=== PATIENT | male | born 1945 | race Caucasian/White ===

== ENCOUNTER 2022-05-25 12:26 | Observation (INO) | payer OTHER, SELFPAY ==
--- NOTE | ~2022-05-25 | XR_ITS ---
EXAMINATION: XR CHEST CLINICAL INFORMATION: Shortness of breath COMPARISON: None TECHNIQUE: Frontal view of the chest was obtained. FINDINGS: Lungs grossly are clear. Heart and pulmonary vessels are normal. XR/XR chest 1V IMPRESSION: No active disease. No congestive change.
--- NOTE | 2022-05-25 12:33 | ECG_ITS ---
Test Reason : SOB Blood Pressure : / mmHG Vent. Rate : 077 BPM Atrial Rate : 077 BPM P-R Int : 146 ms QRS Dur : 144 ms QT Int : 456 ms P-R-T Axes : 081 016 068 degrees QTc Int : 516 ms Sinus rhythm with occasional Premature ventricular complexes Right bundle branch block Abnormal ECG When compared with ECG of 03-APR-2020 13:19, Previous ECG has undetermined rhythm, needs review T wave inversion more evident in Anterior leads Referred By: Umu Lorenzana Electronically Signed By:Marv Marlow
[2022-05-25 12:37] VITALS: BP 123/79; BP 126/70; PULSE 77; RESP 22; TEMP 36.6; O2SAT 100; O2SAT 97; BMI 22.8
--- NOTE | 2022-05-25 12:43 | ED.SOB ---
HPI - SOB/Dyspnea General Chief Complaint: Dyspnea Stated Complaint: DIFFICULT BREATHING Time Seen by Provider: 05/25/22 12:32 Source: patient and EMS Mode of arrival: EMS Limitations: no limitations History of Present Illness HPI Narrative: 77-year-old male came in for evaluation of shortness of breath. 77-year-old male former smoker history of COPD use home oxygen 2 L, been having shortness of breath for the past 2 days with coughing and clear sputum, no fever or chills, 3 family member had flu-like symptoms at home, O2 saturation was 74% with 2 L of oxygen at home. On EMS arrival patient severe expiratory wheezing and mild respiratory distress, patient was given DuoNeb at home with mild improvement and transported to the emergency department. In the ED patient is complaining of mild shortness of breath and severe wheezing. Related Data Allergies Allergy/AdvReac Type Severity Reaction Status Date / Time Penicillins [PENICILLINS] Allergy Unknown VOMITTING Unverified 08/07/20 15:37 Review of Systems Review of Systems: All other systems are reviewed and are negative Constitutional: Reports as per HPI and Reports no additional constitutional complaints Eyes: Reports as per HPI and Reports no additional eye complaints Reports system reviewed and no additional complaints, except as documented Cardiovascular: Reports as per HPI and Reports no additional cardiovascular complaints Respiratory: Reports as per HPI and Reports no additional respiratory complaints Gastrointestinal: Reports as per HPI and Reports no additional gastrointestinal complaints Genitourinary: Reports no additional female genitourinary complaints Musculoskeletal: Reports no additional musculoskeletal complaints Skin/Breast: Reports system reviewed and no additional complaints, except as docu Psychiatric: Reports no additional psychiatric complaints Endocrine: Reports no additional endocrine complaints Hematologic/Lymphatic: Reports no additional hematologic/lymphatic complaints Allergic/Immunologic: Reports no additional allergic/immunologic complaints Reports system reviewed and no additional complaints, except as documented and Reports Abnormal speech present [facility] Social History Social History Advance Directives: No Advance Directives Information Provided: No Physical Exam Vital Signs: Vital Signs: Last Vital Signs Temp 98 F 05/25/22 12:37 Pulse 74 05/25/22 14:14 Resp 12 05/25/22 14:14 BP 123/68 05/25/22 14:14 Pulse Ox 97 05/25/22 14:14 O2 Del Method 05/25/22 14:14 BMI result Body Mass Index 22.8 Vital signs have been reviewed as appeared to be correct. Blood pressure normal. Heart rate normal. Respiration rate normal. Temperature normal. Oxygen saturation normal. Appearance: Alert. Oriented X3. No acute distress. Head: Normal external exam. Normocephalic. Atraumatic. No Ferraro signs noted. No raccoon eyes noted Eyes: PERRLA. EOMI. Conjunctiva and sclera normal. Eyelids normal. ENT: TM's Normal. Pharynx normal. Uvula midline. Moist mucous membranes. No trismus noted. No drooling noted. No muffled voice noted. Neck: Normal inspection. Neck supple. FROM. No adenopathy. Thyroid Normal. No meningeal signs. No neck mass noted. CVS: Normal heart rate and rhythm. Heart sound normal. No murmurs noted. Pulses normal throughout. Respiratory: No respiratory distress. Painless inspiration. Breath sounds normal. Mild expiratory wheezing, prolonged expiration. Chest nontender. No accessory muscle usage noted or decreased air movement noted. Abdomen: Soft and nontender. Bowel sounds normal in all 4 quadrants. No distention noted. No organomegaly noted. No visible injury noted. Back: No CVA tenderness. Full range of motion noted. Skin: Skin warm and dry. Normal skin color. Normal skin turgor. No rashes/lesions/lacerations noted. Extremities: No lower extremity edema. Extremities exhibit normal range of motion. Extremities nontender. Neuro: Oriented X 3. Cranial nerve exam: II-XII are grossly intact No motor deficit. No sensory deficit. Reflexes normal. Course Course Course Narrative: Assessment and plan. 77-year-old male with history of COPD came in with COPD exacerbation patient was hypoxic at home at 74%, patient require our long of bronchodilator, magnesium, Solu-Medrol, patient is showing partial improvement. Patient do not meet criteria for SIRS therefore no antibiotic indication. MDM - SOB/Dyspnea Medical Records Attestation: I reviewed the patient's medical records. Lab Data Attestation: I reviewed the patient's lab results. Result diagrams: 05/25/22 13:41 05/25/22 13:41 Labs: Lab Results 05/25/22 05/25/22 05/25/22 Range/Units 13:36 13:41 13:41 WBC 6.5 (4.8-10.8) X10*3/uL RBC 4.04 L (4.60-5.80) X10*6/uL Hgb 12.4 L (14.0-18.0) g/dl Hct 39.1 L (42.0-52.0) % MCV 96.8 (80.0-98.0) fL MCH 30.7 (27.0-33.0) pg MCHC 31.7 (31.0-36.0) g/dl RDW 13.2 (11.0-16.0) % Plt Count 254 (160-400) X10*3/uL MPV 9.3 L (9.4-12.4) fL Immature Gran % (Auto) 0.3 (0.0-0.4) % Neut % (Auto) 51.0 (45-73) % Lymph % (Auto) 33.5 (20-40) % [place] % (Auto) 9.2 (2-11) % Eos % (Auto) 5.4 H (0-4) % Baso % (Auto) 0.6 (0-2) % Lymph # (Auto) 2.2 (1.2-4.9) X10*3/uL [place] # (Auto) 0.6 (0.1-1.2) X10*3/uL Eos # (Auto) 0.4 (0.0-0.4) X10*3/uL Baso # (Auto) 0.0 (0.0-0.2) X10*3/uL Abs Immat Gran (auto) 0.02 (0.00-0.03) X10*3/uL Absolute Neuts (auto) 3.3 (2.0-8.3) x10*3/uL Absolute Nucleated RBC 0.000 (0.0-0.012) X10*3/uL Nucleated RBC % (auto) 0.0 (0.0-0.2) /100WBC Sodium 140 (135-145) mmol/L Potassium 4.4 (3.3-5.1) mmol/L Chloride 106 (96-108) mmol/L Carbon Dioxide 28 (22-29) mmol/L Anion Gap 10 L (12-20) BUN 16 (9-16) mg/dL Creatinine 1.14 (0.5-1.4) mg/dL Estim Creat Clear Calc 54.0 Estimated GFR > 60 Random Glucose 85 (60-115) mg/dL Lactic Acid (0.5-2.0) mmol/L Calcium 9.0 (8.4-10.2) mg/dL Magnesium (1.6-2.6) mg/dL Troponin I High Sens (<3.5-35.0) ng/L B-Natriuretic Peptide (<100) pg/mL Lipase 14 (8-78) U/L Urine Color Urine Appearance Urine pH (5.0-8.0) Ur Specific [place] (1.005-1.025) Urine Protein (NEG-TRACE) MG/DL Urine Glucose (UA) (NEG) MG/DL Urine Ketones (NEG) MG/DL Urine Blood (NEG) Urine Nitrite (NEG) Ur Leukocyte Esterase (NEG) Urine RBC (0) /HPF Urine WBC (0-4) /HPF Ur Squamous Epith Cells /LPF Urine Bacteria /LPF Influenza Type A (PCR) NEGATIVE (Negative) Influenza Type B (PCR) NEGATIVE (Negative) RSV RNA Qual (PCR) NEGATIVE (Negative) SARS-CoV-2 RNA (RT-PCR) NEGATIVE (Negative) 05/25/22 05/25/22 05/25/22 Range/Units 13:41 13:41 13:41 WBC (4.8-10.8) X10*3/uL RBC (4.60-5.80) X10*6/uL Hgb (14.0-18.0) g/dl Hct (42.0-52.0) % MCV (80.0-98.0) fL MCH (27.0-33.0) pg MCHC (31.0-36.0) g/dl RDW (11.0-16.0) % Plt Count (160-400) X10*3/uL MPV (9.4-12.4) fL Immature Gran % (Auto) (0.0-0.4) % Neut % (Auto) (45-73) % Lymph % (Auto) (20-40) % [place] % (Auto) (2-11) % Eos % (Auto) (0-4) % Baso % (Auto) (0-2) % Lymph # (Auto) (1.2-4.9) X10*3/uL [place] # (Auto) (0.1-1.2) X10*3/uL Eos # (Auto) (0.0-0.4) X10*3/uL Baso # (Auto) (0.0-0.2) X10*3/uL Abs Immat Gran (auto) (0.00-0.03) X10*3/uL Absolute Neuts (auto) (2.0-8.3) x10*3/uL Absolute Nucleated RBC (0.0-0.012) X10*3/uL Nucleated RBC % (auto) (0.0-0.2) /100WBC Sodium (135-145) mmol/L Potassium (3.3-5.1) mmol/L Chloride (96-108) mmol/L Carbon Dioxide (22-29) mmol/L Anion Gap (12-20) BUN (9-16) mg/dL Creatinine (0.5-1.4) mg/dL Estim Creat Clear Calc Estimated GFR Random Glucose (60-115) mg/dL Lactic Acid 1.7 (0.5-2.0) mmol/L Calcium (8.4-10.2) mg/dL Magnesium 2.2 (1.6-2.6) mg/dL Troponin I High Sens 3.6 (<3.5-35.0) ng/L B-Natriuretic Peptide 84 (<100) pg/mL Lipase (8-78) U/L Urine Color Urine Appearance Urine pH (5.0-8.0) Ur Specific [place] (1.005-1.025) Urine Protein (NEG-TRACE) MG/DL Urine Glucose (UA) (NEG) MG/DL Urine Ketones (NEG) MG/DL Urine Blood (NEG) Urine Nitrite (NEG) Ur Leukocyte Esterase (NEG) Urine RBC (0) /HPF Urine WBC (0-4) /HPF Ur Squamous Epith Cells /LPF Urine Bacteria /LPF Influenza Type A (PCR) (Negative) Influenza Type B (PCR) (Negative) RSV RNA Qual (PCR) (Negative) SARS-CoV-2 RNA (RT-PCR) (Negative) 05/25/22 Range/Units 14:15 WBC (4.8-10.8) X10*3/uL RBC (4.60-5.80) X10*6/uL Hgb (14.0-18.0) g/dl Hct (42.0-52.0) % MCV (80.0-98.0) fL MCH (27.0-33.0) pg MCHC (31.0-36.0) g/dl RDW (11.0-16.0) % Plt Count (160-400) X10*3/uL MPV (9.4-12.4) fL Immature Gran % (Auto) (0.0-0.4) % Neut % (Auto) (45-73) % Lymph % (Auto) (20-40) % [place] % (Auto) (2-11) % Eos % (Auto) (0-4) % Baso % (Auto) (0-2) % Lymph # (Auto) (1.2-4.9) X10*3/uL [place] # (Auto) (0.1-1.2) X10*3/uL Eos # (Auto) (0.0-0.4) X10*3/uL Baso # (Auto) (0.0-0.2) X10*3/uL Abs Immat Gran (auto) (0.00-0.03) X10*3/uL Absolute Neuts (auto) (2.0-8.3) x10*3/uL Absolute Nucleated RBC (0.0-0.012) X10*3/uL Nucleated RBC % (auto) (0.0-0.2) /100WBC Sodium (135-145) mmol/L Potassium (3.3-5.1) mmol/L Chloride (96-108) mmol/L Carbon Dioxide (22-29) mmol/L Anion Gap (12-20) BUN (9-16) mg/dL Creatinine (0.5-1.4) mg/dL Estim Creat Clear Calc Estimated GFR Random Glucose (60-115) mg/dL Lactic Acid (0.5-2.0) mmol/L Calcium (8.4-10.2) mg/dL Magnesium (1.6-2.6) mg/dL Troponin I High Sens (<3.5-35.0) ng/L B-Natriuretic Peptide (<100) pg/mL Lipase (8-78) U/L Urine Color YELLOW Urine Appearance CLEAR Urine pH 6.0 (5.0-8.0) Ur Specific [place] 1.020 (1.005-1.025) Urine Protein NEG (NEG-TRACE) MG/DL Urine Glucose (UA) NEG (NEG) MG/DL Urine Ketones NEG (NEG) MG/DL Urine Blood 2+ H (NEG) Urine Nitrite NEG (NEG) Ur Leukocyte Esterase NEG (NEG) Urine RBC 15-29 H (0) /HPF Urine WBC 0 (0-4) /HPF Ur Squamous Epith Cells NONE /LPF Urine Bacteria NONE /LPF Influenza Type A (PCR) (Negative) Influenza Type B (PCR) (Negative) RSV RNA Qual (PCR) (Negative) SARS-CoV-2 RNA (RT-PCR) (Negative) Imaging Data Chest x-ray: Attestation: I personally reviewed and interpreted this imaging study as follows: Radiologist's impression: No acute disease no congestive changes. Discharge Plan Discharge Clinical Impression: Acute exacerbation of chronic obstructive airways disease Patient Disposition: Admitted As Inpatient
[2022-05-25] MEDS: Albuterol/Iprat 2.5/0.5MG 3 ML AMPUL.NEB INHALE (12:51)
[2022-05-25] MEDS: Albuterol Sulfate (0.083%) 2.5 MG/3 ML VIAL.NEB 7.5 MG INHALE (12:51)
[2022-05-25 12:55] VITALS: PULSE 76; RESP 17; O2SAT 97
[2022-05-25] MEDS: methylPREDNISolone Sod Succ 125 MG/2 ML VIAL IVPUSH (13:04)
[2022-05-25 13:45] VITALS: BP 121/80; PULSE 75; RESP 12; O2SAT 98
[2022-05-25 13:47] LABS: MANUAL DIFF FLAG NO
[2022-05-25 14:01] LABS: Basophils Percent Auto 0.6 % (0-2); Eosinophils Absolute Auto 0.4 X10*3/uL (0.0-0.4); Eosinophils Percent Auto 5.4 % (0-4); Hematocrit 39.1 % (42.0-52.0); Hemoglobin 12.4 g/dl (14.0-18.0); Imm Gran Abs Auto 0.02 X10*3/uL (0.00-0.03); Imm Gran Pct Auto 0.3 % (0.0-0.4); Lymphocytes Absolute Auto 2.2 X10*3/uL (1.2-4.9); Lymphocytes Percent Auto 33.5 % (20-40); Mean Corpuscular HGB Conc 31.7 g/dl (31.0-36.0); Mean Corpuscular Hemoglobin 30.7 pg (27.0-33.0); Mean Corpuscular Volume 96.8 fL (80.0-98.0); Mean Platelet Volume 9.3 fL (9.4-12.4); Monocytes Absolute Auto 0.6 X10*3/uL (0.1-1.2); Monocytes Percent Auto 9.2 % (2-11); Neutrophils Absolute Auto 3.3 x10*3/uL (2.0-8.3); Platelet Count 254 X10*3/uL (160-400); Red Blood Count 4.04 X10*6/uL (4.60-5.80); Red Cell Distribution Width 13.2 % (11.0-16.0); White Blood Count 6.5 X10*3/uL (4.8-10.8)
[2022-05-25 14:02] LABS: Lactic Acid 1.7 mmol/L (0.5-2.0)
[2022-05-25 14:07] LABS: Anion Gap 10 (12-20); Blood Urea Nitrogen 16 mg/dL (9-16); Carbon Dioxide 28 mmol/L (22-29); Chloride 106 mmol/L (96-108); Estimated Glomerular Filt Rate > 60; Glucose Random 85 mg/dL (60-115); Lipase 14 U/L (8-78); Potassium 4.4 mmol/L (3.3-5.1); Sodium 140 mmol/L (135-145)
[2022-05-25 14:08] LABS: Magnesium 2.2 mg/dL (1.6-2.6)
[2022-05-25 14:11] LABS: B Type Natriuretic Peptide 84 pg/mL (<100); Troponin-I High Sensitivity 3.6 ng/L (<3.5-35.0)
[2022-05-25 14:14] VITALS: BP 123/68; PULSE 74; RESP 12; O2SAT 97
[2022-05-25 14:27] LABS: Appearance Urine CLEAR; Color Urine YELLOW; Glucose Urine UA NEG (NEG); Leukocyte Esterase Urine NEG (NEG); Nitrite Urine NEG (NEG); UACC Culture Trigger NO; Urine Blood 2+ (NEG); Urine Ketones NEG (NEG); Urine Protein NEG (NEG-TRACE)
[2022-05-25 14:41] LABS: Influenza A PCR NEGATIVE (Negative); Influenza B PCR NEGATIVE (Negative); Resp Syncy Virus RNA Qual PCR NEGATIVE (Negative); SARS COV2 PCR INHOUSE NEGATIVE (Negative)
[2022-05-25 14:56] LABS: WBC Urine 0 /HPF (0-4)
--- NOTE | 2022-05-25 16:38 | P.HPHOSP_ITS ---
History of Present Illness Date of Service: 05/25/22 Chief Complaint: SOB This 77-year-old man presenting with shortness of breath over last several days. He reports cough with white phlegm. He denies cigarette use. He does have a history of COPD. He denies chest pain, nausea, vomiting, diarrhea, recent illness, sick contacts, recent travel. Chest x-ray is negative for consolidation or effusion. In the ER no elevated white count or fever noted, negative RSV, flu and COVID. No hypoxia noted, hemodynamically stable. He was given a dose of Solu-Medrol, DuoNebs in the ER. He will be admitted to [facility] for further management and treatment of acute asthma exacerbation. Review of Systems Review of Systems: Denies any recent fever chills or decrease in appetite respiratory see HPI cardiovascular Denies chest pain gastrointestinal denies any dysphagia abdominal pain nausea vomiting or diarrhea genitourinary denies any dysuria frequency or hematuria musculoskeletal denies any joint pain or swelling neuropsych denies any weakness or seizures all other systems reviewed are negative PMFSH Social History Patient Tobacco Use Status: Former Tobacco user service: Yes Current occupational status: retired [employer] Allergies Allergy/AdvReac Type Severity Reaction Status Date / Time Penicillins [PENICILLINS] Allergy Unknown VOMITTING Unverified 08/07/20 15:37 Home Medications Medication Instructions Recorded Confirmed Last Taken Type acetaminophen 500 mg tablet 500 mg PO BID PRN Pain 05/25/22 05/25/22 Unknown History budesonide-formoterol HFA 160 2 puff inhalation BID 05/25/22 05/25/22 Unknown History mcg-4.5 mcg/actuation aerosol inhaler guaifenesin 600 mg tablet,extended 600 mg PO TID PRN Cough 05/25/22 05/25/22 Unknown History release ipratropium 0.5 mg-albuterol 3 mg 3 ml inhalation QID 05/25/22 05/25/22 Unknown History (2.5 mg base)/3 mL nebulization soln lidocaine 5 % topical patch 1 patch topical DAILY 05/25/22 05/25/22 Unknown History nicotine 21 mg/24 hr daily 1 patch transdermal DAILY 05/25/22 05/25/22 Unknown History transdermal patch omeprazole 20 mg capsule,delayed 20 mg PO BID@0630,1630 05/25/22 05/26/22 Unknown History release trazodone 50 mg tablet 25 mg PO BEDTIME PRN Insomnia 05/25/22 05/25/22 Unknown History umeclidinium 62.5 mcg/actuation 1 inh inhalation DAILY 05/25/22 05/25/22 Unknown History blister powder for inhalation albuterol sulfate 90 mcg/actuation 1 inh inhalation QID PRN Wheezing 05/26/22 05/26/22 Unknown History aerosol inhaler amitriptyline 10 mg tablet 20 mg PO BEDTIME 05/26/22 05/26/22 Unknown History atorvastatin 40 mg tablet 40 mg PO BEDTIME 05/26/22 05/26/22 Unknown History azithromycin 250 mg tablet 250 mg PO MOWEFR@0900 05/26/22 05/26/22 Unknown History multivitamin with minerals 1 tab PO DAILY 05/26/22 05/26/22 Unknown History verapamil 80 mg tablet 80 mg PO BID 05/26/22 05/26/22 Unknown History Physical Exam Vital Signs and Narrative: Vital Signs: Last Vital Signs Temp 98 F 05/25/22 12:37 Pulse 74 05/25/22 14:14 Resp 12 05/25/22 14:14 BP 123/68 05/25/22 14:14 Pulse Ox 97 05/25/22 14:14 O2 Del Method 05/25/22 14:14 BMI result Body Mass Index 22.8 Appearing in no acute distress head is normocephalic atraumatic eyes pupils are PERRLA sclera is anicteric mouth throat mucous membranes are intact and moist neck is supple no lymphadenopathy, no JVD noted lung sounds expiratory wheezes heart regular rate rhythm, clear S1, S2 positive bowel sounds, abdomen is soft, nontender neuro patient is alert x3, no focal deficits Results Labs CBC and Chem 7: 05/28/22 06:59 05/28/22 06:59 Labs: Laboratory Results - last 24 hr 05/25/22 05/25/22 05/25/22 13:36 13:41 13:41 MCV 96.8 MCH 30.7 MCHC 31.7 RDW 13.2 Plt Count 254 MPV 9.3 L Immature Gran % (Auto) 0.3 Neut % (Auto) 51.0 Lymph % (Auto) 33.5 [place] % (Auto) 9.2 Eos % (Auto) 5.4 H Baso % (Auto) 0.6 Lymph # (Auto) 2.2 [place] # (Auto) 0.6 Eos # (Auto) 0.4 Baso # (Auto) 0.0 Abs Immat Gran (auto) 0.02 Absolute Neuts (auto) 3.3 Absolute Nucleated RBC 0.000 Nucleated RBC % (auto) 0.0 Anion Gap 10 L Estim Creat Clear Calc 54.0 Estimated GFR > 60 Random Glucose 85 Lactic Acid Calcium 9.0 Magnesium Troponin I High Sens B-Natriuretic Peptide Lipase 14 Urine Color Urine Appearance Urine pH Ur Specific [place] Urine Protein Urine Glucose (UA) Urine Ketones Urine Blood Urine Nitrite Ur Leukocyte Esterase Urine RBC Urine WBC Ur Squamous Epith Cells Urine Bacteria Influenza Type A (PCR) NEGATIVE Influenza Type B (PCR) NEGATIVE RSV RNA Qual (PCR) NEGATIVE SARS-CoV-2 RNA (RT-PCR) NEGATIVE 05/25/22 05/25/22 05/25/22 13:41 13:41 13:41 MCV MCH MCHC RDW Plt Count MPV Immature Gran % (Auto) Neut % (Auto) Lymph % (Auto) [place] % (Auto) Eos % (Auto) Baso % (Auto) Lymph # (Auto) [place] # (Auto) Eos # (Auto) Baso # (Auto) Abs Immat Gran (auto) Absolute Neuts (auto) Absolute Nucleated RBC Nucleated RBC % (auto) Anion Gap Estim Creat Clear Calc Estimated GFR Random Glucose Lactic Acid 1.7 Calcium Magnesium 2.2 Troponin I High Sens 3.6 B-Natriuretic Peptide 84 Lipase Urine Color Urine Appearance Urine pH Ur Specific [place] Urine Protein Urine Glucose (UA) Urine Ketones Urine Blood Urine Nitrite Ur Leukocyte Esterase Urine RBC Urine WBC Ur Squamous Epith Cells Urine Bacteria Influenza Type A (PCR) Influenza Type B (PCR) RSV RNA Qual (PCR) SARS-CoV-2 RNA (RT-PCR) 05/25/22 14:15 MCV MCH MCHC RDW Plt Count MPV Immature Gran % (Auto) Neut % (Auto) Lymph % (Auto) [place] % (Auto) Eos % (Auto) Baso % (Auto) Lymph # (Auto) [place] # (Auto) Eos # (Auto) Baso # (Auto) Abs Immat Gran (auto) Absolute Neuts (auto) Absolute Nucleated RBC Nucleated RBC % (auto) Anion Gap Estim Creat Clear Calc Estimated GFR Random Glucose Lactic Acid Calcium Magnesium Troponin I High Sens B-Natriuretic Peptide Lipase Urine Color YELLOW Urine Appearance CLEAR Urine pH 6.0 Ur Specific [place] 1.020 Urine Protein NEG Urine Glucose (UA) NEG Urine Ketones NEG Urine Blood 2+ H Urine Nitrite NEG Ur Leukocyte Esterase NEG Urine RBC 15-29 H Urine WBC 0 Ur Squamous Epith Cells NONE Urine Bacteria NONE Influenza Type A (PCR) Influenza Type B (PCR) RSV RNA Qual (PCR) SARS-CoV-2 RNA (RT-PCR) Imaging Radiologist's Impressions: Impressions Chest X-Ray 05/25/22 14:05 IMPRESSION: No active disease. No congestive change. Assessment and Plan (1) Acute exacerbation of chronic obstructive airways disease: Status: Acute Plan 77 year old man placed on observation for acute asthma exacerbation COPD exacerbation still wheezing, no hypoxia continue Duonebs, steroids Supplemental oxygen RSV, FLU and covid neg DVT prophylaxis with Lovenox Attending Dr. Méndez Full code Quality Stroke Does the patient have a stroke diagnosis?: No VTE Prior VTE?: No VTE Risk Level:: Medical - moderate - high VTE Device Contraindication: Treatment Not Indicated VTE Drug Contraindication: N/A - Med Ordered
[2022-05-25] MEDS: Azithromycin 250 MG TABLET PO (18:37)
--- NOTE | 2022-05-25 18:39 | PHA.MEDREC ---
Addendum entered by Marika Tarango [facility] 05/26/22 14:16: [facility] because patient insists he takes verapamil and amitryptyline. New list obtained. added MVI, verapamil, amitryptyline, azithromycin and changed the dose of atorvastatin. Dr. Ward contacted. Original Note: Pharmacy Consult ? Medication Reconciliation Pharmacy has completed the medication reconciliation. List obtained from [place]. Patient claims he takes Ramipril 20mg and Amitriptyline 20mg at bedtime. [facility] had no history of this, nor do these doses typically exist.
[2022-05-25 18:47] VITALS: PULSE 93; RESP 18; O2SAT 97
[2022-05-25] MEDS: Albuterol Sulfate (0.083%) 2.5 MG/3 ML VIAL.NEB INHALE (18:47)
[2022-05-25 19:44] VITALS: BP 125/71; PULSE 83; RESP 16; O2SAT 97
[2022-05-25] MEDS: methylPREDNISolone Sod Succ 40 MG/ML VIAL IVPUSH (20:14)
--- NOTE | 2022-05-25 21:49 | MHC.CM.PN ---
CM met with pt placed to observation with bed assignment pending. A&Ox4. [facility] 05/25. Lives with daughter/HCP Marleen Sorensen ([phone]). Copy requested. PCP is at the [facility]. Cannot remember the name. [place] [facility] uses home oxygen at 2L. States provided by [facility]. [facility]. Has Medicare part A. Has no home services. Former [employer]. 2 tours in [employer]. 60% vet connected disability. Lives with daughter. D/C plan: home without services. Daughter will transport. CM to follow for d/c needs.
[2022-05-25] MEDS: traZODone HCL 25 MG HALFTAB PO ×2 (23:07→23:15)
[2022-05-25] MEDS: 0.9 % Sodium Chloride Flush 3 ML SYRINGE IVFLUSH (23:15)
[2022-05-26] VITALS (7 sets, daily range): BP systolic 104–119; BP diastolic 62–84; PULSE 76–96; RESP 16–20; TEMP 36.3–36.6; O2SAT 96–98
[2022-05-26] MEDS: methylPREDNISolone Sod Succ 40 MG/ML VIAL IVPUSH ×3 (01:20→21:16)
[2022-05-26 05:53] LABS: MANUAL DIFF FLAG NO
[2022-05-26 05:54] LABS: Basophils Percent Auto 0.2 % (0-2); Hematocrit 37.8 % (42.0-52.0); Hemoglobin 12.6 g/dl (14.0-18.0); Imm Gran Abs Auto 0.01 X10*3/uL (0.00-0.03); Imm Gran Pct Auto 0.2 % (0.0-0.4); Lymphocytes Absolute Auto 0.6 X10*3/uL (1.2-4.9); Lymphocytes Percent Auto 9.7 % (20-40); Mean Corpuscular HGB Conc 33.3 g/dl (31.0-36.0); Mean Corpuscular Hemoglobin 31.7 pg (27.0-33.0); Mean Platelet Volume 9.6 fL (9.4-12.4); Monocytes Absolute Auto 0.1 X10*3/uL (0.1-1.2); Monocytes Percent Auto 1.5 % (2-11); Neutrophils Absolute Auto 5.4 x10*3/uL (2.0-8.3); Neutrophils Percent Auto 88.4 % (45-73); Platelet Count 253 X10*3/uL (160-400); Red Blood Count 3.98 X10*6/uL (4.60-5.80); Red Cell Distribution Width 13.2 % (11.0-16.0); White Blood Count 6.1 X10*3/uL (4.8-10.8)
[2022-05-26 06:16] LABS: Anion Gap 12 (12-20); Blood Urea Nitrogen 18 mg/dL (9-16); Calcium 9.2 mg/dL (8.4-10.2); Carbon Dioxide 25 mmol/L (22-29); Chloride 106 mmol/L (96-108); Creatinine Clr Calc Pharmacy 69.2; Estimated Glomerular Filt Rate > 60; Glucose Random 146 mg/dL (60-115); Potassium 4.7 mmol/L (3.3-5.1); Sodium 138 mmol/L (135-145)
[2022-05-26] MEDS: Atorvastatin Calcium 20 MG TABLET PO (08:50)
[2022-05-26] MEDS: Nicotine 21 MG PATCH.TD24 TRANSDERMA (08:50)
[2022-05-26] MEDS: Omeprazole 20 MG CAPSULE.DR PO ×2 (08:50→21:16)
[2022-05-26] MEDS: Albuterol Sulfate (0.083%) 2.5 MG/3 ML VIAL.NEB INHALE ×3 (09:26→20:17)
[2022-05-26] MEDS: Fluticasone/Vilanterol 200/25 BLST.W.DEV 1 PUFF INHALE (09:28)
[2022-05-26] MEDS: 0.9 % Sodium Chloride Flush 3 ML SYRINGE IVFLUSH ×2 (09:41→16:13)
[2022-05-26] MEDS: guaiFENesin LA 600 MG TAB.ER.12H PO ×2 (10:51→21:16)
[2022-05-26] MEDS: Albuterol/Iprat 2.5/0.5MG 3 ML AMPUL.NEB INHALE (12:45)
--- NOTE | 2022-05-26 12:57 | HO.PM.IMPN ---
Subjective Subjective Date of Service: 05/26/22 Interval History: cc: sob interval history:still very sob, wheezy Cardiovascular Cardiovascular: Reports no additional cardiovascular complaints Gastrointestinal Gastrointestinal: Reports no additional gastrointestinal complaints Physical Exam Vital Signs: Vital Signs: Last Vital Signs Temp 97.3 F 05/26/22 07:21 Pulse 76 05/26/22 12:46 Resp 17 05/26/22 12:46 BP 119/84 05/26/22 07:21 Pulse Ox 96 05/26/22 07:21 O2 Del Method 05/26/22 07:21 O2 Flow Rate 2 05/26/22 07:21 BMI result Body Mass Index 22.8 General: AO X 3, no acute distress Resp: rhonchi, wheezes bilateral, no accessory muscles used CVS: S1,S2,RRR GI: soft, non tender, non distended Neuro: motor grossly intact, alert Psych: appropriate affect, appropriate insight Objective Data Active Medications Acetaminophen (Acetaminophen 325 Mg Tablet) 650 mg PO Q6H PRN PRN Reason: Pain, Mild (Pain Scale 1-3) Albuterol Sulfate (Albuterol Sulfate (0.083%) 2.5 Mg/3 Ml Vial.Neb) 2.5 mg INHALE RQ4H WHILE AWAKE [facility] Last Admin: 05/26/22 12:56 Dose: Not Given Documented By: DAVON Non-Admin Reason: duoneb given Albuterol/Ipratropium (Albuterol/Iprat 2.5/0.5mg 3 Ml Ampul.Neb) 3 ml INHALE QID PRN PRN Reason: Wheezing Last Admin: 05/26/22 12:45 Dose: 3 ml Documented By: HOA Atorvastatin Calcium (Atorvastatin Calcium 20 Mg Tablet) 20 mg PO DAILY [facility] Last Admin: 05/26/22 08:50 Dose: 20 mg Documented By: AP Azithromycin (Azithromycin 250 Mg Tablet) 250 mg PO Q24H [facility] Last Admin: 05/25/22 18:37 Dose: 250 mg Documented By: PEYTON Fluticasone/Vilanterol (Fluticasone/Vilanterol 200/25 Blst.W.Dev) 1 puff INHALE RDAILY [facility] Last Admin: 05/26/22 09:28 Dose: 1 puff Documented By: DAVON Guaifenesin (Guaifenesin La 600 Mg Tab.Er.12h) 600 mg PO BID [facility] Last Admin: 05/26/22 10:51 Dose: 600 mg Documented By: AP Methylprednisolone Sodium Succinate (Methylprednisolone Sod Succ 40 Mg/Ml Vial) 40 mg IVPUSH Q12H [facility] Nicotine (Nicotine 21 Mg Patch.Td24) 21 mg TRANSDERMA DAILY [facility] Last Admin: 05/26/22 08:50 Dose: 21 mg Documented By: AP Omeprazole (Omeprazole 20 Mg Capsule.Dr) 20 mg PO BID [facility] Last Admin: 05/26/22 08:50 Dose: 20 mg Documented By: AP Ondansetron HCl (Ondansetron Hcl 4 Mg/2 Ml Vial) 4 mg IVPUSH Q8H PRN PRN Reason: Nausea and Vomiting Sodium Chloride (0.9 % Sodium Chloride Flush 3 Ml Syringe) 3 ml IVFLUSH QSHIFT [facility] Last Admin: 05/26/22 09:41 Dose: 3 ml Documented By: AP Trazodone HCl (Trazodone Hcl 25 Mg Halftab) 25 mg PO BEDTIME PRN PRN Reason: Insomnia Last Admin: 05/25/22 23:15 Dose: 25 mg Documented By: MICHAEL Labs CBC & Chem 7: 05/26/22 05:32 05/26/22 05:32 Labs: Laboratory Results - last 24 hr 05/25/22 05/25/22 05/25/22 13:36 13:41 13:41 MCV 96.8 MCH 30.7 MCHC 31.7 RDW 13.2 Plt Count 254 MPV 9.3 L Immature Gran % (Auto) 0.3 Neut % (Auto) 51.0 Lymph % (Auto) 33.5 [place] % (Auto) 9.2 Eos % (Auto) 5.4 H Baso % (Auto) 0.6 Lymph # (Auto) 2.2 [place] # (Auto) 0.6 Eos # (Auto) 0.4 Baso # (Auto) 0.0 Abs Immat Gran (auto) 0.02 Absolute Neuts (auto) 3.3 Absolute Nucleated RBC 0.000 Nucleated RBC % (auto) 0.0 Anion Gap 10 L Estim Creat Clear Calc 54.0 Estimated GFR > 60 Random Glucose 85 Lactic Acid Calcium 9.0 Magnesium Troponin I High Sens B-Natriuretic Peptide Lipase 14 Urine Color Urine Appearance Urine pH Ur Specific [place] Urine Protein Urine Glucose (UA) Urine Ketones Urine Blood Urine Nitrite Ur Leukocyte Esterase Urine RBC Urine WBC Ur Squamous Epith Cells Urine Bacteria Influenza Type A (PCR) NEGATIVE Influenza Type B (PCR) NEGATIVE RSV RNA Qual (PCR) NEGATIVE SARS-CoV-2 RNA (RT-PCR) NEGATIVE 05/25/22 05/25/22 05/25/22 13:41 13:41 13:41 MCV MCH MCHC RDW Plt Count MPV Immature Gran % (Auto) Neut % (Auto) Lymph % (Auto) [place] % (Auto) Eos % (Auto) Baso % (Auto) Lymph # (Auto) [place] # (Auto) Eos # (Auto) Baso # (Auto) Abs Immat Gran (auto) Absolute Neuts (auto) Absolute Nucleated RBC Nucleated RBC % (auto) Anion Gap Estim Creat Clear Calc Estimated GFR Random Glucose Lactic Acid 1.7 Calcium Magnesium 2.2 Troponin I High Sens 3.6 B-Natriuretic Peptide 84 Lipase Urine Color Urine Appearance Urine pH Ur Specific [place] Urine Protein Urine Glucose (UA) Urine Ketones Urine Blood Urine Nitrite Ur Leukocyte Esterase Urine RBC Urine WBC Ur Squamous Epith Cells Urine Bacteria Influenza Type A (PCR) Influenza Type B (PCR) RSV RNA Qual (PCR) SARS-CoV-2 RNA (RT-PCR) 05/25/22 05/26/22 05/26/22 14:15 05:32 05:32 MCV 95.0 MCH 31.7 MCHC 33.3 RDW 13.2 Plt Count 253 MPV 9.6 Immature Gran % (Auto) 0.2 Neut % (Auto) 88.4 H Lymph % (Auto) 9.7 L [place] % (Auto) 1.5 L Eos % (Auto) 0.0 Baso % (Auto) 0.2 Lymph # (Auto) 0.6 L [place] # (Auto) 0.1 Eos # (Auto) 0.0 Baso # (Auto) 0.0 Abs Immat Gran (auto) 0.01 Absolute Neuts (auto) 5.4 Absolute Nucleated RBC 0.000 Nucleated RBC % (auto) 0.0 Anion Gap 12 Estim Creat Clear Calc 69.2 Estimated GFR > 60 Random Glucose 146 H D Lactic Acid Calcium 9.2 Magnesium Troponin I High Sens B-Natriuretic Peptide Lipase Urine Color YELLOW Urine Appearance CLEAR Urine pH 6.0 Ur Specific [place] 1.020 Urine Protein NEG Urine Glucose (UA) NEG Urine Ketones NEG Urine Blood 2+ H Urine Nitrite NEG Ur Leukocyte Esterase NEG Urine RBC 15-29 H Urine WBC 0 Ur Squamous Epith Cells NONE Urine Bacteria NONE Influenza Type A (PCR) Influenza Type B (PCR) RSV RNA Qual (PCR) SARS-CoV-2 RNA (RT-PCR) Assessment and Plan (1) Acute exacerbation of chronic obstructive airways disease: Status: Acute Plan 77M presented with sob acute on chronic hypoxic resipraotry failure due to copd with acute decompensation now on baseline 2L home o2, but still very wheezy and sob continue steroids, nebs, azithro hld statin dvt prophylaxis - lovenox full code reason for continued hospitalization:ongoing significnat sob Quality Stroke Does the patient have a stroke diagnosis?: No VTE Prior VTE?: No VTE Risk Level:: Medical - moderate - high VTE Device Contraindication: Treatment Not Indicated VTE Drug Contraindication: N/A - Med Ordered
[2022-05-26] MEDS: Enoxaparin Sodium 40 MG/0.4 ML SYRINGE SUBCUT (15:26)
[2022-05-26] MEDS: Azithromycin 250 MG TABLET PO (18:04)
[2022-05-26] MEDS: VerapamiL HCL 80 MG TABLET PO (21:16)
[2022-05-26] MEDS: Atorvastatin Calcium 40 MG TABLET PO (21:16)
[2022-05-26] MEDS: Amitriptyline HCl 10 MG TABLET 20 MG PO (21:17)
--- NOTE | 2022-05-26 23:40 | PC.NURSE ---
Report given to GAVIN Peacock
[2022-05-27] VITALS (9 sets, daily range): BP systolic 109–138; BP diastolic 63–75; PULSE 64–82; RESP 16–20; TEMP 36.1–37.1; O2SAT 95–99; BMI 22.3
[2022-05-27] MEDS: 0.9 % Sodium Chloride Flush 3 ML SYRINGE IVFLUSH ×4 (00:56→21:37)
[2022-05-27] MEDS: methylPREDNISolone Sod Succ 40 MG/ML VIAL IVPUSH ×2 (06:25→18:19)
[2022-05-27 07:04] LABS: Hematocrit 38.5 % (42.0-52.0); Hemoglobin 12.6 g/dl (14.0-18.0); Mean Corpuscular HGB Conc 32.7 g/dl (31.0-36.0); Mean Corpuscular Hemoglobin 31.4 pg (27.0-33.0); Mean Platelet Volume 9.7 fL (9.4-12.4); Platelet Count 267 X10*3/uL (160-400); Red Blood Count 4.01 X10*6/uL (4.60-5.80); Red Cell Distribution Width 13.4 % (11.0-16.0); White Blood Count 19.2 X10*3/uL (4.8-10.8)
[2022-05-27 07:38] LABS: Anion Gap 15 (12-20); Blood Urea Nitrogen 29 mg/dL (9-16); Calcium 9.3 mg/dL (8.4-10.2); Carbon Dioxide 26 mmol/L (22-29); Chloride 104 mmol/L (96-108); Creatinine Clr Calc Pharmacy 57.6; Estimated Glomerular Filt Rate > 60; Glucose Fasting 116 mg/dL (60-99); Potassium 5.3 mmol/L (3.3-5.1); Sodium 140 mmol/L (135-145)
[2022-05-27] MEDS: VerapamiL HCL 80 MG TABLET PO ×2 (08:58→21:36)
[2022-05-27] MEDS: Omeprazole 20 MG CAPSULE.DR PO ×2 (08:58→21:36)
[2022-05-27] MEDS: Multivitamin TABLET 1 TAB PO (08:58)
[2022-05-27] MEDS: guaiFENesin LA 600 MG TAB.ER.12H PO ×2 (08:59→21:36)
[2022-05-27] MEDS: Nicotine 21 MG PATCH.TD24 TRANSDERMA (08:59)
--- NOTE | 2022-05-27 09:52 | P.PNIM_ITS ---
Subjective Subjective Date of Service: 05/27/22 Interval History: cc: sob interval history:still very sob, wheezy Cardiovascular Cardiovascular: Reports no additional cardiovascular complaints Gastrointestinal Gastrointestinal: Reports no additional gastrointestinal complaints Physical Exam Vital Signs: Vital Signs: Last Vital Signs Temp 98.6 F 05/27/22 07:32 Pulse 68 05/27/22 07:32 Resp 20 05/27/22 07:32 BP 122/75 05/27/22 07:32 Pulse Ox 99 05/27/22 07:32 O2 Del Method 05/27/22 07:32 O2 Flow Rate 3 05/27/22 07:32 BMI result Body Mass Index 22.3 General: AO X 3, no acute distress Resp: rhonchi, wheezes bilateral, no accessory muscles used CVS: S1,S2,RRR GI: soft, non tender, non distended Neuro: motor grossly intact, alert Psych: appropriate affect, appropriate insight Objective Data Active Medications Acetaminophen (Acetaminophen 325 Mg Tablet) 650 mg PO Q6H PRN PRN Reason: Pain, Mild (Pain Scale 1-3) Albuterol Sulfate (Albuterol Sulfate (0.083%) 2.5 Mg/3 Ml Vial.Neb) 2.5 mg INHALE RQ4H WHILE AWAKE [facility] Last Admin: 05/26/22 20:17 Dose: 2.5 mg Documented By: ZOHREH Albuterol/Ipratropium (Albuterol/Iprat 2.5/0.5mg 3 Ml Ampul.Neb) 3 ml INHALE QID PRN PRN Reason: Wheezing Last Admin: 05/26/22 12:45 Dose: 3 ml Documented By: HOA Amitriptyline HCl (Amitriptyline Hcl 10 Mg Tablet) 20 mg PO BEDTIME [facility] Last Admin: 05/26/22 21:17 Dose: 20 mg Documented By: PRASANNA Atorvastatin Calcium (Atorvastatin Calcium 40 Mg Tablet) 40 mg PO BEDTIME [facility] Last Admin: 05/26/22 21:16 Dose: 40 mg Documented By: PRASANNA Azithromycin (Azithromycin 250 Mg Tablet) 250 mg PO Q24H [facility] Last Admin: 05/26/22 18:04 Dose: 250 mg Documented By: AP Enoxaparin Sodium (Enoxaparin Sodium 40 Mg/0.4 Ml Syringe) 40 mg SUBCUT Q24H [facility] Last Admin: 05/26/22 15:26 Dose: 40 mg Documented By: AP Fluticasone/Vilanterol (Fluticasone/Vilanterol 200/25 Blst.W.Dev) 1 puff INHALE RDAILY [facility] Last Admin: 05/26/22 09:28 Dose: 1 puff Documented By: DAVON Guaifenesin (Guaifenesin La 600 Mg Tab.Er.12h) 600 mg PO BID [facility] Last Admin: 05/27/22 08:59 Dose: 600 mg Documented By: OCTAVIANO Methylprednisolone Sodium Succinate (Methylprednisolone Sod Succ 40 Mg/Ml Vial) 40 mg IVPUSH Q12H [facility] Last Admin: 05/27/22 06:25 Dose: 40 mg Documented By: NASREEN Multivitamins/Vitamin C (Multivitamin Tablet) 1 tab PO DAILY [facility] Last Admin: 05/27/22 08:58 Dose: 1 tab Documented By: OCTAVIANO Nicotine (Nicotine 21 Mg Patch.Td24) 21 mg TRANSDERMA DAILY [facility] Last Admin: 05/27/22 08:59 Dose: 21 mg Documented By: OCTAVIANO Omeprazole (Omeprazole 20 Mg Capsule.Dr) 20 mg PO BID [facility] Last Admin: 05/27/22 08:58 Dose: 20 mg Documented By: OCTAVIANO Ondansetron HCl (Ondansetron Hcl 4 Mg/2 Ml Vial) 4 mg IVPUSH Q8H PRN PRN Reason: Nausea and Vomiting Sodium Chloride (0.9 % Sodium Chloride Flush 3 Ml Syringe) 3 ml IVFLUSH QSHIFT [facility] Last Admin: 05/27/22 08:58 Dose: 3 ml Documented By: OCTAVIANO Trazodone HCl (Trazodone Hcl 25 Mg Halftab) 25 mg PO BEDTIME PRN PRN Reason: Insomnia Last Admin: 05/25/22 23:15 Dose: 25 mg Documented By: MICHAEL Verapamil HCl (Verapamil Hcl 80 Mg Tablet) 80 mg PO BID [facility]; Protocol Last Admin: 05/27/22 08:58 Dose: 80 mg Documented By: OCTAVIANO Labs CBC & Chem 7: 05/27/22 06:31 05/27/22 06:31 Labs: Laboratory Results - last 24 hr 05/27/22 05/27/22 06:31 06:31 MCV 96.0 MCH 31.4 MCHC 32.7 RDW 13.4 Plt Count 267 MPV 9.7 Absolute Nucleated RBC 0.000 Nucleated RBC % (auto) 0.0 Anion Gap 15 Estim Creat Clear Calc 57.6 Estimated GFR > 60 Fasting Glucose 116 H Calcium 9.3 Assessment and Plan (1) Acute exacerbation of chronic obstructive airways disease: Status: Acute Plan 77M presented with sob acute on chronic hypoxic resipraotry failure due to copd with acute decompensation now on baseline 2L home o2, but still very wheezy and sob when walking to bathroom continue steroids, nebs, azithro hld statin dvt prophylaxis - lovenox full code reason for continued hospitalization:ongoing significant sob Quality Stroke Does the patient have a stroke diagnosis?: No VTE Prior VTE?: No VTE Risk Level:: Medical - moderate - high VTE Device Contraindication: Treatment Not Indicated VTE Drug Contraindication: N/A - Med Ordered
[2022-05-27] MEDS: Albuterol Sulfate (0.083%) 2.5 MG/3 ML VIAL.NEB INHALE ×4 (09:56→21:22)
[2022-05-27] MEDS: Enoxaparin Sodium 40 MG/0.4 ML SYRINGE SUBCUT (14:11)
[2022-05-27] MEDS: Azithromycin 250 MG TABLET PO (18:19)
[2022-05-27] MEDS: traZODone HCL 25 MG HALFTAB PO (21:35)
[2022-05-27] MEDS: Amitriptyline HCl 10 MG TABLET 20 MG PO (21:35)
[2022-05-27] MEDS: Atorvastatin Calcium 40 MG TABLET PO (21:36)
[2022-05-28 04:00] VITALS: BP 122/69; PULSE 75; RESP 17; TEMP 36.5; O2SAT 96
[2022-05-28 07:21] LABS: Hematocrit 39.7 % (42.0-52.0); Hemoglobin 13.3 g/dl (14.0-18.0); Mean Corpuscular HGB Conc 33.5 g/dl (31.0-36.0); Mean Corpuscular Hemoglobin 31.9 pg (27.0-33.0); Mean Corpuscular Volume 95.2 fL (80.0-98.0); Mean Platelet Volume 9.9 fL (9.4-12.4); Platelet Count 268 X10*3/uL (160-400); Red Blood Count 4.17 X10*6/uL (4.60-5.80); Red Cell Distribution Width 13.4 % (11.0-16.0); White Blood Count 14.4 X10*3/uL (4.8-10.8)
[2022-05-28 07:40] LABS: Anion Gap 12 (12-20); Blood Urea Nitrogen 32 mg/dL (9-16); Calcium 9.5 mg/dL (8.4-10.2); Carbon Dioxide 28 mmol/L (22-29); Chloride 103 mmol/L (96-108); Creatinine Clr Calc Pharmacy 54.9; Estimated Glomerular Filt Rate > 60; Glucose Fasting 110 mg/dL (60-99); Potassium 5.4 mmol/L (3.3-5.1); Sodium 138 mmol/L (135-145)
[2022-05-28] MEDS: Albuterol Sulfate (0.083%) 2.5 MG/3 ML VIAL.NEB INHALE ×2 (07:41→11:12)
[2022-05-28] MEDS: Fluticasone/Vilanterol 200/25 BLST.W.DEV 1 PUFF INHALE (07:41)
[2022-05-28 07:44] VITALS: PULSE 66; RESP 16; O2SAT 99
[2022-05-28 08:00] VITALS: BP 130/70; PULSE 74; RESP 20; TEMP 36.6; O2SAT 96
[2022-05-28] MEDS: VerapamiL HCL 80 MG TABLET PO (08:02)
[2022-05-28] MEDS: methylPREDNISolone Sod Succ 40 MG/ML VIAL IVPUSH (08:02)
[2022-05-28] MEDS: Omeprazole 20 MG CAPSULE.DR PO (08:03)
[2022-05-28] MEDS: 0.9 % Sodium Chloride Flush 3 ML SYRINGE IVFLUSH (08:03)
[2022-05-28] MEDS: guaiFENesin LA 600 MG TAB.ER.12H PO (08:03)
[2022-05-28] MEDS: Multivitamin TABLET 1 TAB PO (08:03)
[2022-05-28] MEDS: Nicotine 21 MG PATCH.TD24 TRANSDERMA (08:03)
--- NOTE | 2022-05-28 11:11 | MHC.CM.PN ---
pt dcd home no skilled services ordered by
[2022-05-28 11:13] VITALS: BP 117/69; PULSE 71; RESP 20; TEMP 36.6; O2SAT 97
[2022-05-28 11:15] VITALS: PULSE 61; RESP 16; O2SAT 97
--- NOTE | 2022-05-28 12:20 | PM.DS ---
DS: Providers Provider Date of Service: 05/28/22 Date of admission: 05/25/22 16:41 Primary care physician: Unknown Physician DS: Diagnosis Discharge Diagnosis (1) Acute exacerbation of chronic obstructive airways disease: Status: Acute DS: Summary Hospital Course Hospital Course: from initial hpi: Chief Complaint: SOB This 77-year-old man presenting with shortness of breath over last several days.? He reports cough with white phlegm.? He denies cigarette use.? He does have a history of COPD.? He denies chest pain, nausea, vomiting, diarrhea, recent illness, sick contacts, recent travel.? Chest x-ray is negative for consolidation or effusion.? In the ER no elevated white count or fever noted, negative RSV, flu and COVID.? No hypoxia noted, hemodynamically stable.? He was given a dose of Solu-Medrol, DuoNebs in the ER.? He will be admitted to observation for further management and treatment of acute asthma exacerbation. hospital course: Patient was admitted for acute on chronic hypoxic respiratory failure secondary to COPD with acute decompensation. He was given steroids and bronchodilators along with azithromycin. He was eventually able to be weaned down to his baseline 2 L home oxygen, he is feeling significantly better and able to ambulate with minimal shortness of breath. He will be discharged home on 5 more days of prednisone. For his hyperlipidemia he will continue statin. Time Spent with Patient Time attestation: Total time spent providing and/or coordinating discharge services: Discharge coordination time: Greater than 30 minutes Quality: Safe Use of Opioids Does Pt have an Active Cancer Diagnosis on the Problem List?: No Quality: Stroke Does the patient have a stroke diagnosis?: No Physical Exam Vital Signs: Vital Signs: Last Vital Signs Temp 97.8 F 05/28/22 11:13 Pulse 61 05/28/22 11:15 Resp 16 05/28/22 11:15 BP 117/69 05/28/22 11:13 Pulse Ox 97 05/28/22 11:13 O2 Del Method 05/28/22 11:13 O2 Flow Rate 2 05/28/22 11:13 BMI result Body Mass Index 22.3 General: AO X 3, no acute distress Resp: some wheezes bilateral, no accessory muscles used CVS: S1,S2,RRR GI: soft, non tender, non distended Neuro: motor grossly intact, alert Psych: appropriate affect, appropriate insight DS: Data Data Completed and Pending Labs on day of discharge: Laboratory Results - last 24 hr 05/28/22 05/28/22 06:59 06:59 WBC 14.4 H RBC 4.17 L Hgb 13.3 L Hct 39.7 L MCV 95.2 MCH 31.9 MCHC 33.5 RDW 13.4 Plt Count 268 MPV 9.9 Absolute Nucleated RBC 0.000 Nucleated RBC % (auto) 0.0 Sodium 138 Potassium 5.4 H Chloride 103 Carbon Dioxide 28 Anion Gap 12 BUN 32 H Creatinine 1.09 Estim Creat Clear Calc 54.9 Estimated GFR > 60 Fasting Glucose 110 H Calcium 9.5 Discharge Plan Discharge Patient Disposition: Home, Self-Care Discharge Diagnosis: copd Referrals: Physician,Unknown J [Primary Care Provider] - 1 Week Discharge Medications: New prednisone 20 mg tablet 40 mg PO DAILY Qty: 10 0RF Continued ipratropium-albuterol 0.5 mg-3 mg(2.5 mg base)/3 mL Solution For Nebulization 3 ml INHALATION QID guaifenesin 600 mg Tablet Extended Release 600 mg PO TID PRN (Reason: Cough) trazodone 50 mg Tablet 25 mg PO BEDTIME PRN (Reason: Insomnia) acetaminophen 500 mg Tablet 500 mg PO BID PRN (Reason: Pain) lidocaine 5 % Adhesive Patch,Medicated 1 patch TOPICAL DAILY Rx Instructions: leave on most painful area for up to 12 hrs nicotine 21 mg/24 hr Patch 24 Hour 1 patch TRANSDERMAL DAILY omeprazole 20 mg Capsule,Delayed Release(Dr/Ec) 20 mg PO BID@0630,1630 budesonide-formoterol 160-4.5 mcg/actuation Hfa Aerosol Inhaler 2 puff INHALATION BID umeclidinium 62.5 mcg/actuation Blister With Device 1 inh INHALATION DAILY atorvastatin 40 mg Tablet 40 mg PO BEDTIME azithromycin 250 mg Tablet 250 mg PO MOWEFR@0900 Rx Instructions: start on day 2 of therapy amitriptyline 10 mg Tablet 20 mg PO BEDTIME multivitamin with minerals Tablet 1 tab PO DAILY verapamil 80 mg Tablet 80 mg PO BID albuterol sulfate 90 mcg/actuation Hfa Aerosol Inhaler 1 inh INHALATION QID PRN (Reason: Wheezing) Discharge Orders: Discharge Order (Routine); Ordered 05/28/22 Ordered By: Anoop Ward Diet: Advance to usual diet Activity on Discharge: As tolerated Stand Alone Forms: Patient Portal Discharge page Care Plan Goals: recovery Health Concerns: copd Plan of Treatment: 5 days prednisone Assessment: see above
== END 2022-05-28 14:14 | disposition home or self-care (01) ==
LOC: HO.ED 14:44 → HO.EDOVER 16:45 → HO.IMC 05-26 22:06
PROVIDERS: Admitting Provider Nurse Practitioner Acute Care; Emergency Provider Emergency Medicine; Visit Provider Internal Medicine
DX: J44.1 Chronic obstructive pulmonary disease with (acute) exacerbation (principal); R06.02 Shortness of breath; E78.5 Hyperlipidemia, unspecified; Z20.822 Contact with and (suspected) exposure to COVID-19; Z99.81 Dependence on supplemental oxygen; Z87.891 Personal history of nicotine dependence; Z79.02 Long term (current) use of antithrombotics/antiplatelets; Z79.899 Other long term (current) drug therapy
CPT/HCPCS: 0241U; 36415; 71045; 80048; 81001; 83605; 83690; 83735; 83880; 84484; 85025; 85027; 93005; 94640; 94664; 96374; 96375; 96376; 99219; 99285; J1650; J2920; J2930

== ENCOUNTER 2022-06-15 05:07 | Inpatient (IN) | payer OTHER, SELFPAY ==
[2022-06-15] VITALS (12 sets, daily range): BP systolic 100–130; BP diastolic 66–80; PULSE 60–80; RESP 14–24; TEMP 36.5–36.8; O2SAT 93–98; BMI 21.6
--- NOTE | ~2022-06-15 | CT_ITS ---
EXAMINATION: CT CHEST WITHOUT CONTRAST CLINICAL INFORMATION: Back pain and shortness of breath. COMPARISON: CXR from 06/15/2022. TECHNIQUE: Multidetector volumetric CT imaging of the chest was done. Axial MIP volume rendering provided. Sagittal and coronal reformatted images were obtained. This CT examination was performed using dose optimization techniques as appropriate, variously including the following: *Automated exposure control *Adjustment of mA and/or kV according to patient size (this includes techniques or standardized protocols for targeted exams where dose is matched to indication/reason for exam; i.e. extremities or head) *Use of iterative reconstruction technique DLP: 245 mGy-cm FINDINGS: LUNGS AND PLEURA: There is mucus adherent to the right lateral tracheal wall and along the right mainstem bronchus to bronchus intermedius. Severe centrilobular emphysema and diffuse thickening of bronchial griffith. The presence of secretions in some of the bronchi of each lower lobe could be a manifestation of bronchitis or perhaps aspiration. However, no focal consolidation. No pulmonary edema or pleural effusion. Linear, hazy opacities of mild atelectasis in each lower lobe. A linear opacity in the right upper lobe could represent minimal atelectasis or scar (images 145-155, series 5). Several calcified and noncalcified micronodules are present in both lungs, including 0.2 cm noncalcified nodule in the anterior left upper lobe (image 207, series 5). No suspicious nodule. If Fleischner Society guidelines are followed, chest CT follow-up is not recommended in a low-risk patient and is considered optional at 12 months in a high risk patient. CARDIOVASCULAR: The heart size is normal. Atherosclerotic calcification of left coronary and left anterior descending coronary arteries. Thoracic aorta atherosclerosis without aneurysm. There is borderline enlargement of right and left pulmonary arteries. Trace pericardial effusion. MEDIASTINUM AND LOWER NECK: The esophagus has normal wall thickness. No mediastinal mass or pneumomediastinum. Surgical clips around the region of the esophagogastric junction. A hypodense nodule in the left thyroid lobe measures approximately 1.5 x 2.8 cm. LYMPHATICS: No pathologic sized lymph nodes. Calcified left hilar lymph nodes from old granulomatous disease. UPPER ABDOMEN: Adrenal glands are unremarkable. Calcified granulomas are present within the spleen. 1.6 cm and 6.3 cm simple cysts of the left kidney. No renal imaging follow-up recommended for simple cysts. Surgical clips in the epigastric region of the upper abdomen. SKELETAL AND CHEST WALL: No acute skeletal findings. No vertebral compression fracture. Multilevel degenerative disc disease of the visualized cervical, thoracic and lumbar spine. CT/CT chest wo con IMPRESSION: * Severe pulmonary emphysema, thickened bronchial griffith and scattered endobronchial secretions. Correlate for history of chronic obstructive pulmonary disease/bronchitis. There is no evidence of acute pneumonia. * Old granulomatous disease. Findings include calcified granulomas in the spleen, old calcified left hilar lymph nodes and calcified and noncalcified pulmonary micronodules. * Atherosclerotic calcification of coronary arteries and thoracic aorta without aortic aneurysm. * Multilevel degenerative disc disease of the cervical, thoracic and lumbar spine. * There is a hypodense nodule of the left thyroid lobe. If not already performed elsewhere, recommend thyroid ultrasound follow-up for further characterization.
--- NOTE | ~2022-06-15 | XR_ITS ---
EXAMINATION: XR CHEST CLINICAL INFORMATION: Shortness of breath COMPARISON: 05/25/2022 TECHNIQUE: Frontal view of the chest was obtained. FINDINGS: Normal symmetric lung volumes. No parenchymal consolidation. No pleural effusion. No pneumothorax. Cardiomediastinal silhouette and pulmonary vascularity are within normal limits. Aorta is atherosclerotic. No acute osseous abnormalities. XR/XR chest 1V IMPRESSION: No acute findings.
--- NOTE | 2022-06-15 05:10 | ECG_ITS ---
Test Reason : SOB Blood Pressure : / mmHG Vent. Rate : 089 BPM Atrial Rate : 089 BPM P-R Int : 114 ms QRS Dur : 118 ms QT Int : 416 ms P-R-T Axes : 093 156 102 degrees QTc Int : 506 ms Artifact in tracing Undetermined rhythm - probably sinus Suspect limb lead reversal, interpretation assumes no reversal Right bundle branch block Abnormal ECG When compared with ECG of 25-MAY-2022 14:09, due to poor quality, cannot compare Referred By: Generic ED Physician Electronically Signed By:CALVIN CONTRERAS
[2022-06-15] MEDS: Albuterol Sulfate (0.083%) 2.5 MG/3 ML VIAL.NEB 10 MG INHALE (05:21)
--- NOTE | 2022-06-15 05:26 | ED_ITS ---
HPI - SOB/Dyspnea General Chief Complaint: Dyspnea Stated Complaint: sob/back pain Time Seen by Provider: 06/15/22 05:14 Source: patient and EMS Mode of arrival: EMS History of Present Illness HPI Narrative: 77-year-old male with history of COPD and oxygen dependent at home who comes in with increasing shortness of breath since yesterday with associated productive cough is well significant back pain denies fever, chills. Patient denies any recent COVID-19 exposure. Otherwise, denies any chest pain, GI or symptoms. Related Data Home Medications Medication Instructions Recorded Confirmed acetaminophen 500 mg tablet 500 mg PO BID PRN Pain 05/25/22 05/25/22 budesonide-formoterol HFA 160 2 puff inhalation BID 05/25/22 05/25/22 mcg-4.5 mcg/actuation aerosol inhaler guaifenesin 600 mg tablet,extended 600 mg PO TID PRN Cough 05/25/22 05/25/22 release ipratropium 0.5 mg-albuterol 3 mg 3 ml inhalation QID 05/25/22 05/25/22 (2.5 mg base)/3 mL nebulization soln lidocaine 5 % topical patch 1 patch topical DAILY 05/25/22 05/25/22 nicotine 21 mg/24 hr daily 1 patch transdermal DAILY 05/25/22 05/25/22 transdermal patch omeprazole 20 mg capsule,delayed 20 mg PO BID@0630,1630 05/25/22 05/26/22 release trazodone 50 mg tablet 25 mg PO BEDTIME PRN Insomnia 05/25/22 05/25/22 umeclidinium 62.5 mcg/actuation 1 inh inhalation DAILY 05/25/22 05/25/22 blister powder for inhalation albuterol sulfate 90 mcg/actuation 1 inh inhalation QID PRN Wheezing 05/26/22 05/26/22 aerosol inhaler amitriptyline 10 mg tablet 20 mg PO BEDTIME 05/26/22 05/26/22 atorvastatin 40 mg tablet 40 mg PO BEDTIME 05/26/22 05/26/22 azithromycin 250 mg tablet 250 mg PO MOWEFR@0900 05/26/22 05/26/22 multivitamin with minerals 1 tab PO DAILY 05/26/22 05/26/22 verapamil 80 mg tablet 80 mg PO BID 05/26/22 05/26/22 Previous Rx's Medication Instructions Recorded prednisone 20 mg tablet 40 mg PO DAILY #10 tabs 05/28/22 Allergies Allergy/AdvReac Type Severity Reaction Status Date / Time Penicillins [PENICILLINS] Allergy Unknown VOMITTING Unverified 08/07/20 15:37 Review of Systems Review of Systems: Pertinent positives and negatives as stated in HPI 10 point review of systems is otherwise negative. [facility] Past Medical History Source: nursing notes reviewed Social History Social History Alcohol intake: former Patient Tobacco Use Status: Former Tobacco user Use of substances other than those prescribed or required for medical reasons: No Advance Directives: No Advance Directives Information Provided: Yes service: Yes Current occupational status: retired Physical Exam Vital Signs: Vital Signs: Last Vital Signs Temp 98.3 F 06/15/22 05:17 Pulse 71 06/15/22 06:37 Resp 24 H 06/15/22 06:37 BP 111/72 06/15/22 06:37 Pulse Ox 96 06/15/22 06:37 O2 Del Method 06/15/22 06:37 O2 Flow Rate 2 06/15/22 06:37 BMI result Body Mass Index 21.6 VITAL SIGNS: Reviewed. GENERAL: chronically ill, cachectic, in mild distress. HEAD: Normocephalic/atraumatic EYES: PERRLA, EOMI EARS: Ext canals without abnormality OROPHARYNX: no oral lesions noted, posterior pharynx clear LUNGS: It is auditory effort decreased breath sounds bilaterally, coarse rhonchi and crackles noted on the right with limited expiratory wheeze. There is increased work of breathing with tachypnea. SpO2<95> 4 L nasal cannula CARDIOVASCULAR: Regular rate and rhythm without noted murmurs, no JVD or lower extremity edema. ABDOMEN: Soft, non-tender, non-distended with bowel sounds. MUSCULOSKELETAL: No tenderness, deformities, or effusions noted on gross inspection. EXTREMITIES: No cyanosis, clubbing or edema. SKIN: Inspection of the skin reveals no rashes NEUROLOGIC: Alert and oriented x 4. Strength and sensation to light touch were grossly intact x 4. Course Course Course Narrative: 0515: I suspect COPD exacerbation but there is a possibility of pneumonia. This 77-year-old male who was recently treated the beginning of the month for acute exacerbation of COPD. Review of all investigations consistent with non acidotic COPD exacerbation, patient did not require rescue BiPAP, patient received steroids/antibiotics and is otherwise afebrile without leukocytosis. On re-evaluation patient continues to have coarse rhonchi throughout with a productive cough and tachypnea. CT noncontrast was ordered the patient will be admitted and this was discussed with the inpatient hospitalist who accepts admission. MDM - SOB/Dyspnea Lab Data Result diagrams: 06/15/22 05:35 06/15/22 05:35 Labs: Lab Results 06/15/22 06/15/22 06/15/22 Range/Units 05:35 05:35 05:35 WBC 9.3 (4.8-10.8) X10*3/uL RBC 3.94 L (4.60-5.80) X10*6/uL Hgb 12.3 L (14.0-18.0) g/dl Hct 37.8 L (42.0-52.0) % MCV 95.9 (80.0-98.0) fL MCH 31.2 (27.0-33.0) pg MCHC 32.5 (31.0-36.0) g/dl RDW 13.9 (11.0-16.0) % Plt Count 176 D (160-400) X10*3/uL MPV 9.5 (9.4-12.4) fL Immature Gran % (Auto) 0.2 (0.0-0.4) % Neut % (Auto) 73.6 H (45-73) % Lymph % (Auto) 13.7 L (20-40) % Humphreys % (Auto) 9.4 (2-11) % Eos % (Auto) 2.8 (0-4) % Baso % (Auto) 0.3 (0-2) % Lymph # (Auto) 1.3 (1.2-4.9) X10*3/uL Humphreys # (Auto) 0.9 (0.1-1.2) X10*3/uL Eos # (Auto) 0.3 (0.0-0.4) X10*3/uL Baso # (Auto) 0.0 (0.0-0.2) X10*3/uL Abs Immat Gran (auto) 0.02 (0.00-0.03) X10*3/uL Absolute Neuts (auto) 6.8 (2.0-8.3) x10*3/uL Absolute Nucleated RBC 0.000 (0.0-0.012) X10*3/uL Nucleated RBC % (auto) 0.0 (0.0-0.2) /100WBC VBG pH (7.32-7.43) VBG pCO2 mmHg VBG pO2 mmHg VBG HCO3 (22-26) mmol/L VBG O2 Saturation % VBG Base Excess mmol/L Sodium 138 (135-145) mmol/L Potassium 4.1 D (3.3-5.1) mmol/L Chloride 106 (96-108) mmol/L Carbon Dioxide 25 (22-29) mmol/L Anion Gap 11 L (12-20) BUN 17 H (9-16) mg/dL Creatinine 0.93 (0.5-1.4) mg/dL Estim Creat Clear Calc 66.1 Estimated GFR > 60 Random Glucose 94 D (60-115) mg/dL Lactic Acid (0.5-2.0) mmol/L Calcium 8.8 D (8.4-10.2) mg/dL Troponin I High Sens 4.3 (<3.5-35.0) ng/L B-Natriuretic Peptide 97 (<100) pg/mL COVID-19 (MADELINE) (Negative) COVID-19 Clin Com Influenza Type A (MARKOS) (Negative) Influenza Type B (MARKOS) (Negative) Influenza A & B Note 06/15/22 06/15/22 06/15/22 Range/Units 05:35 05:35 05:35 WBC (4.8-10.8) X10*3/uL RBC (4.60-5.80) X10*6/uL Hgb (14.0-18.0) g/dl Hct (42.0-52.0) % MCV (80.0-98.0) fL MCH (27.0-33.0) pg MCHC (31.0-36.0) g/dl RDW (11.0-16.0) % Plt Count (160-400) X10*3/uL MPV (9.4-12.4) fL Immature Gran % (Auto) (0.0-0.4) % Neut % (Auto) (45-73) % Lymph % (Auto) (20-40) % Humphreys % (Auto) (2-11) % Eos % (Auto) (0-4) % Baso % (Auto) (0-2) % Lymph # (Auto) (1.2-4.9) X10*3/uL Humphreys # (Auto) (0.1-1.2) X10*3/uL Eos # (Auto) (0.0-0.4) X10*3/uL Baso # (Auto) (0.0-0.2) X10*3/uL Abs Immat Gran (auto) (0.00-0.03) X10*3/uL Absolute Neuts (auto) (2.0-8.3) x10*3/uL Absolute Nucleated RBC (0.0-0.012) X10*3/uL Nucleated RBC % (auto) (0.0-0.2) /100WBC VBG pH (7.32-7.43) VBG pCO2 mmHg VBG pO2 mmHg VBG HCO3 (22-26) mmol/L VBG O2 Saturation % VBG Base Excess mmol/L Sodium (135-145) mmol/L Potassium (3.3-5.1) mmol/L Chloride (96-108) mmol/L Carbon Dioxide (22-29) mmol/L Anion Gap (12-20) BUN (9-16) mg/dL Creatinine (0.5-1.4) mg/dL Estim Creat Clear Calc Estimated GFR Random Glucose (60-115) mg/dL Lactic Acid 1.0 (0.5-2.0) mmol/L Calcium (8.4-10.2) mg/dL Troponin I High Sens (<3.5-35.0) ng/L B-Natriuretic Peptide (<100) pg/mL COVID-19 (MADELINE) Negative (Negative) COVID-19 Clin Com See Note Influenza Type A (MARKOS) Negative (Negative) Influenza Type B (MARKOS) Negative (Negative) Influenza A & B Note See Note 06/15/22 Range/Units 05:40 WBC (4.8-10.8) X10*3/uL RBC (4.60-5.80) X10*6/uL Hgb (14.0-18.0) g/dl Hct (42.0-52.0) % MCV (80.0-98.0) fL MCH (27.0-33.0) pg MCHC (31.0-36.0) g/dl RDW (11.0-16.0) % Plt Count (160-400) X10*3/uL MPV (9.4-12.4) fL Immature Gran % (Auto) (0.0-0.4) % Neut % (Auto) (45-73) % Lymph % (Auto) (20-40) % Humphreys % (Auto) (2-11) % Eos % (Auto) (0-4) % Baso % (Auto) (0-2) % Lymph # (Auto) (1.2-4.9) X10*3/uL Humphreys # (Auto) (0.1-1.2) X10*3/uL Eos # (Auto) (0.0-0.4) X10*3/uL Baso # (Auto) (0.0-0.2) X10*3/uL Abs Immat Gran (auto) (0.00-0.03) X10*3/uL Absolute Neuts (auto) (2.0-8.3) x10*3/uL Absolute Nucleated RBC (0.0-0.012) X10*3/uL Nucleated RBC % (auto) (0.0-0.2) /100WBC VBG pH 7.40 (7.32-7.43) VBG pCO2 37 mmHg VBG pO2 41 mmHg VBG HCO3 23 (22-26) mmol/L VBG O2 Saturation 64.0 % VBG Base Excess -0.7 mmol/L Sodium (135-145) mmol/L Potassium (3.3-5.1) mmol/L Chloride (96-108) mmol/L Carbon Dioxide (22-29) mmol/L Anion Gap (12-20) BUN (9-16) mg/dL Creatinine (0.5-1.4) mg/dL Estim Creat Clear Calc Estimated GFR Random Glucose (60-115) mg/dL Lactic Acid (0.5-2.0) mmol/L Calcium (8.4-10.2) mg/dL Troponin I High Sens (<3.5-35.0) ng/L B-Natriuretic Peptide (<100) pg/mL COVID-19 (MADELINE) (Negative) COVID-19 Clin Com Influenza Type A (MARKOS) (Negative) Influenza Type B (MARKOS) (Negative) Influenza A & B Note Critical Care Time Critical Care Time Critical Care Time: Yes Total Critical Care Time: 30 Attestation: I personally attest to this time spent taking care of the patient. Discharge Plan Discharge Clinical Impression: Acute exacerbation of chronic obstructive airways disease Patient Disposition: Admitted As Inpatient Prescriptions: No Action ipratropium-albuterol 0.5 mg-3 mg(2.5 mg base)/3 mL Solution For Nebulization 3 ml INHALATION QID guaifenesin 600 mg Tablet Extended Release 600 mg PO TID PRN (Reason: Cough) trazodone 50 mg Tablet 25 mg PO BEDTIME PRN (Reason: Insomnia) acetaminophen 500 mg Tablet 500 mg PO BID PRN (Reason: Pain) lidocaine 5 % Adhesive Patch,Medicated 1 patch TOPICAL DAILY Rx Instructions: leave on most painful area for up to 12 hrs nicotine 21 mg/24 hr Patch 24 Hour 1 patch TRANSDERMAL DAILY omeprazole 20 mg Capsule,Delayed Release(Dr/Ec) 20 mg PO BID@0630,1630 budesonide-formoterol 160-4.5 mcg/actuation Hfa Aerosol Inhaler 2 puff INHALATION BID umeclidinium 62.5 mcg/actuation Blister With Device 1 inh INHALATION DAILY atorvastatin 40 mg Tablet 40 mg PO BEDTIME azithromycin 250 mg Tablet 250 mg PO MOWEFR@0900 Rx Instructions: start on day 2 of therapy amitriptyline 10 mg Tablet 20 mg PO BEDTIME multivitamin with minerals Tablet 1 tab PO DAILY verapamil 80 mg Tablet 80 mg PO BID albuterol sulfate 90 mcg/actuation Hfa Aerosol Inhaler 1 inh INHALATION QID PRN (Reason: Wheezing) prednisone 20 mg tablet 40 mg PO DAILY Qty: 10 0RF
[2022-06-15] MEDS: methylPREDNISolone Sod Succ 125 MG/2 ML VIAL IVPUSH (05:40)
[2022-06-15 05:42] LABS: MANUAL DIFF FLAG NO
[2022-06-15 05:45] LABS: Basophils Percent Auto 0.3 % (0-2); Eosinophils Absolute Auto 0.3 X10*3/uL (0.0-0.4); Eosinophils Percent Auto 2.8 % (0-4); Hematocrit 37.8 % (42.0-52.0); Hemoglobin 12.3 g/dl (14.0-18.0); Imm Gran Abs Auto 0.02 X10*3/uL (0.00-0.03); Imm Gran Pct Auto 0.2 % (0.0-0.4); Lymphocytes Absolute Auto 1.3 X10*3/uL (1.2-4.9); Lymphocytes Percent Auto 13.7 % (20-40); Mean Corpuscular HGB Conc 32.5 g/dl (31.0-36.0); Mean Corpuscular Hemoglobin 31.2 pg (27.0-33.0); Mean Corpuscular Volume 95.9 fL (80.0-98.0); Mean Platelet Volume 9.5 fL (9.4-12.4); Monocytes Absolute Auto 0.9 X10*3/uL (0.1-1.2); Monocytes Percent Auto 9.4 % (2-11); Neutrophils Absolute Auto 6.8 x10*3/uL (2.0-8.3); Neutrophils Percent Auto 73.6 % (45-73); Platelet Count 176 X10*3/uL (160-400); Red Blood Count 3.94 X10*6/uL (4.60-5.80); Red Cell Distribution Width 13.9 % (11.0-16.0); White Blood Count 9.3 X10*3/uL (4.8-10.8)
[2022-06-15 05:45] LABS: VBG Base Excess -0.7 mmol/L; VBG HCO3 23 mmol/L (22-26); VBG pCO2 37 mmHg; VBG pO2 41 mmHg
[2022-06-15 05:47] LABS: Venous Blood Gas Refer to POC result
[2022-06-15 05:57] LABS: Anion Gap 11 (12-20); Blood Urea Nitrogen 17 mg/dL (9-16); Calcium 8.8 mg/dL (8.4-10.2); Carbon Dioxide 25 mmol/L (22-29); Chloride 106 mmol/L (96-108); Creatinine Clr Calc Pharmacy 66.1; Estimated Glomerular Filt Rate > 60; Glucose Random 94 mg/dL (60-115); Potassium 4.1 mmol/L (3.3-5.1); Sodium 138 mmol/L (135-145)
--- NOTE | 2022-06-15 06:00 | PC.NURSE ---
I assumed nursing care of Garrett upon his arrival to ED Bed 2. He presents for evaluation of difficulty rbeathing and sharp 7/10 R sided upper back pain. On arrival IV access has already been obtained. He presents alert, oriented x 3, calm and cooperative. He makes eye contact with RN and is able to adequately verbalize his needs. RR 20, increases when talking or exerting himself. Room air sat's are 95%, however pt states he uses 2L NC at home whenever he is exerting himself. Respirations are non-labored, no cyanosis. SR on bedside monitor with frequent PVC's. No nausea. No vomiting. He denies chest pain. Labs and EKG obtained on arrival. Awaiting MD dispo. We will continue to monitor Garrett.
[2022-06-15 06:01] LABS: COVID-19 Test Negative (Negative); IDNOW Serial# 16C4AD1C; Influenza A Negative (Negative); Influenza B2 Negative (Negative)
[2022-06-15 06:03] LABS: B Type Natriuretic Peptide 97 pg/mL (<100); Troponin-I High Sensitivity 4.3 ng/L (<3.5-35.0)
[2022-06-15] MEDS: levoFLOXacin 750 MG TABLET PO (06:42)
[2022-06-15] MEDS: Albuterol/Iprat 2.5/0.5MG 3 ML AMPUL.NEB INHALE ×3 (06:55→16:13)
--- NOTE | 2022-06-15 08:15 | PM.IMHP ---
History of Present Illness Date of Service: 06/15/22 Chief Complaint: Shortness of breath 77-year-old male with history of COPD and oxygen dependent at home who comes in with increasing shortness of breath since yesterday with associated productive cough is well significant back pain denies fever, chills.? Patient denies any recent COVID-19 exposure. Recently admitted 05/25/2022 through 05/28/2022 with similar complaints. Discharged home on prednisone taper however once prednisone completed symptoms returned. Review of Systems Review of Systems: Denies chest pain Admits to shortness of breath worse with exertion Denies nausea vomiting diarrhea Denies fever chills PMFSH Social History Alcohol intake: former Patient Tobacco Use Status: Former Tobacco user Use of substances other than those prescribed or required for medical reasons: No Advance Directives: No Advance Directives Information Provided: Yes service: Yes Current occupational status: retired Meds Allergies Allergy/AdvReac Type Severity Reaction Status Date / Time Penicillins [PENICILLINS] Allergy Unknown VOMITTING Unverified 08/07/20 15:37 Active Medications: Current Medications Acetaminophen (Acetaminophen 325 Mg Tablet) 650 mg PO Q6H PRN PRN Reason: Pain, Mild (Pain Scale 1-3) Albuterol Sulfate (Albuterol Sulfate 90 Mcg 8 Gm Inhaler) 1 puff INHALE QID PRN PRN Reason: Wheezing Albuterol/Ipratropium (Albuterol/Iprat 2.5/0.5mg 3 Ml Ampul.Neb) 3 ml INHALE QID CHAYO Amitriptyline HCl (Amitriptyline Hcl 10 Mg Tablet) 20 mg PO BEDTIME CHAYO Atorvastatin Calcium (Atorvastatin Calcium 40 Mg Tablet) 40 mg PO BEDTIME CHAYO Enoxaparin Sodium (Enoxaparin Sodium 40 Mg/0.4 Ml Syringe) 40 mg SUBCUT Q24H CHAYO Levofloxacin (Levofloxacin 500 Mg Tablet) 500 mg PO DAILY ONE Stop: 06/15/22 08:14 Methylprednisolone Sodium Succinate (Methylprednisolone Sod Succ 125 Mg/2 Ml Vial) 60 mg IVPUSH Q6H CH[facility] Nicotine (Nicotine 21 Mg Patch.Td24) mg TRANSDERMA DAILY [facility] Non-Formulary Medication (Acetaminophen) 500 mg PO BID PRN PRN Reason: Pain Non-Formulary Medication (Budesonide-Formoterol) 2 puff INHALE BID COUNTS INCLUDE 234 BEDS AT THE [facility] Non-Formulary Medication (Guaifenesin) 600 mg PO TID PRN PRN Reason: Cough Non-Formulary Medication (Lidocaine) 1 patch TOPICAL DAILY COUNTS INCLUDE 234 BEDS AT THE [facility] Non-Formulary Medication (Umeclidinium) 1 inhalation INHALE DAILY COUNTS INCLUDE 234 BEDS AT THE [facility] Omeprazole (Omeprazole 20 Mg Capsule.Dr) 20 mg PO BID@0630,1630 COUNTS INCLUDE 234 BEDS AT THE [facility] Oxycodone HCl (Oxycodone Hcl Immed Release 5 Mg Tablet) 5 mg PO Q6H PRN PRN Reason: Pain, Moderate (Pain Scale 4-6 Pharmacy Consult (Consult Rx Perform Med Rec) 1 each MISCELLANE ONCE PRN PRN Reason: Consult order Sodium Chloride (0.9 % Sodium Chloride Flush 3 Ml Syringe) 3 ml IVFLUSH QSHIFT COUNTS INCLUDE 234 BEDS AT THE [facility] Trazodone HCl (Trazodone Hcl 25 Mg Halftab) 25 mg PO BEDTIME PRN PRN Reason: Insomnia Verapamil HCl (Verapamil Hcl 80 Mg Tablet) 80 mg PO BID COUNTS INCLUDE 234 BEDS AT THE [facility]; Protocol Home Medications Medication Instructions Recorded Confirmed Last Taken Type acetaminophen 500 mg tablet 500 mg PO BID PRN Pain 05/25/22 06/15/22 Unknown History budesonide-formoterol HFA 160 2 puff inhalation BID 05/25/22 06/15/22 Unknown History mcg-4.5 mcg/actuation aerosol inhaler guaifenesin 600 mg tablet,extended 600 mg PO TID PRN Cough 05/25/22 06/15/22 Unknown History release ipratropium 0.5 mg-albuterol 3 mg 3 ml inhalation QID 05/25/22 06/15/22 Unknown History (2.5 mg base)/3 mL nebulization soln lidocaine 5 % topical patch 1 patch topical DAILY 05/25/22 06/15/22 Unknown History nicotine 21 mg/24 hr daily 1 patch transdermal DAILY 05/25/22 06/15/22 Unknown History transdermal patch omeprazole 20 mg capsule,delayed 20 mg PO BID@0630,1630 05/25/22 06/15/22 Unknown History release trazodone 50 mg tablet 25 mg PO BEDTIME PRN Insomnia 05/25/22 06/15/22 Unknown History umeclidinium 62.5 mcg/actuation 1 inh inhalation DAILY 05/25/22 06/15/22 Unknown History blister powder for inhalation albuterol sulfate 90 mcg/actuation 1 inh inhalation QID PRN Wheezing 05/26/22 06/15/22 Unknown History aerosol inhaler amitriptyline 10 mg tablet 20 mg PO BEDTIME 05/26/22 06/15/22 Unknown History atorvastatin 40 mg tablet 40 mg PO BEDTIME 05/26/22 06/15/22 Unknown History multivitamin with minerals 1 tab PO DAILY 05/26/22 05/26/22 Unknown History verapamil 80 mg tablet 80 mg PO BID 05/26/22 06/15/22 Unknown History azithromycin 250 mg tablet 250 mg PO MOWEFR 06/15/22 06/15/22 Unknown History Physical Exam Vital Signs and Narrative: Vital Signs: Last Vital Signs Temp 97.7 F 06/15/22 07:25 Pulse 69 06/15/22 07:25 Resp 19 06/15/22 07:25 BP 121/67 06/15/22 07:25 Pulse Ox 97 06/15/22 07:25 O2 Del Method 06/15/22 07:25 O2 Flow Rate 2 06/15/22 07:25 BMI result Body Mass Index 21.6 Const: Other: Awake alert breathing comfortably on 3 L O2 semi-Vargas's position HEENT: Other: Membranes moist Resp: Other: Diminished throughout with scattered expiratory wheezes at bases Cardio: Other: No S4; positive S1-S2; no S3 murmurs rubs or gallops Back/Spine/Pelvis: Other: Point tenderness over T10 region Neuro: Other: Cranial nerves 2-12 grossly intact as tested. Motor is 5/5 all extremities. Sensation intact. Cognition appropriate Extrem: Other: No edema bilaterally Results Labs CBC and Chem 7: 06/15/22 05:35 06/15/22 05:35 Labs: Laboratory Results - last 24 hr 06/15/22 06/15/22 06/15/22 05:35 05:35 05:35 MCV 95.9 MCH 31.2 MCHC 32.5 RDW 13.9 Plt Count 176 D MPV 9.5 Immature Gran % (Auto) 0.2 Neut % (Auto) 73.6 H Lymph % (Auto) 13.7 L Tal[place]ferro % (Auto) 9.4 Eos % (Auto) 2.8 Baso % (Auto) 0.3 Lymph # (Auto) 1.3 [place] # (Auto) 0.9 Eos # (Auto) 0.3 Baso # (Auto) 0.0 Abs Immat Gran (auto) 0.02 Absolute Neuts (auto) 6.8 Absolute Nucleated RBC 0.000 Nucleated RBC % (auto) 0.0 VBG pH VBG pCO2 VBG pO2 VBG HCO3 VBG O2 Saturation VBG Base Excess Anion Gap 11 L Estim Creat Clear Calc 66.1 Estimated GFR > 60 Random Glucose 94 D Lactic Acid Calcium 8.8 D Troponin I High Sens 4.3 B-Natriuretic Peptide 97 COVID-19 (MADELINE) COVID-19 Clin Com Influenza Type A (MARKOS) Influenza Type B (MARKOS) Influenza A & B Note 06/15/22 06/15/22 06/15/22 05:35 05:35 05:35 MCV MCH MCHC RDW Plt Count MPV Immature Gran % (Auto) Neut % (Auto) Lymph % (Auto) [place]fer[place] % (Auto) Eos % (Auto) Baso % (Auto) Lymph # (Auto) [place] # (Auto) Eos # (Auto) Baso # (Auto) Abs Immat Gran (auto) Absolute Neuts (auto) Absolute Nucleated RBC Nucleated RBC % (auto) VBG pH VBG pCO2 VBG pO2 VBG HCO3 VBG O2 Saturation VBG Base Excess Anion Gap Estim Creat Clear Calc Estimated GFR Random Glucose Lactic Acid 1.0 Calcium Troponin I High Sens B-Natriuretic Peptide COVID-19 (MADELINE) Negative COVID-19 Clin Com See Note Influenza Type A (MARKOS) Negative Influenza Type B (MARKOS) Negative Influenza A & B Note See Note 06/15/22 05:40 MCV MCH MCHC RDW Plt Count MPV Immature Gran % (Auto) Neut % (Auto) Lymph % (Auto) [place]fer[place] % (Auto) Eos % (Auto) Baso % (Auto) Lymph # (Auto) [place] # (Auto) Eos # (Auto) Baso # (Auto) Abs Immat Gran (auto) Absolute Neuts (auto) Absolute Nucleated RBC Nucleated RBC % (auto) VBG pH 7.40 VBG pCO2 37 VBG pO2 41 VBG HCO3 23 VBG O2 Saturation 64.0 VBG Base Excess -0.7 Anion Gap Estim Creat Clear Calc Estimated GFR Random Glucose Lactic Acid Calcium Troponin I High Sens B-Natriuretic Peptide COVID-19 (MADELINE) COVID-19 Clin Com Influenza Type A (MARKOS) Influenza Type B (MARKOS) Influenza A & B Note Imaging Radiologist's Impressions: Impressions Chest X-Ray 06/15/22 05:46 IMPRESSION: No acute findings. Chest CT 06/15/22 06:57 IMPRESSION: * Severe pulmonary emphysema, thickened bronchial griffith and scattered endobronchial secretions. Correlate for history of chronic obstructive pulmonary disease/bronchitis. There is no evidence of acute pneumonia. * Old granulomatous disease. Findings include calcified granulomas in the spleen, old calcified left hilar lymph nodes and calcified and noncalcified pulmonary micronodules. * Atherosclerotic calcification of coronary arteries and thoracic aorta without aortic aneurysm. * Multilevel degenerative disc disease of the cervical, thoracic and lumbar spine. * There is a hypodense nodule of the left thyroid lobe. If not already performed elsewhere, recommend thyroid ultrasound follow-up for further characterization. Assessment and Plan (1) Acute exacerbation of chronic obstructive airways disease: Status: Acute (2) Hypertension: Status: Acute (3) Hyperlipidemia: Status: Acute Plan 77-year-old male with known history of emphysematous lung disease O2 dependent presents with productive cough and worsening shortness of breath. Patient recently admitted to [facility] earlier this month and treated for the same. In the emergency room, he received an hour DuoNeb with some improvement in his status along with methylprednisolone 125 mg. 1. Acute exacerbation of COPD -methylprednisolone 60 mg IV q.6 hours -DuoNebs q.i.d. as per outpatient regimen -supplemental O2 with hopes to titrate down to his baseline of 2 L at home -given sputum production will continue Levaquin at 500 daily 2. Hypertension -acceptable control on current regimen -titrate as indicated 3. Hyperlipidemia -continue statin at outpatient dosing Full code Lovenox Patient will require at least 2 midnights going forward for the treatment of COPD with IV steroids and supplemental O2. This cannot be achieved and a lesser acute setting Quality Stroke Does the patient have a stroke diagnosis?: No VTE Prior VTE?: No VTE Risk Level:: Medical - moderate - high VTE Device Contraindication: Treatment Not Indicated VTE Drug Contraindication: N/A - Med Ordered
--- NOTE | 2022-06-15 08:32 | PHA.MEDREC ---
Pharmacy Consult ? Medication Reconciliation Pharmacy has completed the medication reconciliation. Received list from [place]. Patient then confirmed medications. Patient no longer taking the prednisone. Lissy Crowley, PharmD
[2022-06-15] MEDS: 0.9 % Sodium Chloride Flush 3 ML SYRINGE IVFLUSH ×2 (09:24→18:20)
[2022-06-15] MEDS: oxyCODONE HCl Immed Release 5 MG TABLET PO ×2 (09:24→14:26)
[2022-06-15] MEDS: Enoxaparin Sodium 40 MG/0.4 ML SYRINGE SUBCUT (09:25)
[2022-06-15] MEDS: Lidocaine 4 % Patch ADH..PATCH 1 PATCH TRANSDERMA (09:25)
[2022-06-15] MEDS: Nicotine 21 MG PATCH.TD24 TRANSDERMA (09:26)
[2022-06-15] MEDS: VerapamiL HCL 80 MG TABLET PO ×2 (10:19→20:57)
[2022-06-15] MEDS: Fluticasone/Vilanterol 200/25 BLST.W.DEV 1 PUFF INHALE (11:29)
[2022-06-15] MEDS: Acetaminophen 325 MG TABLET 650 MG PO (12:08)
[2022-06-15] MEDS: Morphine Sulfate 4 MG/ML CARTRIDGE IVPUSH ×2 (18:15→21:15)
[2022-06-15] MEDS: methylPREDNISolone Sod Succ 125 MG/2 ML VIAL 60 MG IVPUSH (18:15)
[2022-06-15] MEDS: Omeprazole 20 MG CAPSULE.DR PO (18:16)
--- NOTE | 2022-06-15 19:56 | PC.NURSE ---
report received from Shirley RN. pt resting comfortably on stretcher, vital signs updated. call ulloa within reach. pt reports relief of pain, down to 6/10 instead of 10/10. no other complaints. will continue to monitor.
--- NOTE | 2022-06-15 20:45 | MHC.CM.PN ---
CM met with admitted patient with bed assignment pending. No Medicare. 60% Vet connected. Has services at [facility] and [facility] PCP is at the [facility], cannot remember the name of the provider. Pfizer x2, no booster. Lives with daughter, Marleen Sorensen ([phone]). Marleen is the HCP. [facility]. Has home oxygen at 2L via [place]. Uses 2 hearing aides, cane and has a wheelchair. D/C plan is home without services. Daughter to provide transportation. CM to follow for d/c needs.
[2022-06-15] MEDS: Amitriptyline HCl 10 MG TABLET 20 MG PO (20:57)
[2022-06-15] MEDS: guaiFENesin LA 600 MG TAB.ER.12H PO (20:57)
[2022-06-15] MEDS: traZODone HCL 25 MG HALFTAB PO (20:57)
[2022-06-15] MEDS: Atorvastatin Calcium 40 MG TABLET PO (20:57)
--- NOTE | 2022-06-15 21:19 | PC.NURSE ---
bedtime meds given. patient ambulating to bathroom, NAD. patient repositioned in bed. given new pillow, lights dimmed and door closed. call ulloa within reach. will continue to monitor
[2022-06-16] VITALS (11 sets, daily range): BP systolic 94–134; BP diastolic 57–75; PULSE 51–94; RESP 15–20; TEMP 36.3–37.2; O2SAT 88–95
[2022-06-16] MEDS: methylPREDNISolone Sod Succ 125 MG/2 ML VIAL 60 MG IVPUSH ×5 (01:04→21:22)
[2022-06-16] MEDS: 0.9 % Sodium Chloride Flush 3 ML SYRINGE IVFLUSH ×4 (01:05→21:22)
[2022-06-16 06:17] LABS: Basophils Percent Auto 0.1 % (0-2); Hematocrit 37.6 % (42.0-52.0); Hemoglobin 12.2 g/dl (14.0-18.0); Imm Gran Abs Auto 0.05 X10*3/uL (0.00-0.03); Imm Gran Pct Auto 0.5 % (0.0-0.4); Lymphocytes Absolute Auto 0.5 X10*3/uL (1.2-4.9); Lymphocytes Percent Auto 4.9 % (20-40); MANUAL DIFF FLAG SCAN; Mean Corpuscular HGB Conc 32.4 g/dl (31.0-36.0); Mean Corpuscular Volume 95.4 fL (80.0-98.0); Mean Platelet Volume 9.8 fL (9.4-12.4); Monocytes Absolute Auto 0.3 X10*3/uL (0.1-1.2); Monocytes Percent Auto 2.6 % (2-11); Neutrophils Absolute Auto 9.3 x10*3/uL (2.0-8.3); Neutrophils Percent Auto 91.9 % (45-73); Platelet Count 203 X10*3/uL (160-400); Red Blood Count 3.94 X10*6/uL (4.60-5.80); Red Cell Distribution Width 13.7 % (11.0-16.0); SCAN SMEAR FLAG 1; White Blood Count 10.2 X10*3/uL (4.8-10.8)
[2022-06-16 06:36] LABS: SLIDE REVIEW VERIFIED
[2022-06-16 06:42] LABS: Alanine Aminotransferase 19 U/L (0-40); Albumin Level 3.6 g/dL (3.5-5.0); Alkaline Phosphatase 97 U/L (39-117); Anion Gap 12 (12-20); Aspartate Amino Transferase 14 U/L (5-37); Bilirubin Total 0.6 mg/dL (0.0-1.0); Blood Urea Nitrogen 19 mg/dL (9-16); Calcium 9.1 mg/dL (8.4-10.2); Carbon Dioxide 24 mmol/L (22-29); Chloride 105 mmol/L (96-108); Creatinine Clr Calc Pharmacy 66.8; Estimated Glomerular Filt Rate > 60; Glucose Fasting 134 mg/dL (60-99); Potassium 4.8 mmol/L (3.3-5.1); Sodium 136 mmol/L (135-145); Total Protein 6.1 g/dL (6.5-8.0)
[2022-06-16] MEDS: Omeprazole 20 MG CAPSULE.DR PO ×2 (06:49→15:16)
--- NOTE | 2022-06-16 09:21 | P.CDIC_ITS ---
CDI Concurrent Query Documentation Clarification: PHYSICIAN'S DOCUMENTATION REQUEST Date of Query: 06/16/22920 Patient Name: Garrett Cuevas Admit Date: 06/15/22 Dear Doctor, A review of the medical record indicates additional documentation may be needed. Please review below and update the documentation accordingly. Clinical Indicators: Risk Factors/Clinical Indicators/Treatments COPD exacerbation, dependent on Home O2. Supplemental oxygen with the hope to titrate down to his baseline of 2 liters nc. RR 24/ pulse ox 95%. ABGs (1 or more) Symptoms: ? PO2 <60 or RA SpO2 <91% ? Tachypnea, SOB, dyspnea ? PcO2 >50 and pH <7.35 ? Pallor or cyanosis ? pO2 decrease or pcO2 increase ? Anxiety or restlessness by 10 mm/Hg from baseline if known Clarify which of the following accurately represents the patient's respiratory status: * Chronic respiratory failure O2 dependent * Acute on chronic respiratory failure * Other (please specify) * Unable to determine Use of terms such as suspected, likely, concern for, or probable (associated with a specific diagnosis that is being evaluated, monitored, or treated as if it exists) are acceptable and can be coded in the inpatient setting, when documented at the time of discharge. Thank you, Chanel Duarte [facility], CDIS Extension: [phone] Please use your independent medical judgment in providing your response. THIS QUERY IS PART OF THE PERMANENT MEDICAL RECORD Provider Response: Other Other Diagnosis: Chronic respiratory failure O2 dependent
[2022-06-16] MEDS: Fluticasone/Vilanterol 200/25 BLST.W.DEV 1 PUFF INHALE (09:27)
[2022-06-16] MEDS: Albuterol/Iprat 2.5/0.5MG 3 ML AMPUL.NEB INHALE ×4 (09:27→18:46)
[2022-06-16] MEDS: Nicotine 21 MG PATCH.TD24 TRANSDERMA (09:45)
[2022-06-16] MEDS: Enoxaparin Sodium 40 MG/0.4 ML SYRINGE SUBCUT (09:45)
[2022-06-16] MEDS: levoFLOXacin 500 MG TABLET PO (09:46)
[2022-06-16] MEDS: VerapamiL HCL 80 MG TABLET PO ×2 (09:46→21:22)
[2022-06-16] MEDS: Lidocaine 4 % Patch ADH..PATCH 1 PATCH TRANSDERMA (09:46)
--- NOTE | 2022-06-16 11:50 | HO.PM.IMPN ---
Subjective Subjective Date of Service: 06/16/22 Interval History: Breathing essentially unchanged per patient. Back pain fairly controlled current regimen Review of Systems Denies chest pain Admits to shortness of breath worse with exertion Denies nausea vomiting diarrhea Denies fever chills Physical Exam Vital Signs: Vital Signs: Last Vital Signs Temp 98.4 F 06/16/22 11:13 Pulse 94 06/16/22 11:18 Resp 20 06/16/22 11:18 BP 113/69 06/16/22 11:13 Pulse Ox 92 06/16/22 11:13 O2 Del Method 06/16/22 11:13 O2 Flow Rate 2 06/16/22 11:13 BMI result Body Mass Index 21.6 Const: Other: Awake alert breathing comfortably on 3 L O2 semi-Vargas's position HEENT: Other: Membranes moist Resp: Other: Diminished throughout with scattered expiratory wheezes at bases Cardio: Other: No S4; positive S1-S2; no S3 murmurs rubs or gallops Back/Spine/Pelvis: Other: Point tenderness over T10 region Neuro: Other: Cranial nerves 2-12 grossly intact as tested. Motor is 5/5 all extremities. Sensation intact. Cognition appropriate Extrem: Other: No edema bilaterally Objective Data Active Medications Acetaminophen (Acetaminophen 325 Mg Tablet) 650 mg PO Q6H PRN PRN Reason: Pain, Mild (Pain Scale 1-3) Last Admin: 06/15/22 12:08 Dose: 650 mg Documented By: AP Albuterol Sulfate (Albuterol Sulfate 90 Mcg 8 Gm Inhaler) 1 puff INHALE QID PRN PRN Reason: Wheezing Albuterol/Ipratropium (Albuterol/Iprat 2.5/0.5mg 3 Ml Ampul.Neb) 3 ml INHALE RQID [facility] Last Admin: 06/16/22 11:15 Dose: 3 ml Documented By: TUAN Amitriptyline HCl (Amitriptyline Hcl 10 Mg Tablet) 20 mg PO BEDTIME [facility] Last Admin: 06/15/22 20:57 Dose: 20 mg Documented By: LATASHA Atorvastatin Calcium (Atorvastatin Calcium 40 Mg Tablet) 40 mg PO BEDTIME [facility] Last Admin: 06/15/22 20:57 Dose: 40 mg Documented By: LATASHA Enoxaparin Sodium (Enoxaparin Sodium 40 Mg/0.4 Ml Syringe) 40 mg SUBCUT Q24H [facility] Last Admin: 06/16/22 09:45 Dose: 40 mg Documented By: HENRRY Fluticasone/Vilanterol (Fluticasone/Vilanterol 200/25 Blst.W.Dev) 1 puff INHALE RDAILY [facility] Last Admin: 06/16/22 09:27 Dose: 1 puff Documented By: TUAN Guaifenesin (Guaifenesin [place] 600 Mg Tab.Er.12h) 600 mg PO TID PRN PRN Reason: Cough Last Admin: 06/15/22 20:57 Dose: 600 mg Documented By: LATASHA Levofloxacin (Levofloxacin 500 Mg Tablet) 500 mg PO DAILY [facility] Last Admin: 06/16/22 09:46 Dose: 500 mg Documented By: HENRRY Lidocaine (Lidocaine 4 % Patch Adh..Patch) 1 patch TRANSDERMA DAILY [facility] Last Admin: 06/16/22 09:46 Dose: 1 patch Documented By: HENRRY Methylprednisolone Sodium Succinate (Methylprednisolone Sod Succ 125 Mg/2 Ml Vial) 60 mg IVPUSH Q6H [facility] Last Admin: 06/16/22 06:49 Dose: 60 mg Documented By: ANYA Morphine Sulfate (Morphine Sulfate 4 Mg/Ml Cartridge) 4 mg IVPUSH Q3H PRN; Protocol PRN Reason: Pain, Severe (Pain Scale 7-10) Last Admin: 06/15/22 21:15 Dose: 4 mg Documented By: LATASHA Nicotine (Nicotine 21 Mg Patch.Td24) 21 mg TRANSDERMA DAILY [facility] Last Admin: 06/16/22 09:45 Dose: 21 mg Documented By: HENRRY Omeprazole (Omeprazole 20 Mg Capsule.Dr) 20 mg PO BID@0630,1630 [facility] Last Admin: 06/16/22 06:49 Dose: 20 mg Documented By: ANYA Oxycodone HCl (Oxycodone Hcl Immed Release 5 Mg Tablet) 5 mg PO Q6H PRN PRN Reason: Pain, Moderate (Pain Scale 4-6 Last Admin: 06/15/22 14:26 Dose: 5 mg Documented By: AP Pharmacy Consult (Consult Rx Perform Med Rec) 1 each MISCELLANE ONCE PRN PRN Reason: Consult order Sodium Chloride (0.9 % Sodium Chloride Flush 3 Ml Syringe) 3 ml IVFLUSH QSHIFT [facility] Last Admin: 06/16/22 09:47 Dose: 3 ml Documented By: HENRRY Tiotropium [place] (Tiotropium [place] 18 Mcg Cap.W.Dev) 1 puff INHALE RDAILY [facility] Last Admin: 06/16/22 09:27 Dose: 1 puff Documented By: TUAN Trazodone HCl (Trazodone Hcl 25 Mg Halftab) 25 mg PO BEDTIME PRN PRN Reason: Insomnia Last Admin: 06/15/22 20:57 Dose: 25 mg Documented By: ZAIN-ASYA Verapamil HCl (Verapamil Hcl 80 Mg Tablet) 80 mg PO BID [facility]; Protocol Last Admin: 06/16/22 09:46 Dose: 80 mg Documented By: HENRRY Labs CBC & Chem 7: 06/16/22 05:44 06/16/22 05:44 Labs: Laboratory Results - last 24 hr 06/16/22 06/16/22 05:44 05:44 MCV 95.4 MCH 31.0 MCHC 32.4 RDW 13.7 Plt Count 203 MPV 9.8 Immature Gran % (Auto) 0.5 H Neut % (Auto) 91.9 H Lymph % (Auto) 4.9 L [place] % (Auto) 2.6 Eos % (Auto) 0.0 Baso % (Auto) 0.1 Lymph # (Auto) 0.5 L [place] # (Auto) 0.3 Eos # (Auto) 0.0 Baso # (Auto) 0.0 Abs Immat Gran (auto) 0.05 H Absolute Neuts (auto) 9.3 H Absolute Nucleated RBC 0.000 Nucleated RBC % (auto) 0.0 Smear Tech's Comments VERIFIED Anion Gap 12 Estim Creat Clear Calc 66.8 Estimated GFR > 60 Fasting Glucose 134 H Calcium 9.1 Total Bilirubin 0.6 AST 14 ALT 19 Alkaline Phosphatase 97 Total Protein 6.1 L Albumin 3.6 Microbiology Microbiology Results: Microbiology 06/15/22 05:35 Blood Culture - Preliminary Blood - Venous No growth after 24 hours. 06/15/22 05:35 Blood Culture - Preliminary Blood - Venous No growth after 24 hours. Assessment and Plan (1) Acute exacerbation of chronic obstructive airways disease: Status: Acute (2) Hypertension: Status: Acute (3) Hyperlipidemia: Status: Acute Plan 77-year-old male with known history of emphysematous lung disease O2 dependent presents with productive cough and worsening shortness of breath. Patient recently admitted to [facility] earlier this month and treated for the same. In the emergency room, he received an hour DuoNeb with some improvement in his status along with methylprednisolone 125 mg. 1. Acute exacerbation of COPD -methylprednisolone 60 mg IV q.6 hours -DuoNebs q.i.d. as per outpatient regimen -supplemental O2 with hopes to titrate down to his baseline of 2 L at home -Levaquin (2) 2. Hypertension -acceptable control on current regimen -titrate as indicated 3. Hyperlipidemia -continue statin at outpatient dosing Full code Lovenox Will require ongoing hospitalization for IV steroids to treat acute exacerbation of COPD along with chronic respiratory failure requiring with chronic O2 Quality Stroke Does the patient have a stroke diagnosis?: No VTE Prior VTE?: No VTE Risk Level:: Medical - moderate - high VTE Device Contraindication: Treatment Not Indicated VTE Drug Contraindication: N/A - Med Ordered
[2022-06-16] MEDS: Atorvastatin Calcium 40 MG TABLET PO (21:22)
[2022-06-16] MEDS: Amitriptyline HCl 10 MG TABLET 20 MG PO (21:22)
[2022-06-17] VITALS (12 sets, daily range): BP systolic 95–128; BP diastolic 58–72; PULSE 68–86; RESP 16–20; TEMP 35.2–36.6; O2SAT 90–100
[2022-06-17] MEDS: Omeprazole 20 MG CAPSULE.DR PO ×2 (05:49→16:16)
[2022-06-17] MEDS: methylPREDNISolone Sod Succ 125 MG/2 ML VIAL 60 MG IVPUSH ×4 (05:49→23:26)
[2022-06-17] MEDS: Albuterol/Iprat 2.5/0.5MG 3 ML AMPUL.NEB INHALE ×4 (07:47→19:50)
[2022-06-17] MEDS: Fluticasone/Vilanterol 200/25 BLST.W.DEV 1 PUFF INHALE ×2 (08:28→08:38)
[2022-06-17] MEDS: VerapamiL HCL 80 MG TABLET PO ×2 (09:46→20:43)
[2022-06-17] MEDS: Lidocaine 4 % Patch ADH..PATCH 1 PATCH TRANSDERMA (09:46)
[2022-06-17] MEDS: Nicotine 21 MG PATCH.TD24 TRANSDERMA (09:46)
[2022-06-17] MEDS: levoFLOXacin 500 MG TABLET PO (09:46)
[2022-06-17] MEDS: Enoxaparin Sodium 40 MG/0.4 ML SYRINGE SUBCUT (09:47)
[2022-06-17] MEDS: 0.9 % Sodium Chloride Flush 3 ML SYRINGE IVFLUSH ×3 (09:51→20:43)
[2022-06-17] MEDS: Morphine Sulfate 4 MG/ML CARTRIDGE IVPUSH (10:42)
--- NOTE | 2022-06-17 12:13 | P.PNIM_ITS ---
Subjective Subjective Date of Service: 06/17/22 Interval History: Slowly improving.... Breathing slightly better Review of Systems Denies chest pain Admits to shortness of breath worse with exertion Denies nausea vomiting diarrhea Denies fever chills Physical Exam Vital Signs: Vital Signs: Last Vital Signs Temp 97.5 F 06/17/22 11:35 Pulse 73 06/17/22 11:35 Resp 20 06/17/22 11:35 BP 120/72 06/17/22 11:35 Pulse Ox 100 06/17/22 11:35 O2 Del Method 06/17/22 11:35 O2 Flow Rate 4 06/17/22 11:35 BMI result Body Mass Index 21.6 Const: Other: Awake alert breathing comfortably on 3 L O2 semi-Vargas's position HEENT: Other: Membranes moist Resp: Other: Diminished throughout with scattered expiratory wheezes at bases Cardio: Other: No S4; positive S1-S2; no S3 murmurs rubs or gallops Back/Spine/Pelvis: Other: Point tenderness over T10 region Neuro: Other: Cranial nerves 2-12 grossly intact as tested. Motor is 5/5 all extremities. Se nsation intact. Cognition appropriate Extrem: Other: No edema bilaterally Objective Data Active Medications Acetaminophen (Acetaminophen 325 Mg Tablet) 650 mg PO Q6H PRN PRN Reason: Pain, Mild (Pain Scale 1-3) Last Admin: 06/15/22 12:08 Dose: 650 mg Documented By: AP Albuterol Sulfate (Albuterol Sulfate 90 Mcg 8 Gm Inhaler) 1 puff INHALE QID PRN PRN Reason: Wheezing Albuterol/Ipratropium (Albuterol/Iprat 2.5/0.5mg 3 Ml Ampul.Neb) 3 ml INHALE RQID [facility] Last Admin: 06/17/22 11:31 Dose: 3 ml Documented By: GUIDIB Amitriptyline HCl (Amitriptyline Hcl 10 Mg Tablet) 20 mg PO BEDTIME [facility] Last Admin: 06/16/22 21:22 Dose: 20 mg Documented By: EFREN Atorvastatin Calcium (Atorvastatin Calcium 40 Mg Tablet) 40 mg PO BEDTIME [facility] Last Admin: 06/16/22 21:22 Dose: 40 mg Documented By: EFREN Enoxaparin Sodium (Enoxaparin Sodium 40 Mg/0.4 Ml Syringe) 40 mg SUBCUT Q24H [facility] Last Admin: 06/17/22 09:47 Dose: 40 mg Documented By: HENRRY Fluticasone/Vilanterol (Fluticasone/Vilanterol 200/25 Blst.W.Dev) 1 puff INHALE RDAILY [facility] Last Admin: 06/17/22 08:38 Dose: 1 puff Documented By: DAVON Guaifenesin (Guaifenesin [place] 600 Mg Tab.Er.12h) 600 mg PO TID PRN PRN Reason: Cough Last Admin: 06/15/22 20:57 Dose: 600 mg Documented By: ZAIN-ASYA Lactulose (Lactulose 20 Gm/30 Ml Solution) 10 gm PO DAILY PRN PRN Reason: Constipation Levofloxacin (Levofloxacin 500 Mg Tablet) 500 mg PO DAILY [facility] Last Admin: 06/17/22 09:46 Dose: 500 mg Documented By: HENRRY Lidocaine (Lidocaine 4 % Patch Adh..Patch) 1 patch TRANSDERMA DAILY [facility] Last Admin: 06/17/22 09:46 Dose: 1 patch Documented By: HENRRY Methylprednisolone Sodium Succinate (Methylprednisolone Sod Succ 125 Mg/2 Ml Vial) 60 mg IVPUSH Q6H [facility] Last Admin: 06/17/22 05:49 Dose: 60 mg Documented By: SABRINA Morphine Sulfate (Morphine Sulfate 4 Mg/Ml Cartridge) 4 mg IVPUSH Q3H PRN; Protocol PRN Reason: Pain, Severe (Pain Scale 7-10) Last Admin: 06/17/22 10:42 Dose: 4 mg Documented By: HENRRY Nicotine (Nicotine 21 Mg Patch.Td24) 21 mg TRANSDERMA DAILY [facility] Last Admin: 06/17/22 09:46 Dose: 21 mg Documented By: HENRRY Omeprazole (Omeprazole 20 Mg Capsule.Dr) 20 mg PO BID@0630,1630 [facility] Last Admin: 06/17/22 05:49 Dose: 20 mg Documented By: SABRINA Oxycodone HCl (Oxycodone Hcl Immed Release 5 Mg Tablet) 5 mg PO Q6H PRN PRN Reason: Pain, Moderate (Pain Scale 4-6 Last Admin: 06/15/22 14:26 Dose: 5 mg Documented By: AP Pharmacy Consult (Consult Rx Perform Med Rec) 1 each MISCELLANE ONCE PRN PRN Reason: Consult order Sodium Chloride (0.9 % Sodium Chloride Flush 3 Ml Syringe) 3 ml IVFLUSH QSHIFT [facility] Last Admin: 06/17/22 09:51 Dose: 3 ml Documented By: HENRRY Tiotropium [place] (Tiotropium [place] 18 Mcg Cap.W.Dev) 1 puff INHALE RDAILY [facility] Last Admin: 06/17/22 08:28 Dose: 1 puff Documented By: DAVON Trazodone HCl (Trazodone Hcl 25 Mg Halftab) 25 mg PO BEDTIME PRN PRN Reason: Insomnia Last Admin: 06/15/22 20:57 Dose: 25 mg Documented By: ZAIN-ASYA Verapamil HCl (Verapamil Hcl 80 Mg Tablet) 80 mg PO BID [facility]; Protocol Last Admin: 06/17/22 09:46 Dose: 80 mg Documented By: HENRRY Labs CBC & Chem 7: 06/16/22 05:44 06/16/22 05:44 Microbiology Microbiology Results: Microbiology 06/15/22 05:35 Blood Culture - Preliminary Blood - Venous No growth after 48 hours. 06/15/22 05:35 Blood Culture - Preliminary Blood - Venous No growth after 48 hours. Assessment and Plan (1) Acute exacerbation of chronic obstructive airways disease: Status: Acute (2) Hypertension: Status: Acute (3) Hyperlipidemia: Status: Acute Plan 77-year-old male with known history of emphysematous lung disease O2 dependent presents with productive cough and worsening shortness of breath. Patient recently admitted to [facility] earlier this month and treated for the same. In the emergency room, he received an hour DuoNeb with some improvement in his status along with methylprednisolone 125 mg. 1. Acute exacerbation of COPD -methylprednisolone 60 mg IV q.6 hours x 48hrs -DuoNebs q.i.d. as per outpatient regimen -supplemental O2 with hopes to titrate down to his baseline of 2 L at home -Levaquin (3) 2. Hypertension -acceptable control on current regimen -titrate as indicated 3. Hyperlipidemia -continue statin at outpatient dosing Full code Lovenox Will require ongoing hospitalization for IV steroids to treat acute exacerbation of COPD along with chronic respiratory failure requiring with chronic O2; slowly improving Quality Stroke Does the patient have a stroke diagnosis?: No VTE Prior VTE?: No VTE Risk Level:: Medical - moderate - high VTE Device Contraindication: Treatment Not Indicated VTE Drug Contraindication: N/A - Med Ordered
[2022-06-17] MEDS: Atorvastatin Calcium 40 MG TABLET PO (20:43)
[2022-06-17] MEDS: Amitriptyline HCl 10 MG TABLET 20 MG PO (20:43)
[2022-06-18] VITALS (10 sets, daily range): BP systolic 109–141; BP diastolic 69–83; PULSE 72–120; RESP 13–20; TEMP 36.1–37.2; O2SAT 86–100
[2022-06-18] MEDS: Omeprazole 20 MG CAPSULE.DR PO ×2 (06:11→17:26)
[2022-06-18] MEDS: methylPREDNISolone Sod Succ 125 MG/2 ML VIAL 60 MG IVPUSH ×4 (06:11→23:34)
[2022-06-18] MEDS: Albuterol/Iprat 2.5/0.5MG 3 ML AMPUL.NEB INHALE ×3 (08:08→20:03)
[2022-06-18] MEDS: Fluticasone/Vilanterol 200/25 BLST.W.DEV 1 PUFF INHALE (08:09)
[2022-06-18] MEDS: levoFLOXacin 500 MG TABLET PO (08:45)
[2022-06-18] MEDS: Nicotine 21 MG PATCH.TD24 TRANSDERMA (08:45)
[2022-06-18] MEDS: Enoxaparin Sodium 40 MG/0.4 ML SYRINGE SUBCUT (08:45)
[2022-06-18] MEDS: VerapamiL HCL 80 MG TABLET PO ×2 (08:45→20:33)
[2022-06-18] MEDS: Lidocaine 4 % Patch ADH..PATCH 1 PATCH TRANSDERMA (08:46)
[2022-06-18] MEDS: 0.9 % Sodium Chloride Flush 3 ML SYRINGE IVFLUSH ×3 (08:47→20:34)
[2022-06-18] MEDS: oxyCODONE HCl Immed Release 5 MG TABLET 10 MG PO (11:47)
[2022-06-18] MEDS: Lactulose 20 GM/30 ML SOLUTION 10 GM PO (11:48)
--- NOTE | 2022-06-18 11:55 | P.PNIM_ITS ---
Subjective Subjective Date of Service: 06/18/22 Interval History: Continues to improve. Still not back to baseline Review of Systems Denies chest pain Admits to shortness of breath worse with exertion Denies nausea vomiting diarrhea Denies fever chills Physical Exam Vital Signs: Vital Signs: Last Vital Signs Temp 98.1 F 06/18/22 11:20 Pulse 90 06/18/22 11:20 Resp 13 06/18/22 11:20 BP 109/69 06/18/22 11:20 Pulse Ox 92 06/18/22 11:20 O2 Del Method 06/18/22 11:20 O2 Flow Rate 2.0 06/18/22 11:20 BMI result Body Mass Index 21.6 Const: Other: Awake alert breathing comfortably on 3 L O2 semi-Vargas's position HEENT: Other: Membranes moist Resp: Other: Diminished throughout with scattered expiratory wheezes at bases Cardio: Other: No S4; positive S1-S2; no S3 murmurs rubs or gallops Back/Spine/Pelvis: Other: Point tenderness over T10 region Neuro: Other: Cranial nerves 2-12 grossly intact as tested. Motor is 5/5 all extremities. Sensation intact. Cognition appropriate Extrem: Other: No edema bilaterally Objective Data Active Medications Acetaminophen (Acetaminophen 325 Mg Tablet) 650 mg PO Q6H PRN PRN Reason: Pain, Mild (Pain Scale 1-3) Last Admin: 06/15/22 12:08 Dose: 650 mg Documented By: AP Albuterol Sulfate (Albuterol Sulfate 90 Mcg 8 Gm Inhaler) 1 puff INHALE QID PRN PRN Reason: Wheezing Albuterol/Ipratropium (Albuterol/Iprat 2.5/0.5mg 3 Ml Ampul.Neb) 3 ml INHALE RQID [facility] Last Admin: 06/18/22 08:08 Dose: 3 ml Documented By: NEAL Amitriptyline HCl (Amitriptyline Hcl 10 Mg Tablet) 20 mg PO BEDTIME [facility] Last Admin: 06/17/22 20:43 Dose: 20 mg Documented By: SABRINA Atorvastatin Calcium (Atorvastatin Calcium 40 Mg Tablet) 40 mg PO BEDTIME [facility] Last Admin: 06/17/22 20:43 Dose: 40 mg Documented By: SABRINA Enoxaparin Sodium (Enoxaparin Sodium 40 Mg/0.4 Ml Syringe) 40 mg SUBCUT Q24H [facility] Last Admin: 06/18/22 08:45 Dose: 40 mg Documented By: HENRRY Fluticasone/Vilanterol (Fluticasone/Vilanterol 200/25 Blst.W.Dev) 1 puff INHALE RDAILY [facility] Last Admin: 06/18/22 08:09 Dose: 1 puff Documented By: NEAL Guaifenesin (Guaifenesin La 600 Mg Tab.Er.12h) 600 mg PO TID PRN PRN Reason: Cough Last Admin: 06/15/22 20:57 Dose: 600 mg Documented By: ZAIN-ASYA Lactulose (Lactulose 20 Gm/30 Ml Solution) 10 gm PO DAILY PRN PRN Reason: Constipation Last Admin: 06/18/22 11:48 Dose: 10 gm Documented By: HENRRY Levofloxacin (Levofloxacin 500 Mg Tablet) 500 mg PO DAILY [facility] Last Admin: 06/18/22 08:45 Dose: 500 mg Documented By: HENRRY Lidocaine (Lidocaine 4 % Patch Adh..Patch) 1 patch TRANSDERMA DAILY [facility] Last Admin: 06/18/22 08:46 Dose: 1 patch Documented By: HENRRY Methylprednisolone Sodium Succinate (Methylprednisolone Sod Succ 125 Mg/2 Ml Vial) 60 mg IVPUSH Q6H [facility] Last Admin: 06/18/22 11:49 Dose: 60 mg Documented By: HENRRY Morphine Sulfate (Morphine Sulfate 4 Mg/Ml Cartridge) 4 mg IVPUSH Q3H PRN; Protocol PRN Reason: Pain, Severe (Pain Scale 7-10) Last Admin: 06/17/22 10:42 Dose: 4 mg Documented By: HENRRY Nicotine (Nicotine 21 Mg Patch.Td24) 21 mg TRANSDERMA DAILY [facility] Last Admin: 06/18/22 08:45 Dose: 21 mg Documented By: HENRRY Omeprazole (Omeprazole 20 Mg Capsule.Dr) 20 mg PO BID@0630,1630 [facility] Last Admin: 06/18/22 06:11 Dose: 20 mg Documented By: SABRINA Oxycodone HCl (Oxycodone Hcl Immed Release 5 Mg Tablet) 10 mg PO Q4H PRN PRN Reason: Pain, Moderate (Pain Scale 4-6 Last Admin: 06/18/22 11:47 Dose: 10 mg Documented By: HENRRY Pharmacy Consult (Consult Rx Perform Med Rec) 1 each MISCELLANE ONCE PRN PRN Reason: Consult order Sodium Chloride (0.9 % Sodium Chloride Flush 3 Ml Syringe) 3 ml IVFLUSH QSHIFT [facility] Last Admin: 06/18/22 08:47 Dose: 3 ml Documented By: HENRRY Tiotropium [place] (Tiotropium [place] 18 Mcg Cap.W.Dev) 1 puff INHALE RDAILY [facility] Last Admin: 06/18/22 08:08 Dose: 1 puff Documented By: NEAL Trazodone HCl (Trazodone Hcl 25 Mg Halftab) 25 mg PO BEDTIME PRN PRN Reason: Insomnia Last Admin: 06/15/22 20:57 Dose: 25 mg Documented By: LATASHA Verapamil HCl (Verapamil Hcl 80 Mg Tablet) 80 mg PO BID [facility]; Protocol Last Admin: 06/18/22 08:45 Dose: 80 mg Documented By: HENRRY Labs CBC & Chem 7: 06/16/22 05:44 06/16/22 05:44 Assessment and Plan (1) Acute exacerbation of chronic obstructive airways disease: Status: Acute (2) Hypertension: Status: Acute (3) Hyperlipidemia: Status: Acute Plan 77-year-old male with known history of emphysematous lung disease O2 dependent presents with productive cough and worsening shortness of breath. Patient recently admitted to [facility] earlier this month and treated for the same. In the emergency room, he received an hour DuoNeb with some improvement in his status along with methylprednisolone 125 mg. 1. Acute exacerbation of COPD -methylprednisolone 60 mg IV q.6 hours x 48hrs -DuoNebs q.i.d. as per outpatient regimen -supplemental O2 at baseline; will have respiratory of al for ambulatory O2 -[place] (4) 2. Hypertension -acceptable control on current regimen -titrate as indicated 3. Hyperlipidemia -continue statin at outpatient dosing Full code Lovenox Will require ongoing hospitalization for IV steroids to treat acute exacerbation of COPD along with chronic respiratory failure requiring with chronic O2; slowly improving Quality Stroke Does the patient have a stroke diagnosis?: No VTE Prior VTE?: No VTE Risk Level:: Medical - moderate - high VTE Device Contraindication: Treatment Not Indicated VTE Drug Contraindication: N/A - Med Ordered
--- NOTE | 2022-06-18 13:47 | MHC.CM.PN ---
CM MET WITH PT AND FAMILY AT BEDSIDE THEY REPORT THE [facility] INDICATED IN THE CM NOTES PT ONLY [facility] AND SOMEONE THAT ASSISTS WITH THOSE NEEDS. THEY REPORT THE PT WOULD BE INTERESTED IN A VNA FOR SN AND REAL [employer]ING [employer] SERVICES AND WILL TALK WITH PCP ABOUT [facility] PT IS EXPECTED TO DC THIS OR TUESDAY [facility]
[2022-06-18] MEDS: Acetaminophen 325 MG TABLET 650 MG PO (20:32)
[2022-06-18] MEDS: Atorvastatin Calcium 40 MG TABLET PO (20:32)
[2022-06-18] MEDS: guaiFENesin LA 600 MG TAB.ER.12H PO (20:32)
[2022-06-18] MEDS: Amitriptyline HCl 10 MG TABLET 20 MG PO (20:33)
[2022-06-18] MEDS: traZODone HCL 25 MG HALFTAB PO (20:34)
[2022-06-19 03:58] VITALS: BP 116/69; PULSE 53; RESP 17; TEMP 36.1; O2SAT 94
[2022-06-19 05:31] LABS: VBG Base Excess 4.3 mmol/L; VBG HCO3 28 mmol/L (22-26); VBG pCO2 40 mmHg; VBG pH 7.45 (7.32-7.43); VBG pO2 39 mmHg
[2022-06-19 05:31] LABS: Hematocrit 34.8 % (42.0-52.0); Hemoglobin 11.5 g/dl (14.0-18.0); Imm Gran Abs Auto 0.07 X10*3/uL (0.00-0.03); Imm Gran Pct Auto 0.7 % (0.0-0.4); Lymphocytes Absolute Auto 0.4 X10*3/uL (1.2-4.9); MANUAL DIFF FLAG SCAN; Mean Corpuscular Hemoglobin 31.1 pg (27.0-33.0); Mean Corpuscular Volume 94.1 fL (80.0-98.0); Mean Platelet Volume 9.1 fL (9.4-12.4); Monocytes Absolute Auto 0.4 X10*3/uL (0.1-1.2); Monocytes Percent Auto 3.5 % (2-11); Neutrophils Absolute Auto 9.2 x10*3/uL (2.0-8.3); Neutrophils Percent Auto 91.8 % (45-73); Platelet Count 229 X10*3/uL (160-400); SCAN SMEAR FLAG 1
[2022-06-19 05:32] LABS: Venous Blood Gas Refer to POC result
[2022-06-19] MEDS: Omeprazole 20 MG CAPSULE.DR PO (05:41)
[2022-06-19] MEDS: methylPREDNISolone Sod Succ 125 MG/2 ML VIAL 60 MG IVPUSH ×2 (05:41→12:51)
[2022-06-19 05:48] LABS: SLIDE REVIEW VERIFIED
[2022-06-19 05:55] LABS: Alanine Aminotransferase 53 U/L (0-40); Albumin Level 3.3 g/dL (3.5-5.0); Alkaline Phosphatase 77 U/L (39-117); Anion Gap 14 (12-20); Aspartate Amino Transferase 34 U/L (5-37); Bilirubin Total 0.4 mg/dL (0.0-1.0); Blood Urea Nitrogen 37 mg/dL (9-16); Calcium 9.1 mg/dL (8.4-10.2); Carbon Dioxide 27 mmol/L (22-29); Chloride 105 mmol/L (96-108); Creatinine Clr Calc Pharmacy 54.9; Estimated Glomerular Filt Rate > 60; Glucose Fasting 129 mg/dL (60-99); Potassium 4.7 mmol/L (3.3-5.1); Sodium 141 mmol/L (135-145); Total Protein 5.3 g/dL (6.5-8.0)
[2022-06-19 07:07] VITALS: BP 158/80; PULSE 89; RESP 19; TEMP 36.6; O2SAT 98
[2022-06-19] MEDS: Albuterol/Iprat 2.5/0.5MG 3 ML AMPUL.NEB INHALE ×2 (07:46→11:49)
[2022-06-19 07:47] VITALS: RESP 18; O2SAT 97
[2022-06-19] MEDS: Nicotine 21 MG PATCH.TD24 TRANSDERMA (09:46)
--- NOTE | 2022-06-19 09:47 | PM.DS ---
DS: Providers Provider Date of Service: 06/19/22 Date of admission: 06/15/22 07:58 Primary care physician: Unknown Physician DS: Diagnosis Discharge Diagnosis (1) Acute exacerbation of chronic obstructive airways disease: Status: Acute (2) Hypertension: Status: Acute (3) Hyperlipidemia: Status: Acute DS: Summary Hospital Course Hospital Course: Chief Complaint: Shortness of breath 77-year-old male with history of COPD and oxygen dependent at home who comes in with increasing shortness of breath since yesterday with associated productive cough is well significant back pain denies fever, chills.? Patient denies any recent COVID-19 exposure. Recently admitted 05/25/2022 through 05/28/2022 with similar complaints.? Discharged home on prednisone taper however once prednisone completed symptoms returned. Hospital course: Patient was admitted with exacerbation COPD and treated with IV Solu-Medrol, bronchodilators by nebulizer, oxygen. Patient is already on home O2. He feels better now and think that he is as good as he will get. He is comfortable with his breathing and will be discharged home with a prednisone taper and follow-up with the primary care physician with the upcoming week. Time Spent with Patient Time attestation: Total time spent providing and/or coordinating discharge services: Discharge coordination time: Greater than 30 minutes Quality: Safe Use of Opioids Does Pt have an Active Cancer Diagnosis on the Problem List?: No Quality: Stroke Does the patient have a stroke diagnosis?: No Physical Exam Vital Signs: Vital Signs: Last Vital Signs Temp 98 F 06/19/22 07:07 Pulse 89 06/19/22 07:07 Resp 18 06/19/22 07:47 BP 158/80 H 06/19/22 07:07 Pulse Ox 98 06/19/22 07:07 O2 Del Method 06/19/22 07:07 O2 Flow Rate 2 06/19/22 07:07 BMI result Body Mass Index 21.6 DS: Data Data Completed and Pending Labs on day of discharge: Laboratory Results - last 24 hr 06/19/22 06/19/22 06/19/22 05:21 05:21 05:27 WBC 10.0 RBC 3.70 L Hgb 11.5 L Hct 34.8 L MCV 94.1 MCH 31.1 MCHC 33.0 RDW 14.0 Plt Count 229 MPV 9.1 L Immature Gran % (Auto) 0.7 H Neut % (Auto) 91.8 H Lymph % (Auto) 4.0 L [place] % (Auto) 3.5 Eos % (Auto) 0.0 Baso % (Auto) 0.0 Lymph # (Auto) 0.4 L [place] # (Auto) 0.4 Eos # (Auto) 0.0 Baso # (Auto) 0.0 Abs Immat Gran (auto) 0.07 H Absolute Neuts (auto) 9.2 H Absolute Nucleated RBC 0.000 Nucleated RBC % (auto) 0.0 Smear Tech's Comments VERIFIED VBG pH 7.45 H VBG pCO2 40 VBG pO2 39 VBG HCO3 28 H VBG O2 Saturation 61.0 VBG Base Excess 4.3 Sodium 141 Potassium 4.7 Chloride 105 Carbon Dioxide 27 Anion Gap 14 BUN 37 H D Creatinine 1.12 Estim Creat Clear Calc 54.9 Estimated GFR > 60 Fasting Glucose 129 H Calcium 9.1 Total Bilirubin 0.4 AST 34 D ALT 53 H Alkaline Phosphatase 77 D Total Protein 5.3 L Albumin 3.3 L Preliminary micro results at discharge 06/15/22 05:35 Blood Culture - Preliminary Blood - Venous No growth after 48 hours. 06/15/22 05:35 Blood Culture - Preliminary Blood - Venous No growth after 48 hours. Discharge Plan Discharge Patient Disposition: Home, Self-Care Discharge Diagnosis: COPD exacerbation Referrals: Physician,Unknown J [Primary Care Provider] - 1 Week Discharge Medications: No Action azithromycin 250 mg Tablet 250 mg PO MOWEFR ipratropium-albuterol 0.5 mg-3 mg(2.5 mg base)/3 mL Solution For Nebulization 3 ml INHALATION QID guaifenesin 600 mg Tablet Extended Release 600 mg PO TID PRN (Reason: Cough) trazodone 50 mg Tablet 25 mg PO BEDTIME PRN (Reason: Insomnia) acetaminophen 500 mg Tablet 500 mg PO BID PRN (Reason: Pain) lidocaine 5 % Adhesive Patch,Medicated 1 patch TOPICAL DAILY Rx Instructions: leave on most painful area for up to 12 hrs nicotine 21 mg/24 hr Patch 24 Hour 1 patch TRANSDERMAL DAILY omeprazole 20 mg Capsule,Delayed Release(Dr/Ec) 20 mg PO BID@0630,1630 budesonide-formoterol 160-4.5 mcg/actuation Hfa Aerosol Inhaler 2 puff INHALATION BID umeclidinium 62.5 mcg/actuation Blister With Device 1 inh INHALATION DAILY atorvastatin 40 mg Tablet 40 mg PO BEDTIME amitriptyline 10 mg Tablet 20 mg PO BEDTIME multivitamin with minerals Tablet 1 tab PO DAILY verapamil 80 mg Tablet 80 mg PO BID albuterol sulfate 90 mcg/actuation Hfa Aerosol Inhaler 1 inh INHALATION QID PRN (Reason: Wheezing) Diet: Advance to usual diet Activity on Discharge: As tolerated Stand Alone Forms: Patient Portal Discharge page Care Plan Goals: Full recovery from COPD exacerbation and prevent rehospitalization. Health Concerns: Chronic respiratory failure due to COPD Plan of Treatment: take steroid as recommended, use inhalers as directed, use oxygen as previously. , follow-up with your primary care doctor within a week. Assessment: As above
[2022-06-19] MEDS: 0.9 % Sodium Chloride Flush 3 ML SYRINGE IVFLUSH (09:48)
[2022-06-19] MEDS: levoFLOXacin 500 MG TABLET PO (09:48)
[2022-06-19] MEDS: VerapamiL HCL 80 MG TABLET PO (09:48)
[2022-06-19] MEDS: Enoxaparin Sodium 40 MG/0.4 ML SYRINGE SUBCUT (09:48)
[2022-06-19 11:15] VITALS: BP 126/71; PULSE 89; RESP 20; TEMP 36.1; O2SAT 92
[2022-06-19 11:49] VITALS: PULSE 86; RESP 18; O2SAT 97
--- NOTE | 2022-06-19 12:39 | MHC.CM.PN ---
PT DISCHARGING HOME W/NEW [facility] AND RESUMP OF HOME O2, FAMILY FOR TRANSPORT
--- NOTE | 2022-06-19 12:40 | P.F2F_ITS ---
Service Date Service Date: 06/19/22 Encounter Date of encounter: 06/19/22 Reasons for Services Signs and symptoms assessed: shortness of breath Reason for nursing home: CV/CP assess and/or care and teach disease management Homebound: Leaving the home is medically contraindicated at this time without the asist of a device and/or another person due th the listed conditions above and below. Reason homebound: shortness of breath with minimal effort Homebound supporting statement: homebound due to shortness of breath that is limitting ambulation, activity and therefore needs the assistance of another person Certification: Based on the above findings, I certify that this patient is confined to the home and needs intermittent nursing home care, physical therapy and/or speech therapy, or continues to need occupational therapy. The patient is under my care, and I have initiated the establishment of the plan of care. The patient will be followed by a physician who will periodically review the plan of care.
== END 2022-06-19 13:00 | disposition home health service (06) | DRG 191 ==
LOC: HO.ED 06:56 → HO.EDOVER 08:12 → HO.IMC 23:48 → HO.S3 06-16 23:06
PROVIDERS: Admitting Provider Hospitalist; Emergency Provider Student in an Organized Health Care Education/Training Program; Visit Provider Internal Medicine
DX: J44.1 Chronic obstructive pulmonary disease with (acute) exacerbation (principal); J96.10 Chronic respiratory failure, unspecified whether with hypoxia or hypercapnia; E78.5 Hyperlipidemia, unspecified; I10 Essential (primary) hypertension; Z20.822 Contact with and (suspected) exposure to COVID-19; Z99.81 Dependence on supplemental oxygen; Z87.891 Personal history of nicotine dependence; Z88.0 Allergy status to penicillin; Z79.52 Long term (current) use of systemic steroids; Z79.899 Other long term (current) drug therapy
CPT/HCPCS: 36415; 71045; 71250; 80048; 80053; 82803; 83605; 83880; 84484; 85025; 87040; 87502; 87635; 93005; 94640; 94644; 94664; 96374; 99285; J1650; J2270; J2930

== ENCOUNTER 2022-07-24 19:23 | Inpatient (IN) | payer OTHER, SELFPAY ==
[2022-07-24] VITALS (8 sets, daily range): BP systolic 106–155; BP diastolic 56–81; PULSE 43–99; RESP 16–26; TEMP 36.8; O2SAT 96–99
--- NOTE | 2022-07-24 | ECG_ITS ---
Test Reason : ABNORMAL HEART BEAT Blood Pressure : / mmHG Vent. Rate : 067 BPM Atrial Rate : 067 BPM P-R Int : 110 ms QRS Dur : 142 ms QT Int : 456 ms P-R-T Axes : 081 -01 058 degrees QTc Int : 481 ms Sinus rhythm with short NV with occasional Premature ventricular complexes Right bundle branch block Abnormal ECG When compared with ECG of 15-JUN-2022 05:19, Previous ECG has undetermined rhythm, needs review QRS duration has increased Referred By: Annetta Ochoa Electronically Signed By:DAX LAM
--- NOTE | ~2022-07-24 | XR_ITS ---
EXAMINATION: XR CHEST CLINICAL INFORMATION: Cough. Shortness of breath. COMPARISON: Previous chest x-ray and chest CT 06/15/2022 TECHNIQUE: Frontal view of the chest was obtained. FINDINGS: There are emphysematous changes. There is crowding of lung markings at the lung bases. No definite pneumonia is seen. The cardiac and mediastinal contours are stable. There is no pleural effusion or pneumothorax. There are degenerative changes of the spine. XR/XR chest 1V IMPRESSION: Emphysema. No evidence for acute disease in the chest.
--- NOTE | 2022-07-24 19:42 | ED.ARRPALP ---
HPI - Arrhythmia/Palpitations General Chief Complaint: Arrhythmia/Palpitations Stated Complaint: increased heart rate Time Seen by Provider: 07/24/22 19:36 Source: patient Mode of arrival: EMS History of Present Illness HPI narrative: 77-year-old male with history of COPD states that he was feeling as though his heart rate was rapid shortness of breath and his daughter checked it and found his heart rate to be in the 40s . Patient denies any headache, dizziness, chest pain, GI or symptoms, and denies any fever or chills. Patient does states that he has become increasingly short of breath since being discharged. Related Data Home Medications Medication Instructions Recorded Confirmed acetaminophen 500 mg tablet 500 mg PO BID PRN Pain 05/25/22 06/15/22 budesonide-formoterol HFA 160 2 puff inhalation BID 05/25/22 06/15/22 mcg-4.5 mcg/actuation aerosol inhaler guaifenesin 600 mg tablet,extended 600 mg PO TID PRN Cough 05/25/22 06/15/22 release ipratropium 0.5 mg-albuterol 3 mg 3 ml inhalation QID 05/25/22 06/15/22 (2.5 mg base)/3 mL nebulization soln lidocaine 5 % topical patch 1 patch topical DAILY 05/25/22 06/15/22 nicotine 21 mg/24 hr daily 1 patch transdermal DAILY 05/25/22 06/15/22 transdermal patch omeprazole 20 mg capsule,delayed 20 mg PO BID@0630,1630 05/25/22 06/15/22 release trazodone 50 mg tablet 25 mg PO BEDTIME PRN Insomnia 05/25/22 06/15/22 umeclidinium 62.5 mcg/actuation 1 inh inhalation DAILY 05/25/22 06/15/22 blister powder for inhalation albuterol sulfate 90 mcg/actuation 1 inh inhalation QID PRN Wheezing 05/26/22 06/15/22 aerosol inhaler amitriptyline 10 mg tablet 20 mg PO BEDTIME 05/26/22 06/15/22 atorvastatin 40 mg tablet 40 mg PO BEDTIME 05/26/22 06/15/22 multivitamin with minerals 1 tab PO DAILY 05/26/22 06/15/22 verapamil 80 mg tablet 80 mg PO BID 07/06/22 07/26/22 azithromycin 250 mg tablet 250 mg PO MOWEFR 06/15/22 06/15/22 Previous Rx's Medication Instructions Recorded oxycodone 5 mg tablet 5 mg PO Q6H PRN pain (scale score 06/19/22 7-10) #14 tabs prednisone 20 mg tablet 20 mg PO DAILY #3 tabs 06/19/22 Allergies Allergy/AdvReac Type Severity Reaction Status Date / Time Penicillins [PENICILLINS] Allergy Unknown VOMITTING Verified 06/16/22 11:02 Review of Systems Review of Systems: Pertinent positives and negatives as stated in HPI 10 point review of systems is otherwise negative. [facility] Past Medical History Source: nursing notes reviewed Medical History Hyperlipidemia Hypertension Social History Social History Household Members: Children Housing: Apartment Do you presently have visiting nurse or other home services: Yes Alcohol intake: never Patient Tobacco Use Status: Former Tobacco user Smoked in Last 30 Days: No Use of substances other than those prescribed or required for medical reasons: No Advance Directives: No Advance Directives Information Provided: No service: Yes Current occupational status: retired Physical Exam Vital Signs: Vital Signs: Last Vital Signs Temp 98.2 F 07/24/22 21:02 Pulse 94 07/24/22 21:34 Resp 16 07/24/22 21:34 BP 130/59 L 07/24/22 21:02 Pulse Ox 97 07/24/22 21:02 O2 Del Method 07/24/22 21:02 BMI result Body Mass Index 20.0 VITAL SIGNS: Reviewed. GENERAL: Chronically ill, frail, in no acute distress. HEAD: Normocephalic/atraumatic EYES: PERRLA, EOMI EARS: Ext canals without abnormality OROPHARYNX: no oral lesions noted, posterior pharynx clear LUNGS: good inspiratory effort, scattered coarse rhonchi /Rales throughout with cough, tachypnea is present. SpO2<99> CARDIOVASCULAR: Regular rate and rhythm without noted murmurs, no JVD or lower extremity edema. ABDOMEN: Soft, non-tender, non-distended with bowel sounds. MUSCULOSKELETAL: No tenderness, deformities, or effusions noted on gross inspection. EXTREMITIES: No cyanosis, clubbing or edema. SKIN: Inspection of the skin reveals no rashes NEUROLOGIC: Alert and oriented x 4. Strength and sensation to light touch were grossly intact x 4. Course Course Course Narrative: 1950: 77-year-old male with history and clinical presentation prompting rule out of COPD but suspect possibility of CHF exacerbation. Review of all investigations with findings consistent with CHF exacerbation and suspect that this may be contributing to patient's auscultated breath sounds in noted cough. I discussed the case with the inpatient hospitalist, gave patient antibiotics as well as 40 mg of Lasix. On re-evaluation patient does appear more comfortable and is otherwise admitted. MDM - Arrhythmia/Palpitations Lab Data Result diagrams: 07/24/22 19:48 07/24/22 19:48 Labs: Lab Results 07/24/22 07/24/22 07/24/22 Range/Units 19:48 19:48 19:48 WBC 9.8 (4.8-10.8) X10*3/uL RBC 4.05 L (4.60-5.80) X10*6/uL Hgb 12.7 L (14.0-18.0) g/dl Hct 39.2 L (42.0-52.0) % MCV 96.8 (80.0-98.0) fL MCH 31.4 (27.0-33.0) pg MCHC 32.4 (31.0-36.0) g/dl RDW 14.5 (11.0-16.0) % Plt Count 212 (160-400) X10*3/uL MPV 9.4 (9.4-12.4) fL Immature Gran % (Auto) 0.3 (0.0-0.4) % Neut % (Auto) 67.6 (45-73) % Lymph % (Auto) 20.2 (20-40) % [place] % (Auto) 9.7 (2-11) % Eos % (Auto) 1.7 (0-4) % Baso % (Auto) 0.5 (0-2) % Lymph # (Auto) 2.0 (1.2-4.9) X10*3/uL [place] # (Auto) 1.0 (0.1-1.2) X10*3/uL Eos # (Auto) 0.2 (0.0-0.4) X10*3/uL Baso # (Auto) 0.1 (0.0-0.2) X10*3/uL Abs Immat Gran (auto) 0.03 (0.00-0.03) X10*3/uL Absolute Neuts (auto) 6.6 (2.0-8.3) x10*3/uL Absolute Nucleated RBC 0.000 (0.0-0.012) X10*3/uL Nucleated RBC % (auto) 0.0 (0.0-0.2) /100WBC PT 12.2 (10.0-13.1) SEC INR 1.1 (0.9-1.1) VBG pH (7.32-7.43) VBG pCO2 mmHg VBG pO2 mmHg VBG HCO3 (22-26) mmol/L VBG O2 Saturation % VBG Base Excess mmol/L Sodium 146 H (135-145) mmol/L Potassium 4.2 (3.3-5.1) mmol/L Chloride 111 H (96-108) mmol/L Carbon Dioxide 25 (22-29) mmol/L Anion Gap 14 (12-20) BUN 21 H (9-16) mg/dL Creatinine 1.16 (0.5-1.4) mg/dL Estim Creat Clear Calc 49.2 Estimated GFR > 60 Random Glucose 91 (60-115) mg/dL Lactic Acid (0.5-2.0) mmol/L Calcium 9.2 (8.4-10.2) mg/dL Total Bilirubin 0.4 (0.0-1.0) mg/dL AST 26 (5-37) U/L ALT 23 (0-40) U/L Alkaline Phosphatase 122 H D (39-117) U/L Troponin I High Sens (<3.5-35.0) ng/L B-Natriuretic Peptide (<100) pg/mL Total Protein 6.5 D (6.5-8.0) g/dL Albumin 4.0 D (3.5-5.0) g/dL 07/24/22 07/24/22 07/24/22 Range/Units 19:48 19:48 19:58 WBC (4.8-10.8) X10*3/uL RBC (4.60-5.80) X10*6/uL Hgb (14.0-18.0) g/dl Hct (42.0-52.0) % MCV (80.0-98.0) fL MCH (27.0-33.0) pg MCHC (31.0-36.0) g/dl RDW (11.0-16.0) % Plt Count (160-400) X10*3/uL MPV (9.4-12.4) fL Immature Gran % (Auto) (0.0-0.4) % Neut % (Auto) (45-73) % Lymph % (Auto) (20-40) % [place] % (Auto) (2-11) % Eos % (Auto) (0-4) % Baso % (Auto) (0-2) % Lymph # (Auto) (1.2-4.9) X10*3/uL [place] # (Auto) (0.1-1.2) X10*3/uL Eos # (Auto) (0.0-0.4) X10*3/uL Baso # (Auto) (0.0-0.2) X10*3/uL Abs Immat Gran (auto) (0.00-0.03) X10*3/uL Absolute Neuts (auto) (2.0-8.3) x10*3/uL Absolute Nucleated RBC (0.0-0.012) X10*3/uL Nucleated RBC % (auto) (0.0-0.2) /100WBC PT (10.0-13.1) SEC INR (0.9-1.1) VBG pH 7.31 L (7.32-7.43) VBG pCO2 49 mmHg VBG pO2 38 mmHg VBG HCO3 25 (22-26) mmol/L VBG O2 Saturation 55.0 % VBG Base Excess -1.4 mmol/L Sodium (135-145) mmol/L Potassium (3.3-5.1) mmol/L Chloride (96-108) mmol/L Carbon Dioxide (22-29) mmol/L Anion Gap (12-20) BUN (9-16) mg/dL Creatinine (0.5-1.4) mg/dL Estim Creat Clear Calc Estimated GFR Random Glucose (60-115) mg/dL Lactic Acid 0.9 (0.5-2.0) mmol/L Calcium (8.4-10.2) mg/dL Total Bilirubin (0.0-1.0) mg/dL AST (5-37) U/L ALT (0-40) U/L Alkaline Phosphatase (39-117) U/L Troponin I High Sens 5.8 (<3.5-35.0) ng/L B-Natriuretic Peptide 291 H (<100) pg/mL Total Protein (6.5-8.0) g/dL Albumin (3.5-5.0) g/dL ECG Data Attestation: I personally reviewed and interpreted this ECG as follows: Prior ECG tracings: available for review Interpretation: Sinus rhythm with short PA and PVCs, no STEMI, HR- 67, PA /QTC are within normal limits. RBBB Discharge Plan Discharge Clinical Impression: Increasing shortness of breath, COPD exacerbation, CHF (congestive heart failure) Patient Disposition: Admitted As Inpatient Prescriptions: No Action azithromycin 250 mg Tablet 250 mg PO MOWEFR oxycodone 5 mg tablet 5 mg PO Q6H PRN (Reason: pain (scale score 7-10)) Qty: 14 0RF Rx Instructions: Partial Fill upon patient request. prednisone 20 mg tablet 20 mg PO DAILY Qty: 3 0RF ipratropium-albuterol 0.5 mg-3 mg(2.5 mg base)/3 mL Solution For Nebulization 3 ml INHALATION QID guaifenesin 600 mg Tablet Extended Release 600 mg PO TID PRN (Reason: Cough) trazodone 50 mg Tablet 25 mg PO BEDTIME PRN (Reason: Insomnia) acetaminophen 500 mg Tablet 500 mg PO BID PRN (Reason: Pain) lidocaine 5 % Adhesive Patch,Medicated 1 patch TOPICAL DAILY Rx Instructions: leave on most painful area for up to 12 hrs nicotine 21 mg/24 hr Patch 24 Hour 1 patch TRANSDERMAL DAILY omeprazole 20 mg Capsule,Delayed Release(Dr/Ec) 20 mg PO BID@0630,1630 budesonide-formoterol 160-4.5 mcg/actuation Hfa Aerosol Inhaler 2 puff INHALATION BID umeclidinium 62.5 mcg/actuation Blister With Device 1 inh INHALATION DAILY atorvastatin 40 mg Tablet 40 mg PO BEDTIME amitriptyline 10 mg Tablet 20 mg PO BEDTIME multivitamin with minerals Tablet 1 tab PO DAILY verapamil 80 mg Tablet 80 mg PO BID albuterol sulfate 90 mcg/actuation Hfa Aerosol Inhaler 1 inh INHALATION QID PRN (Reason: Wheezing)
[2022-07-24 19:54] LABS: MANUAL DIFF FLAG NO
[2022-07-24 19:56] LABS: Basophils Absolute Auto 0.1 X10*3/uL (0.0-0.2); Basophils Percent Auto 0.5 % (0-2); Eosinophils Absolute Auto 0.2 X10*3/uL (0.0-0.4); Eosinophils Percent Auto 1.7 % (0-4); Hematocrit 39.2 % (42.0-52.0); Hemoglobin 12.7 g/dl (14.0-18.0); Imm Gran Abs Auto 0.03 X10*3/uL (0.00-0.03); Imm Gran Pct Auto 0.3 % (0.0-0.4); Lymphocytes Percent Auto 20.2 % (20-40); Mean Corpuscular HGB Conc 32.4 g/dl (31.0-36.0); Mean Corpuscular Hemoglobin 31.4 pg (27.0-33.0); Mean Corpuscular Volume 96.8 fL (80.0-98.0); Mean Platelet Volume 9.4 fL (9.4-12.4); Monocytes Percent Auto 9.7 % (2-11); Neutrophils Absolute Auto 6.6 x10*3/uL (2.0-8.3); Neutrophils Percent Auto 67.6 % (45-73); Platelet Count 212 X10*3/uL (160-400); Red Blood Count 4.05 X10*6/uL (4.60-5.80); Red Cell Distribution Width 14.5 % (11.0-16.0); White Blood Count 9.8 X10*3/uL (4.8-10.8)
[2022-07-24] MEDS: Albuterol/Iprat 2.5/0.5MG 3 ML AMPUL.NEB INHALE ×2 (19:59→20:57)
[2022-07-24 20:13] LABS: INTERNATIONAL NORM RATIO 1.1 (0.9-1.1); Prothrombin Time 12.2 SEC (10.0-13.1)
[2022-07-24 20:20] LABS: VBG Base Excess -1.4 mmol/L; VBG HCO3 25 mmol/L (22-26); VBG pCO2 49 mmHg; VBG pH 7.31 (7.32-7.43); VBG pO2 38 mmHg
[2022-07-24 20:21] LABS: Venous Blood Gas Refer to POC result
[2022-07-24 20:26] LABS: Lactic Acid 0.9 mmol/L (0.5-2.0)
[2022-07-24 20:30] LABS: Alanine Aminotransferase 23 U/L (0-40); Alkaline Phosphatase 122 U/L (39-117); Anion Gap 14 (12-20); Aspartate Amino Transferase 26 U/L (5-37); Bilirubin Total 0.4 mg/dL (0.0-1.0); Blood Urea Nitrogen 21 mg/dL (9-16); Calcium 9.2 mg/dL (8.4-10.2); Carbon Dioxide 25 mmol/L (22-29); Chloride 111 mmol/L (96-108); Creatinine Clr Calc Pharmacy 49.2; Estimated Glomerular Filt Rate > 60; Glucose Random 91 mg/dL (60-115); Potassium 4.2 mmol/L (3.3-5.1); Sodium 146 mmol/L (135-145); Total Protein 6.5 g/dL (6.5-8.0)
[2022-07-24] MEDS: methylPREDNISolone Sod Succ 125 MG/2 ML VIAL IVPUSH (20:33)
[2022-07-24 20:36] LABS: B Type Natriuretic Peptide 291 pg/mL (<100); Troponin-I High Sensitivity 5.8 ng/L (<3.5-35.0)
[2022-07-24] MEDS: Albuterol Sulfate 7.5 MG, Albuterol Sulfate (0.083%) 2.5 MG 10 MG INHALE (21:32)
--- NOTE | 2022-07-24 22:42 | P.HPHOSP_ITS ---
History of Present Illness Date of Service: 07/24/22 Chief Complaint: sob 77-year-old male with a past medical history of hypertension, hyperlipidemia, COPD, anxiety, depression, GERD presented to the hospital today with a chief complaint of shortness of breath. Patient reports that for the past 1 day he has been having shortness of breath associated dry cough. Denies any fevers and chills. Denies any cough and sputum production. Denies any weight gain. Denies any chest pain palpitations lightheadedness or dizziness. Review of all other systems is negative except mentioned above ER course: Per ER team patient noted to have coarse breath sounds; given Solu-Medrol and Lasix. Also received nebulizer treatments. Admitted to the hospital for further management. [facility] Medical History Hyperlipidemia Hypertension Pertinent family history: Reviewed Social History Household Members: Children Housing: Apartment Do you presently have visiting nurse or other home services: Yes Alcohol intake: never Patient Tobacco Use Status: Former Tobacco user Smoked in Last 30 Days: No Use of substances other than those prescribed or required for medical reasons: No Advance Directives: No Advance Directives Information Provided: No service: Yes Current occupational status: retired [employer] Allergies Allergy/AdvReac Type Severity Reaction Status Date / Time Penicillins [PENICILLINS] Allergy Unknown VOMITTING Verified 06/16/22 11:02 Active Medications: Current Medications Pharmacy Consult (Consult Rx Perform Med Rec) 1 each MISCELLANE ONCE PRN PRN Reason: Consult order Home Medications Medication Instructions Recorded Confirmed Last Taken Type acetaminophen 500 mg tablet 500 mg PO BID PRN Pain 05/25/22 07/25/22 Unknown History budesonide-formoterol HFA 160 2 puff inhalation BID 05/25/22 07/25/22 06/14/22 History mcg-4.5 mcg/actuation aerosol inhaler guaifenesin 600 mg tablet,extended 600 mg PO TID PRN Cough 05/25/22 07/25/22 Unknown History release ipratropium 0.5 mg-albuterol 3 mg 3 ml inhalation QID 05/25/22 07/25/22 06/14/22 History (2.5 mg base)/3 mL nebulization soln lidocaine 5 % topical patch 1 patch topical DAILY 05/25/22 07/25/22 06/14/22 History nicotine 21 mg/24 hr daily 1 patch transdermal DAILY 05/25/22 07/25/22 06/14/22 History transdermal patch omeprazole 20 mg capsule,delayed 20 mg PO BID@0630,1630 05/25/22 07/25/22 06/14/22 History release trazodone 50 mg tablet 25 mg PO BEDTIME PRN Insomnia 05/25/22 07/25/22 Unknown History umeclidinium 62.5 mcg/actuation 1 inh inhalation DAILY 05/25/22 07/25/22 06/14/22 History blister powder for inhalation albuterol sulfate 90 mcg/actuation 1 inh inhalation QID PRN Wheezing 05/26/22 07/25/22 Unknown History aerosol inhaler amitriptyline 10 mg tablet 20 mg PO BEDTIME 05/26/22 07/25/22 06/14/22 History atorvastatin 40 mg tablet 40 mg PO BEDTIME 05/26/22 07/25/22 06/14/22 History multivitamin with minerals 1 tab PO DAILY 05/26/22 07/25/22 06/14/22 History verapamil 80 mg tablet 80 mg PO DAILY 05/26/22 07/25/22 06/14/22 History azithromycin 250 mg tablet 250 mg PO MOWEFR 06/15/22 07/25/22 06/14/22 History Physical Exam Vital Signs and Narrative: Vital Signs: Last Vital Signs Temp 98.2 F 07/24/22 21:02 Pulse 94 07/24/22 21:34 Resp 16 07/24/22 21:34 BP 130/59 L 07/24/22 21:02 Pulse Ox 97 07/24/22 21:02 O2 Del Method 07/24/22 21:02 BMI result Body Mass Index 20.0 Gen: Appears be in no acute distress HEENT: NCAT, Moist mucosa. Pulmonary: Coarse breath sounds/bilateral expiratory wheezing noted occasionally CVS: Normal S1-S2 Abdomen: BS+, Soft, Nontender Extremities: Warm well perfused Neuro: Alert and awake. Results Labs CBC and Chem 7: 07/25/22 05:52 07/25/22 05:52 Labs: Laboratory Results - last 24 hr 07/24/22 07/24/22 07/24/22 19:48 19:48 19:48 MCV 96.8 MCH 31.4 MCHC 32.4 RDW 14.5 Plt Count 212 MPV 9.4 Immature Gran % (Auto) 0.3 Neut % (Auto) 67.6 Lymph % (Auto) 20.2 [place] % (Auto) 9.7 Eos % (Auto) 1.7 Baso % (Auto) 0.5 Lymph # (Auto) 2.0 [place] # (Auto) 1.0 Eos # (Auto) 0.2 Baso # (Auto) 0.1 Abs Immat Gran (auto) 0.03 Absolute Neuts (auto) 6.6 Absolute Nucleated RBC 0.000 Nucleated RBC % (auto) 0.0 PT 12.2 INR 1.1 VBG pH VBG pCO2 VBG pO2 VBG HCO3 VBG O2 Saturation VBG Base Excess Anion Gap 14 Estim Creat Clear Calc 49.2 Estimated GFR > 60 Random Glucose 91 Lactic Acid Calcium 9.2 Total Bilirubin 0.4 AST 26 ALT 23 Alkaline Phosphatase 122 H D B-Natriuretic Peptide Total Protein 6.5 D Albumin 4.0 D 07/24/22 07/24/22 07/24/22 19:48 19:48 19:58 MCV MCH MCHC RDW Plt Count MPV Immature Gran % (Auto) Neut % (Auto) Lymph % (Auto) [place] % (Auto) Eos % (Auto) Baso % (Auto) Lymph # (Auto) [place] # (Auto) Eos # (Auto) Baso # (Auto) Abs Immat Gran (auto) Absolute Neuts (auto) Absolute Nucleated RBC Nucleated RBC % (auto) PT INR VBG pH 7.31 L VBG pCO2 49 VBG pO2 38 VBG HCO3 25 VBG O2 Saturation 55.0 VBG Base Excess -1.4 Anion Gap Estim Creat Clear Calc Estimated GFR Random Glucose Lactic Acid 0.9 Calcium Total Bilirubin AST ALT Alkaline Phosphatase B-Natriuretic Peptide 291 H Total Protein Albumin Imaging Radiologist's Impressions: Impressions Chest X-Ray 07/24/22 20:10 IMPRESSION: Emphysema. No evidence for acute disease in the chest. Assessment and Plan (1) COPD exacerbation: Status: Acute Plan 77-year-old male with a past medical history of hypertension, hyperlipidemia, COPD, anxiety, depression, GERD presented to the hospital today with a chief complaint of shortness of breath. Noted to be in acute COPD exacerbation. Admitted for further management. Acute COPD exacerbation: Will keep the patient on Solu-Medrol IV q.i.d. Nebulizations standing and p.r.n. Supplemental oxygen p.r.n. Patient also received a dose of Lasix in the ER Azithromycin History of hypertension/hyperlipidemia: Continue home medications DVT prophylaxis: Lovenox Code status: Full code Quality Stroke Does the patient have a stroke diagnosis?: No VTE Prior VTE?: No VTE Risk Level:: Medical - moderate - high VTE Device Contraindication: Treatment Not Indicated VTE Drug Contraindication: N/A - Med Ordered
[2022-07-24] MEDS: cefEPime HCl 1 GM in 0.9 % Sodium Chloride 50 ML IV (22:59)
[2022-07-24] MEDS: Enoxaparin Sodium 40 MG/0.4 ML SYRINGE SUBCUT (23:00)
[2022-07-24] MEDS: Furosemide 40 MG/4 ML VIAL IVPUSH (23:01)
[2022-07-24 23:53] LABS: Appearance Urine Clear; Color Urine Yellow; Glucose Urine UA Negative (Negative); Leukocyte Esterase Urine Negative (Negative); Nitrite Urine Negative (Negative); PH 5.5 (5.0-9.0); Specific Gravity - Urine 1.025 (1.005-1.025); Urine Blood Negative (Negative); Urine Ketones Negative (Negative); Urine Protein Negative (Neg-Trace)
[2022-07-25] VITALS (9 sets, daily range): BP systolic 94–112; BP diastolic 51–77; PULSE 52–93; RESP 16–20; TEMP 36.4–37.3; O2SAT 95–98; BMI 21.7
[2022-07-25 00:06] LABS: Troponin-I High Sensitivity 5.5 ng/L (<3.5-35.0)
[2022-07-25 00:10] LABS: COVID-19 Test Negative (Negative); IDNOW Serial# 9DB6401D
[2022-07-25] MEDS: methylPREDNISolone Sod Succ 40 MG/ML VIAL IVPUSH (03:07)
[2022-07-25] MEDS: Omeprazole 20 MG CAPSULE.DR PO (05:15)
[2022-07-25 06:02] LABS: Basophils Percent Auto 0.1 % (0-2); Hematocrit 35.7 % (42.0-52.0); Hemoglobin 11.8 g/dl (14.0-18.0); Imm Gran Abs Auto 0.03 X10*3/uL (0.00-0.03); Imm Gran Pct Auto 0.4 % (0.0-0.4); Lymphocytes Absolute Auto 0.4 X10*3/uL (1.2-4.9); Lymphocytes Percent Auto 5.8 % (20-40); MANUAL DIFF FLAG SCAN; Mean Corpuscular HGB Conc 33.1 g/dl (31.0-36.0); Mean Corpuscular Hemoglobin 32.1 pg (27.0-33.0); Monocytes Absolute Auto 0.1 X10*3/uL (0.1-1.2); Monocytes Percent Auto 0.8 % (2-11); Neutrophils Absolute Auto 6.8 x10*3/uL (2.0-8.3); Neutrophils Percent Auto 92.9 % (45-73); Platelet Count 204 X10*3/uL (160-400); Red Blood Count 3.68 X10*6/uL (4.60-5.80); Red Cell Distribution Width 14.5 % (11.0-16.0); SCAN SMEAR FLAG 1; White Blood Count 7.3 X10*3/uL (4.8-10.8)
[2022-07-25 06:19] LABS: SLIDE REVIEW VERIFIED
[2022-07-25 06:21] LABS: Anion Gap 18 (12-20); Blood Urea Nitrogen 18 mg/dL (9-16); Calcium 8.8 mg/dL (8.4-10.2); Carbon Dioxide 22 mmol/L (22-29); Chloride 106 mmol/L (96-108); Creatinine Clr Calc Pharmacy 47.6; Estimated Glomerular Filt Rate 59; Glucose Random 174 mg/dL (60-115); Potassium 4.1 mmol/L (3.3-5.1); Sodium 142 mmol/L (135-145)
--- NOTE | 2022-07-25 07:34 | P.PNIM_ITS ---
Subjective Subjective Date of Service: 07/25/22 Interval History: Seen in f/u acut exacerbation of copd interval history: doesn't feel well and still feels sob despite normal O2 sat Review of Systems Gen: no fever Resp: + sob, no cough CV: no chest, no CROW, no leg edema GI: No n/v, no abd pain Neuro: No confusion Physical Exam Vital Signs: Vital Signs: Last Vital Signs Temp 98.2 F 07/25/22 04:26 Pulse 79 07/25/22 04:26 Resp 16 07/25/22 04:26 BP 109/65 07/25/22 04:26 Pulse Ox 97 07/25/22 04:26 O2 Del Method 07/25/22 04:26 BMI result Body Mass Index 20.0 Const: Other: General: AO X 3, no acute distress Resp: CTA bilateral CVS: S1,S2,RRR GI: +BS, NT, no distention Skin: No rash Neuro: motor grossly intact Psych: appropriate affect Objective Data Active Medications Acetaminophen (Acetaminophen 325 Mg Tablet) 650 mg PO Q6H PRN PRN Reason: Pain, Mild (Pain Scale 1-3) Albuterol Sulfate (Albuterol Sulfate 90 Mcg 8 Gm Inhaler) 1 puff INHALE QID PRN PRN Reason: Wheezing Albuterol/Ipratropium (Albuterol/Iprat 2.5/0.5mg 3 Ml Ampul.Neb) 3 ml INHALE RQ4H WHILE AWAKE CHAYO Albuterol/Ipratropium (Albuterol/Iprat 2.5/0.5mg 3 Ml Ampul.Neb) 3 ml INHALE QID [place] Albuterol/Ipratropium (Albuterol/Iprat 2.5/0.5mg 3 Ml Ampul.Neb) 3 ml INHALE RQ4H PRN PRN Reason: Shortness of Breath/Wheezing Amitriptyline HCl (Amitriptyline Hcl 10 Mg Tablet) 20 mg PO BEDTIME [facility] Atorvastatin Calcium (Atorvastatin Calcium 40 Mg Tablet) 40 mg PO BEDTIME [facility] Azithromycin (Azithromycin 500 Mg Tablet) 500 mg PO Q24H [facility] Enoxaparin Sodium (Enoxaparin Sodium 40 Mg/0.4 Ml Syringe) 40 mg SUBCUT Q24H [facility] Last Admin: 07/24/22 23:00 Dose: 40 mg Documented By: PATRICIA Melatonin (Melatonin 3 Mg Tablet) 6 mg PO BEDTIME PRN PRN Reason: Insomnia Methylprednisolone Sodium Succinate (Methylprednisolone Sod Succ 40 Mg/Ml Vial) 40 mg IVPUSH Q6H [facility] Last Admin: 07/25/22 03:07 Dose: 40 mg Documented By: PATRICIA Multivitamins/Vitamin C (Multivitamin Tablet) 1 tab PO DAILY [facility] Nicotine (Nicotine 21 Mg Patch.Td24) 21 mg TRANSDERMA DAILY [facility] Omeprazole (Omeprazole 20 Mg Capsule.Dr) 20 mg PO BID@0630,1630 [facility] Last Admin: 07/25/22 05:15 Dose: 20 mg Documented By: PATRICIA Oxycodone HCl (Oxycodone Hcl Immed Release 5 Mg Tablet) 5 mg PO Q6H PRN PRN Reason: pain (scale score 7-10) Senna (Sennosides 8.6 Mg Tablet) 17.2 mg PO BEDTIME PRN PRN Reason: Constipation Sodium Chloride (0.9 % Sodium Chloride Flush 3 Ml Syringe) 3 ml IVFLUSH QSHIFT [facility] Last Admin: 07/25/22 02:18 Dose: Not Given Documented By: PATRICIA Non-Admin Reason: Previously Administered Trazodone HCl (Trazodone Hcl 25 Mg Halftab) 25 mg PO BEDTIME PRN PRN Reason: Insomnia Verapamil HCl (Verapamil Hcl 80 Mg Tablet) 80 mg PO DAILY [facility]; Protocol Labs CBC & Chem 7: 07/25/22 05:52 07/25/22 05:52 Labs: Laboratory Results - last 24 hr 07/24/22 07/24/22 07/24/22 19:48 19:48 19:48 MCV 96.8 MCH 31.4 MCHC 32.4 RDW 14.5 Plt Count 212 MPV 9.4 Immature Gran % (Auto) 0.3 Neut % (Auto) 67.6 Lymph % (Auto) 20.2 Sebastian % (Auto) 9.7 Eos % (Auto) 1.7 Baso % (Auto) 0.5 Lymph # (Auto) 2.0 Sebastian # (Auto) 1.0 Eos # (Auto) 0.2 Baso # (Auto) 0.1 Abs Immat Gran (auto) 0.03 Absolute Neuts (auto) 6.6 Absolute Nucleated RBC 0.000 Nucleated RBC % (auto) 0.0 Smear Tech's Comments PT 12.2 INR 1.1 VBG pH VBG pCO2 VBG pO2 VBG HCO3 VBG O2 Saturation VBG Base Excess Anion Gap 14 Estim Creat Clear Calc 49.2 Estimated GFR > 60 Random Glucose 91 Lactic Acid Calcium 9.2 Magnesium 2.0 Total Bilirubin 0.4 AST 26 ALT 23 Alkaline Phosphatase 122 H D B-Natriuretic Peptide Total Protein 6.5 D Albumin 4.0 D Urine Color Urine Appearance Urine pH Ur Specific [place] Urine Protein Urine Glucose (UA) Urine Ketones Urine Blood Urine Nitrite Ur Leukocyte Esterase COVID-19 ([facility]ELINE) COVID-19 Clin Com 07/24/22 07/24/22 07/24/22 19:48 19:48 19:58 MCV MCH MCHC RDW Plt Count MPV Immature Gran % (Auto) Neut % (Auto) Lymph % (Auto) Sebastian % (Auto) Eos % (Auto) Baso % (Auto) Lymph # (Auto) Sebastian # (Auto) Eos # (Auto) Baso # (Auto) Abs Immat Gran (auto) Absolute Neuts (auto) Absolute Nucleated RBC Nucleated RBC % (auto) Smear Tech's Comments PT INR VBG pH 7.31 L VBG pCO2 49 VBG pO2 38 VBG HCO3 25 VBG O2 Saturation 55.0 VBG Base Excess -1.4 Anion Gap Estim Creat Clear Calc Estimated GFR Random Glucose Lactic Acid 0.9 Calcium Magnesium Total Bilirubin AST ALT Alkaline Phosphatase B-Natriuretic Peptide 291 H Total Protein Albumin Urine Color Urine Appearance Urine pH Ur Specific [place] Urine Protein Urine Glucose (UA) Urine Ketones Urine Blood Urine Nitrite Ur Leukocyte Esterase COVID-19 ([facility]ADELINE) COVID-19 Clin Com 07/24/22 07/24/22 07/25/22 23:45 23:45 05:52 MCV 97.0 MCH 32.1 MCHC 33.1 RDW 14.5 Plt Count 204 MPV 10.0 Immature Gran % (Auto) 0.4 Neut % (Auto) 92.9 H Lymph % (Auto) 5.8 L Sebastian % (Auto) 0.8 L Eos % (Auto) 0.0 Baso % (Auto) 0.1 Lymph # (Auto) 0.4 L Sebastian # (Auto) 0.1 Eos # (Auto) 0.0 Baso # (Auto) 0.0 Abs Immat Gran (auto) 0.03 Absolute Neuts (auto) 6.8 Absolute Nucleated RBC 0.000 Nucleated RBC % (auto) 0.0 Smear Tech's Comments VERIFIED PT INR VBG pH VBG pCO2 VBG pO2 VBG HCO3 VBG O2 Saturation VBG Base Excess Anion Gap Estim Creat Clear Calc Estimated GFR Random Glucose Lactic Acid Calcium Magnesium Total Bilirubin AST ALT Alkaline Phosphatase B-Natriuretic Peptide Total Protein Albumin Urine Color Yellow Urine Appearance Clear Urine pH 5.5 Ur Specific [place] 1.025 Urine Protein Negative Urine Glucose (UA) Negative Urine Ketones Negative Urine Blood Negative Urine Nitrite Negative Ur Leukocyte Esterase Negative COVID-19 ([facility]) Negative COVID-19 Clin Com See Note 07/25/22 05:52 MCV MCH MCHC RDW Plt Count MPV Immature Gran % (Auto) Neut % (Auto) Lymph % (Auto) [place] % (Auto) Eos % (Auto) Baso % (Auto) Lymph # (Auto) Sebastian # (Auto) Eos # (Auto) Baso # (Auto) Abs Immat Gran (auto) Absolute Neuts (auto) Absolute Nucleated RBC Nucleated RBC % (auto) Smear Tech's Comments PT INR VBG pH VBG pCO2 VBG pO2 VBG HCO3 VBG O2 Saturation VBG Base Excess Anion Gap 18 Estim Creat Clear Calc 47.6 Estimated GFR 59 Random Glucose 174 H D Lactic Acid Calcium 8.8 Magnesium Total Bilirubin AST ALT Alkaline Phosphatase B-Natriuretic Peptide Total Protein Albumin Urine Color Urine Appearance Urine pH Ur Specific [place] Urine Protein Urine Glucose (UA) Urine Ketones Urine Blood Urine Nitrite Ur Leukocyte Esterase COVID-19 ([facility]) COVID-19 Clin Com Assessment and Plan (1) COPD exacerbation: Status: Acute Plan 77-year-old male with a past medical history of hypertension, hyperlipidemia, COPD, anxiety, depression, GERD presented to the hospital today with a chief complaint of shortness of breath.? ? Noted to be in acute COPD exacerbation.? Admitted for further management.? Acute COPD exacerbation--improved, 97on RA Change to PO steroid (Prednisone) No evidence of infection and so dc Azithro ? Bradycardia--instance of HR in 40s, there is no pause, no block, monitor History of hypertension/hyperlipidemia:? Continue home medications DVT prophylaxis:? Lovenox Code status:? Full code Need for inpatient: management of acute exacerbation of copd with ongoing sob Quality Stroke Does the patient have a stroke diagnosis?: No VTE Prior VTE?: No VTE Risk Level:: Medical - moderate - high VTE Device Contraindication: Treatment Not Indicated VTE Drug Contraindication: N/A - Med Ordered
[2022-07-25] MEDS: Albuterol/Iprat 2.5/0.5MG 3 ML AMPUL.NEB INHALE ×4 (07:46→18:46)
--- NOTE | 2022-07-25 08:04 | PHA.MEDREC ---
Pharmacy Consult ? Medication Reconciliation Pharmacy has reviewed the medication reconciliation completed by Gianna. Contact [place] for med list. Patient is now on Advair inhaler instead of symbicort. Lissy Crowley, MerrillD
--- NOTE | 2022-07-25 08:53 | PC.NURSE ---
Mlapa notifed about patients blood pressure. Mlapa at bedside instructed to hold medication
[2022-07-25] MEDS: predniSONE 20 MG TABLET 40 MG PO (08:58)
[2022-07-25] MEDS: Nicotine 21 MG PATCH.TD24 TRANSDERMA (08:58)
[2022-07-25] MEDS: Multivitamin TABLET 1 TAB PO (08:58)
[2022-07-25] MEDS: 0.9 % Sodium Chloride Flush 3 ML SYRINGE IVFLUSH ×2 (08:59→20:57)
--- NOTE | 2022-07-25 11:30 | PC.NURSE ---
PT CURRENTLY IN NAD, STATES FEELING MILDLY SOB AT REST, SPO2 WNL, NO SUPP O2 REQUIRED, SPEAKING IN CLEAR FULL SENTENCES. NEB TX EFFECTIVE PER PT. NSR ON MONITOR WITH FREQ PVCS. SBP IN 90S, PT ASYMPTOMATIC.
[2022-07-25] MEDS: Omeprazole 40 MG CAPSULE.DR PO (15:57)
--- NOTE | 2022-07-25 17:20 | PC.NURSE ---
amandaext sent to [facility] RN for report
[2022-07-25] MEDS: Amitriptyline HCl 10 MG TABLET 20 MG PO (20:56)
[2022-07-25] MEDS: Enoxaparin Sodium 40 MG/0.4 ML SYRINGE SUBCUT (20:57)
[2022-07-25] MEDS: Atorvastatin Calcium 20 MG TABLET PO (20:57)
[2022-07-25] MEDS: traZODone HCL 25 MG HALFTAB PO (20:57)
[2022-07-26] VITALS: BP 109/71; PULSE 65; RESP 20; TEMP 36.4; O2SAT 97
[2022-07-26 04:00] VITALS: BP 117/71; RESP 20; TEMP 36.6; O2SAT 99
[2022-07-26] MEDS: Omeprazole 40 MG CAPSULE.DR PO (06:36)
--- NOTE | 2022-07-26 07:00 | CA_ITS ---
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 [id number] LV systolic dysfunction with grade 1 diastolic dysfunction 2. Mildly dilated left atrium 3. Mildly elevated right ventricular systolic pressure 4. No gross pericardial effusion Findings Left Ventricle Normal left ventricular cavity size. There is normal left ventricular wall thickness. The left ventricular systolic function is mild to moderately decreased. The visually estimated ejection fraction is between 40-45%. Regional wall motion abnormalities can not be excluded due to suboptimal endocardial definition. Spectral Doppler is indicative of an impaired relaxation filling pattern. E/E prime ratio is <8, consistent with normal filling pressures. Right Ventricle Mildly increased right ventricular cavity size. There is normal right ventricular systolic function. Atria The left atrium is mildly dilated. Interatrial shunt cannot be excluded. The right atrium is likely dilated. Aortic Valve There is mild thickening of the aortic valve. There is no aortic valve stenosis. There is no aortic valve regurgitation. Mitral Valve There is mild anterior and posterior mitral leaflet thickening. There is trace mitral valve regurgitation. There is no mitral valve stenosis. Pulmonic Valve The pulmonic valve was not well visualized. Tricuspid Valve There is mild tricuspid valve regurgitation. Normal right atrial pressure. Mild pulmonary hypertension is present. Great Vessels All visible segments of the aorta are normal in size. The pulmonary artery was not well visualized. Venous The inferior vena cava is normal in size and collapses greater than 50% with inspiration. Pericardium/Pleural There is no evidence of pericardial effusion. Prior Study Comparison No prior study available for comparison. Measurements 2D Linear Measurements IVSd: 0.84 0.6-0.9/0.6-1.0 cm LVIDd: 5.30 3.9-5.3/4.2-5.9 cm LVIDd Index: 2.80 2.4-3.2/2.2-3.1 cm/m2 LVIDs: 3.85 2.0-3.6 cm LVPWd: 0.93 0.7-1.1 cm Ao Root: 3.50 2.1-3.5 cm LA Diam: 4.00 2.7-3.8/3.0-4.0 cm LAIDs Index: 2.12 1.5-2.3 cm/m2 LV Mass: 211.61 67-162/88-224 g LV Mass Index: 111.96 43-95/49-115 g/m2 LVOT Diam: 2.20 3.0+(-)1.3 cm 2D Systolic Function EF 4C: 42.50 >55% EF 2C: 21.80 >55% Mitral Valve MV Pk E: 0.40 MV PK A: 0.60 MV Decel Time: 238.00 E/A: 0.70 E'Lateral: 6.96 E'Medial: 5.98 E/E' Med: 6.70 E/E' Lat: 5.70 PHT: 70.00 MVA PHT: 3.14 Decel [place]: 1.67 Aortic Valve AoV Pk Mark: 0.98 AoV Mn Mark: 0.65 AoV VTI: 0.25 AoV Pk Grad: 4.00 Aov Mn Grad: 2.00 NEDA Cont.VTI: 2.78 LVOT LVOT Pk Mark: 0.69 LVOT Mn Mark: 0.41 LVOT VTI: 0.18 LVOT Pk Grad: 2.00 LVOT Mn Grad: 1.00 LVOT Diam: 2.20 LVOT Area: 3.80 Diastolic Function MV Pk E: 0.40 MV Pk A: 0.60 E/A: 0.70 E'Medial: 5.98 E/E' Med: 6.70 E' Laterial: 6.96 E/E' Lat: 5.70 Right Ventricle TAPSE (mm): 29.00 TVS' Mark: 12.00 Tricuspid Valve TR Pk Mark: 3.03 TR Pk Grad: 37.00 RA Press: 3.00 RVSP: 40.00 Great Vessels Aorta Ao Root-2D: 3.50 2.0-3.7 cm Ao Asc: 3.60 2.1-3.4 cm Pulmonary Valve PV Pk Mark: 0.73 Peak PV Grad: 2.00 Updated in Other Vendor System with Status of Final Leon Jin MD electronically signed on 07/26/2022 11:46:58 AM with status of Final
[2022-07-26] MEDS: Albuterol/Iprat 2.5/0.5MG 3 ML AMPUL.NEB INHALE ×2 (07:47→11:55)
[2022-07-26 07:49] VITALS: PULSE 84; RESP 18; O2SAT 97
[2022-07-26 07:55] VITALS: BP 120/75; PULSE 64; RESP 20; TEMP 36.4; O2SAT 97
[2022-07-26] MEDS: Nicotine 21 MG PATCH.TD24 TRANSDERMA (08:02)
[2022-07-26] MEDS: 0.9 % Sodium Chloride Flush 3 ML SYRINGE IVFLUSH (08:02)
[2022-07-26] MEDS: VerapamiL HCL 80 MG TABLET PO (08:04)
[2022-07-26] MEDS: predniSONE 20 MG TABLET 40 MG PO (08:04)
[2022-07-26] MEDS: Multivitamin TABLET 1 TAB PO (08:04)
--- NOTE | 2022-07-26 11:12 | P.DS_ITS ---
DS: Providers Provider Date of Service: 07/26/22 Date of admission: 07/24/22 22:39 Primary care physician: Unknown Physician DS: Diagnosis Discharge Diagnosis (1) COPD exacerbation: Status: Acute DS: Summary Hospital Course Hospital Course: Chief Complaint: SOB 77-year-old male with a past medical history of hypertension, hyperlipidemia, COPD, anxiety, depression, GERD presented to the hospital today with a chief complaint of shortness of breath.? Patient reports that for the past 1 day he has been having shortness of breath associated dry cough.? Denies any fevers and chills.? Denies any cough and sputum production.? Denies any weight gain.? Denies any chest pain palpitations lightheadedness or dizziness.? Review of all other systems is negative except mentioned above ER course: Per ER team patient noted to have coarse breath sounds; given Solu- Medrol and Lasix.? Also received nebulizer treatments.? Admitted to the hospital for further management Hospital course: Patient was admitted for exacerbation of COPD and treated with IV steroid and broncodiltators by [facility] and has recovered well, presently oxygen saturation of 97% on room air and no wheeze on exam and no distress and happy to go home today will prescribe Prednisone 40 mg daily for 3 more days. Continue all other prior meds. He quit smoking a year ago. Time Spent with Patient Time attestation: Total time spent providing and/or coordinating discharge services: Discharge coordination time: Greater than 30 minutes Quality: Safe Use of Opioids Does Pt have an Active Cancer Diagnosis on the Problem List?: No Quality: Stroke Does the patient have a stroke diagnosis?: No Physical Exam Vital Signs: Vital Signs: Last Vital Signs Temp 97.5 F 07/26/22 07:55 Pulse 64 07/26/22 07:55 Resp 20 07/26/22 07:55 BP 120/75 07/26/22 07:55 Pulse Ox 97 07/26/22 07:55 O2 Del Method 07/26/22 07:55 BMI result Body Mass Index 21.7 DS: Data Data Completed and Pending Labs on day of discharge: Preliminary micro results at discharge 07/24/22 20:11 Blood Culture - Preliminary Blood - Venous No growth after 24 hours. 07/24/22 20:08 Blood Culture - Preliminary Blood - Venous No growth after 24 hours. Discharge Plan Discharge Anticipated Discharge Date/Time: 07/26/22 11:04 Patient Disposition: Home, Self-Care Discharge Diagnosis: Acute copd exacerbation Referrals: Physician,Unknown J [Primary Care Provider] - 1 Week Discharge Medications: New prednisone 20 mg Tablet 40 mg PO DAILY Qty: 6 0RF Continued azithromycin 250 mg Tablet 250 mg PO MOWEFR oxycodone 5 mg tablet 5 mg PO Q6H PRN (Reason: pain (scale score 7-10)) Qty: 14 0RF Rx Instructions: Partial Fill upon patient request. fluticasone propion-salmeterol 250-50 mcg/dose Blister With Device 1 inh INHALATION BID ipratropium-albuterol 0.5 mg-3 mg(2.5 mg base)/3 mL Solution For Nebulization 3 ml INHALATION QID guaifenesin 600 mg Tablet Extended Release 600 mg PO TID PRN (Reason: Cough) trazodone 50 mg Tablet 25 mg PO BEDTIME PRN (Reason: Insomnia) acetaminophen 500 mg Tablet 500 mg PO BID PRN (Reason: Pain) lidocaine 5 % Adhesive Patch,Medicated 1 patch TOPICAL DAILY Rx Instructions: leave on most painful area for up to 12 hrs nicotine 21 mg/24 hr Patch 24 Hour 1 patch TRANSDERMAL DAILY omeprazole 20 mg Capsule,Delayed Release(Dr/Ec) 40 mg PO BID@0630,1630 umeclidinium 62.5 mcg/actuation Blister With Device 1 inh INHALATION DAILY atorvastatin 40 mg Tablet 20 mg PO BEDTIME amitriptyline 10 mg Tablet 20 mg PO BEDTIME multivitamin with minerals Tablet 1 tab PO DAILY verapamil 80 mg Tablet 80 mg PO DAILY albuterol sulfate 90 mcg/actuation Hfa Aerosol Inhaler 1 inh INHALATION QID PRN (Reason: Wheezing) Discharge Orders: Discharge Order (Routine); Ordered 07/26/22 Ordered By: David Méndez Diet: Advance to usual diet Activity on Discharge: As tolerated Stand Alone Forms: Patient Portal Discharge page Care Plan Goals: full recovery from copd Health Concerns: copd Plan of Treatment: use inhalers and take prednisone as directed Assessment: as above
[2022-07-26 11:55] VITALS: PULSE 91; RESP 18; O2SAT 98
[2022-07-26 12:00] VITALS: BP 126/75; PULSE 84; RESP 20; TEMP 36.4; O2SAT 97
--- NOTE | 2022-07-26 12:02 | MHC.CM.PN ---
IMM 07/26/22 MALE 77 DX COPD HE LIVES WITH FAMILY. 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 [facility] HOME NO SERVICES. PATIENTS DTR WILL PROVIDE TRANSPORTATION HOME. PATIENT IS DISCHARGED PENDING ECHO REPORT.
== END 2022-07-26 12:55 | disposition home or self-care (01) | DRG 192 ==
LOC: HO.ED 22:43 → HO.EDOVER 23:23 → HO.IMC 07-25 16:54
PROVIDERS: Admitting Provider Hospitalist; Emergency Provider Student in an Organized Health Care Education/Training Program; Visit Provider Internal Medicine
DX: J44.1 Chronic obstructive pulmonary disease with (acute) exacerbation (principal); I11.0 Hypertensive heart disease with heart failure; R00.1 Bradycardia, unspecified; E78.5 Hyperlipidemia, unspecified; I50.9 Heart failure, unspecified; Z20.822 Contact with and (suspected) exposure to COVID-19; Z79.51 Long term (current) use of inhaled steroids; Z87.891 Personal history of nicotine dependence; Z88.0 Allergy status to penicillin; Z79.52 Long term (current) use of systemic steroids; Z79.899 Other long term (current) drug therapy
CPT/HCPCS: 36415; 71045; 80048; 80053; 81003; 82803; 83605; 83735; 83880; 84484; 85025; 85610; 87040; 87635; 93005; 93306; 94640; 99285; J0692; J1650; J1940; J2920; J2930

== ENCOUNTER 2023-06-27 08:10 | Observation (INO) | payer OTHER, SELFPAY ==
[2023-06-27] VITALS (10 sets, daily range): BP systolic 109–139; BP diastolic 73–88; PULSE 75–93; RESP 12–24; TEMP 36.4–36.8; O2SAT 96–100; BMI 22.0
--- NOTE | ~2023-06-27 | XR_ITS ---
EXAMINATION: XR CHEST CLINICAL INFORMATION: Shortness of breath. COMPARISON: 06/27/2023 chest radiograph. TECHNIQUE: Frontal view of the chest was obtained. FINDINGS: No significant abnormality is noted involving the heart, lungs, mediastinum, bony thorax or soft tissues. XR/XR chest 1V IMPRESSION: No acute cardiopulmonary process.
--- NOTE | ~2023-06-27 | XR_ITS ---
EXAMINATION: XR CHEST CLINICAL INFORMATION: Chest pain. COMPARISON: 07/24/[address] scan dated 06/15/2022. TECHNIQUE: Frontal view of the chest was obtained. FINDINGS: Coarsened interstitial markings are again seen bilaterally without focal infiltrate or definitive pleural effusions. The heart and mediastinal structures are unremarkable. XR/XR chest 1V IMPRESSION: Chronic interstitial changes/emphysema correlating with previous studies. No overt acute abnormality.
--- NOTE | 2023-06-27 08:24 | ECG_ITS ---
Test Reason : sob Blood Pressure : / mmHG Vent. Rate : 074 BPM Atrial Rate : 074 BPM P-R Int : 122 ms QRS Dur : 114 ms QT Int : 426 ms P-R-T Axes : 067 002 117 degrees QTc Int : 472 ms Normal sinus rhythm with sinus arrhythmia Low voltage QRS Incomplete right bundle branch block Abnormal QRS-T angle, consider primary T wave abnormality Abnormal ECG When compared with ECG of 24-JUL-2022 19:26, Premature ventricular complexes are no longer Present Incomplete right bundle branch block has replaced Right bundle branch block Referred By: Rickie Phipps Electronically Signed By:Marv Marlow
--- NOTE | 2023-06-27 08:29 | ED.SOB ---
HPI - SOB/Dyspnea General Chief Complaint: Dyspnea Stated Complaint: SOB Time Seen by Provider: 06/27/23 08:22 Source: patient Mode of arrival: EMS Limitations: no limitations History of Present Illness HPI Narrative: this is 78 years old man with history of congestive heart failure and history of COPD presented to the emergency department with chief complaint of shortness of breath which is worse since yesterday denies any fever and chills denies any chest pain.He Is usually on 2 L states that he has been increasing his oxygen MD elicited complaint: shortness of breath Pertinent past history: COPD Onset (ago): day(s) (1) Timing: constant Severity: moderate Exacerbating factors: exertion Relieving factors: nothing Treatment prior to arrival: none Related Data Home Medications Medication Instructions Recorded Confirmed acetaminophen 500 mg tablet 500 mg PO BID PRN Pain 05/25/22 07/25/22 guaifenesin 600 mg tablet,extended 600 mg PO TID PRN Cough 05/25/22 07/25/22 release ipratropium 0.5 mg-albuterol 3 mg 3 ml inhalation QID 05/25/22 07/25/22 (2.5 mg base)/3 mL nebulization soln lidocaine 5 % topical patch 1 patch topical DAILY 05/25/22 07/25/22 nicotine 21 mg/24 hr daily 1 patch transdermal DAILY 05/25/22 07/25/22 transdermal patch omeprazole 20 mg capsule,delayed 40 mg PO BID@0630,1630 05/25/22 07/25/22 release trazodone 50 mg tablet 25 mg PO BEDTIME PRN Insomnia 05/25/22 07/25/22 umeclidinium 62.5 mcg/actuation 1 inh inhalation DAILY 05/25/22 07/25/22 blister powder for inhalation albuterol sulfate 90 mcg/actuation 1 inh inhalation QID PRN Wheezing 05/26/22 07/25/22 aerosol inhaler amitriptyline 10 mg tablet 20 mg PO BEDTIME 05/26/22 07/25/22 atorvastatin 40 mg tablet 20 mg PO BEDTIME 05/26/22 07/25/22 multivitamin with minerals 1 tab PO DAILY 05/26/22 07/25/22 verapamil 80 mg tablet 80 mg PO DAILY 05/26/22 07/25/22 azithromycin 250 mg tablet 250 mg PO MOWEFR 06/15/22 07/25/22 fluticasone 250 mcg-salmeterol 50 1 inh inhalation BID 07/25/22 07/25/22 mcg/dose blistr powdr for inhalation Previous Rx's Medication Instructions Recorded oxycodone 5 mg tablet 5 mg PO Q6H PRN pain (scale score 06/19/22 7-10) #14 tabs prednisone 20 mg tablet 40 mg PO DAILY #6 tabs 07/26/22 Allergies Allergy/AdvReac Type Severity Reaction Status Date / Time adhesive tape Allergy Intermediate Rash Verified 06/27/23 08:28 Penicillins [PENICILLINS] Allergy Unknown VOMITTING Verified 06/27/23 08:28 Review of Systems Cardiovascular: Cardiovascular: Reports no additional cardiovascular complaints Respiratory: Respiratory: Reports cough Gastrointestinal: Gastrointestinal: Reports no additional gastrointestinal complaints Musculoskeletal: Musculoskeletal: Reports no additional musculoskeletal complaints [facility] Past Medical History Attestation statement: The following information was validated with the patient. Medical History CHF (congestive heart failure) COPD (chronic obstructive pulmonary disease) Hyperlipidemia Hypertension Social History Social History Household Members: Children Housing: Apartment Do you presently have visiting nurse or other home services: No Alcohol intake: never Patient Tobacco Use Status: Former Tobacco user Quit Date: 12/2021 Tobacco use type: Cigarette Cigarette Packs Per Day: 1 Cigarettes Per Day: 20.0 Years Smoked: 50 Smoked in Last 30 Days: No Use of substances other than those prescribed or required for medical reasons: No Advance Directives: No Advance Directives Information Provided: No service: Yes Current occupational status: retired Physical Exam Vital Signs: Vital Signs: Last Vital Signs Temp 97.6 F 06/27/23 09:37 Pulse 77 06/27/23 09:37 Resp 20 06/27/23 09:37 BP 139/73 06/27/23 09:37 Pulse Ox 100 06/27/23 09:37 O2 Del Method Nasal Cannula 06/27/23 09:37 O2 Flow Rate 2 06/27/23 09:37 Oxygen Flow Rate 2 06/27/23 08:28 BMI result Body Mass Index 22.0 patient is in [id number] distress is tachypneic Const: General: alert Nutritional Appearance: average body habitus Orientation/consciousness: patient oriented x3 Limitations: no limitations HEENT: Head: Yes normal to inspection General nose exam: Normal external nose present Face and sinus: Yes normal facial exam Mouth: Normal oral and palatal mucosa present Throat: Yes posterior oropharynx normal Neck: Neck: Yes normal visual inspection Chest: Chest palpation & inspection: normal inspection of the chest Resp: Effort & Inspection: Actively coughing Auscultation: rhonchi and wheezes Cardio: Jugular venous distension: no JVD Rate: regular rate Rhythm: regular rhythm GI: Inspection: Yes normal to inspection Palpation (GI): not firm and nontender Skin: General skin exam: no rashes or lesions noted and elasticity normal Lesions: no lesions Rashes: no rashes Neuro: General: patient oriented x3 Cranial nerves: Yes CN's II-XII intact bilaterally Cognition (Neuro): normal cognition Motor exam (neuro): 5/5 motor strength present throughout Course Reevaluation(s) Reevaluation #1: feel better after nebs Time: 09:41 Medications Administered Discontinued Medications Generic Name Dose Route Start Last Admin Trade Name Romana PRN Reason Stop Dose Admin Albuterol Sulfate 2.5 mg/ 0 mg 06/27/23 08:26 06/27/23 08:37 Albuterol/Ipratropium 3 ml INHALE 06/27/23 08:27 1 dose ONCE ONE Administration Albuterol Sulfate 5 mg/ 0 mg 06/27/23 08:38 06/27/23 08:53 Albuterol/Ipratropium 3 ml INHALE 06/27/23 08:39 Not Given ONCE ONE Methylprednisolone Sodium Succinate 125 mg 06/27/23 08:26 06/27/23 08:49 Methylprednisolone Sod Succ 125 Mg/2 Ml Vial IVPUSH 06/27/23 08:27 125 mg ONCE ONE Administration Medical Decision Making Medical Decision Making [facility] Narrative: patient presented complaining of shortness of breath, has history of CHF and COPD we martín gave him a DuoNeb, do a chest x-ray and reassess Differential Diagnosis Differential Diagnoses: The differential diagnosis associated with the presentation includes COPD exacerbation/ congestive heart failure Admission/Observation Consideration of admission/observation: Escalation of care including admission/observation considered Consult Healthcare Provider Management of the patient was discussed with: Hospitalist Lab Data [facility] Lab Attestation statement: I reviewed the patient's lab results. 06/27/23 08:50 06/27/23 08:50 Labs: Lab Results 06/27/23 06/27/23 06/27/23 Range/Units 08:50 08:50 08:50 WBC 7.2 (4.8-10.8) X10*3/uL RBC 4.08 L (4.60-5.80) X10*6/uL Hgb 13.3 L (14.0-18.0) g/dl Hct 40.8 L (42.0-52.0) % MCV 100.0 H (80.0-98.0) fL MCH 32.6 (27.0-33.0) pg MCHC 32.6 (31.0-36.0) g/dl RDW 14.6 (11.0-16.0) % Plt Count 189 (160-400) X10*3/uL MPV 8.9 L (9.4-12.4) fL Immature Gran % (Auto) 1.3 H (0.0-0.4) % Neut % (Auto) 74.8 H (45-73) % Lymph % (Auto) 17.4 L (20-40) % Swisher % (Auto) 6.4 (2-11) % Eos % (Auto) 0.0 (0-4) % Baso % (Auto) 0.1 (0-2) % Lymph # (Auto) 1.3 (1.2-4.9) X10*3/uL Swisher # (Auto) 0.5 (0.1-1.2) X10*3/uL Eos # (Auto) 0.0 (0.0-0.4) X10*3/uL Baso # (Auto) 0.0 (0.0-0.2) X10*3/uL Abs Immat Gran (auto) 0.09 H (0.00-0.03) X10*3/uL Absolute Neuts (auto) 5.4 (2.0-8.3) x10*3/uL Absolute Nucleated RBC 0.000 (0.0-0.012) X10*3/uL Nucleated RBC % (auto) 0.0 (0.0-0.2) /100WBC Sodium 140 (135-145) mmol/L Potassium 4.5 (3.3-5.1) mmol/L Chloride 105 (96-108) mmol/L Carbon Dioxide 23 (22-29) mmol/L Anion Gap 17 (12-20) BUN 18 H (9-16) mg/dL Creatinine 0.99 (0.5-1.4) mg/dL Estim Creat Clear Calc 60.3 Estimated GFR > 60 Random Glucose 87 (60-115) mg/dL Calcium 9.3 (8.4-10.2) mg/dL Total Bilirubin 1.0 (0.0-1.0) mg/dL AST 26 (5-37) U/L ALT 36 (0-40) U/L Alkaline Phosphatase 75 (39-117) U/L Troponin I High Sens 9.7 (<3.5-35.0) ng/L B-Natriuretic Peptide (<100) pg/mL Total Protein 6.0 L (6.5-8.0) g/dL Albumin 3.5 (3.5-5.0) g/dL 06/27/23 Range/Units 08:50 WBC (4.8-10.8) X10*3/uL RBC (4.60-5.80) X10*6/uL Hgb (14.0-18.0) g/dl Hct (42.0-52.0) % MCV (80.0-98.0) fL MCH (27.0-33.0) pg MCHC (31.0-36.0) g/dl RDW (11.0-16.0) % Plt Count (160-400) X10*3/uL MPV (9.4-12.4) fL Immature Gran % (Auto) (0.0-0.4) % Neut % (Auto) (45-73) % Lymph % (Auto) (20-40) % Swisher % (Auto) (2-11) % Eos % (Auto) (0-4) % Baso % (Auto) (0-2) % Lymph # (Auto) (1.2-4.9) X10*3/uL Swisher # (Auto) (0.1-1.2) X10*3/uL Eos # (Auto) (0.0-0.4) X10*3/uL Baso # (Auto) (0.0-0.2) X10*3/uL Abs Immat Gran (auto) (0.00-0.03) X10*3/uL Absolute Neuts (auto) (2.0-8.3) x10*3/uL Absolute Nucleated RBC (0.0-0.012) X10*3/uL Nucleated RBC % (auto) (0.0-0.2) /100WBC Sodium (135-145) mmol/L Potassium (3.3-5.1) mmol/L Chloride (96-108) mmol/L Carbon Dioxide (22-29) mmol/L Anion Gap (12-20) BUN (9-16) mg/dL Creatinine (0.5-1.4) mg/dL Estim Creat Clear Calc Estimated GFR Random Glucose (60-115) mg/dL Calcium (8.4-10.2) mg/dL Total Bilirubin (0.0-1.0) mg/dL AST (5-37) U/L ALT (0-40) U/L Alkaline Phosphatase (39-117) U/L Troponin I High Sens (<3.5-35.0) ng/L B-Natriuretic Peptide 75 (<100) pg/mL Total Protein (6.5-8.0) g/dL Albumin (3.5-5.0) g/dL Independent Interpretation I performed an independent interpretation of an: EKG and Plain X-Ray Interpretation: normal sinus rhythm rate 75 right bundle-branch block incomplete Radiology Impression Discussion of test interpretation with radiology: I have reviewed the radiologist's reading. Radiologist Impression: Chest pain. COMPARISON: 07/24/[address] scan dated 06/15/2022. TECHNIQUE: Frontal view of the chest was obtained. FINDINGS: Coarsened interstitial markings are again seen bilaterally without focal infiltrate or definitive pleural effusions. The heart and mediastinal structures are unremarkable. XR/XR chest 1V IMPRESSION: Chronic interstitial changes/emphysema correlating with previous studies. No overt acute abnormality. ? Dictated By: Bill Whyte MD Independent Historian Clinical information obtained from an independent historian. History obtained from or confirmed by: EMS External Record Review External record reviewed: Inpatient record Prescription Management I considered prescription management with: Antibiotic Chronic Conditions COPD/CHF Discharge Plan Discharge Clinical Impression: Acute exacerbation of chronic obstructive airways disease Patient Disposition: Admitted As Inpatient
--- NOTE | 2023-06-27 08:32 | PC.NURSE ---
patient a&ox3, pt noted sob even with movement on the bed- pt speaking in short but clear sentences, pt states he has had a few weeks of sob but had put off coming in because he felt there was nothing more that could be done. pt noted to have 3+ LLE edema, no edema to RLE noted, lungs have rhonchi in upper and are diminished throughout, monitor tech applied- nsr on monitor, pt placed on 2L NC and O2 sat is WNL at this time, tech to draw labs as well as perform EKG, RT at bedside to do updraft, this nurse will medicated per order momentarily, call ulloa within reach, will continue to monitor
[2023-06-27] MEDS: Albuterol Sulfate 2.5 MG, Albuterol/Iprat 2.5/0.5MG 3 ML 3 ML INHALE (08:37)
[2023-06-27] MEDS: methylPREDNISolone Sod Succ 125 MG/2 ML VIAL IVPUSH (08:49)
[2023-06-27 08:54] LABS: MANUAL DIFF FLAG NO
[2023-06-27 08:56] LABS: Basophils Percent Auto 0.1 % (0-2); Hematocrit 40.8 % (42.0-52.0); Hemoglobin 13.3 g/dl (14.0-18.0); Imm Gran Abs Auto 0.09 X10*3/uL (0.00-0.03); Imm Gran Pct Auto 1.3 % (0.0-0.4); Lymphocytes Absolute Auto 1.3 X10*3/uL (1.2-4.9); Lymphocytes Percent Auto 17.4 % (20-40); Mean Corpuscular HGB Conc 32.6 g/dl (31.0-36.0); Mean Corpuscular Hemoglobin 32.6 pg (27.0-33.0); Mean Platelet Volume 8.9 fL (9.4-12.4); Monocytes Absolute Auto 0.5 X10*3/uL (0.1-1.2); Monocytes Percent Auto 6.4 % (2-11); Neutrophils Absolute Auto 5.4 x10*3/uL (2.0-8.3); Neutrophils Percent Auto 74.8 % (45-73); Platelet Count 189 X10*3/uL (160-400); Red Blood Count 4.08 X10*6/uL (4.60-5.80); Red Cell Distribution Width 14.6 % (11.0-16.0); White Blood Count 7.2 X10*3/uL (4.8-10.8)
[2023-06-27 09:22] LABS: Alanine Aminotransferase 36 U/L (0-40); Albumin Level 3.5 g/dL (3.5-5.0); Alkaline Phosphatase 75 U/L (39-117); Anion Gap 17 (12-20); Aspartate Amino Transferase 26 U/L (5-37); Blood Urea Nitrogen 18 mg/dL (9-16); Calcium 9.3 mg/dL (8.4-10.2); Carbon Dioxide 23 mmol/L (22-29); Chloride 105 mmol/L (96-108); Creatinine Clr Calc Pharmacy 60.3; Estimated Glomerular Filt Rate > 60; Glucose Random 87 mg/dL (60-115); Potassium 4.5 mmol/L (3.3-5.1); Sodium 140 mmol/L (135-145)
[2023-06-27 09:26] LABS: B Type Natriuretic Peptide 75 pg/mL (<100); Troponin-I High Sensitivity 9.7 ng/L (<3.5-35.0)
--- NOTE | 2023-06-27 09:39 | PC.NURSE ---
pt a&ox3, vss, nsr on the electronic device monitor with occasional PVCs. pt verbalizing 0/10 pain. pt speaking in full, short sentences. WOB absent. pursed-lip breathing noted after pt speaks in sentences. non-productive cough present. rhonchi noted upon auscultation throughout lung field. pt displaying no apparent distress. call ulloa placed within reach.
--- NOTE | 2023-06-27 10:35 | PHA.MEDREC ---
Pharmacy Consult ? Medication Reconciliation Pharmacy has completed the medication reconciliation. Pt had a list that was hand written by his daughter. I called daughter (siria) to ensure this was a complete list.
[2023-06-27] MEDS: Doxycycline Hyclate 100 MG in 0.9 % Sodium Chloride 250 ML 166.67 MG IV (10:47)
--- NOTE | 2023-06-27 10:49 | PC.NURSE ---
medication administered per provider order.
--- NOTE | 2023-06-27 11:40 | PC.NURSE ---
pt a&ox3, vss, nsr on the accounts payable manager with frequent PVCs. pt verbalizing 0/10 pain. call ulloa placed within reach.
--- NOTE | 2023-06-27 12:34 | PC.NURSE ---
medication completed infused and d/c'd.
--- NOTE | 2023-06-27 12:51 | PC.NURSE ---
225ml dark yellow urine output documented.
--- NOTE | 2023-06-27 13:27 | PC.NURSE ---
pt's daughter called about update for son - let daughter know that he is pending admission. she will call back shortly for more updates as pt's [facility] to [facility] so [facility].
[2023-06-27] MEDS: Furosemide 40 MG/4 ML VIAL IVPUSH (14:23)
--- NOTE | 2023-06-27 14:26 | PC.NURSE ---
medication administered per provider order.
[2023-06-27] MEDS: Heparin Sodium,Porcine 5,000 UNIT/ML VIAL 5000 UNIT SUBCUT (14:49)
--- NOTE | 2023-06-27 14:50 | PM.IMHP ---
History of Present Illness Date of Service: 06/27/23 Chief Complaint: SOB 78 years old man with history of congestive heart failure and history of COPD presenting to the emergency department with shortness of breath which is worse since yesterday and has been increasing his oxygen from 2 liters to 4liters. Mild cough, yellow sputum. Cut He also reported cheek and lower extremity edema that is also getting worse. He denied PND, orthopnea fever, chills, nausea, vomiting, diarrhea, recent travel, sick contacts. Lives with a family member who assists in his care. Chest x-ray showing chronic interstitial emphysema with no acute abnormality, labs all within acceptable limits, stable vital signs with no noted hypoxia. In the he was given a dose of Solu-Medrol, albuterol, doxycycline, Lasix. He will be admitted for further management and treatment of acute COPD exacerbation. Review of Systems Review of Systems: Denies any recent fever chills or decrease in appetite respiratory see HPI cardiovascular denied chest pain reports lower extremity edema gastrointestinal denies any dysphagia abdominal pain nausea vomiting or diarrhea genitourinary denies any dysuria frequency or hematuria musculoskeletal denies any joint pain or swelling neuropsych denies any weakness or seizures all other systems reviewed are negative [facility] Medical History CHF (congestive heart failure) COPD (chronic obstructive pulmonary disease) Hyperlipidemia Hypertension Social History Household Members: Children Housing: Apartment Do you presently have visiting nurse or other home services: No Alcohol intake: never Patient Tobacco Use Status: Former Tobacco user Quit Date: 12/2021 Tobacco use type: Cigarette Cigarette Packs Per Day: 1 Cigarettes Per Day: 20.0 Years Smoked: 50 Smoked in Last 30 Days: No Use of substances other than those prescribed or required for medical reasons: No Advance Directives: No Advance Directives Information Provided: No Nutrition Risks: No Nutritional Risk service: Yes Current occupational status: retired Meds Allergies Allergy/AdvReac Type Severity Reaction Status Date / Time adhesive tape Allergy Intermediate Rash Verified 06/27/23 08:28 Penicillins [PENICILLINS] Allergy Unknown VOMITTING Verified 06/27/23 08:28 Active Medications: Current Medications Acetaminophen (Acetaminophen 325 Mg Tablet) 650 mg PO Q6H PRN PRN Reason: Pain, Mild (Pain Scale 1-3) Albuterol/Ipratropium (Albuterol/Iprat 2.5/0.5mg 3 Ml Ampul.Neb) 3 ml INHALE RQ4H WHILE AWAKE [facility] Furosemide (Furosemide 20 Mg/2 Ml Vial) 20 mg IVPUSH BID@0900,1800 [facility]; Protocol Heparin Sodium (Porcine) (Heparin Sodium,Porcine 5,000 Unit/Ml Vial) 5,000 unit SUBCUT Q12H CHAYO Last Admin: 06/27/23 14:49 Dose: 5,000 unit Methylprednisolone Sodium Succinate (Methylprednisolone Sod Succ 40 Mg/Ml Vial) 40 mg IVPUSH Q12H [facility] Ondansetron HCl (Ondansetron Hcl 4 Mg/2 Ml Vial) 4 mg IVPUSH Q8H PRN PRN Reason: Nausea and Vomiting Pharmacy Consult (Consult Rx Perform Med Rec) 1 each MISCELLANE ONCE PRN PRN Reason: Consult order Sodium Chloride (0.9 % Sodium Chloride Flush 3 Ml Syringe) 3 ml IVFLUSH QSHIFT [facility] Home Medications Medication Instructions Recorded Confirmed Last Taken Type acetaminophen 500 mg tablet 500 mg PO BID PRN Pain 05/25/22 06/27/23 Unknown History guaifenesin 600 mg tablet,extended 600 mg PO TID PRN Cough 05/25/22 06/27/23 Unknown History release omeprazole 20 mg capsule,delayed 40 mg PO BID@0630,1630 05/25/22 06/27/23 06/14/22 History release trazodone 50 mg tablet 100 mg PO BEDTIME PRN Insomnia 05/25/22 06/27/23 Unknown History albuterol sulfate 90 mcg/actuation 1 inh inhalation QID PRN Wheezing 05/26/22 06/27/23 Unknown History aerosol inhaler amitriptyline 10 mg tablet 20 mg PO BEDTIME 05/26/22 06/27/23 06/14/22 History atorvastatin 40 mg tablet 20 mg PO BEDTIME 05/26/22 06/27/23 06/14/22 History budesonide 160 mcg-glycopyr 9 2 inh inhalation BID 06/27/23 06/27/23 Unknown History mcg-formot 4.8 mcg/actuation HFA inhaler (Breztri Aerosphere) multivitamin 1 tab PO DAILY 06/27/23 06/27/23 Unknown History prednisone 20 mg tablet 20 mg PO DAILY 06/27/23 06/27/23 Unknown History sucralfate 1 gram tablet 1 g PO TIDWM 06/27/23 06/27/23 Unknown History Physical Exam Vital Signs and Narrative: Vital Signs: Last Vital Signs Temp 97.8 F 06/27/23 11:38 Pulse 80 06/27/23 14:14 Resp 12 06/27/23 14:14 BP 124/79 06/27/23 14:14 Pulse Ox 99 06/27/23 14:14 O2 Del Method Room Air 06/27/23 14:14 O2 Flow Rate 2 06/27/23 11:38 Oxygen Flow Rate 2 06/27/23 08:28 BMI result Body Mass Index 22.0 Appearing in no acute distress head is normocephalic atraumatic eyes pupils are PERRLA sclera is anicteric mouth throat mucous membranes are intact and moist neck is supple no lymphadenopathy, no JVD noted lung sounds are clear to auscultation heart regular rate rhythm, clear S1, S2 positive bowel sounds, abdomen is soft, nontender neuro patient is alert x3, no focal deficits +3-4 lower extremity pitting edema bilaterally Results Labs 06/27/23 08:50 06/27/23 08:50 Labs: Laboratory Results - last 24 hr 06/27/23 06/27/23 06/27/23 08:50 08:50 08:50 MCV 100.0 H MCH 32.6 MCHC 32.6 RDW 14.6 Plt Count 189 MPV 8.9 L Immature Gran % (Auto) 1.3 H Neut % (Auto) 74.8 H Lymph % (Auto) 17.4 L [place] % (Auto) 6.4 Eos % (Auto) 0.0 Baso % (Auto) 0.1 Lymph # (Auto) 1.3 [place] # (Auto) 0.5 Eos # (Auto) 0.0 Baso # (Auto) 0.0 Abs Immat Gran (auto) 0.09 H Absolute Neuts (auto) 5.4 Absolute Nucleated RBC 0.000 Nucleated RBC % (auto) 0.0 Anion Gap 17 Estim Creat Clear Calc 60.3 Estimated GFR > 60 Random Glucose 87 Calcium 9.3 Total Bilirubin 1.0 AST 26 ALT 36 Alkaline Phosphatase 75 B-Natriuretic Peptide 75 Total Protein 6.0 L Albumin 3.5 Imaging Radiologist's Impressions: Impressions Chest X-Ray 06/27/23 09:14 IMPRESSION: Chronic interstitial changes/emphysema correlating with previous studies. No overt acute abnormality. Assessment and Plan (1) Acute exacerbation of chronic obstructive airways disease: Status: Acute Plan 78 year old man admitted for COPD exacerbation with dyspnea and possible acute CHF. He is ox dependent at home. COPD exacerbation, acute on chronic no hypoxia Scheduled duonebs, solumedrol BID continue supplemental oxygen Lower extremity edema, unspecified May be some component of CHF BNP 75 Will treat with Lasix IV b.i.d. for now Echocardiogram ordered Daily weights, monitor intake and output closely GERD PPI Hyperlipidemia statin DVT prophylaxis with heparin Full code Observation Time Spent With Patient Time: Total time managing care of this patient today ____ minutes. Quality Stroke Does the patient have a stroke diagnosis?: No VTE Prior VTE?: No VTE Risk Level:: Medical - moderate - high VTE Device Contraindication: Treatment Not Indicated VTE Drug Contraindication: N/A - Med Ordered
--- NOTE | 2023-06-27 14:53 | PC.NURSE ---
medication administered per provider order.
[2023-06-27] MEDS: Albuterol/Iprat 2.5/0.5MG 3 ML AMPUL.NEB INHALE ×2 (15:26→19:46)
[2023-06-27] MEDS: 0.9 % Sodium Chloride Flush 3 ML SYRINGE IVFLUSH ×2 (15:56→22:08)
[2023-06-27] MEDS: Omeprazole 40 MG CAPSULE.DR PO (17:40)
--- NOTE | 2023-06-27 17:40 | PC.NURSE ---
medication administered per provider order.
[2023-06-27] MEDS: Sucralfate 1 GM TABLET PO (17:43)
--- NOTE | 2023-06-27 18:43 | PC.NURSE ---
report given to RN on IMC. pt being transported upstairs by transport.
[2023-06-27] MEDS: traZODone HCL 100 MG TABLET PO (22:07)
[2023-06-27] MEDS: Atorvastatin Calcium 20 MG TABLET PO (22:07)
[2023-06-27] MEDS: methylPREDNISolone Sod Succ 40 MG/ML VIAL IVPUSH (22:07)
[2023-06-27] MEDS: Amitriptyline HCl 10 MG TABLET 20 MG PO (22:08)
[2023-06-28] VITALS (10 sets, daily range): BP systolic 116–140; BP diastolic 72–84; PULSE 68–98; RESP 17–19; TEMP 36.4–36.6; O2SAT 96–100; BMI 18.7
[2023-06-28] MEDS: Heparin Sodium,Porcine 5,000 UNIT/ML VIAL 5000 UNIT SUBCUT ×2 (03:36→16:09)
[2023-06-28] MEDS: Omeprazole 40 MG CAPSULE.DR PO ×2 (05:51→16:09)
[2023-06-28 06:50] LABS: MANUAL DIFF FLAG NO
[2023-06-28 06:57] LABS: Basophils Percent Auto 0.1 % (0-2); Hematocrit 39.3 % (42.0-52.0); Hemoglobin 13.2 g/dl (14.0-18.0); Imm Gran Abs Auto 0.08 X10*3/uL (0.00-0.03); Imm Gran Pct Auto 0.8 % (0.0-0.4); Lymphocytes Absolute Auto 0.6 X10*3/uL (1.2-4.9); Lymphocytes Percent Auto 5.7 % (20-40); Mean Corpuscular HGB Conc 33.6 g/dl (31.0-36.0); Mean Corpuscular Hemoglobin 32.8 pg (27.0-33.0); Mean Corpuscular Volume 97.8 fL (80.0-98.0); Mean Platelet Volume 9.2 fL (9.4-12.4); Monocytes Absolute Auto 0.5 X10*3/uL (0.1-1.2); Monocytes Percent Auto 4.8 % (2-11); Neutrophils Absolute Auto 8.9 x10*3/uL (2.0-8.3); Neutrophils Percent Auto 88.6 % (45-73); Platelet Count 197 X10*3/uL (160-400); Red Blood Count 4.02 X10*6/uL (4.60-5.80); Red Cell Distribution Width 14.5 % (11.0-16.0)
--- NOTE | 2023-06-28 07:00 | CA_ITS ---
Transthoracic Echocardiogram Patient (Last, First, Middle): Garrett Cuevas M Gender: Male Date of : 1945 Age: 78 Procedure Date: 06/28/2023 Procedure Type: Transthoracic Echocardiogram Location: [facility] [place] Height: 177.8 cm Weight: 69.4 kg BSA: 1.86 m2 Heart Rate: bpm BP: 124 / 79 mmHg Deck Cadet: Referring MD: Jeanie Martinez NP Symptoms: dyspnea, edema Study Quality: Fair ECG Rhythm: Sinus with extra beats Conclusions: - Normal left ventricular cavity size. There is normal left ventricular wall thickness. The left ventricular systolic function is borderline reduced. The visually estimated ejection fraction is between 45-50%. - Mildly increased right ventricular cavity size. There is normal right ventricular systolic function. - Mild pulmonary hypertension is present. - There is mild dilatation of the ascending aorta measuring 3.60 cm. Findings Procedure Information Contrast agent, definity, is being given per protocol without apparent complications. Left Ventricle Normal left ventricular cavity size. There is normal left ventricular wall thickness. The left ventricular systolic function is borderline reduced. The visually estimated ejection fraction is between 45-50%. Regional wall motion abnormalities can not be excluded due to suboptimal endocardial definition. Diastolic function is indeterminate on the basis of available data. Normal left ventricular filling pressures. Right Ventricle Mildly increased right ventricular cavity size. There is normal right ventricular systolic function. Atria The left atrium is normal in size. Aortic Valve There is a normal trileaflet aortic valve. There is no aortic valve stenosis. There is no aortic valve regurgitation. Mitral Valve The mitral valve appears normal. There is no mitral valve regurgitation. There is no mitral valve stenosis. Pulmonic Valve The pulmonic valve is likely normal. Tricuspid Valve Normal tricuspid valve structure. There is mild tricuspid valve regurgitation. Normal right atrial pressure. Mild pulmonary hypertension is present. Great Vessels There is mild dilatation of the ascending aorta measuring 3.60 cm. Venous The inferior vena cava is normal in size and collapses greater than 50% with inspiration. Pericardium/Pleural Prominent epicardial adipose tissue noted. There is no evidence of pericardial effusion. Prior Study Comparison Changes noted compared to prior study dated: 07/26/2022. Mild dilation of ascending aorta. Measurements 2D Linear Measurements IVSd: 0.90 0.6-0.9/0.6-1.0 cm LVIDd: 4.40 3.9-5.3/4.2-5.9 cm LVIDd Index: 2.37 2.4-3.2/2.2-3.1 cm/m2 LVIDs: 3.40 2.0-3.6 cm LVPWd: 1.10 0.7-1.1 cm Ao Root: 3.40 2.1-3.5 cm LA Diam: 2.70 2.7-3.8/3.0-4.0 cm LAIDs Index: 1.45 1.5-2.3 cm/m2 LV Mass: 184.04 67-162/88-224 g LV Mass Index: 98.95 43-95/49-115 g/m2 LVOT Diam: 2.30 3.0+(-)1.3 cm 2D Systolic Function EF 4C: 40.30 >55% EF 2C: 51.60 >55% EF BiP: 44.00 >55% Mitral Valve MV Pk E: 0.43 MV PK A: 0.59 MV Decel Time: 115.00 E/A: 0.70 E'Lateral: 4.79 E'Medial: 5.77 E/E' Med: 7.40 E/E' Lat: 8.90 PHT: 34.00 MVA PHT: 6.47 Decel [place]: 3.72 Aortic Valve AoV Pk Mark: 0.88 AoV Mn Mark: 0.62 AoV VTI: 0.18 AoV Pk Grad: 3.00 Aov Mn Grad: 2.00 NEDA Cont.VTI: 2.81 LVOT LVOT Pk Mark: 0.64 LVOT Mn Mark: 0.43 LVOT VTI: 0.12 LVOT Pk Grad: 2.00 LVOT Mn Grad: 1.00 LVOT Diam: 2.30 LVOT Area: 4.15 Diastolic Function MV Pk E: 0.43 MV Pk A: 0.59 E/A: 0.70 E'Medial: 5.77 E/E' Med: 7.40 E' Laterial: 4.79 E/E' Lat: 8.90 Right Ventricle TAPSE (mm): 34.00 TVS' Mark: 12.00 Tricuspid Valve TR Pk Mark: 2.95 TR Pk Grad: 35.00 RVSP: 42.00 Great Vessels Aorta Ao Root-2D: 3.40 2.0-3.7 cm Ao Asc: 3.60 2.1-3.4 cm Pulmonary Valve PV Pk Mark: 0.86 Peak PV Grad: 3.00 Updated in Other Vendor System with Status of Final Marv Marlow MD electronically signed on 06/28/2023 2:47:06 PM with status of Final
[2023-06-28 07:27] LABS: Alanine Aminotransferase 29 U/L (0-40); Albumin Level 3.4 g/dL (3.5-5.0); Alkaline Phosphatase 66 U/L (39-117); Anion Gap 12 (12-20); Aspartate Amino Transferase 21 U/L (5-37); Bilirubin Total 0.6 mg/dL (0.0-1.0); Blood Urea Nitrogen 23 mg/dL (9-16); Calcium 9.7 mg/dL (8.4-10.2); Carbon Dioxide 30 mmol/L (22-29); Chloride 104 mmol/L (96-108); Creatinine Clr Calc Pharmacy 48.4; Estimated Glomerular Filt Rate > 60; Glucose Random 138 mg/dL (60-115); Potassium 4.4 mmol/L (3.3-5.1); Sodium 142 mmol/L (135-145); Total Protein 5.9 g/dL (6.5-8.0)
[2023-06-28] MEDS: Albuterol/Iprat 2.5/0.5MG 3 ML AMPUL.NEB INHALE ×4 (07:48→19:41)
[2023-06-28] MEDS: Multivitamin TABLET 1 TAB PO (08:30)
[2023-06-28] MEDS: methylPREDNISolone Sod Succ 40 MG/ML VIAL IVPUSH ×2 (08:30→21:33)
[2023-06-28] MEDS: Sucralfate 1 GM TABLET PO ×3 (08:30→16:09)
[2023-06-28] MEDS: Furosemide 20 MG/2 ML VIAL IVPUSH (08:30)
[2023-06-28] MEDS: 0.9 % Sodium Chloride Flush 3 ML SYRINGE IVFLUSH ×3 (08:31→21:33)
[2023-06-28] MEDS: guaiFENesin LA 600 MG TAB.ER.12H PO (08:34)
--- NOTE | 2023-06-28 08:43 | MHC.CM.PN ---
CM met with Patient at bedside and addressed [facility] with him, providing Patient with the original and placing a copy on the chart.Patient lives in an apartment with his Daughter/HCP and he requires no services [employer]. Patient's home O2 is [facility] and his PCP is from the [place] in [place].Home self care is the goal and CM has initiated and will follow for dc planning
--- NOTE | 2023-06-28 13:10 | PM.CNCAR ---
History of Present Illness History of Present Illness Date of Service: 06/28/23 Requesting physician: Ortega Garcia Chief complaint: SOB, LE edema Narrative: 78-year-old gentleman who in os to assess for congestive heart failure. He follows at [facility] with Cardiology. He is saying that he has history of congestive heart failure and also was told at some stage that he has cardiomyopathy/heart weakness. We do not have any details of this currently. He is presenting to us for COPD exacerbation. He said he was coughing but was unable to bring up any phlegm. He had no fevers or chills. He has been on oxygen chronically. He also noticed some lower extremity edema involving his ankles which is something new. He is denying any chest discomfort. He was given IV diuretics with some improvement in lower extremity edema. His breathing did not change. [facility] Past Medical History Medical History (Updated 06/28/23 @ 13:12 by Marv Marlow MD) CHF (congestive heart failure) COPD (chronic obstructive pulmonary disease) Hyperlipidemia Hypertension Social History Social History Household Members: Children Housing: Apartment Do you presently have visiting nurse or other home services: No Alcohol intake: never Patient Tobacco Use Status: Former Tobacco user Quit Date: 12/2021 Tobacco use type: Cigarette Cigarette Packs Per Day: 1 Cigarettes Per Day: 20.0 Years Smoked: 50 service: Yes Current occupational status: retired Meds Allergies Allergy/AdvReac Type Severity Reaction Status Date / Time adhesive tape Allergy Intermediate Rash Verified 06/27/23 08:28 Penicillins [PENICILLINS] Allergy Unknown VOMITTING Verified 06/27/23 08:28 Active Medications: Current Medications Acetaminophen (Acetaminophen 325 Mg Tablet) 650 mg PO Q6H PRN PRN Reason: Pain, Mild (Pain Scale 1-3) Albuterol/Ipratropium (Albuterol/Iprat 2.5/0.5mg 3 Ml Ampul.Neb) 3 ml INHALE RQ4H WHILE AWAKE [facility] Last Admin: 06/28/23 11:31 Dose: 3 ml Amitriptyline HCl (Amitriptyline Hcl 10 Mg Tablet) 20 mg PO BEDTIME CHAYO Last Admin: 06/27/23 22:08 Dose: 20 mg Atorvastatin Calcium (Atorvastatin Calcium 20 Mg Tablet) 20 mg PO BEDTIME CHAYO Last Admin: 06/27/23 22:07 Dose: 20 mg Furosemide (Furosemide 20 Mg/2 Ml Vial) 20 mg IVPUSH DAILY [facility]; Protocol Guaifenesin (Guaifenesin La 600 Mg Tab.Er.12h) 600 mg PO TID PRN PRN Reason: Cough Last Admin: 06/28/23 08:34 Dose: 600 mg Heparin Sodium (Porcine) (Heparin Sodium,Porcine 5,000 Unit/Ml Vial) 5,000 unit SUBCUT Q12H [facility] Last Admin: 06/28/23 03:36 Dose: 5,000 unit Methylprednisolone Sodium Succinate (Methylprednisolone Sod Succ 40 Mg/Ml Vial) 40 mg IVPUSH Q12H [facility] Last Admin: 06/28/23 08:30 Dose: 40 mg Multivitamins/Vitamin C (Multivitamin Tablet) 1 tab PO DAILY [facility] Last Admin: 06/28/23 08:30 Dose: 1 tab Omeprazole (Omeprazole 40 Mg Capsule.Dr) 40 mg PO BID@0630,1630 [facility] Last Admin: 06/28/23 05:51 Dose: 40 mg Ondansetron HCl (Ondansetron Hcl 4 Mg/2 Ml Vial) 4 mg IVPUSH Q8H PRN PRN Reason: Nausea and Vomiting Pharmacy Consult (Consult Rx Perform Med Rec) 1 each MISCELLANE ONCE PRN PRN Reason: Consult order Sodium Chloride (0.9 % Sodium Chloride Flush 3 Ml Syringe) 3 ml IVFLUSH QSHIFT [facility] Last Admin: 06/28/23 08:31 Dose: 3 ml Sucralfate (Sucralfate 1 Gm Tablet) 1 gm PO TIDWM [facility] Last Admin: 06/28/23 11:54 Dose: 1 gm Trazodone HCl (Trazodone Hcl 100 Mg Tablet) 100 mg PO BEDTIME PRN PRN Reason: Insomnia Last Admin: 06/27/23 22:07 Dose: 100 mg Home Medications Medication Instructions Recorded Confirmed Last Taken Type acetaminophen 500 mg tablet 500 mg PO BID PRN Pain 05/25/22 06/27/23 Unknown History guaifenesin 600 mg tablet,extended 600 mg PO TID PRN Cough 05/25/22 06/27/23 Unknown History release omeprazole 20 mg capsule,delayed 40 mg PO BID@0630,1630 05/25/22 06/27/23 06/14/22 History release trazodone 50 mg tablet 100 mg PO BEDTIME PRN Insomnia 05/25/22 06/27/23 Unknown History albuterol sulfate 90 mcg/actuation 1 inh inhalation QID PRN Wheezing 05/26/22 06/27/23 Unknown History aerosol inhaler amitriptyline 10 mg tablet 20 mg PO BEDTIME 05/26/22 06/27/23 06/14/22 History atorvastatin 40 mg tablet 20 mg PO BEDTIME 05/26/22 06/27/23 06/14/22 History budesonide 160 mcg-glycopyr 9 2 inh inhalation BID 06/27/23 06/27/23 Unknown History mcg-formot 4.8 mcg/actuation HFA inhaler (Breztri Conversant Labsphere) multivitamin 1 tab PO DAILY 06/27/23 06/27/23 Unknown History prednisone 20 mg tablet 20 mg PO DAILY 06/27/23 06/27/23 Unknown History sucralfate 1 gram tablet 1 g PO TIDWM 06/27/23 06/27/23 Unknown History Physical Exam Vital Signs: Vital Signs: Last Vital Signs Temp 97.7 F 06/28/23 11:23 Pulse 98 06/28/23 11:32 Resp 18 06/28/23 11:32 BP 116/79 06/28/23 11:23 Pulse Ox 96 06/28/23 11:23 O2 Del Method Nasal Cannula 06/28/23 11:23 O2 Flow Rate 2 06/28/23 11:23 Oxygen Flow Rate 2 06/27/23 08:28 BMI result Body Mass Index 18.7 GENERAL APPEARANCE: Short of breath, on supplemental oxygen. NECK: no carotid bruit, no jugular venous distention. SKIN: no suspicious lesions, warm and dry. HEART: no murmurs, regular rate and rhythm. LUNGS: Expiratory wheezes. Diminished breath sounds. ABDOMEN: soft, nontender. EXTREMITIES: Mild edema at ankles. PERIPHERAL PULSES: equal. NEUROLOGIC: No gross deficits, AAO X 3 Objective Labs and Meds 06/28/23 06:35 06/28/23 06:35 Lab results: Laboratory Results - last 24 hr 06/28/23 06/28/23 06:35 06:35 WBC 10.0 RBC 4.02 L Hgb 13.2 L Hct 39.3 L MCV 97.8 MCH 32.8 MCHC 33.6 RDW 14.5 Plt Count 197 MPV 9.2 L Immature Gran % (Auto) 0.8 H Neut % (Auto) 88.6 H Lymph % (Auto) 5.7 L [place] % (Auto) 4.8 Eos % (Auto) 0.0 Baso % (Auto) 0.1 Lymph # (Auto) 0.6 L [place] # (Auto) 0.5 Eos # (Auto) 0.0 Baso # (Auto) 0.0 Abs Immat Gran (auto) 0.08 H Absolute Neuts (auto) 8.9 H Absolute Nucleated RBC 0.000 Nucleated RBC % (auto) 0.0 Sodium 142 Potassium 4.4 Chloride 104 Carbon Dioxide 30 H Anion Gap 12 BUN 23 H Creatinine 1.05 Estim Creat Clear Calc 48.4 Estimated GFR > 60 Random Glucose 138 H Calcium 9.7 Total Bilirubin 0.6 AST 21 ALT 29 Alkaline Phosphatase 66 Total Protein 5.9 L Albumin 3.4 L Assessment and Plan (1) Acute exacerbation of chronic obstructive airways disease: Status: Acute (2) CHF (congestive heart failure): Status: Acute Plan Pleasant 78-year-old gentleman who follows at [facility] Cardiology. He does not remember his systems consultant's name. He was told that he has congestive heart failure and also is describing that he may have cardiomyopathy. He is presenting mostly for COPD exacerbation. His dyspnea is due to COPD exacerbation clearly. His dyspnea did not improve with diuretics despite being in a negative fluid balance. He does not have any JVD or any obvious signs of central congestion. He does have peripheral edema. I think he can stay on low-dose diuretics. Agree with checking echocardiogram to assess for cardiomyopathy. If he truly has cardiomyopathy then he should be on guideline directed medical therapy which we will start depending on his blood pressure. He will follow-up at [facility]. Thank you for allowing me to participate in the care of your patient. Please feel free to contact me if you have any questions. Time Spent With Patient Time: Total time managing care of this patient today ____ minutes. Procedures Date of Service Date of Service: 06/28/23
--- NOTE | 2023-06-28 16:23 | P.PNIM_ITS ---
Subjective Subjective Date of Service: 06/28/23 Interval History: copd vs chf Review of Systems still has leg edema ,sob seems improved no fever or chest pain Physical Exam Vital Signs: Vital Signs: Last Vital Signs Temp 97.5 F 06/28/23 15:20 Pulse 76 06/28/23 15:20 Resp 19 06/28/23 15:20 BP 132/78 06/28/23 15:20 Pulse Ox 98 06/28/23 15:20 O2 Del Method Nasal Cannula 06/28/23 15:20 O2 Flow Rate 2 06/28/23 11:23 Oxygen Flow Rate 2 06/27/23 08:28 BMI result Body Mass Index 18.7 Appearance: Alert.? Oriented X3.? not in distress.? Eyes: Pupils equal, round and reactive to light.? Sclera nonicteric.? ENT: Pharynx normal.? Moist mucous membranes. cvs: rrr, [id number] . res: clear to auscultation ,no rhonchii or wheezing abd: no rebound or guarding ,nt, bs present. ext pulses present , no cyanosis ,has b/l leg edema. neuro: axo3 , nonfocal. Objective Data Active Medications Acetaminophen (Acetaminophen 325 Mg Tablet) 650 mg PO Q6H PRN PRN Reason: Pain, Mild (Pain Scale 1-3) Albuterol/Ipratropium (Albuterol/Iprat 2.5/0.5mg 3 Ml Ampul.Neb) 3 ml INHALE RQ4H WHILE AWAKE [facility] Last Admin: 06/28/23 16:20 Dose: 3 ml Documented By: RAQUEL Amitriptyline HCl (Amitriptyline Hcl 10 Mg Tablet) 20 mg PO BEDTIME CHAYO Last Admin: 06/27/23 22:08 Dose: 20 mg Documented By: TRICIA Atorvastatin Calcium (Atorvastatin Calcium 20 Mg Tablet) 20 mg PO BEDTIME CHAYO Last Admin: 06/27/23 22:07 Dose: 20 mg Documented By: TRICIA Furosemide (Furosemide 20 Mg Tablet) 20 mg PO DAILY [facility]; Protocol Guaifenesin (Guaifenesin La 600 Mg Tab.Er.12h) 600 mg PO TID PRN PRN Reason: Cough Last Admin: 06/28/23 08:34 Dose: 600 mg Documented By: SHREYAS Heparin Sodium (Porcine) (Heparin Sodium,Porcine 5,000 Unit/Ml Vial) 5,000 unit SUBCUT Q12H [facility] Last Admin: 06/28/23 16:09 Dose: 5,000 unit Documented By: SHREYAS Methylprednisolone Sodium Succinate (Methylprednisolone Sod Succ 40 Mg/Ml Vial) 40 mg IVPUSH Q12H [facility] Last Admin: 06/28/23 08:30 Dose: 40 mg Documented By: SHREYAS Multivitamins/Vitamin C (Multivitamin Tablet) 1 tab PO DAILY [facility] Last Admin: 06/28/23 08:30 Dose: 1 tab Documented By: SHREYAS Omeprazole (Omeprazole 40 Mg Capsule.Dr) 40 mg PO BID@0630,1630 [facility] Last Admin: 06/28/23 16:09 Dose: 40 mg Documented By: SHREYAS Ondansetron HCl (Ondansetron Hcl 4 Mg/2 Ml Vial) 4 mg IVPUSH Q8H PRN PRN Reason: Nausea and Vomiting Pharmacy Consult (Consult Rx Perform Med Rec) 1 each MISCELLANE ONCE PRN PRN Reason: Consult order Sodium Chloride (0.9 % Sodium Chloride Flush 3 Ml Syringe) 3 ml IVFLUSH QSHIFT [facility] Last Admin: 06/28/23 16:10 Dose: 3 ml Documented By: SHREYAS Sucralfate (Sucralfate 1 Gm Tablet) 1 gm PO TIDWM [facility] Last Admin: 06/28/23 16:09 Dose: 1 gm Documented By: SHREYAS Trazodone HCl (Trazodone Hcl 100 Mg Tablet) 100 mg PO BEDTIME PRN PRN Reason: Insomnia Last Admin: 06/27/23 22:07 Dose: 100 mg Documented By: TRICIA Labs 06/28/23 06:35 06/28/23 06:35 Labs: Laboratory Results - last 24 hr 06/28/23 06/28/23 06:35 06:35 MCV 97.8 MCH 32.8 MCHC 33.6 RDW 14.5 Plt Count 197 MPV 9.2 L Immature Gran % (Auto) 0.8 H Neut % (Auto) 88.6 H Lymph % (Auto) 5.7 L [place] % (Auto) 4.8 Eos % (Auto) 0.0 Baso % (Auto) 0.1 Lymph # (Auto) 0.6 L [place] # (Auto) 0.5 Eos # (Auto) 0.0 Baso # (Auto) 0.0 Abs Immat Gran (auto) 0.08 H Absolute Neuts (auto) 8.9 H Absolute Nucleated RBC 0.000 Nucleated RBC % (auto) 0.0 Anion Gap 12 Estim Creat Clear Calc 48.4 Estimated GFR > 60 Random Glucose 138 H Calcium 9.7 Total Bilirubin 0.6 AST 21 ALT 29 Alkaline Phosphatase 66 Total Protein 5.9 L Albumin 3.4 L Assessment and Plan (1) COPD exacerbation: Status: Resolved Plan 78 year old man admitted for COPD exacerbation with dyspnea and possible acute CHF.? He is ox dependent at home. COPD exacerbation, acute on chronic no hypoxia? Scheduled duonebs, solumedrol BID continue supplemental oxygen Lower extremity edema, unspecified May be some component of CHF BNP 75 Echocardiogram added,adjusted lasix Daily weights, monitor intake and output closely cardiology eval GERD PPI Hyperlipidemia statin DVT prophylaxis with heparin Full code need ongoing hospitilisation for chf treatment iv lasix ,i.omonitering ,renal function monitering and cardiac workup Time Spent With Patient Time: Total time managing care of this patient today ____ minutes. Quality Stroke Does the patient have a stroke diagnosis?: No VTE Prior VTE?: No VTE Risk Level:: Medical - moderate - high VTE Device Contraindication: Treatment Not Indicated VTE Drug Contraindication: N/A - Med Ordered
[2023-06-28] MEDS: Atorvastatin Calcium 20 MG TABLET PO (21:33)
[2023-06-28] MEDS: traZODone HCL 100 MG TABLET PO (21:33)
[2023-06-28] MEDS: Amitriptyline HCl 10 MG TABLET 20 MG PO (21:33)
[2023-06-28] MEDS: diphenhydrAMINE HCL 50 MG/ML VIAL 25 MG IVPUSH (23:43)
[2023-06-29] VITALS (10 sets, daily range): BP systolic 103–132; BP diastolic 75–86; PULSE 76–95; RESP 16–18; TEMP 36.1–36.4; O2SAT 93–100; BMI 18.4
[2023-06-29] MEDS: Heparin Sodium,Porcine 5,000 UNIT/ML VIAL 5000 UNIT SUBCUT ×2 (05:58→15:48)
[2023-06-29] MEDS: Omeprazole 40 MG CAPSULE.DR PO ×2 (05:58→15:48)
[2023-06-29] MEDS: Albuterol/Iprat 2.5/0.5MG 3 ML AMPUL.NEB INHALE ×4 (07:50→18:41)
[2023-06-29] MEDS: Furosemide 20 MG TABLET PO (08:34)
[2023-06-29] MEDS: Multivitamin TABLET 1 TAB PO (08:34)
[2023-06-29] MEDS: Sucralfate 1 GM TABLET PO ×3 (08:34→15:48)
[2023-06-29] MEDS: methylPREDNISolone Sod Succ 40 MG/ML VIAL IVPUSH ×2 (08:34→20:16)
[2023-06-29] MEDS: 0.9 % Sodium Chloride Flush 3 ML SYRINGE IVFLUSH ×3 (08:35→20:16)
[2023-06-29 09:59] LABS: Venous Blood Gas Refer to POC result
[2023-06-29 09:59] LABS: VBG Base Excess 2.9 mmol/L; VBG HCO3 28 mmol/L (22-26); VBG pCO2 46 mmHg; VBG pH 7.39 (7.32-7.43); VBG pO2 41 mmHg
--- NOTE | 2023-06-29 13:05 | P.PNCA_ITS ---
Subjective Subjective Date of Service: 06/29/23 Interval history: Seen examined at bedside. Continues to have shortness of breath and wheezing. Physical Exam Vital Signs: Last Vital Signs Temp 97.6 F 06/29/23 11:24 Pulse 87 06/29/23 11:24 Resp 18 06/29/23 11:24 BP 111/75 06/29/23 11:24 Pulse Ox 99 06/29/23 11:24 O2 Del Method Nasal Cannula 06/29/23 11:24 O2 Flow Rate 2 06/29/23 11:24 Oxygen Flow Rate 2 06/27/23 08:28 BMI result Body Mass Index 18.4 GENERAL APPEARANCE: Short of breath, on supplemental oxygen. NECK: no carotid bruit, no jugular venous distention. SKIN: no suspicious lesions, warm and dry. HEART: no murmurs, regular rate and rhythm. LUNGS: Expiratory wheezes. Diminished breath sounds. ABDOMEN: soft, nontender. EXTREMITIES: Mild edema at ankles. PERIPHERAL PULSES: equal. NEUROLOGIC: No gross deficits, AAO X 3 Objective Labs and Meds 06/28/23 06:35 06/28/23 06:35 Lab results: Laboratory Results - last 24 hr 06/29/23 09:51 VBG pH 7.39 VBG pCO2 46 VBG pO2 41 VBG HCO3 28 H VBG O2 Saturation 63.0 VBG Base Excess 2.9 Imaging Radiologist's impression: Impressions Chest X-Ray 06/29/23 09:40 IMPRESSION: No acute cardiopulmonary process. Progress Note: A&P Assessment and plan (1) CHF (congestive heart failure): Status: Acute (2) Acute exacerbation of chronic obstructive airways disease: Status: Acute Plan [age] year gentleman with known history of cardiomyopathy with [id number] LV dysfunction in the past follows at [facility] for cardiology care presenting with COPD exacerbation. He has peripheral edema and was felt to have some congestive heart failure. He was diuresed and there is some improvement in lower extremity edema at this point. His breathing has not changed with diuretics. He does not appears to be centrally congested. I think he can continue oral diuretics. His repeat echocardiography with us has shown E F of 45-50%. Please start him on low-dose lisinopril for 2.5 mg once a day. Monitor electrolytes closely. Also was complaining of some facial swelling. With peripheral edema and facial swelling it will be worth checking for proteinuria to make sure there is no nephrotic component. Thank you for allowing me to participate in the care of your patient. Please feel free to contact me if you have any questions. Time Spent With Patient Time: Total time managing care of this patient today ____ minutes. Progress Note: Quality Stroke Does the patient have a stroke diagnosis?: No Procedures Date of Service Date of Service: 06/29/23
[2023-06-29 13:45] LABS: Appearance Urine Clear; Color Urine Yellow; Glucose Urine UA Negative (Negative); Leukocyte Esterase Urine Negative (Negative); Nitrite Urine Negative (Negative); PH 5.5 (5.0-9.0); Urine Blood Negative (Negative); Urine Ketones Negative (Negative); Urine Protein Negative (Neg-Trace)
[2023-06-29] MEDS: lisinopriL 2.5 MG TABLET PO (13:50)
[2023-06-29 14:47] LABS: Adenovirus PCR Not Detected (Not Detect.); Bordetella parapertussis PCR Not Detected (Not Detect.); Bordetella pertussis PCR Not Detected (Not Detect.); Chlamydia pneumoniae PCR Not Detected (Not Detect.); Coronavirus 229E PCR Not Detected (Not Detect.); Coronavirus HKU1 PCR Not Detected (Not Detect.); Coronavirus NL63 PCR Not Detected (Not Detect.); Coronavirus OC43 PCR Not Detected (Not Detect.); Human metapneumovirus PCR Not Detected (Not Detect.); Influenza A PCR Not Detected (Not Detect.); Influenza B PCR Not Detected (Not Detect.); Mycoplasma pneumoniae PCR Not Detected (Not Detect.); Parainfluenza 1 PCR Not Detected (Not Detect.); Parainfluenza 2 PCR Not Detected (Not Detect.); Parainfluenza 3 PCR Not Detected (Not Detect.); Parainfluenza 4 PCR Not Detected (Not Detect.); RSV PCR Not Detected (Not Detect.); Rhino/Enterovirus PCR Not Detected (Not Detect.); SARS-CoV-2 PCR Not Detected (Not Detect.)
--- NOTE | 2023-06-29 15:19 | HO.PM.IMPN ---
Subjective Subjective Date of Service: 06/29/23 Interval History: chf ,copd excerebation Review of Systems sob seems similar to yesterday no cough or fevers Physical Exam Vital Signs: Vital Signs: Last Vital Signs Temp 97.6 F 06/29/23 11:24 Pulse 87 06/29/23 11:24 Resp 18 06/29/23 11:24 BP 111/75 06/29/23 11:24 Pulse Ox 99 06/29/23 11:24 O2 Del Method Nasal Cannula 06/29/23 11:24 O2 Flow Rate 2 06/29/23 11:24 Oxygen Flow Rate 2 06/27/23 08:28 BMI result Body Mass Index 18.4 Appearance: Alert.? Oriented X3.? not in distress.? cvs: [id number], [id number] . res: air entry diminshes at bases ,has b/l wheezing abd: no rebound or guarding ,nt, bs present. ext pulses present , no cyanosis ,has b/l leg edema-somewhat improving. neuro: axo3 , nonfocal. Objective Data Active Medications Acetaminophen (Acetaminophen 325 Mg Tablet) 650 mg PO Q6H PRN PRN Reason: Pain, Mild (Pain Scale 1-3) Albuterol/Ipratropium (Albuterol/Iprat 2.5/0.5mg 3 Ml Ampul.Neb) 3 ml INHALE RQ4H WHILE AWAKE [facility] Last Admin: 06/29/23 10:59 Dose: 3 ml Documented By: TUAN Amitriptyline HCl (Amitriptyline Hcl 10 Mg Tablet) 20 mg PO BEDTIME CHAYO Last Admin: 06/28/23 21:33 Dose: 20 mg Documented By: LACEY Atorvastatin Calcium (Atorvastatin Calcium 20 Mg Tablet) 20 mg PO BEDTIME CHAYO Last Admin: 06/28/23 21:33 Dose: 20 mg Documented By: LACEY Furosemide (Furosemide 20 Mg Tablet) 20 mg PO DAILY [facility]; Protocol Last Admin: 06/29/23 08:34 Dose: 20 mg Documented By: COMFORT Guaifenesin (Guaifenesin La 600 Mg Tab.Er.12h) 600 mg PO TID PRN PRN Reason: Cough Last Admin: 06/28/23 08:34 Dose: 600 mg Documented By: SHREYAS Heparin Sodium (Porcine) (Heparin Sodium,Porcine 5,000 Unit/Ml Vial) 5,000 unit SUBCUT Q12H [facility] Last Admin: 06/29/23 05:58 Dose: 5,000 unit Documented By: LACEY Lisinopril (Lisinopril 2.5 Mg Tablet) 2.5 mg PO DAILY [facility]; Protocol Last Admin: 06/29/23 13:50 Dose: 2.5 mg Documented By: COMFORT Methylprednisolone Sodium Succinate (Methylprednisolone Sod Succ 40 Mg/Ml Vial) 40 mg IVPUSH Q12H [facility] Last Admin: 06/29/23 08:34 Dose: 40 mg Documented By: COMFORT Multivitamins/Vitamin C (Multivitamin Tablet) 1 tab PO DAILY [facility] Last Admin: 06/29/23 08:34 Dose: 1 tab Documented By: COMFORT Omeprazole (Omeprazole 40 Mg Capsule.Dr) 40 mg PO BID@0630,1630 [facility] Last Admin: 06/29/23 05:58 Dose: 40 mg Documented By: LACEY Ondansetron HCl (Ondansetron Hcl 4 Mg/2 Ml Vial) 4 mg IVPUSH Q8H PRN PRN Reason: Nausea and Vomiting Pharmacy Consult (Consult Rx Perform Med Rec) 1 each MISCELLANE ONCE PRN PRN Reason: Consult order Sodium Chloride (0.9 % Sodium Chloride Flush 3 Ml Syringe) 3 ml IVFLUSH QSHIFT [facility] Last Admin: 06/29/23 08:35 Dose: 3 ml Documented By: COMFORT Sucralfate (Sucralfate 1 Gm Tablet) 1 gm PO TIDWM [facility] Last Admin: 06/29/23 12:40 Dose: 1 gm Documented By: COMFORT Trazodone HCl (Trazodone Hcl 100 Mg Tablet) 100 mg PO BEDTIME PRN PRN Reason: Insomnia Last Admin: 06/28/23 21:33 Dose: 100 mg Documented By: LACEY Labs 06/28/23 06:35 06/28/23 06:35 Labs: Laboratory Results - last 24 hr 06/29/23 06/29/23 06/29/23 09:51 10:14 13:20 VBG pH 7.39 VBG pCO2 46 VBG pO2 41 VBG HCO3 28 H VBG O2 Saturation 63.0 VBG Base Excess 2.9 Urine Color Yellow Urine Appearance Clear Urine pH 5.5 Ur Specific [place] 1.020 Urine Protein Negative Urine Glucose (UA) Negative Urine Ketones Negative Urine Blood Negative Urine Nitrite Negative Ur Leukocyte Esterase Negative Respiratory Panel Trammell See Note Adenovirus (Rapid PCR) Not Detected B.pert (TEM-PCR) Not Detected B.parapertussis DNA PCR Not Detected C. pneumoniae DNA (PCR) Not Detected Coronavirus OC43 (PCR) Not Detected Coronavirus HKU1 (PCR) Not Detected Coronavirus 229E (PCR) Not Detected Coronavirus NL63 (PCR) Not Detected Human Metapneumovir PCR Not Detected Influenza A (RT-PCR) Not Detected Influenza B (RT-PCR) Not Detected M. pneumoniae (PCR) Not Detected Parainfluenza 1 (PCR) Not Detected Parainfluenza 2 (PCR) Not Detected Parainfluenza 3 (PCR) Not Detected Parainfluenza 4 (PCR) Not Detected RSV (PCR) Not Detected Entero/Rhino (PCR) Not Detected SARS-CoV-2 RNA (RT-PCR) Not Detected Assessment and Plan (1) COPD exacerbation: Status: Resolved Plan 78 year old man admitted for COPD exacerbation with dyspnea and possible acute CHF.? He is ox dependent at home. COPD exacerbation, acute on chronic still feels sob vbg-ph maintained cxr-neg Scheduled duonebs, solumedrol BID,given extra nebs ,supplemental oxygen Lower extremity edema, unspecified May be some component of CHF BNP 75 ua neg for proteinuria dry weight unclear (weight during this admission 58kg) i/o 1 liter neg Echocardiogram : Normal left ventricular cavity size.? There is normal left ? ? ventricular wall thickness.? The left ventricular systolic ? ? ? function is borderline reduced.? The visually estimated ejection fraction is between 45-50%.? - Mildly increased right ventricular cavity size.? There is? ? ? normal right ventricular systolic function.? - Mild pulmonary hypertension is present.? - There is mild dilatation of the ascending aorta measuring 3.60 cm.? ? ? Daily weights, monitor intake and output closely continue lasix cardiology eval noted-continue above management -added FAWN. GERD PPI Hyperlipidemia statin DVT prophylaxis with heparin Full code need ongoing hospitilisation for chf treatment iv lasix ,i.o monitering ,renal function monitering and cardiac workup Time Spent With Patient Time: Total time managing care of this patient today ____ minutes. Quality Stroke Does the patient have a stroke diagnosis?: No VTE Prior VTE?: No VTE Risk Level:: Medical - moderate - high VTE Device Contraindication: Treatment Not Indicated VTE Drug Contraindication: N/A - Med Ordered
[2023-06-29] MEDS: polyethylene glycoL 3350 17 GM POWD.PACK PO (18:59)
[2023-06-29] MEDS: Atorvastatin Calcium 20 MG TABLET PO (20:15)
[2023-06-29] MEDS: Amitriptyline HCl 10 MG TABLET 20 MG PO (20:15)
[2023-06-29] MEDS: diphenhydrAMINE HCL 50 MG/ML VIAL 25 MG IVPUSH (21:46)
[2023-06-29] MEDS: traZODone HCL 100 MG TABLET PO (21:46)
[2023-06-30 02:57] VITALS: BP 105/73; PULSE 89; RESP 18; TEMP 36; O2SAT 99
[2023-06-30] MEDS: Heparin Sodium,Porcine 5,000 UNIT/ML VIAL 5000 UNIT SUBCUT (05:37)
[2023-06-30] MEDS: Omeprazole 40 MG CAPSULE.DR PO (05:37)
[2023-06-30 07:25] VITALS: BP 114/77; PULSE 87; RESP 18; TEMP 36.5; O2SAT 100
[2023-06-30] MEDS: lisinopriL 2.5 MG TABLET PO (08:21)
[2023-06-30] MEDS: Furosemide 20 MG TABLET PO (08:21)
[2023-06-30] MEDS: Sucralfate 1 GM TABLET PO ×2 (08:21→12:04)
[2023-06-30] MEDS: Multivitamin TABLET 1 TAB PO (08:21)
[2023-06-30] MEDS: Albuterol/Iprat 2.5/0.5MG 3 ML AMPUL.NEB INHALE ×2 (08:21→11:33)
[2023-06-30 08:22] VITALS: PULSE 72; RESP 18; O2SAT 99
[2023-06-30] MEDS: methylPREDNISolone Sod Succ 40 MG/ML VIAL IVPUSH (08:22)
[2023-06-30] MEDS: 0.9 % Sodium Chloride Flush 3 ML SYRINGE IVFLUSH (08:23)
[2023-06-30 11:27] VITALS: BP 107/68; PULSE 90; RESP 18; TEMP 36.4; O2SAT 100
[2023-06-30 11:33] VITALS: PULSE 92; RESP 18; O2SAT 97
--- NOTE | 2023-06-30 11:45 | MHC.CM.PN ---
Patient has been medically cleared for dc to home today, with services. A referral was made to [facility], who has been made aware of today's dc.
--- NOTE | 2023-06-30 11:47 | P.F2F_ITS ---
Service Date Service Date: 06/30/23 Encounter Date of encounter: 06/30/23 Encounter: copd/chf. Reasons for Services Signs and symptoms assessed: sob ,chest pain or cough or fever Reason for detention: medication management, medication treatment and teach disease management MD Overseeing Care: Kathie Turcios Homebound: Leaving the home is medically contraindicated at this time without the asist of a device and/or another person due th the listed conditions above and below. Reason homebound: weakness related to hospital stay Homebound supporting statement: Patient had multiple comorbidities including COPD and CHF exacerbation, generalized weak post hospitalization-needs help with going to the appointments . Certification: Based on the above findings, I certify that this patient is confined to the home and needs intermittent detention care, physical therapy and/or speech therapy, or continues to need occupational therapy. The patient is under my care, and I have initiated the establishment of the plan of care. The patient will be followed by a physician who will periodically review the plan of care. Time Spent With Patient Time: Total time managing care of this patient today ____ minutes.
--- NOTE | 2023-06-30 11:49 | PM.DS ---
DS: Providers Provider Date of Service: 06/30/23 Date of admission: 06/27/23 14:17 Date of discharge: 06/30/23 Primary care physician: Kathie Turcios MD Consults: 06/28/23 09:16 Consult to Cardiology Routine Consulting Provider: [facility] Cardiovascular Services Reason for consultation: new chf? Has provider been notified: No Attending physician on discharge: Ortega Garcia Discharging clinician: Ortega Garcia DS: Diagnosis Discharge Diagnosis (1) COPD exacerbation: Status: Resolved (2) CHF (congestive heart failure): Status: Acute DS: Summary Hospital Course Hospital Course: 78 years old man with history of congestive heart failure and history of COPD presenting to the emergency department with shortness of breath which is worse since yesterday and has been increasing his oxygen from 2 liters to 4liters.? Mild cough, yellow sputum.? Cut He also reported cheek and lower extremity edema that is also getting worse.? He denied PND, orthopnea fever, chills, nausea, vomiting, diarrhea, recent travel, sick contacts.? Lives with a family member who assists in his care.? Chest x-ray showing chronic interstitial emphysema with no acute abnormality, labs all within acceptable limits, stable vital signs with no noted hypoxia.? In the he was given a dose of Solu-Medrol, albuterol, doxycycline, Lasix.? He will be admitted for further management and treatment of acute COPD exacerbation. Hospital course: Patient was admitted for shortness of breath-found to have acute on chronic hypoxemic respiratory failure secondary to COPD-started on nebs, steroids, supplement oxygen. in addition patient had leg edema-further workup with echocardiogram done EF is borderline low-treated with IV Lasix for possible CHF exacerbation( HF with reduced EF): diuresed well, leg edema improved significantly- seen by Cardiology recommended to add lisinopril and Lasix switched to 20 mg by mouth daily upon discharge. CHF education given, monitor weights closely-if gains weight 2 lb or more per week need to adjust Lasix outpatient. Cardiology may arrange their own appointment. Patient was strongly advised to follow-up with his PCP and pulmonology out patiently. Patient already uses 2-3 L of home oxygen. Above management discussed with the patient in detail length he understand and in agreement with the above plan, time spent 50 minutes and 50% time spent on counseling. Time Spent with Patient Time attestation: Total time managing care of this patient today ____ minutes. Discharge coordination time: Greater than 30 minutes Quality: Safe Use of Opioids Does Pt have an Active Cancer Diagnosis on the Problem List?: No Quality: Stroke Does the patient have a stroke diagnosis?: No Physical Exam Vital Signs: Vital Signs: Last Vital Signs Temp 97.6 F 06/30/23 11:27 Pulse 92 06/30/23 11:33 Resp 18 06/30/23 11:33 BP 107/68 06/30/23 11:27 Pulse Ox 100 06/30/23 11:27 O2 Del Method Nasal Cannula 06/30/23 11:27 O2 Flow Rate 2 06/30/23 11:27 Oxygen Flow Rate 2 06/27/23 08:28 BMI result Body Mass Index 18.4 Appearance: Alert.? Oriented X3.? not in distress.? cvs: rrr, [id number] . res: air entry diminshes at bases ,has b/l wheezing abd: no rebound or guarding ,nt, bs present. ext pulses present , no cyanosis ,has b/l leg edema-somewhat improving. neuro: axo3 , nonfocal. DS: Data Data Completed and Pending Labs on day of discharge: Laboratory Results - last 24 hr 06/29/23 06/29/23 10:14 13:20 Urine Color Yellow Urine Appearance Clear Urine pH 5.5 Ur Specific [place] 1.020 Urine Protein Negative Urine Glucose (UA) Negative Urine Ketones Negative Urine Blood Negative Urine Nitrite Negative Ur Leukocyte Esterase Negative Respiratory Panel Trammell See Note Adenovirus (Rapid PCR) Not Detected B.pert (TEM-PCR) Not Detected B.parapertussis DNA PCR Not Detected C. pneumoniae DNA (PCR) Not Detected Coronavirus OC43 (PCR) Not Detected Coronavirus HKU1 (PCR) Not Detected Coronavirus 229E (PCR) Not Detected Coronavirus NL63 (PCR) Not Detected Human Metapneumovir PCR Not Detected Influenza A (RT-PCR) Not Detected Influenza B (RT-PCR) Not Detected M. pneumoniae (PCR) Not Detected Parainfluenza 1 (PCR) Not Detected Parainfluenza 2 (PCR) Not Detected Parainfluenza 3 (PCR) Not Detected Parainfluenza 4 (PCR) Not Detected RSV (PCR) Not Detected Entero/Rhino (PCR) Not Detected SARS-CoV-2 RNA (RT-PCR) Not Detected Imaging Chest x-ray: Radiologist's impression: ITS Impressions Chest X-Ray 06/27/23 09:14 IMPRESSION: Chronic interstitial changes/emphysema correlating with previous studies. No overt acute abnormality. Chest X-Ray 06/29/23 09:40 IMPRESSION: No acute cardiopulmonary process. Discharge Plan Discharge Anticipated Discharge Date/Time: 06/30/23 11:16 Patient Disposition: Home Health Service Discharge Diagnosis: acute on ch hypoxemic respiratory failure sec to copd,possible chf excerebation Referrals: Enriqueta JAMESON [Outside] - 1 Week Kathie Turcios MD [Primary Care Provider] - 1 Week Discharge Medications: New furosemide 20 mg Tablet 20 mg PO DAILY Qty: 30 0RF Protocol: Hold for SBP< HOLD for SBP < : 90 lisinopril 2.5 mg Tablet 2.5 mg PO DAILY Qty: 30 0RF Protocol: Hold for SBP< HOLD for SBP < : 90 prednisone 20 mg tablet 40 mg PO DAILY Qty: 8 0RF Continued guaifenesin 600 mg Tablet Extended Release 600 mg PO TID PRN (Reason: Cough) trazodone 50 mg Tablet 100 mg PO BEDTIME PRN (Reason: Insomnia) acetaminophen 500 mg Tablet 500 mg PO BID PRN (Reason: Pain) omeprazole 20 mg Capsule,Delayed Release(Dr/Ec) 40 mg PO BID@0630,1630 atorvastatin 40 mg Tablet 20 mg PO BEDTIME amitriptyline 10 mg Tablet 20 mg PO BEDTIME albuterol sulfate 90 mcg/actuation Hfa Aerosol Inhaler 1 inh INHALATION QID PRN (Reason: Wheezing) sucralfate 1 gram Tablet 1 g PO TIDWM prednisone 20 mg tablet 20 mg PO DAILY multivitamin Tablet 1 tab PO DAILY Breztri Aerosphere 160-9-4.8 mcg/actuation Hfa Aerosol Inhaler 2 inh INHALATION BID Discharge Orders: Discharge Order (Routine); Ordered 06/30/23 Ordered By: Ortega Garcia Diet: Advance to usual diet Activity on Discharge: As tolerated Stand Alone Forms: Patient Portal Discharge page Care Plan Goals: Patient was admitted for shortness of breath-found to have acute on chronic hypoxemic respiratory failure secondary to COPD-started on nebs, steroids, supplement oxygen. in addition patient had leg edema-further workup with echocardiogram done EF is borderline low-treated with IV Lasix for possible CHF exacerbation( HF with reduced EF): diuresed well, leg edema improved significantly- seen by Cardiology recommended to add lisinopril and Lasix switched to 20 mg by mouth daily upon discharge. CHF education given, monitor weights closely-if gains weight 2 lb or more per week need to adjust Lasix outpatient. Cardiology may arrange their own appointment. Patient was strongly advised to follow-up with his PCP and pulmonology out patiently. Patient already uses 2-3 L of home oxygen. Health Concerns: As above. Plan of Treatment: As above. Assessment: As above. Patient Instructions: COPD (Chronic Obstructive Pulmonary Disease) (DC)
== END 2023-06-30 13:45 | disposition home health service (06) ==
LOC: HO.ED 09:41 → HO.EDOVER 14:27 → HO.IMC 16:10
PROVIDERS: Admitting Provider Nurse Practitioner Acute Care; Emergency Provider Emergency Medicine; PCP Internal Medicine; Visit Provider Internal Medicine
DX: J96.21 Acute and chronic respiratory failure with hypoxia (principal); J44.1 Chronic obstructive pulmonary disease with (acute) exacerbation; I11.0 Hypertensive heart disease with heart failure; I50.9 Heart failure, unspecified; E78.5 Hyperlipidemia, unspecified; Z20.822 Contact with and (suspected) exposure to COVID-19; Z79.899 Other long term (current) drug therapy
CPT/HCPCS: 36415; 71045; 80053; 81003; 82803; 83880; 84484; 85025; 87633; 93005; 93306; 94640; 96365; 96372; 96375; 96376; 99222; 99285; J1200; J1643; J1940; J2920; J2930; Q9957

== ENCOUNTER → 2023-06-27 08:24 | Outpatient (BNV) | payer OTHER, SELFPAY | PROVIDERS: Emergency Provider Emergency Medicine; Visit Provider Internal Medicine Cardiovascular Disease | DX: I49.9 Cardiac arrhythmia, unspecified (principal) | CPT/HCPCS: 93010 ==

== ENCOUNTER 2023-06-27 14:17 | Outpatient (BNV) | payer OTHER, SELFPAY | END 2023-06-28 07:00 | PROVIDERS: Admitting Provider Nurse Practitioner Acute Care; Emergency Provider Emergency Medicine; Visit Provider Internal Medicine Cardiovascular Disease | DX: I36.1 Nonrheumatic tricuspid (valve) insufficiency (principal); I27.20 Pulmonary hypertension, unspecified | CPT/HCPCS: 93306 ==

== ENCOUNTER → 2023-06-27 14:17 | Outpatient (BNV) | payer OTHER, SELFPAY | PROVIDERS: Admitting Provider Nurse Practitioner Acute Care; Emergency Provider Emergency Medicine; Visit Provider Internal Medicine Cardiovascular Disease | DX: I50.9 Heart failure, unspecified (principal); J44.1 Chronic obstructive pulmonary disease with (acute) exacerbation | CPT/HCPCS: 99222; 99232 ==

== ENCOUNTER → 2023-06-27 14:17 | Outpatient (BNV) | payer OTHER, SELFPAY | PROVIDERS: Admitting Provider Nurse Practitioner Acute Care; Emergency Provider Emergency Medicine; Visit Provider Nurse Practitioner Acute Care | DX: J44.1 Chronic obstructive pulmonary disease with (acute) exacerbation (principal); I50.9 Heart failure, unspecified | CPT/HCPCS: 99222; 99231; 99232; 99239 ==

== ENCOUNTER 2023-08-19 21:23 | Inpatient (IN) | payer OTHER, SELFPAY ==
--- NOTE | 2023-08-19 | ECG_ITS ---
Test Reason : CHF Blood Pressure : / mmHG Vent. Rate : 094 BPM Atrial Rate : 094 BPM P-R Int : 138 ms QRS Dur : 138 ms QT Int : 404 ms P-R-T Axes : 084 002 072 degrees QTc Int : 505 ms Normal sinus rhythm Right bundle branch block Abnormal ECG When compared with ECG of 27-JUN-2023 08:38, Right bundle branch block has replaced Incomplete right bundle branch block Referred By: Annetta Ochoa Electronically Signed By:DAX LAM
--- NOTE | ~2023-08-19 | XR_ITS ---
EXAMINATION: XR CHEST CLINICAL INFORMATION: Shortness of breath. COMPARISON: None available. TECHNIQUE: Frontal view of the chest was obtained. FINDINGS: The lungs are hyperinflated but clear. The heart size and pulmonary vascularity is normal. No gross bony abnormality seen. XR/XR chest 1V IMPRESSION: Hyperinflated lungs without acute process..
[2023-08-19 21:33] VITALS: BP 160/103; BP 160/108; PULSE 84; PULSE 90; RESP 13; TEMP 36.7; O2SAT 98; BMI 22.6
--- NOTE | 2023-08-19 21:34 | ED.SOB ---
HPI - SOB/Dyspnea General Chief Complaint: Dyspnea Stated Complaint: DIFF BREATHING Time Seen by Provider: 08/19/23 21:26 Source: patient and EMS Mode of arrival: EMS History of Present Illness HPI Narrative: 78-year-old male with history of CHF and COPD is brought in by EMS for worsening shortness of breath without fever chills throughout the day. Patient is on baseline nasal cannula at 2-3 L. EMS provided 1 in of nitropaste in route and patient is noted to be hypertensive. Related Data Home Medications Medication Instructions Recorded Confirmed acetaminophen 500 mg tablet 500 mg PO BID PRN Pain 05/25/22 06/27/23 guaifenesin 600 mg tablet,extended 600 mg PO TID PRN Cough 05/25/22 06/27/23 release omeprazole 20 mg capsule,delayed 40 mg PO BID@0630,1630 05/25/22 06/27/23 release trazodone 50 mg tablet 100 mg PO BEDTIME PRN Insomnia 05/25/22 06/27/23 albuterol sulfate 90 mcg/actuation 1 inh inhalation QID PRN Wheezing 05/26/22 06/27/23 aerosol inhaler amitriptyline 10 mg tablet 20 mg PO BEDTIME 05/26/22 06/27/23 atorvastatin 40 mg tablet 20 mg PO BEDTIME 05/26/22 06/27/23 budesonide 160 mcg-glycopyr 9 2 inh inhalation BID 06/27/23 06/27/23 mcg-formot 4.8 mcg/actuation HFA inhaler (Breztri Aerosphere) multivitamin 1 tab PO DAILY 06/27/23 06/27/23 prednisone 20 mg tablet 20 mg PO DAILY 06/27/23 06/27/23 sucralfate 1 gram tablet 1 g PO TIDWM 06/27/23 06/27/23 Previous Rx's Medication Instructions Recorded furosemide 20 mg tablet 20 mg PO DAILY #30 tabs 06/30/23 lisinopril 2.5 mg tablet 2.5 mg PO DAILY #30 tabs 06/30/23 prednisone 20 mg tablet 40 mg (2 x 20 mg) PO DAILY #8 tabs 06/30/23 Allergies Allergy/AdvReac Type Severity Reaction Status Date / Time adhesive tape Allergy Intermediate Rash Verified 06/27/23 08:28 Penicillins [PENICILLINS] Allergy Unknown VOMITTING Verified 06/27/23 08:28 Review of Systems Review of Systems: Pertinent positives and negatives as stated in HPI [facility] Past Medical History Source: nursing notes reviewed Medical History COPD (chronic obstructive pulmonary disease) CHF (congestive heart failure) Hyperlipidemia Hypertension Social History Social History Household Members: Children Housing: Apartment Do you presently have visiting nurse or other home services: No Alcohol intake: never Patient Tobacco Use Status: Former Tobacco user Quit Date: 12/2021 Tobacco use type: Cigarette Cigarette Packs Per Day: 1 Cigarettes Per Day: 20.0 Years Smoked: 50 Advance Directives: No Advance Directives Information Provided: Yes service: Yes Current occupational status: retired Physical Exam Vital Signs: Vital Signs: Last Vital Signs Temp 98.1 F 08/19/23 21:40 Pulse 92 08/19/23 22:58 Resp 21 H 08/19/23 22:58 BP 129/77 08/19/23 22:58 Pulse Ox 96 08/19/23 22:58 O2 Del Method Oxymask 08/19/23 22:58 O2 Flow Rate 6 08/19/23 22:58 Oxygen Flow Rate 2 08/19/23 21:33 BMI result Body Mass Index 22.6 VITAL SIGNS: Reviewed. GENERAL: Well developed, well nourished, in no acute distress. HEAD: Normocephalic/atraumatic EYES: PERRLA, EOMI EARS: Ext canals without abnormality NOSE: Nares patent bilateral OROPHARYNX: no oral lesions noted, posterior pharynx clear NECK: Supple, no adenopathy LUNGS: Tachypnea is present, no bibasilar rales noted, decreased breath sounds bilaterally, loose cough noted without sputum production. CARDIOVASCULAR: Regular rate and rhythm without noted murmurs, no JVD or lower extremity edema. ABDOMEN: Soft, non-tender, non-distended with bowel sounds. MUSCULOSKELETAL: No tenderness, deformities, or effusions noted on gross inspection. EXTREMITIES: No cyanosis, clubbing or edema. SKIN: Inspection of the skin reveals no rashes NEUROLOGIC: Alert and oriented x 4. Strength and sensation to light touch were grossly intact x 4. Medications Administered Discontinued Medications Generic Name Dose Route Start Last Admin Trade Name Freq PRN Reason Stop Dose Admin Albuterol Sulfate 5 mg/ 7.5 mg 08/19/23 21:36 08/19/23 21:39 Albuterol Sulfate 2.5 mg INHALE 08/19/23 21:37 7.5 mg ONCE ONE Administration Albuterol Sulfate 5 mg/ 7.5 mg 08/19/23 22:24 08/19/23 22:29 Albuterol Sulfate 2.5 mg INHALE 08/19/23 22:25 Not Given ONCE ONE Albuterol Sulfate 5 mg/ 0 mg 08/19/23 22:24 08/19/23 22:27 Albuterol/Ipratropium 3 ml INHALE 08/19/23 22:25 7.5 each ONCE ONE Administration Cefepime HCl 1 gm/ Sodium 50 mls @ 100 mls/hr 08/19/23 22:05 08/19/23 22:47 Chloride IV 08/19/23 22:34 Infused ONCE ONE Infusion Methylprednisolone Sodium Succinate 125 mg 08/19/23 21:45 08/19/23 22:11 Methylprednisolone Sod Succ 125 Mg/2 Ml Vial IVPUSH 08/19/23 21:46 125 mg ONCE ONE Administration Medical Decision Making Medical Decision Making [facility] Narrative: 2129: 78-year-old male with history and clinical presentation, DDX: CHF exacerbation, chronic lung disease exacerbation, pneumonia, pulmonary edema secondary to hypertension. I reviewed all investigations and hematologic indices demonstrated leukocytosis which do not feel is associated with his chronic use of prednisone although he is afebrile he has a cough with phlegm production. There are no acute findings of infiltrate on chest x-ray, otherwise no evidence of anemia or thrombocytopenia. VBG demonstrates chronically stable pH-7.36 with elevated pCO2 of 55 for the supporting the likelihood of COPD exacerbation for which he received DuoNebs and steroids. Chemistry indices are grossly within normal limits without electrolyte or liver enzyme abnormalities and there is no evidence of ANA LUISA. High sensitivity troponin is chronically detectable but is not elevated. As stated above chest x-ray is not significant for an infiltrate or evidence of venous congestion. Patient has received antibiotics. 2224: I discussed the case with the inpatient hospitalist who accepts admission. Differential Diagnosis Differential Diagnoses: The differential diagnosis associated with the presentation includes Please see the discussion above Admission/Observation Consideration of admission/observation: Escalation of care including admission/observation considered Please see the discussion above Consult Healthcare Provider Management of the patient was discussed with: Hospitalist Please see the discussion above Lab Data MDM Lab Attestation statement: I reviewed the patient's lab results. Please see the discussion above 08/19/23 21:44 08/19/23 21:43 Labs: Lab Results 08/19/23 08/19/23 08/19/23 Range/Units 21:43 21:44 21:54 WBC 13.1 H (4.8-10.8) X10*3/uL RBC 4.45 L (4.60-5.80) X10*6/uL Hgb 14.7 (14.0-18.0) g/dl Hct 44.4 (42.0-52.0) % MCV 99.8 H (80.0-98.0) fL MCH 33.0 (27.0-33.0) pg MCHC 33.1 (31.0-36.0) g/dl RDW 14.4 (11.0-16.0) % Plt Count 235 (160-400) X10*3/uL MPV 9.3 L (9.4-12.4) fL Immature Gran % (Auto) 1.7 H (0.0-0.4) % Neut % (Auto) 71.1 (45-73) % Lymph % (Auto) 19.7 L (20-40) % Titus % (Auto) 6.8 (2-11) % Eos % (Auto) 0.5 (0-4) % Baso % (Auto) 0.2 (0-2) % Lymph # (Auto) 2.6 (1.2-4.9) X10*3/uL Titus # (Auto) 0.9 (0.1-1.2) X10*3/uL Eos # (Auto) 0.1 (0.0-0.4) X10*3/uL Baso # (Auto) 0.0 (0.0-0.2) X10*3/uL Abs Immat Gran (auto) 0.22 H (0.00-0.03) X10*3/uL Absolute Neuts (auto) 9.3 H (2.0-8.3) x10*3/uL Absolute Nucleated RBC 0.000 (0.0-0.012) X10*3/uL Nucleated RBC % (auto) 0.0 (0.0-0.2) /100WBC VBG pH 7.36 (7.32-7.43) VBG pCO2 55 mmHg VBG pO2 41 mmHg VBG HCO3 32 H (22-26) mmol/L VBG O2 Saturation 63.0 % VBG Base Excess 5.1 mmol/L Sodium 143 (135-145) mmol/L Potassium 3.9 (3.3-5.1) mmol/L Chloride 106 (96-108) mmol/L Carbon Dioxide 23 (22-29) mmol/L Anion Gap 18 (12-20) BUN 26 H (9-16) mg/dL Creatinine 0.93 (0.5-1.4) mg/dL Estim Creat Clear Calc 62.4 Estimated GFR > 60 Random Glucose 74 (60-115) mg/dL Lactic Acid 1.4 (0.5-2.0) mmol/L Calcium 9.6 (8.4-10.2) mg/dL Total Bilirubin 0.6 (0.0-1.0) mg/dL AST 30 (5-37) U/L ALT 37 (0-40) U/L Alkaline Phosphatase 70 (39-117) U/L Troponin I High Sens 7.5 (<3.5-35.0) ng/L Total Protein 6.4 L (6.5-8.0) g/dL Albumin 3.9 (3.5-5.0) g/dL Independent Interpretation I performed an independent interpretation of an: EKG Interpretation: Normal sinus rhythm, HR-94, RBBB at baseline, no STEMI, RI within normal limits, QRS-138, QTC -505 Radiology Impression Discussion of test interpretation with radiology: I have reviewed the radiologist's reading. Radiologist Impression: Please see the discussion above External Record Review External record reviewed: Inpatient record, Outpatient record, Prior outpatient labs and Prior outpatient radiology Chronic Conditions Patient?s care impacted by: Hypertension and Other COPD, CHF Critical Care Time Critical Care Time Critical Care Time: Yes Total Critical Care Time: 30 Attestation: I personally attest to this time spent taking care of the patient. Discharge Plan Discharge Clinical Impression: Acute exacerbation of chronic obstructive airways disease, Pneumonia Patient Disposition: Admitted As Inpatient
[2023-08-19 21:37] VITALS: PULSE 85; RESP 28; O2SAT 97
[2023-08-19] MEDS: Albuterol Sulfate 5 MG, Albuterol Sulfate (0.083%) 2.5 MG 7.5 MG INHALE (21:39)
[2023-08-19 21:40] VITALS: BP 160/108; PULSE 92; RESP 21; TEMP 36.7; O2SAT 100
[2023-08-19 22:00] LABS: Basophils Percent Auto 0.2 % (0-2); Eosinophils Absolute Auto 0.1 X10*3/uL (0.0-0.4); Eosinophils Percent Auto 0.5 % (0-4); Hematocrit 44.4 % (42.0-52.0); Hemoglobin 14.7 g/dl (14.0-18.0); Imm Gran Abs Auto 0.22 X10*3/uL (0.00-0.03); Imm Gran Pct Auto 1.7 % (0.0-0.4); Lymphocytes Absolute Auto 2.6 X10*3/uL (1.2-4.9); Lymphocytes Percent Auto 19.7 % (20-40); MANUAL DIFF FLAG NO; Mean Corpuscular HGB Conc 33.1 g/dl (31.0-36.0); Mean Corpuscular Volume 99.8 fL (80.0-98.0); Mean Platelet Volume 9.3 fL (9.4-12.4); Monocytes Absolute Auto 0.9 X10*3/uL (0.1-1.2); Monocytes Percent Auto 6.8 % (2-11); Neutrophils Absolute Auto 9.3 x10*3/uL (2.0-8.3); Neutrophils Percent Auto 71.1 % (45-73); Platelet Count 235 X10*3/uL (160-400); Red Blood Count 4.45 X10*6/uL (4.60-5.80); Red Cell Distribution Width 14.4 % (11.0-16.0); White Blood Count 13.1 X10*3/uL (4.8-10.8)
[2023-08-19 22:01] LABS: Venous Blood Gas Refer to POC result
[2023-08-19 22:01] LABS: VBG Base Excess 5.1 mmol/L; VBG HCO3 32 mmol/L (22-26); VBG pCO2 55 mmHg; VBG pH 7.36 (7.32-7.43); VBG pO2 41 mmHg
[2023-08-19 22:11] LABS: Lactic Acid 1.4 mmol/L (0.5-2.0)
[2023-08-19] MEDS: methylPREDNISolone Sod Succ 125 MG/2 ML VIAL IVPUSH (22:11)
[2023-08-19] MEDS: cefEPime HCl 1 GM in 0.9 % Sodium Chloride 50 ML IV (22:11)
[2023-08-19 22:22] LABS: Troponin-I High Sensitivity 7.5 ng/L (<3.5-35.0)
[2023-08-19] MEDS: Albuterol Sulfate 5 MG, Albuterol/Iprat 2.5/0.5MG 3 ML 3 ML INHALE (22:27)
[2023-08-19 22:31] VITALS: PULSE 92; RESP 21; O2SAT 98
[2023-08-19 22:44] LABS: Alanine Aminotransferase 37 U/L (0-40); Albumin Level 3.9 g/dL (3.5-5.0); Alkaline Phosphatase 70 U/L (39-117); Anion Gap 18 (12-20); Aspartate Amino Transferase 30 U/L (5-37); Bilirubin Total 0.6 mg/dL (0.0-1.0); Blood Urea Nitrogen 26 mg/dL (9-16); Calcium 9.6 mg/dL (8.4-10.2); Carbon Dioxide 23 mmol/L (22-29); Chloride 106 mmol/L (96-108); Creatinine Clr Calc Pharmacy 62.4; Estimated Glomerular Filt Rate > 60; Glucose Random 74 mg/dL (60-115); Potassium 3.9 mmol/L (3.3-5.1); Sodium 143 mmol/L (135-145); Total Protein 6.4 g/dL (6.5-8.0)
[2023-08-19 22:58] VITALS: BP 129/77; PULSE 92; RESP 21; O2SAT 96
[2023-08-19 23:10] LABS: B Type Natriuretic Peptide 62 pg/mL (<100)
--- NOTE | 2023-08-19 23:48 | PM.IMHP ---
History of Present Illness Date of Service: 08/19/23 Chief Complaint: Shortness of breath This 78-year-old male past medical history of COPD, CHF, HLD, HTN comes into the hospital with complaints of shortness of breath, cough, sputum production for the past several weeks worsening over the past few days. Patient reports no fever, no chills, chronic lower extremity edema, no orthopnea or PND. No chest pain, no abdominal pain nausea or vomiting, no diarrhea constipation, no urinary symptoms and no lower extremity edema. On arrival to the ED patient hemodynamically stable, satting 98% on 2 L of oxygen Labs are significant for WBC count of 13.1, otherwise unremarkable Chest x-ray negative for acute process Review of Systems Review of Systems: Yes all other systems are reviewed and are negative [facility] Medical History COPD (chronic obstructive pulmonary disease) CHF (congestive heart failure) Hyperlipidemia Hypertension Social History Household Members: Children Housing: Apartment Do you presently have visiting nurse or other home services: No Alcohol intake: never Patient Tobacco Use Status: Former Tobacco user Quit Date: 12/2021 Tobacco use type: Cigarette Cigarette Packs Per Day: 1 Cigarettes Per Day: 20.0 Years Smoked: 50 Smoked in Last 30 Days: No Use of substances other than those prescribed or required for medical reasons: No Advance Directives: No Advance Directives Information Provided: Yes service: Yes Current occupational status: retired Meds Allergies Allergy/AdvReac Type Severity Reaction Status Date / Time adhesive tape Allergy Intermediate Rash Verified 06/27/23 08:28 Penicillins [PENICILLINS] Allergy Unknown VOMITTING Verified 06/27/23 08:28 Active Medications: Current Medications Acetaminophen (Acetaminophen 325 Mg Tablet) 650 mg PO Q6H PRN PRN Reason: Pain, Mild (Pain Scale 1-3) Albuterol/Ipratropium (Albuterol/Iprat 2.5/0.5mg 3 Ml Ampul.Neb) 3 ml INHALE RQ4H PRN PRN Reason: Shortness of Breath/Wheezing Albuterol/Ipratropium (Albuterol/Iprat 2.5/0.5mg 3 Ml Ampul.Neb) 3 ml INHALE RQ4H WHILE AWAKE [facility] Docusate Sodium (Docusate Sodium 100 Mg Capsule) 100 mg PO DAILY PRN PRN Reason: Constipation Enoxaparin Sodium (Enoxaparin Sodium 40 Mg/0.4 Ml Syringe) 40 mg SUBCUT Q24H [facility] Methylprednisolone Sodium Succinate (Methylprednisolone Sod Succ 40 Mg/Ml Vial) 40 mg IVPUSH Q12H [facility] Ondansetron HCl (Ondansetron Hcl 4 Mg/2 Ml Vial) 4 mg IVPUSH Q8H PRN PRN Reason: Nausea and Vomiting Sodium Chloride (0.9 % Sodium Chloride Flush 3 Ml Syringe) 3 ml IVFLUSH QSHIFT [facility] Home Medications Medication Instructions Recorded Confirmed Last Taken Type acetaminophen 500 mg tablet 500 mg PO BID PRN Pain 05/25/22 08/19/23 08/12/23 10:00 History guaifenesin 600 mg tablet,extended 600 mg PO TID PRN Cough 05/25/22 06/27/23 Unknown History release omeprazole 20 mg capsule,delayed 40 mg PO BID@0630,1630 05/25/22 08/19/23 08/19/23 10:00 History release trazodone 50 mg tablet 100 mg PO BEDTIME PRN Insomnia 05/25/22 08/19/23 08/18/23 21:00 History albuterol sulfate 90 mcg/actuation 1 inh inhalation QID PRN Wheezing 05/26/22 08/19/23 08/18/23 21:00 History aerosol inhaler amitriptyline 10 mg tablet 20 mg PO BEDTIME 05/26/22 08/19/23 08/18/23 21:00 History atorvastatin 40 mg tablet 20 mg PO BEDTIME 05/26/22 08/19/23 08/19/23 10:00 History budesonide 160 mcg-glycopyr 9 2 inh inhalation BID 06/27/23 08/19/23 08/19/23 10:00 History mcg-formot 4.8 mcg/actuation HFA inhaler (Breztri Aerosphere) multivitamin 1 tab PO DAILY 06/27/23 08/19/23 08/19/23 10:00 History prednisone 20 mg tablet 20 mg PO DAILY 06/27/23 06/27/23 Unknown History sucralfate 1 gram tablet 1 g PO TIDWM 06/27/23 08/19/23 08/12/23 10:00 History Physical Exam Vital Signs and Narrative: Vital Signs: Last Vital Signs Temp 98.1 F 08/19/23 21:40 Pulse 92 08/19/23 22:58 Resp 21 H 08/19/23 22:58 BP 129/77 08/19/23 22:58 Pulse Ox 96 08/19/23 22:58 O2 Del Method Oxymask 08/19/23 22:58 O2 Flow Rate 6 08/19/23 22:58 Oxygen Flow Rate 2 08/19/23 21:33 BMI result Body Mass Index 22.6 Const: General: cooperative and no acute distress Orientation/consciousness: patient oriented x3 Eyes: General: appearance normal, both eyes and all related structures Pupils: Equal, round and reactive pupils present Resp: Other: Has significant bouts of coughing causing him dyspnea, and difficulty breathing, using accessory muscles, improved with morphine and breathing treatment Significant wheezing and decreased breath sounds bilaterally Cardio: Rate: regular rate Rhythm: regular rhythm GI: Palpation (GI): Soft to palpation Auscultation: normal bowel sounds Skin: General skin exam: no rashes or lesions noted Neuro: General: patient oriented x3 Cranial nerves: Yes Equal, round and reactive pupils present Cognition (Neuro): normal cognition Extrem: General: Yes normal to inspection and Yes no pedal edema Results Labs 08/20/23 05:10 08/20/23 05:10 Labs: Laboratory Results - last 24 hr 08/19/23 08/19/23 08/19/23 21:43 21:44 21:54 MCV 99.8 H MCH 33.0 MCHC 33.1 RDW 14.4 Plt Count 235 MPV 9.3 L Immature Gran % (Auto) 1.7 H Neut % (Auto) 71.1 Lymph % (Auto) 19.7 L [place] % (Auto) 6.8 Eos % (Auto) 0.5 Baso % (Auto) 0.2 Lymph # (Auto) 2.6 [place] # (Auto) 0.9 Eos # (Auto) 0.1 Baso # (Auto) 0.0 Abs Immat Gran (auto) 0.22 H Absolute Neuts (auto) 9.3 H Absolute Nucleated RBC 0.000 Nucleated RBC % (auto) 0.0 VBG pH 7.36 VBG pCO2 55 VBG pO2 41 VBG HCO3 32 H VBG O2 Saturation 63.0 VBG Base Excess 5.1 Anion Gap 18 Estim Creat Clear Calc 62.4 Estimated GFR > 60 Random Glucose 74 Lactic Acid 1.4 Calcium 9.6 Total Bilirubin 0.6 AST 30 ALT 37 Alkaline Phosphatase 70 B-Natriuretic Peptide 62 Total Protein 6.4 L Albumin 3.9 Imaging Radiologist's Impressions: Impressions Chest X-Ray 08/19/23 21:55 IMPRESSION: Hyperinflated lungs without acute process.. Assessment and Plan (1) Acute exacerbation of chronic obstructive airways disease: Status: Acute Plan This 78-year-old male past medical history of COPD, CHF, hypertension hyperlipidemia comes into the hospital with complaints of shortness of breath, cough, sputum production # dyspnea - likely secondary to COPD, CHF less likely - has no evidence of overload exam, no orthopnea, no PND, normal BNP, imaging negative - will treat for COPD as below - monitor respiratory status # acute COPD exacerbation - cough, sputum production, worsening dyspnea - will treat with steroids, DuoNeb p.r.n. as well as schedule - goal O2 of 88-92%- nurse notified - the respiratory status # CHF - stable - continue home furosemide # hyperlipidemia - continue statin # hypertension - stable - continue antihypertensives Patient's need for further evaluation and management of COPD patient require minimum 2 night inpatient hospital stay for further management and monitoring Time Spent With Patient Time: Total time managing care of this patient today ____ minutes. Quality Stroke Does the patient have a stroke diagnosis?: No VTE Prior VTE?: No VTE Risk Level:: Medical - moderate - high VTE Device Contraindication: Treatment Not Indicated VTE Drug Contraindication: N/A - Med Ordered
[2023-08-20] VITALS (12 sets, daily range): BP systolic 108–121; BP diastolic 66–82; PULSE 68–96; RESP 17–21; TEMP 36.3–36.8; O2SAT 95–100; BMI 22.1
--- NOTE | 2023-08-20 00:09 | PC.NURSE ---
pt c/o cluster headaches, pt reported he treats the headaches with oxygen via mask
--- NOTE | 2023-08-20 00:59 | PC.NURSE ---
pt assessed, pt c/o increased sob, dyspnea and cluster headaches. Hospitalist in to assess pt, medicated with 4mg of morphine ivp
[2023-08-20] MEDS: Morphine Sulfate 4 MG/ML CARTRIDGE IVPUSH (01:18)
[2023-08-20] MEDS: Enoxaparin Sodium 40 MG/0.4 ML SYRINGE SUBCUT (01:25)
[2023-08-20] MEDS: guaiFENesin LA 600 MG TAB.ER.12H 1200 MG PO ×2 (01:25→17:16)
[2023-08-20] MEDS: Albuterol Sulfate 5 MG, Albuterol Sulfate (0.083%) 2.5 MG 7.5 MG INHALE (01:41)
[2023-08-20] MEDS: Butalb/Acetamin/Caff 50/325/40 TABLET 1 TAB PO ×4 (02:31→22:25)
--- NOTE | 2023-08-20 02:35 | PC.NURSE ---
pt assessed, reported 10/10 headache, hospitalist aware, medicated with floricet po
--- NOTE | 2023-08-20 05:04 | PC.NURSE ---
pt reassessed, pt reported headache pain 06/30
[2023-08-20 05:18] LABS: Basophils Percent Auto 0.2 % (0-2); Hematocrit 39.8 % (42.0-52.0); Hemoglobin 13.1 g/dl (14.0-18.0); Imm Gran Pct Auto 1.7 % (0.0-0.4); Lymphocytes Absolute Auto 0.3 X10*3/uL (1.2-4.9); Lymphocytes Percent Auto 2.5 % (20-40); MANUAL DIFF FLAG SCAN; Mean Corpuscular HGB Conc 32.9 g/dl (31.0-36.0); Mean Corpuscular Hemoglobin 32.7 pg (27.0-33.0); Mean Corpuscular Volume 99.3 fL (80.0-98.0); Mean Platelet Volume 9.2 fL (9.4-12.4); Monocytes Absolute Auto 0.2 X10*3/uL (0.1-1.2); Monocytes Percent Auto 1.4 % (2-11); Neutrophils Absolute Auto 11.2 x10*3/uL (2.0-8.3); Neutrophils Percent Auto 94.2 % (45-73); Platelet Count 203 X10*3/uL (160-400); Red Blood Count 4.01 X10*6/uL (4.60-5.80); Red Cell Distribution Width 14.5 % (11.0-16.0); SCAN SMEAR FLAG 1; White Blood Count 11.9 X10*3/uL (4.8-10.8)
[2023-08-20 05:19] LABS: SLIDE REVIEW VERIFIED
[2023-08-20 05:32] LABS: Anion Gap 18 (12-20); Blood Urea Nitrogen 28 mg/dL (9-16); Carbon Dioxide 19 mmol/L (22-29); Chloride 107 mmol/L (96-108); Creatinine Clr Calc Pharmacy 67.4; Estimated Glomerular Filt Rate > 60; Glucose Random 158 mg/dL (60-115); Potassium 4.2 mmol/L (3.3-5.1); Sodium 140 mmol/L (135-145)
--- NOTE | 2023-08-20 06:25 | PC.NURSE ---
pt assessed, o2 turned off per Dr.. Chip Jameson
--- NOTE | 2023-08-20 06:26 | PC.NURSE ---
pt reassessed for pain reported 04/30 headache
--- NOTE | 2023-08-20 08:11 | PHA.MEDREC ---
Pharmacy Consult ? Medication Reconciliation Pharmacy has completed the medication reconciliation. [facility] OF NOTE: Patient was on verapamil 80 MG BID, [facility] 08/19/23
[2023-08-20] MEDS: Albuterol/Iprat 2.5/0.5MG 3 ML AMPUL.NEB INHALE ×4 (08:28→19:26)
[2023-08-20] MEDS: Acetaminophen 325 MG TABLET 650 MG PO ×2 (10:32→17:16)
[2023-08-20] MEDS: 0.9 % Sodium Chloride Flush 3 ML SYRINGE IVFLUSH ×3 (10:33→22:20)
[2023-08-20] MEDS: methylPREDNISolone Sod Succ 40 MG/ML VIAL IVPUSH ×2 (10:33→22:20)
--- NOTE | 2023-08-20 10:46 | P.PNIM_ITS ---
Subjective Subjective Date of Service: 08/20/23 Interval History: copd excerebation doing better but still Review of Systems sob seems similar to yesterday no cough or fevers Physical Exam 2 Vital Signs: Vital Signs: Last Vital Signs Temp 97.9 F 08/20/23 08:00 Pulse 92 08/20/23 08:31 Resp 20 08/20/23 08:31 BP 108/66 08/20/23 08:00 Pulse Ox 100 08/20/23 08:00 O2 Del Method Room Air 08/20/23 08:00 O2 Flow Rate 4 08/20/23 05:03 Oxygen Flow Rate 2 08/19/23 21:33 BMI result Body Mass Index 22.6 Objective Data Active Medications Acetaminophen (Acetaminophen 325 Mg Tablet) 650 mg PO Q6H PRN PRN Reason: Pain, Mild (Pain Scale 1-3) Last Admin: 08/20/23 10:32 Dose: 650 mg Documented By: LINDA Albuterol Sulfate (Albuterol Sulfate 90 Mcg 8 Gm Inhaler) 1 puff INHALE QID PRN PRN Reason: Wheezing Albuterol/Ipratropium (Albuterol/Iprat 2.5/0.5mg 3 Ml Ampul.Neb) 3 ml INHALE RQ4H PRN PRN Reason: Shortness of Breath/Wheezing Albuterol/Ipratropium (Albuterol/Iprat 2.5/0.5mg 3 Ml Ampul.Neb) 3 ml INHALE RQ4H WHILE AWAKE [facility] Last Admin: 08/20/23 08:28 Dose: 3 ml Documented By: TUAN Albuterol/Ipratropium (Albuterol/Iprat 2.5/0.5mg 3 Ml Ampul.Neb) 3 ml INHALE Q6H PRN PRN Reason: Wheezing Amitriptyline HCl (Amitriptyline Hcl 10 Mg Tablet) 20 mg PO BEDTIME [facility] Atorvastatin Calcium (Atorvastatin Calcium 20 Mg Tablet) 20 mg PO BEDTIME [facility] Docusate Sodium (Docusate Sodium 100 Mg Capsule) 100 mg PO DAILY PRN PRN Reason: Constipation Enoxaparin Sodium (Enoxaparin Sodium 40 Mg/0.4 Ml Syringe) 40 mg SUBCUT Q24H [facility] Last Admin: 08/20/23 01:25 Dose: 40 mg Documented By: HO.SABRINA Guaifenesin (Guaifenesin La 600 Mg Tab.Er.12h) 1,200 mg PO BID PRN PRN Reason: cough Last Admin: 08/20/23 01:25 Dose: 1,200 mg Documented By: ELBA Methylprednisolone Sodium Succinate (Methylprednisolone Sod Succ 40 Mg/Ml Vial) 40 mg IVPUSH Q12H [facility] Last Admin: 08/20/23 10:33 Dose: 40 mg Documented By: LINDA Morphine Sulfate (Morphine Sulfate 4 Mg/Ml Cartridge) 2 mg IVPUSH Q4H PRN; Protocol PRN Reason: respiratory distress Multivitamins/Vitamin C (Multivitamin Tablet) 1 tab PO DAILY [facility] Non-Formulary Medication (Magnesium Oxide) 420 mg PO DAILY [facility] Non-Formulary Medication (Riboflavin (Vitamin B2)) 200 mg PO BEDTIME [facility] Omeprazole (Omeprazole 40 Mg Capsule.Dr) 40 mg PO BID@0630,1630 [facility] Ondansetron HCl (Ondansetron Hcl 4 Mg/2 Ml Vial) 4 mg IVPUSH Q8H PRN PRN Reason: Nausea and Vomiting Sodium Chloride (0.9 % Sodium Chloride Flush 3 Ml Syringe) 3 ml IVFLUSH QSHIFT [facility] Last Admin: 08/20/23 10:33 Dose: 3 ml Documented By: LINDA Sucralfate (Sucralfate 1 Gm Tablet) 1 gm PO TIDWM [facility] Trazodone HCl (Trazodone Hcl 100 Mg Tablet) 100 mg PO BEDTIME PRN PRN Reason: Insomnia Vitamin D (Cholecalciferol (Vitamin D3) 25 Mcg Tablet) 50 mcg PO DAILY [facility] Labs 08/20/23 05:10 08/20/23 05:10 Labs: Laboratory Results - last 24 hr 08/19/23 08/19/23 08/19/23 21:43 21:44 21:54 MCV 99.8 H MCH 33.0 MCHC 33.1 RDW 14.4 Plt Count 235 MPV 9.3 L Immature Gran % (Auto) 1.7 H Neut % (Auto) 71.1 Lymph % (Auto) 19.7 L [place] % (Auto) 6.8 Eos % (Auto) 0.5 Baso % (Auto) 0.2 Lymph # (Auto) 2.6 [place] # (Auto) 0.9 Eos # (Auto) 0.1 Baso # (Auto) 0.0 Abs Immat Gran (auto) 0.22 H Absolute Neuts (auto) 9.3 H Absolute Nucleated RBC 0.000 Nucleated RBC % (auto) 0.0 Smear Tech's Comments VBG pH 7.36 VBG pCO2 55 VBG pO2 41 VBG HCO3 32 H VBG O2 Saturation 63.0 VBG Base Excess 5.1 Anion Gap 18 Estim Creat Clear Calc 62.4 Estimated GFR > 60 Random Glucose 74 Lactic Acid 1.4 Calcium 9.6 Total Bilirubin 0.6 AST 30 ALT 37 Alkaline Phosphatase 70 B-Natriuretic Peptide 62 Total Protein 6.4 L Albumin 3.9 08/20/23 05:10 MCV 99.3 H MCH 32.7 MCHC 32.9 RDW 14.5 Plt Count 203 MPV 9.2 L Immature Gran % (Auto) 1.7 H Neut % (Auto) 94.2 H Lymph % (Auto) 2.5 L [place] % (Auto) 1.4 L Eos % (Auto) 0.0 Baso % (Auto) 0.2 Lymph # (Auto) 0.3 L [place] # (Auto) 0.2 Eos # (Auto) 0.0 Baso # (Auto) 0.0 Abs Immat Gran (auto) 0.20 H Absolute Neuts (auto) 11.2 H Absolute Nucleated RBC 0.000 Nucleated RBC % (auto) 0.0 Smear Tech's Comments VERIFIED VBG pH VBG pCO2 VBG pO2 VBG HCO3 VBG O2 Saturation VBG Base Excess Anion Gap 18 Estim Creat Clear Calc 67.4 Estimated GFR > 60 Random Glucose 158 H Lactic Acid Calcium 9.0 D Total Bilirubin AST ALT Alkaline Phosphatase B-Natriuretic Peptide Total Protein Albumin Assessment and Plan (1) Pneumonia: Status: Acute Plan 78-year-old male past medical history of COPD, CHF, hypertension hyperlipidemia comes into the hospital with complaints of shortness of breath, cough, sputum production Acute on chronic COPD exacerbation cough, sputum production, worsening dyspnea steroids, DuoNeb p.r.n. as well as schedule goal O2 of 88-92%- nurse notified HFrEF no exacerbation stable continue home furosemide hyperlipidemia continue statin hypertension stable continue antihypertensives DVT prophylaxis with Lovenox Attending Dr. Méndez continue hospitalization for treatment of acute COPD exacerbation Time Spent With Patient Time: Total time managing care of this patient today ____ minutes. Quality Stroke Does the patient have a stroke diagnosis?: No VTE Prior VTE?: No VTE Risk Level:: Medical - moderate - high VTE Device Contraindication: Treatment Not Indicated VTE Drug Contraindication: N/A - Med Ordered
[2023-08-20] MEDS: Sucralfate 1 GM TABLET PO ×2 (11:53→17:17)
[2023-08-20] MEDS: Omeprazole 40 MG CAPSULE.DR PO (17:16)
[2023-08-20] MEDS: Atorvastatin Calcium 20 MG TABLET PO (22:19)
[2023-08-20] MEDS: Amitriptyline HCl 10 MG TABLET 20 MG PO (22:20)
[2023-08-21] VITALS (11 sets, daily range): BP systolic 104–122; BP diastolic 63–82; PULSE 74–93; RESP 15–20; TEMP 36.2–36.8; O2SAT 86–100
[2023-08-21] MEDS: Enoxaparin Sodium 40 MG/0.4 ML SYRINGE SUBCUT ×2 (01:30→23:45)
[2023-08-21] MEDS: Omeprazole 40 MG CAPSULE.DR PO ×2 (06:18→15:13)
[2023-08-21] MEDS: Albuterol/Iprat 2.5/0.5MG 3 ML AMPUL.NEB INHALE ×4 (08:32→19:48)
[2023-08-21] MEDS: Butalb/Acetamin/Caff 50/325/40 TABLET 1 TAB PO ×3 (08:38→21:46)
[2023-08-21] MEDS: methylPREDNISolone Sod Succ 40 MG/ML VIAL IVPUSH ×2 (08:38→21:46)
[2023-08-21] MEDS: guaiFENesin LA 600 MG TAB.ER.12H 1200 MG PO (08:39)
[2023-08-21] MEDS: Cholecalciferol (Vitamin D3) 25 MCG TABLET 50 MCG PO (08:39)
[2023-08-21] MEDS: Sucralfate 1 GM TABLET PO ×2 (08:39→15:13)
[2023-08-21] MEDS: Magnesium Oxide 400 MG TABLET PO (08:39)
[2023-08-21] MEDS: Multivitamin TABLET 1 TAB PO (08:39)
[2023-08-21] MEDS: 0.9 % Sodium Chloride Flush 3 ML SYRINGE IVFLUSH ×4 (08:40→23:45)
--- NOTE | 2023-08-21 09:32 | PM.DS ---
DS: Providers Provider Date of Service: 08/22/23 Date of admission: 08/19/23 23:41 Primary care physician: Unknown Physician DS: Diagnosis Discharge Diagnosis (1) Pneumonia: Status: Acute DS: Summary Hospital Course Hospital Course: HP as per admitting provider. This 78-year-old male past medical history of COPD, CHF, HLD, HTN comes into the hospital with complaints of shortness of breath, cough, sputum production for the past several weeks worsening over the past few days. Patient reports no fever, no chills, chronic lower extremity edema, no orthopnea or PND. No chest pain, no abdominal pain nausea or vomiting, no diarrhea constipation, no urinary symptoms and no lower extremity edema. On arrival to the ED patient hemodynamically stable, satting 98% on 2 L of oxygen Labs are significant for WBC count of 13.1, otherwise unremarkable Chest x-ray negative for acute process 70-year-old man treating for acute on chronic COPD exacerbation requiring IV steroids and scheduled DuoNebs. Patient is on 2 L of oxygen with activity chronically. He has maintained his oxygen saturation above 90%. he will Be sent home on a 12 day steroid taper and is to continue all of his other home medications. He had no indication of pneumonia or consolidation. Heart failure with reduced ejection fraction. No exacerbation. Continue home medications Hyperlipidemia. Continue statin Hypertension. Continue antihypertensives. Time Spent with Patient Time attestation: Total time managing care of this patient today ____ minutes. Discharge coordination time: Greater than 30 minutes Quality: Safe Use of Opioids Does Pt have an Active Cancer Diagnosis on the Problem List?: No Quality: Stroke Does the patient have a stroke diagnosis?: No Physical Exam Vital Signs: Vital Signs: Last Vital Signs Temp 98.2 F 08/21/23 07:50 Pulse 74 08/21/23 08:45 Resp 18 08/21/23 08:45 BP 119/82 08/21/23 07:50 Pulse Ox 95 08/21/23 07:50 O2 Del Method Room Air 08/21/23 07:50 O2 Flow Rate 4 08/20/23 05:03 Oxygen Flow Rate 2 08/19/23 21:33 BMI result Body Mass Index 22.1 Appearing in no acute distress head is normocephalic atraumatic eyes pupils are PERRLA sclera is anicteric mouth throat mucous membranes are intact and moist neck is supple no lymphadenopathy, no JVD noted lung sounds diminished heart regular rate rhythm, clear S1, S2 positive bowel sounds, abdomen is soft, nontender neuro patient is alert x3, no focal deficits DS: Data Data Completed and Pending Labs on day of discharge: Preliminary micro results at discharge 08/19/23 21:44 Blood Culture - Preliminary Blood - Venous No growth after 24 hours. 08/19/23 21:44 Blood Culture - Preliminary Blood - Venous No growth after 24 hours. Discharge Plan Discharge Anticipated Discharge Date/Time: 08/22/23 09:00 Patient Disposition: Home Health Service Discharge Diagnosis: acute on chronic COPD exacerbation Discharge Medications: New prednisone 10 mg tablet See Taper PO DIRECTED Qty: 30 0RF Taper: Prednisone 40 mg daily for 3 Days and 0 Hour 30 mg daily for 3 Days and 0 Hour 20 mg daily for 3 Days and 0 Hour 10 mg daily for 3 Days and 0 Hour Rx Instructions: see taper instructions Continued guaifenesin 600 mg Tablet Extended Release 600 mg PO TID PRN (Reason: Cough) trazodone 50 mg Tablet 100 mg PO BEDTIME PRN (Reason: Insomnia) acetaminophen 500 mg Tablet 500 mg PO BID PRN (Reason: Pain) omeprazole 20 mg Capsule,Delayed Release(Dr/Ec) 40 mg PO BID@0630,1630 atorvastatin 40 mg Tablet 20 mg PO BEDTIME amitriptyline 10 mg Tablet 20 mg PO BEDTIME albuterol sulfate 90 mcg/actuation Hfa Aerosol Inhaler 1 inh INHALATION QID PRN (Reason: Wheezing) sucralfate 1 gram Tablet 1 g PO TIDWM multivitamin Tablet 1 tab PO DAILY Breztri Aerosphere 160-9-4.8 mcg/actuation Hfa Aerosol Inhaler 2 inh INHALATION BID magnesium oxide 420 mg Tablet 420 mg PO DAILY ipratropium-albuterol 0.5 mg-3 mg(2.5 mg base)/3 mL Solution For Nebulization 3 ml INHALATION Q6H PRN (Reason: Wheezing) azithromycin 250 mg Tablet 250 mg PO MOWEFR riboflavin (vitamin B2) 100 mg Tablet 200 mg PO BEDTIME azelastine 137 mcg (0.1 %) Aerosol,[place] 2 spray INTRANASAL BID Rx Instructions: administer into each nostril cholecalciferol (vitamin D3) 50 mcg (2,000 unit) Tablet 50 mcg PO DAILY tobramycin with nebulizer 300 mg/5 mL Solution For Nebulization 300 mg INHALATION BID Rx Instructions: separate doses by at least 6 hours Discontinued prednisone 20 mg Tablet 20 mg PO DAILY Discharge Orders: Discharge Order (Routine); Ordered 08/22/23 Ordered By: Jeanie Martinez Diet: Advance to usual diet Activity on Discharge: As tolerated Stand Alone Forms: Patient Portal Discharge page Care Plan Goals: you will be on a prednisone taper for 12 days Health Concerns: acute on chronic COPD exacerbation Plan of Treatment: follow-up with primary care provider as needed Take all medications as prescribed Assessment: see discharge summary
--- NOTE | 2023-08-21 11:28 | P.PNIM_ITS ---
Subjective Subjective Date of Service: 08/21/23 Interval History: copd exacerbation doing better but still son with exertion Review of Systems sob seems similar to yesterday no cough or fevers Physical Exam 2 Vital Signs: Vital Signs: Last Vital Signs Temp 98.2 F 08/21/23 07:50 Pulse 90 08/21/23 11:11 Resp 16 08/21/23 11:11 BP 119/82 08/21/23 07:50 Pulse Ox 95 08/21/23 07:50 O2 Del Method Room Air 08/21/23 07:50 O2 Flow Rate 4 08/20/23 05:03 Oxygen Flow Rate 2 08/19/23 21:33 BMI result Body Mass Index 22.1 Appearing in no acute distress lung sounds exp wheezing heart regular rate rhythm, clear S1, S2 positive bowel sounds, abdomen is soft, nontender neuro patient is alert x3, no focal deficits Objective Data Active Medications Acetaminophen (Acetaminophen 325 Mg Tablet) 650 mg PO Q6H PRN PRN Reason: Pain, Mild (Pain Scale 1-3) Last Admin: 08/20/23 17:16 Dose: 650 mg Documented By: LINDA Acetaminophen/Butalbital/Caffeine (Butalb/Acetamin/Caff 50/325/40 Tablet) 1 tab PO Q4H PRN PRN Reason: Headache Last Admin: 08/21/23 08:38 Dose: 1 tab Documented By: LINDA Albuterol Sulfate (Albuterol Sulfate 90 Mcg 8 Gm Inhaler) 1 puff INHALE RQID PRN PRN Reason: Wheezing Albuterol/Ipratropium (Albuterol/Iprat 2.5/0.5mg 3 Ml Ampul.Neb) 3 ml INHALE RQ4H PRN PRN Reason: Shortness of Breath/Wheezing Albuterol/Ipratropium (Albuterol/Iprat 2.5/0.5mg 3 Ml Ampul.Neb) 3 ml INHALE RQ4H WHILE AWAKE [facility] Last Admin: 08/21/23 11:09 Dose: 3 ml Documented By: TUAN Albuterol/Ipratropium (Albuterol/Iprat 2.5/0.5mg 3 Ml Ampul.Neb) 3 ml INHALE RQ6H PRN PRN Reason: Wheezing Amitriptyline HCl (Amitriptyline Hcl 10 Mg Tablet) 20 mg PO BEDTIME [facility] Last Admin: 08/20/23 22:20 Dose: 20 mg Documented By: ANASTASIA Atorvastatin Calcium (Atorvastatin Calcium 20 Mg Tablet) 20 mg PO BEDTIME [facility] Last Admin: 08/20/23 22:19 Dose: 20 mg Documented By: ANASTASIA Docusate Sodium (Docusate Sodium 100 Mg Capsule) 100 mg PO DAILY PRN PRN Reason: Constipation Enoxaparin Sodium (Enoxaparin Sodium 40 Mg/0.4 Ml Syringe) 40 mg SUBCUT Q24H [facility] Last Admin: 08/21/23 01:30 Dose: 40 mg Documented By: ANASTASIA Guaifenesin (Guaifenesin La 600 Mg Tab.Er.12h) 1,200 mg PO BID PRN PRN Reason: cough Last Admin: 08/21/23 08:39 Dose: 1,200 mg Documented By: LINDA Magnesium Oxide (Magnesium Oxide 400 Mg Tablet) 400 mg PO DAILY [facility] Last Admin: 08/21/23 08:39 Dose: 400 mg Documented By: LINDA Methylprednisolone Sodium Succinate (Methylprednisolone Sod Succ 40 Mg/Ml Vial) 40 mg IVPUSH Q12H [facility] Last Admin: 08/21/23 08:38 Dose: 40 mg Documented By: LINDA Morphine Sulfate (Morphine Sulfate 4 Mg/Ml Cartridge) 2 mg IVPUSH Q4H PRN; Protocol PRN Reason: respiratory distress Multivitamins/Vitamin C (Multivitamin Tablet) 1 tab PO DAILY [facility] Last Admin: 08/21/23 08:39 Dose: 1 tab Documented By: LINDA Omeprazole (Omeprazole 40 Mg Capsule.Dr) 40 mg PO BID@0630,1630 [facility] Last Admin: 08/21/23 06:18 Dose: 40 mg Documented By: ANASTASIA Ondansetron HCl (Ondansetron Hcl 4 Mg/2 Ml Vial) 4 mg IVPUSH Q8H PRN PRN Reason: Nausea and Vomiting Sodium Chloride (0.9 % Sodium Chloride Flush 3 Ml Syringe) 3 ml IVFLUSH QSHIFT [facility] Last Admin: 08/21/23 08:40 Dose: 3 ml Documented By: LINDA Sucralfate (Sucralfate 1 Gm Tablet) 1 gm PO TIDWM [facility] Last Admin: 08/21/23 08:39 Dose: 1 gm Documented By: LINDA Trazodone HCl (Trazodone Hcl 100 Mg Tablet) 100 mg PO BEDTIME PRN PRN Reason: Insomnia Vitamin D (Cholecalciferol (Vitamin D3) 25 Mcg Tablet) 50 mcg PO DAILY [facility] Last Admin: 08/21/23 08:39 Dose: 50 mcg Documented By: LINDA Labs 08/20/23 05:10 08/20/23 05:10 Microbiology Microbiology Results: Microbiology 08/19/23 21:44 Blood Culture - Preliminary Blood - Venous No growth after 24 hours. 08/19/23 21:44 Blood Culture - Preliminary Blood - Venous No growth after 24 hours. Assessment and Plan (1) Pneumonia: Status: Acute Plan 78-year-old male past medical history of COPD, CHF, hypertension hyperlipidemia comes into the hospital with complaints of shortness of breath, cough, sputum production Acute on chronic COPD exacerbation cough, sputum production, worsening dyspnea steroids, DuoNeb p.r.n. as well as schedule goal O2 of 88-92%- nurse notified Still hypoxic with ambulation, down to 80's with 3 liters HFrEF no exacerbation stable continue home furosemide hyperlipidemia continue statin hypertension stable continue antihypertensives DVT prophylaxis with Lovenox Attending Dr. Méndez continue hospitalization for treatment of acute COPD exacerbation Time Spent With Patient Time: Total time managing care of this patient today ____ minutes. Quality Stroke Does the patient have a stroke diagnosis?: No VTE Prior VTE?: No VTE Risk Level:: Medical - moderate - high VTE Device Contraindication: Treatment Not Indicated VTE Drug Contraindication: N/A - Med Ordered
--- NOTE | 2023-08-21 11:51 | MHC.CM.PN ---
Lives w/daughter Marleen. Previously had [facility]; was just recently D/C'd from their service. Primary Care is MD at [facility] Location; Dr. Sales. Owns a cane, does not drive, Marleen drives him where he needs to go. At time of D/C readiness, Marleen will transport Pt. home. CM to follow.
[2023-08-21] MEDS: Acetaminophen 325 MG TABLET 650 MG PO ×2 (15:13→21:45)
[2023-08-21] MEDS: Atorvastatin Calcium 20 MG TABLET PO (21:45)
[2023-08-21] MEDS: Amitriptyline HCl 10 MG TABLET 20 MG PO (21:45)
[2023-08-21] MEDS: traZODone HCL 100 MG TABLET PO (21:46)
[2023-08-22 03:31] VITALS: BP 130/79; PULSE 80; RESP 18; TEMP 36.2; O2SAT 97
[2023-08-22] MEDS: Omeprazole 40 MG CAPSULE.DR PO (06:12)
[2023-08-22 06:59] VITALS: BP 131/84; PULSE 77; RESP 18; TEMP 36.6; O2SAT 93
[2023-08-22] MEDS: Magnesium Oxide 400 MG TABLET PO (08:51)
[2023-08-22] MEDS: Multivitamin TABLET 1 TAB PO (08:51)
[2023-08-22] MEDS: methylPREDNISolone Sod Succ 40 MG/ML VIAL IVPUSH (08:51)
[2023-08-22] MEDS: Cholecalciferol (Vitamin D3) 25 MCG TABLET 50 MCG PO (08:51)
[2023-08-22] MEDS: Sucralfate 1 GM TABLET PO ×2 (08:51→11:42)
[2023-08-22] MEDS: 0.9 % Sodium Chloride Flush 3 ML SYRINGE IVFLUSH (08:52)
--- NOTE | 2023-08-22 10:22 | MHC.CM.PN ---
Pt has been medically cleared for dc, his daughter is coming to pick him up, he is going home with [facility].
--- NOTE | 2023-08-22 10:39 | P.F2F_ITS ---
Service Date Service Date: 08/22/23 Encounter Date of encounter: 08/22/23 Reasons for Services Signs and symptoms assessed: COPD exacerbation Reason for [facility]: CV/CP assess and/or care Homebound: Leaving the home is medically contraindicated at this time without the asist of a device and/or another person due th the listed conditions above and below. Reason homebound: unsteady gait / fall risk Certification: Based on the above findings, I certify that this patient is confined to the home and needs intermittent [facility] care, physical therapy and/or speech therapy, or continues to need occupational therapy. The patient is under my care, and I have initiated the establishment of the plan of care. The patient will be followed by a physician who will periodically review the plan of care. Time Spent With Patient Time: Total time managing care of this patient today ____ minutes.
--- NOTE | 2023-08-22 10:42 | P.CDIM_ITS ---
PROVIDER RESPONSE TEXT: To clarify, the appropriate diagnosis supported by the clinical indicators: Acute on chronic respiratory failure: hypoxic QUERY TEXT: PHYSICIAN'S DOCUMENTATION REQUEST Date of Query: 08/22/2023 08:58 AM EDT Patient Name: Garrett Cuevas Admit Date: 08/20/2023 Dear Jeanie Martinez, A review of the medical record indicates additional documentation may be needed. Please review below and update the documentation accordingly. Clinical Indicators: Patient arrived to hospital with complaints of shortness of breath, cough, sputum production worsenin g. Acute COPD exacerbation, patient is on 2 L oxygen with activity chronically. RR 28 pulse ox 86 L on 3 L NC hypoxic H&P: Using accessory muscles, difficulty breathing, wheezing, decreased breath sounds bilaterally, co ughing causing him dyspnea. Please clarify which of the following accurately represents the patient's respiratory status: Acute respiratory failure Please specify if Hypoxic, Hypercapnic, or Hypoxic and hypercapnic Acute on chronic respiratory failure Please specify if Hypoxic, Hypercapnic, or Hypoxic and hypercapnic Chronic respiratory failure Please specify if Hypoxic, Hypercapnic, or Hypoxic and hypercapnic Acute respiratory distress Other (explain)Clinically unable to determine (explain) Thank you, Chanel Duarte, CCS, CDIS Use of terms such as suspected, likely, concern for, or probable (associated with a specific diagnosi s that is being evaluated, monitored, or treated as if it exists) are acceptable and can be coded in the inpatient se tting, when documented at the time of discharge. Please use your independent medical judgment in providing your response. THIS QUERY IS PART OF THE PERMANENT MEDICAL RECORD
[2023-08-22] MEDS: Albuterol/Iprat 2.5/0.5MG 3 ML AMPUL.NEB INHALE (11:51)
[2023-08-22 11:52] VITALS: PULSE 88; RESP 16; O2SAT 97
== END 2023-08-22 13:26 | disposition home health service (06) | DRG 190 ==
LOC: HO.ED 22:27 → HO.EDOVER 23:52 → HO.S3 08-20 00:36 → HO.EDOVER 08-20 04:43 → HO.IMC 08-20 06:45
PROVIDERS: Admitting Provider Internal Medicine; Emergency Provider Student in an Organized Health Care Education/Training Program; PCP Internal Medicine; Visit Provider Nurse Practitioner Acute Care
DX: J44.1 Chronic obstructive pulmonary disease with (acute) exacerbation (principal); J96.21 Acute and chronic respiratory failure with hypoxia; I50.22 Chronic systolic (congestive) heart failure; I11.0 Hypertensive heart disease with heart failure; E78.5 Hyperlipidemia, unspecified; Z87.891 Personal history of nicotine dependence; Z79.899 Other long term (current) drug therapy
CPT/HCPCS: 36415; 71045; 80048; 80053; 82803; 83605; 83880; 84484; 85025; 87040; 93005; 94640; 99285; J0692; J1650; J2270; J2920; J2930

== ENCOUNTER → 2023-08-19 23:41 | Outpatient (BNV) | payer OTHER, SELFPAY | PROVIDERS: Admitting Provider Internal Medicine; Emergency Provider Student in an Organized Health Care Education/Training Program; Visit Provider Internal Medicine | DX: J18.9 Pneumonia, unspecified organism (principal) | CPT/HCPCS: 99223; 99232; 99239; G0180 ==

== ENCOUNTER 2023-09-10 21:06 | Inpatient (IN) | payer OTHER, SELFPAY ==
--- NOTE | ~2023-09-10 | XR_ITS ---
EXAMINATION: XR CHEST CLINICAL INFORMATION: Hypoxia, dyspnea COMPARISON: 09/10/2023 TECHNIQUE: 2 frontal view of the chest was obtained. FINDINGS: Lungs are hyperinflated. There is no gross pneumothorax. Heart size is normal. Stable prominence of the bilateral татьяна. Redemonstration of mild bibasilar opacities, likely representing atelectasis/scar rather than pneumonia. No gross pleural effusion. No new focal consolidation. XR/XR chest 1V IMPRESSION: Redemonstration of mild bibasilar opacities, likely representing atelectasis/scar rather than pneumonia. No new focal consolidation.
--- NOTE | ~2023-09-10 | XR_ITS ---
EXAMINATION: XR CHEST CLINICAL INFORMATION: Dyspnea. COMPARISON: Chest x-ray September 14, 2023. CT chest June 15, 2022 TECHNIQUE: Frontal view of the chest was obtained. 2:01 PM FINDINGS: Minor linear opacities at lung bases representing scarring similar prior chest x-ray. No acute airspace disease. No pulmonary vascular congestion. There is no pleural effusion. The heart size is normal. The cardiac and mediastinal contours are normal. There are calcifications of the thoracic aorta. There are multilevel degenerative changes of dorsal spine. XR/XR chest 1V IMPRESSION: No acute abnormality of the chest.
--- NOTE | ~2023-09-10 | XR_ITS ---
EXAMINATION: XR CHEST CLINICAL INFORMATION: Dyspnea. COMPARISON: 08/19/2023 TECHNIQUE: Frontal view of the chest was obtained. FINDINGS: Lungs are hyperexpanded. Mild pleural parenchymal scarring or dependent atelectasis at the bases. No pneumothorax or pleural effusion. No focal airspace consolidation. Cardiac meniscal contours are normal. Calcific atherosclerosis in the thoracic aorta. Degenerative spondylosis is noted in the thoracic spine. Osteoarthritis is present in the acromioclavicular and glenohumeral joints. XR/XR chest 1V IMPRESSION: Hyperexpanded lungs. No acute pulmonary findings.
--- NOTE | ~2023-09-10 | XR_ITS ---
EXAMINATION: XR CHEST CLINICAL INFORMATION: Dyspnea COMPARISON: Chest radiograph 09/16/2023 CT chest 06/15/2022 TECHNIQUE: Frontal view of the chest was obtained. FINDINGS: The lungs are hyperinflated with severe emphysematous changes again seen. Bilateral nipple shadows are seen. No suspicious lung masses are detected. Heart size normal. No evidence of CHF. No effusions. Again seen is a calcified granuloma in the lateral left costophrenic sulcus. XR/XR chest 1V IMPRESSION: Severe COPD. No acute intrathoracic disease.
[2023-09-10 21:10] VITALS: BP 124/83; BP 132/80; PULSE 76; PULSE 94; RESP 26; TEMP 36.7; O2SAT 100; BMI 18.0
--- NOTE | 2023-09-10 21:20 | ECG_ITS ---
Test Reason : SOB Blood Pressure : / mmHG Vent. Rate : 098 BPM Atrial Rate : 098 BPM P-R Int : 134 ms QRS Dur : 110 ms QT Int : 384 ms P-R-T Axes : 067 014 065 degrees QTc Int : 490 ms Sinus rhythm with frequent Premature ventricular complexes in a pattern of bigeminy Incomplete right bundle branch block Nonspecific ST abnormality Abnormal ECG When compared with ECG of 19-AUG-2023 21:33, Premature ventricular complexes are now Present Incomplete right bundle branch block has replaced Right bundle branch block Referred By: Generic ED Physician Electronically Signed By:TORY GREGORY MD
[2023-09-10 21:36] LABS: MANUAL DIFF FLAG NO
[2023-09-10 21:38] LABS: Basophils Percent Auto 0.2 % (0-2); Eosinophils Percent Auto 0.3 % (0-4); Hematocrit 42.8 % (42.0-52.0); Hemoglobin 13.9 g/dl (14.0-18.0); Imm Gran Pct Auto 2.2 % (0.0-0.4); Lymphocytes Percent Auto 21.7 % (20-40); Mean Corpuscular HGB Conc 32.5 g/dl (31.0-36.0); Mean Corpuscular Hemoglobin 32.5 pg (27.0-33.0); Mean Platelet Volume 9.2 fL (9.4-12.4); Monocytes Absolute Auto 0.7 X10*3/uL (0.1-1.2); Neutrophils Absolute Auto 6.1 x10*3/uL (2.0-8.3); Neutrophils Percent Auto 67.6 % (45-73); Platelet Count 197 X10*3/uL (160-400); Red Blood Count 4.28 X10*6/uL (4.60-5.80); Red Cell Distribution Width 14.7 % (11.0-16.0)
--- NOTE | 2023-09-10 21:49 | ED.SOB ---
HPI - SOB/Dyspnea General Chief Complaint: Dyspnea Stated Complaint: SOB X1 WEEK, WHEEZING, INCREASED EDEMA PER EMS Time Seen by Provider: 09/10/23 21:48 Source: patient and family Mode of arrival: EMS Limitations: no limitations History of Present Illness HPI Narrative: 78-year-old male with history of COPD , HFrEF, hypertension, hyperlipidemia who presents emergency department for evaluation shortness of breath, productive cough, increased peripheral edema x2 weeks. Patient states that he has not been feeling well since he was hospitalized on 08/19/2023. At that time was hospitalized for 5 days with COPD exacerbation and pneumonia. He states that he has been using his nebulizers 4 times a day with no improvement of her shortness of breath. He has also been using his inhalers with no improvement patient states that he normally uses 2 L of oxygen via nasal but has had increases oxygen to 4-6 L in order to help with his shortness of breath. Patient has a cough which she states is chronic but productive of mucus. He has had significant dyspnea on exertion and orthopnea. He states that he has noticed swelling in his lower extremities, left greater than right which is chronic. He denied fever, chills, rhinorrhea, sore throat, nausea, vomiting, diarrhea, black stools or tarry stools. Related Data Home Medications Medication Instructions Recorded Confirmed acetaminophen 500 mg tablet 500 mg PO BID PRN Pain 05/25/22 08/19/23 guaifenesin 600 mg tablet,extended 600 mg PO TID PRN Cough 05/25/22 08/20/23 release omeprazole 20 mg capsule,delayed 40 mg PO BID@0630,1630 05/25/22 08/19/23 release trazodone 50 mg tablet 100 mg PO BEDTIME PRN Insomnia 05/25/22 08/19/23 albuterol sulfate 90 mcg/actuation 1 inh inhalation QID PRN Wheezing 05/26/22 08/19/23 aerosol inhaler amitriptyline 10 mg tablet 20 mg PO BEDTIME 05/26/22 08/19/23 atorvastatin 40 mg tablet 20 mg PO BEDTIME 05/26/22 08/19/23 budesonide 160 mcg-glycopyr 9 2 inh inhalation BID 06/27/23 08/19/23 mcg-formot 4.8 mcg/actuation HFA inhaler (Breztri Fiteezaphere) multivitamin 1 tab PO DAILY 06/27/23 08/19/23 sucralfate 1 gram tablet 1 g PO TIDWM 06/27/23 08/19/23 azelastine 137 mcg (0.1 %) nasal 2 spray intranasal BID 08/20/23 08/20/23 spray aerosol azithromycin 250 mg tablet 250 mg PO MOWEFR 08/20/23 08/20/23 cholecalciferol (vitamin D3) 50 50 mcg PO DAILY 08/20/23 08/20/23 mcg (2,000 unit) tablet ipratropium 0.5 mg-albuterol 3 mg 3 ml inhalation Q6H PRN Wheezing 08/20/23 08/20/23 (2.5 mg base)/3 mL nebulization soln magnesium oxide 420 mg tablet 420 mg PO DAILY 08/20/23 08/20/23 riboflavin (vitamin B2) 100 mg 200 mg PO BEDTIME 08/20/23 08/20/23 tablet tobramycin with nebulizer 300 mg/5 300 mg inhalation BID 08/20/23 08/20/23 mL solution for nebulization Previous Rx's Medication Instructions Recorded prednisone 10 mg tablet See Taper PO DIRECTED #30 tabs 08/21/23 [id number]-[id number] 1 cap PO Q8H PRN pain #9 caps 08/22/23 50 mg-300 mg-40 mg capsule (Fioricet) Allergies Allergy/AdvReac Type Severity Reaction Status Date / Time adhesive tape Allergy Intermediate Rash Verified 06/27/23 08:28 Penicillins [PENICILLINS] Allergy Unknown VOMITTING Verified 06/27/23 08:28 Review of Systems Review of Systems: Yes all other systems are reviewed and are negative PENDING SALE TO [facility] Past Medical History PENDING SALE TO [facility] Narrative: Social history: Patient states he lives at home with his family. The denies tobacco use but he is a former smoker, quit 1 year prior, smoked greater than 50 years at least 1 pack per day. Medical History COPD (chronic obstructive pulmonary disease) CHF (congestive heart failure) Hyperlipidemia Hypertension Social History Social History Household Members: Family Household Members Other:: 2 Housing: House Do you presently have visiting nurse or other home services: Yes ([employer]- Daughter) Alcohol intake: never Patient Tobacco Use Status: Former Tobacco user Quit Date: 2021 Tobacco use type: Cigarette Cigarette Packs Per Day: 1 Cigarettes Per Day: 20.0 Years Smoked: 50 Advance Directives: No Advance Directives Information Provided: Yes service: Yes Current occupational status: retired Physical Exam Vital Signs: Vital Signs: Last Vital Signs Temp 98.0 F 09/10/23 22:15 Pulse 96 09/10/23 22:51 Resp 18 09/10/23 22:51 BP 129/66 09/10/23 22:15 Pulse Ox 97 09/10/23 22:15 O2 Del Method Nasal Cannula 09/10/23 22:15 Oxygen Flow Rate 3 09/10/23 21:10 BMI result Body Mass Index 18.0 Vital signs were normal except for an elevated respiratory rate of 26 Exam General: Awake, alert, male patient, dyspnea, speaks in full sentences Head: Normocephalic, atraumatic EENT: PERRL, Lids normal, sclera normal, conjunctiva normal, nose normal , ears normal, throat without erythema or exudates Neck: Supple, no adenopathy, no trachea midline or C-spine tenderness Lung: breath sounds symmetric, tachypneic, diffuse wheezing and rhonchi Chest: symmetric movement, nontender Heart: regular rate and rhythm, normal S1, S2 no murmurs or rubs Abdomen: soft, non-tender, nondistended, normal bowel sounds Back: no vertebral tenderness, no CVAT Extremities: no deformities, moves all extremities symmetrically, patient has asymmetric pitting edema left greater than right-he states this is chronic Neuro: Awake, alert, oriented, normal speech, cranial nerves intact, moves all extremities symmetrically Psych: Pleasant, cooperative Medications Administered Generic Name Dose Route Start Last Admin Trade Name Freq PRN Reason Stop Dose Admin Enoxaparin Sodium 40 mg 09/10/23 23:00 09/10/23 22:55 Enoxaparin Sodium 40 Mg/0.4 Ml Syringe SUBCUT 40 mg Q24H CHAYO Administration Discontinued Medications Generic Name Dose Route Start Last Admin Trade Name Freq PRN Reason Stop Dose Admin Albuterol/Ipratropium 3 ml 09/10/23 22:45 09/10/23 22:49 Albuterol/Iprat 2.5/0.5mg 3 Ml Ampul.Neb INHALE 10/21/23 22:46 3 ml ONCE ONE Administration Ceftriaxone Sodium 1 gm/ 50 mls @ 100 mls/hr 09/10/23 22:24 09/10/23 23:02 Sodium Chloride IV 09/10/23 22:53 100 mls/hr ONCE ONE Administration Methylprednisolone Sodium Succinate 125 mg 09/10/23 22:24 09/10/23 22:55 Methylprednisolone Sod Succ 125 Mg/2 Ml Vial IVPUSH 09/10/23 22:25 125 mg ONCE ONE Administration Medical Decision Making Medical Decision Making [facility] Narrative: 78-year-old male with history of COPD , HFrEF, hypertension, hyperlipidemia who presents emergency department for evaluation shortness of breath, productive cough, increased peripheral edema x2 weeks. He states that he has been using his nebulizers 4 times a day with no improvement of his shortness of breath. He normally uses 2 L of oxygen via nasal but has had increases oxygen to 4-6 L in order to help with his shortness of breath. Patient has a cough which she states is chronic but productive of mucus. He has had significant dyspnea on exertion and orthopnea. He states that he has noticed swelling in his lower extremities, left greater than right which is chronic. Following evaluation was ordered: CBC, CMP, BNP, troponin, lactic acid, blood cultures x2, EKG, chest x-ray 22:36 Patient laboratory evaluation was unremarkable with a normal BNP, chronically detectable but not elevated high sensitive troponin I and a chest x-ray which is consistent with COPD changes Patient's presentation is consistent with COPD exacerbation, he may also have acute bronchitis since he does have a productive cough. At this time, I do not suspect sepsis. Patient has had uses nebulizer more frequently and and has had increases FiO2 from 2 L to 4-6 L in order to control his dyspnea therefore he will need to be admitted for steroids, nebulizer treatments and antibiotics I did order the ED bronchodilator protocol, Solu-Medrol 125 mg IV ceftriaxone 1 g IV and Zithromax 500 mg. I will discuss admission with the covering hospitalist. Differential Diagnosis Differential Diagnoses: The differential diagnosis associated with the presentation includes 22:32 Differential diagnosis includes was not limited to COPD exacerbation, pneumonia, congestive heart failure, rhonchi Admission/Observation Consideration of admission/observation: Escalation of care including admission/observation considered Consult Healthcare Provider Management of the patient was discussed with: Hospitalist Lab Data [facility] Lab Attestation statement: I reviewed the patient's lab results. My independent interpretation patient's laboratory evaluation as follows: CBC was normal. BUN is elevated 23 with normal creatinine 1.16. BNP was normal at 99. High sensitive troponin I was detectable but not elevated at 9.5-this is chronic. COVID, RSV and influenza were negative. 09/10/23 21:29 09/10/23 21:29 Labs: Lab Results 09/10/23 09/10/23 09/10/23 Range/Units 21:29 21:35 22:45 WBC 9.0 (4.8-10.8) X10*3/uL RBC 4.28 L (4.60-5.80) X10*6/uL Hgb 13.9 L (14.0-18.0) g/dl Hct 42.8 (42.0-52.0) % MCV 100.0 H (80.0-98.0) fL MCH 32.5 (27.0-33.0) pg MCHC 32.5 (31.0-36.0) g/dl RDW 14.7 (11.0-16.0) % Plt Count 197 (160-400) X10*3/uL MPV 9.2 L (9.4-12.4) fL Immature Gran % (Auto) 2.2 H (0.0-0.4) % Neut % (Auto) 67.6 (45-73) % Lymph % (Auto) 21.7 (20-40) % [place] % (Auto) 8.0 (2-11) % Eos % (Auto) 0.3 (0-4) % Baso % (Auto) 0.2 (0-2) % Lymph # (Auto) 2.0 (1.2-4.9) X10*3/uL [place] # (Auto) 0.7 (0.1-1.2) X10*3/uL Eos # (Auto) 0.0 (0.0-0.4) X10*3/uL Baso # (Auto) 0.0 (0.0-0.2) X10*3/uL Abs Immat Gran (auto) 0.20 H (0.00-0.03) X10*3/uL Absolute Neuts (auto) 6.1 (2.0-8.3) x10*3/uL Absolute Nucleated RBC 0.000 (0.0-0.012) X10*3/uL Nucleated RBC % (auto) 0.0 (0.0-0.2) /100WBC Sodium 141 (135-145) mmol/L Potassium 3.8 (3.3-5.1) mmol/L Chloride 106 (96-108) mmol/L Carbon Dioxide 24 (22-29) mmol/L Anion Gap 15 (12-20) BUN 23 H (9-16) mg/dL Creatinine 1.16 (0.5-1.4) mg/dL Estim Creat Clear Calc 43.5 Estimated GFR > 60 Random Glucose 97 (60-115) mg/dL Lactic Acid 1.6 (0.5-2.0) mmol/L Calcium 9.6 D (8.4-10.2) mg/dL Total Bilirubin 0.4 (0.0-1.0) mg/dL AST 23 (5-37) U/L ALT 37 (0-40) U/L Alkaline Phosphatase 88 (39-117) U/L Troponin I High Sens 9.5 (<3.5-35.0) ng/L B-Natriuretic Peptide 99 (<100) pg/mL Total Protein 6.0 L (6.5-8.0) g/dL Albumin 3.6 (3.5-5.0) g/dL Influenza Type A (PCR) NEGATIVE (Negative) Influenza Type B (PCR) NEGATIVE (Negative) RSV RNA Qual (PCR) NEGATIVE (Negative) SARS-CoV-2 RNA (RT-PCR) NEGATIVE (Negative) Independent Interpretation I performed an independent interpretation of an: EKG and Plain X-Ray Interpretation: My independent interpretation patient's one-view chest x-ray is as follows: COPD changes, no acute infiltrate-this correlates with the radiology read My independent interpretation patient's 12 EKG done at 21:21 hours is as follows: Sinus rhythm with a rate of 98, normal WI, prolonged QRS of 110 milliseconds prolonged QTC of 490 millisecond, bigeminy, no ST segment elevation, no ST segment depression, no significant T-wave abnormalities Radiology Impression Discussion of test interpretation with radiology: I have reviewed the radiologist's reading. Radiologist Impression: XR chest 1V IMPRESSION: Hyperexpanded lungs. No acute pulmonary findings. Dictated By: n Discharge Plan Discharge Clinical Impression: Acute exacerbation of chronic obstructive pulmonary disease, Bronchitis Patient Disposition: Admitted As Inpatient
[2023-09-10 21:54] LABS: Alanine Aminotransferase 37 U/L (0-40); Albumin Level 3.6 g/dL (3.5-5.0); Alkaline Phosphatase 88 U/L (39-117); Anion Gap 15 (12-20); Aspartate Amino Transferase 23 U/L (5-37); Bilirubin Total 0.4 mg/dL (0.0-1.0); Blood Urea Nitrogen 23 mg/dL (9-16); Calcium 9.6 mg/dL (8.4-10.2); Carbon Dioxide 24 mmol/L (22-29); Chloride 106 mmol/L (96-108); Creatinine Clr Calc Pharmacy 43.5; Estimated Glomerular Filt Rate > 60; Glucose Random 97 mg/dL (60-115); Potassium 3.8 mmol/L (3.3-5.1); Sodium 141 mmol/L (135-145)
[2023-09-10 21:59] LABS: B Type Natriuretic Peptide 99 pg/mL (<100)
--- NOTE | 2023-09-10 22:00 | PC.NURSE ---
Patient is alert and oriented x3, calm and cooperative. VSS. O2 Sat 95-98 % on O2 at 2 LPM NC. Patient denies any pain. Labs drawn per MD orders and sent to lab for processing. Patient medicated per JAN. RT assessed patient and administered Duo neb treatment, patient tolerated well. Call ulloa within patient's reach, patient instructed in use.
[2023-09-10 22:01] LABS: Troponin-I High Sensitivity 9.5 ng/L (<3.5-35.0)
[2023-09-10 22:15] VITALS: BP 129/66; PULSE 52; RESP 19; TEMP 36.7; O2SAT 97
[2023-09-10 22:17] LABS: Influenza A PCR NEGATIVE (Negative); Influenza B PCR NEGATIVE (Negative); Resp Syncy Virus RNA Qual PCR NEGATIVE (Negative); SARS COV2 PCR INHOUSE NEGATIVE (Negative)
[2023-09-10] MEDS: Albuterol/Iprat 2.5/0.5MG 3 ML AMPUL.NEB INHALE (22:49)
--- NOTE | 2023-09-10 22:49 | P.HPHOSP_ITS ---
History of Present Illness Date of Service: 09/10/23 Chief Complaint: Dyspnea This is a 78-year-old male with pertinent history of chronic hypoxemic respiratory failure due to COPD, essential hypertension, mixed hyperlipidemia, mood disorder, gastroesophageal reflux disease, congestive heart failure with reduced ejection fraction who presents to the emergency department for evaluation of dyspnea. Of note, patient was recently admitted with COPD exacerbation and discharged on 08/21. Patient states that he was discharged on 2 L supplemental oxygen. Since the discharge, patient kept having progressive dyspnea this was worse with ambulation. His oxygen requirements increased and he had to use 4-6 L to help with his dyspnea. Also had associated wheezing and cough with intermittent sputum production. Denies orthopnea or PND. States he is compliant with his home inhalers. No fever, chills, chest discomfort, palpitations, abdominal pain, changes in urinary or bowel habits. In the emergency department, patient with significant wheezing and requiring supplemental oxygen. Review of Systems 2 Constitutional: Constitutional: Reports fatigue and Reports lethargy Cardiovascular: Cardiovascular: Reports dyspnea on exertion Respiratory: Respiratory: Reports cough, Reports dyspnea on exertion and Reports wheezing Gastrointestinal: Gastrointestinal: Reports no additional gastrointestinal complaints Genitourinary: Genitourinary: Reports no additional male genitourinary complaints Endocrine: Endocrine: Reports fatigue Allergic/Immunologic: Allergic/Immunologic: Reports wheezing [facility] Medical History COPD (chronic obstructive pulmonary disease) CHF (congestive heart failure) Hyperlipidemia Hypertension Pertinent family history: No family history of early CAD Social History Household Members: Family Household Members Other:: 2 Housing: House Do you presently have visiting nurse or other home services: Yes ([employer]- Daughter) Alcohol intake: never Patient Tobacco Use Status: Former Tobacco user Quit Date: 2021 Tobacco use type: Cigarette Cigarette Packs Per Day: 1 Cigarettes Per Day: 20.0 Years Smoked: 50 Smoked in Last 30 Days: No Advance Directives: No Advance Directives Information Provided: Yes Nutrition Risks: No Nutritional Risk service: Yes Current occupational status: retired Meds Allergies Allergy/AdvReac Type Severity Reaction Status Date / Time adhesive tape Allergy Intermediate Rash Verified 06/27/23 08:28 Penicillins [PENICILLINS] Allergy Unknown VOMITTING Verified 06/27/23 08:28 Active Medications: Current Medications Ceftriaxone Sodium 1 gm/ (Sodium Chloride) 50 mls @ 100 mls/hr IV ONCE ONE Stop: 09/10/23 22:53 Home Medications Medication Instructions Recorded Confirmed Last Taken Type acetaminophen 500 mg tablet 500 mg PO BID PRN Pain 05/25/22 09/11/23 Unknown History guaifenesin 600 mg tablet,extended 600 mg PO TID PRN Cough 05/25/22 09/11/23 Unknown History release omeprazole 20 mg capsule,delayed 40 mg PO BID@0630,1630 05/25/22 09/11/23 06/14/22 History release trazodone 50 mg tablet 100 mg PO BEDTIME PRN Insomnia 05/25/22 09/11/23 Unknown History albuterol sulfate 90 mcg/actuation 1 inh inhalation QID PRN Wheezing 05/26/22 09/11/23 Unknown History aerosol inhaler amitriptyline 10 mg tablet 20 mg PO BEDTIME 05/26/22 09/11/23 06/14/22 History atorvastatin 40 mg tablet 20 mg PO BEDTIME 05/26/22 09/11/23 06/14/22 History budesonide 160 mcg-glycopyr 9 2 inh inhalation BID 06/27/23 08/19/23 Unknown History mcg-formot 4.8 mcg/actuation HFA inhaler (Breztri Aerosphere) multivitamin 1 tab PO DAILY 06/27/23 09/11/23 Unknown History sucralfate 1 gram tablet 1 g PO TIDWM 06/27/23 08/19/23 Unknown History azelastine 137 mcg (0.1 %) nasal 2 spray intranasal BID 08/20/23 09/11/23 Unknown History spray aerosol azithromycin 250 mg tablet 250 mg PO MOWEFR 08/20/23 08/20/23 Unknown History cholecalciferol (vitamin D3) 50 50 mcg PO DAILY 08/20/23 08/20/23 Unknown History mcg (2,000 unit) tablet ipratropium 0.5 mg-albuterol 3 mg 3 ml inhalation Q6H PRN Wheezing 08/20/23 08/20/23 Unknown History (2.5 mg base)/3 mL nebulization soln magnesium oxide 420 mg tablet 420 mg PO DAILY 08/20/23 08/20/23 Unknown History riboflavin (vitamin B2) 100 mg 200 mg PO BEDTIME 08/20/23 08/20/23 Unknown History tablet tobramycin with nebulizer 300 mg/5 300 mg inhalation BID 08/20/23 08/20/23 Unknown History mL solution for nebulization Physical Exam 2 Vital Signs and Narrative: Vital Signs: Last Vital Signs Temp 98.0 F 09/10/23 22:15 Pulse 52 09/10/23 22:15 Resp 19 09/10/23 22:15 BP 129/66 09/10/23 22:15 Pulse Ox 97 09/10/23 22:15 O2 Del Method Nasal Cannula 09/10/23 22:15 Oxygen Flow Rate 3 09/10/23 21:10 BMI result Body Mass Index 18.0 Middle-aged male lying in bed in mild distress on supplemental oxygen Neck supple, no JVD Regular rate and rhythm, S1-S2 heard Bilateral wheezing present without crackles Abdomen soft nontender, no guarding, no rigidity Patient is awake, alert and oriented to self, place, time and person ; no focal motor deficit Psych: Normal mood No pedal edema Results Labs 09/10/23 21:29 09/10/23 21:29 Labs: Laboratory Results - last 24 hr 09/10/23 09/10/23 21:29 21:35 MCV 100.0 H MCH 32.5 MCHC 32.5 RDW 14.7 Plt Count 197 MPV 9.2 L Immature Gran % (Auto) 2.2 H Neut % (Auto) 67.6 Lymph % (Auto) 21.7 [place] % (Auto) 8.0 Eos % (Auto) 0.3 Baso % (Auto) 0.2 Lymph # (Auto) 2.0 [place] # (Auto) 0.7 Eos # (Auto) 0.0 Baso # (Auto) 0.0 Abs Immat Gran (auto) 0.20 H Absolute Neuts (auto) 6.1 Absolute Nucleated RBC 0.000 Nucleated RBC % (auto) 0.0 Anion Gap 15 Estim Creat Clear Calc 43.5 Estimated GFR > 60 Random Glucose 97 Calcium 9.6 D Total Bilirubin 0.4 AST 23 ALT 37 Alkaline Phosphatase 88 B-Natriuretic Peptide 99 Total Protein 6.0 L Albumin 3.6 Influenza Type A (PCR) NEGATIVE Influenza Type B (PCR) NEGATIVE RSV RNA Qual (PCR) NEGATIVE SARS-CoV-2 RNA (RT-PCR) NEGATIVE Imaging Radiologist's Impressions: Impressions Chest X-Ray 09/10/23 21:41 IMPRESSION: Hyperexpanded lungs. No acute pulmonary findings. Assessment and Plan (1) Acute exacerbation of chronic obstructive pulmonary disease: Status: Acute Plan This is a 78-year-old male with pertinent history of chronic hypoxemic respiratory failure due to COPD, essential hypertension, mixed hyperlipidemia, mood disorder, gastroesophageal reflux disease, congestive heart failure with reduced ejection fraction who presents to the emergency department for evaluation of dyspnea. #. Acute on chronic hypoxemic respiratory failure secondary to COPD exacerbation: Will admit patient with supplemental oxygen. Scheduled and p.r.n. DuoNebs. Initiating systemic steroids. Continue home inhaler. Noted similar recurrent hospitalizations, will consult Pulmonary to optimize. Initiating azithromycin for pleiotropic effect #. Congestive heart failure with reduced ejection fraction: No decompensation during admission. Continue home furosemide #. Mixed hyperlipidemia: On statin #. Essential hypertension: Continue home antihypertensives #. Mood disorder: Continue home mood stabilizers #. Gastroesophageal reflux disease: On PPI Med rec pending DVT prophylaxis: Lovenox Admit as inpatient and will require two night minimum hospital stay for supplemental oxygen Time Spent With Patient Time: Total time managing care of this patient today ____ minutes. Quality Stroke Does the patient have a stroke diagnosis?: No VTE Prior VTE?: No VTE Risk Level:: Medical - moderate - high VTE Device Contraindication: Treatment Not Indicated VTE Drug Contraindication: N/A - Med Ordered
[2023-09-10 22:51] VITALS: PULSE 96; RESP 18; O2SAT 95
[2023-09-10] MEDS: Enoxaparin Sodium 40 MG/0.4 ML SYRINGE SUBCUT (22:55)
[2023-09-10] MEDS: methylPREDNISolone Sod Succ 125 MG/2 ML VIAL IVPUSH (22:55)
[2023-09-10] MEDS: cefTRIAXone sodium 1 GM in 0.9 % Sodium Chloride 50 ML IV (23:02)
[2023-09-10 23:06] LABS: Lactic Acid 1.6 mmol/L (0.5-2.0)
[2023-09-11] MEDS: Benzonatate 100 MG CAPSULE PO (00:12)
[2023-09-11] MEDS: Azithromycin 500 MG in 0.9 % Sodium Chloride 250 ML 125 MG IV ×2 (00:12→22:55)
[2023-09-11] MEDS: 0.9 % Sodium Chloride Flush 3 ML SYRINGE IVFLUSH ×3 (00:18→17:33)
[2023-09-11 01:23] VITALS: BP 116/77; PULSE 90; RESP 30; O2SAT 97
[2023-09-11] MEDS: LORazepam 2 MG/ML VIAL 1 MG IVPUSH ×2 (01:29→20:11)
--- NOTE | 2023-09-11 01:35 | PC.NURSE ---
Patient requesting to be medicated for anxiety. Dr. Mcclendon informed. Patient denies any pain, VSS. O2 Sat stable 96-98% on 2 LPM NC. Patient's daughter is at bedside, call ulloa within patient's reach.
--- NOTE | 2023-09-11 01:38 | PC.NURSE ---
Patient medicated with Lorazepam 1 mg IV push for anxiety.
[2023-09-11 04:54] LABS: Appearance Urine Turbid; Color Urine Dark Yellow; Glucose Urine UA Negative (Negative); Leukocyte Esterase Urine Moderate (2+) (Negative); Nitrite Urine Negative (Negative); UMIC TRIGGER UACC YES; Urine Blood Large (3+) (Negative); Urine Ketones Negative (Negative); Urine Protein 100 (2+) mg/dL (Neg-Trace)
[2023-09-11 05:01] LABS: Bacteria Urine None Seen (None Seen); Hyaline Casts Urine 0-2 /LPF (0-2); RBC Urine >20 /HPF (0-2); UACC Culture Trigger YES
[2023-09-11 06:31] LABS: MANUAL DIFF FLAG NO
[2023-09-11 06:52] LABS: Anion Gap 16 (12-20); Blood Urea Nitrogen 23 mg/dL (9-16); Calcium 9.1 mg/dL (8.4-10.2); Carbon Dioxide 22 mmol/L (22-29); Chloride 108 mmol/L (96-108); Creatinine Clr Calc Pharmacy 56.7; Estimated Glomerular Filt Rate > 60; Glucose Random 138 mg/dL (60-115); Potassium 4.3 mmol/L (3.3-5.1); Sodium 142 mmol/L (135-145)
[2023-09-11 07:19] LABS: Basophils Percent Auto 0.1 % (0-2); Hematocrit 40.2 % (42.0-52.0); Hemoglobin 13.1 g/dl (14.0-18.0); Imm Gran Abs Auto 0.13 X10*3/uL (0.00-0.03); Imm Gran Pct Auto 1.9 % (0.0-0.4); Lymphocytes Absolute Auto 0.6 X10*3/uL (1.2-4.9); Lymphocytes Percent Auto 8.2 % (20-40); Mean Corpuscular HGB Conc 32.6 g/dl (31.0-36.0); Mean Corpuscular Hemoglobin 32.8 pg (27.0-33.0); Mean Corpuscular Volume 100.5 fL (80.0-98.0); Mean Platelet Volume 9.4 fL (9.4-12.4); Monocytes Absolute Auto 0.1 X10*3/uL (0.1-1.2); Monocytes Percent Auto 1.4 % (2-11); Neutrophils Absolute Auto 6.2 x10*3/uL (2.0-8.3); Neutrophils Percent Auto 88.4 % (45-73); Platelet Count 201 X10*3/uL (160-400); Red Cell Distribution Width 14.6 % (11.0-16.0)
--- NOTE | 2023-09-11 08:16 | PC.NURSE ---
Resumed care of patient at 0700, he is currently resting comfortably. O2 monitor placed back on patient. Awaiting bed placement at this time. Daughter called to get an update on patient. All needs met at this time
--- NOTE | 2023-09-11 10:25 | PHA.MEDREC ---
Pharmacy Consult ? Medication Reconciliation Pharmacy has completed the medication reconciliation.Med rec complete, spoke to patients daughter Marleen, and got pharmacy list from [place].
--- NOTE | 2023-09-11 11:21 | MHC.CM.PN ---
Addendum entered by Cinthia Umanzor 09/15/23 15:09: PT ALSO ACTIVE WITH [facility] Original Note: PT REPORTS HE LIVES WITH HIS DAUGHTER AND IS INDEPENDENT WITH SELF CARE HE REPORTS USING HOME OXYGEN [facility]ED BY [facility] AND HAVING NO OTHER DME PT DENIES HAVING ANY HOME SERVICES PT REPORTS HE IS [facility] CONNECT[facility] AND DOES NOT HAVE MEDICARE PT HAS A HCP NAMING HIS DAUGHTER HIS AGENT, COPY REQUESTED PCP: L[facility] TRIN[facility] DCP: HOME NO SERVICES DAUGHTER TO TRANSPORT
[2023-09-11] MEDS: Albuterol/Iprat 2.5/0.5MG 3 ML AMPUL.NEB INHALE ×3 (11:37→19:47)
[2023-09-11 11:38] VITALS: PULSE 79; RESP 18; O2SAT 97
[2023-09-11] MEDS: methylPREDNISolone Sod Succ 40 MG/ML VIAL IVPUSH ×2 (13:03→22:56)
--- NOTE | 2023-09-11 15:36 | HO.PM.IMPN ---
Subjective Subjective Date of Service: 09/12/23 Interval History: Asthma exacerbation Review of Systems Shortness of breath slightly improving but still short of breath with minimal exertion, has cough and phlegm Denies any fever Physical Exam Vital Signs: Vital Signs: Last Vital Signs Temp 98.0 F 09/10/23 22:15 Pulse 79 09/11/23 11:38 Resp 18 09/11/23 11:38 BP 116/77 09/11/23 01:23 Pulse Ox 97 09/11/23 01:23 O2 Del Method Room Air 09/11/23 01:23 Oxygen Flow Rate 3 09/10/23 21:10 BMI result Body Mass Index 18.0 Appearance: Alert.? Oriented X3.? not in distress.?. cvs: rrr, [id number] , no murmur res: fair air entry,b/l wheezin abd: no rebound or guarding ,nt, bs present. ext pulses present , no cyanosis neuro: axo3 , nonfocal. Objective Data Active Medications Acetaminophen (Acetaminophen 325 Mg Tablet) 650 mg PO Q6H PRN PRN Reason: Pain, Mild (Pain Scale 1-3) Albuterol/Ipratropium (Albuterol/Iprat 2.5/0.5mg 3 Ml Ampul.Neb) 3 ml INHALE RQ4H WHILE [facility]WAKE [facility] Last Admin: 09/11/23 11:37 Dose: 3 ml Documented By: MICHEL Albuterol/Ipratropium (Albuterol/Iprat 2.5/0.5mg 3 Ml Ampul.Neb) 3 ml INHALE Q4H PRN PRN Reason: Wheezing Amitriptyline HCl (Amitriptyline Hcl 10 Mg Tablet) 20 mg PO BEDTIME [facility] Atorvastatin Calcium (Atorvastatin Calcium 20 Mg Tablet) 20 mg PO BEDTIME [facility] Azelastine HCl (Azelastine Hcl Nasal 137 Mcg/[place] 30 Ml) 2 spray NOSTRIL-B BID [facility] Benzonatate (Benzonatate 100 Mg Capsule) 100 mg PO TID PRN PRN Reason: Cough Last Admin: 09/11/23 00:12 Dose: 100 mg Documented By: PRASANNA Enoxaparin Sodium (Enoxaparin Sodium 40 Mg/0.4 Ml Syringe) 40 mg SUBCUT Q24H [facility] Last Admin: 09/10/23 22:55 Dose: 40 mg Documented By: PRASANNA Guaifenesin (Guaifenesin La 600 Mg Tab.Er.12h) 600 mg PO TID PRN PRN Reason: mucous Azithromycin 500 mg/ Sodium (Chloride) 250 mls @ 125 mls/hr IV Q24H [facility] Last Infusion: 09/11/23 02:20 Dose: Infused Documented By: PRASANNA Melatonin (Melatonin 3 Mg Tablet) 6 mg PO BEDTIME PRN PRN Reason: Insomnia Methylprednisolone Sodium Succinate (Methylprednisolone Sod Succ 40 Mg/Ml Vial) 40 mg IVPUSH Q12H [facility] Last Admin: 09/11/23 13:03 Dose: 40 mg Documented By: GABY Multivitamins/Vitamin C (Multivitamin Tablet) 1 tab PO DAILY [facility] Non-Formulary Medication (Zdrzemixev-Kemlxhzz-Jyfbtxybbt [Breztri Aerosphere]) 2 inhalation INHALE BID [facility] Non-Formulary Medication (Magnesium Oxide) 420 mg PO DAILY [facility] Non-Formulary Medication (Riboflavin (Vitamin B2)) 200 mg PO BEDTIME [facility] Non-Formulary Medication (Tobramycin With Nebulizer) 300 mg INHALE BID [facility] Omeprazole (Omeprazole 40 Mg Capsule.Dr) 40 mg PO BID@0630,1630 [facility] Ondansetron HCl (Ondansetron Hcl 4 Mg/2 Ml Vial) 4 mg IVPUSH Q8H PRN PRN Reason: Nausea and Vomiting Sodium Chloride (0.9 % Sodium Chloride Flush 3 Ml Syringe) 3 ml IVFLUSH QSHIFT [facility] Last Admin: 09/11/23 08:27 Dose: 3 ml Documented By: MELITA Sucralfate (Sucralfate 1 Gm Tablet) 1 gm PO TIDWM [facility] Trazodone HCl (Trazodone Hcl 100 Mg Tablet) 100 mg PO BEDTIME PRN PRN Reason: Insomnia Vitamin D (Cholecalciferol (Vitamin D3) 25 Mcg Tablet) 50 mcg PO DAILY [facility] Labs 09/11/23 05:55 09/11/23 05:55 Labs: Laboratory Results - last 24 hr 09/10/23 09/10/23 09/10/23 21:29 21:35 22:45 MCV 100.0 H MCH 32.5 MCHC 32.5 RDW 14.7 Plt Count 197 MPV 9.2 L Immature Gran % (Auto) 2.2 H Neut % (Auto) 67.6 Lymph % (Auto) 21.7 [place] % (Auto) 8.0 Eos % (Auto) 0.3 Baso % (Auto) 0.2 Lymph # (Auto) 2.0 [place] # (Auto) 0.7 Eos # (Auto) 0.0 Baso # (Auto) 0.0 Abs Immat Gran (auto) 0.20 H Absolute Neuts (auto) 6.1 Absolute Nucleated RBC 0.000 Nucleated RBC % (auto) 0.0 Anion Gap 15 Estim Creat Clear Calc 43.5 Estimated GFR > 60 Random Glucose 97 Lactic Acid 1.6 Calcium 9.6 D Total Bilirubin 0.4 AST 23 ALT 37 Alkaline Phosphatase 88 B-Natriuretic Peptide 99 Total Protein 6.0 L Albumin 3.6 Urine Color Urine Appearance Urine pH Ur Specific [place] Urine Protein Urine Glucose (UA) Urine Ketones Urine Blood Urine Nitrite Ur Leukocyte Esterase Urine RBC Urine WBC Ur Squamous Epith Cells Urine Bacteria Hyaline Casts Influenza Type A (PCR) NEGATIVE Influenza Type B (PCR) NEGATIVE RSV RNA Qual (PCR) NEGATIVE SARS-CoV-2 RNA (RT-PCR) NEGATIVE 09/11/23 09/11/23 04:48 05:55 MCV 100.5 H MCH 32.8 MCHC 32.6 RDW 14.6 Plt Count 201 MPV 9.4 Immature Gran % (Auto) 1.9 H Neut % (Auto) 88.4 H Lymph % (Auto) 8.2 L [place] % (Auto) 1.4 L Eos % (Auto) 0.0 Baso % (Auto) 0.1 Lymph # (Auto) 0.6 L [place] # (Auto) 0.1 Eos # (Auto) 0.0 Baso # (Auto) 0.0 Abs Immat Gran (auto) 0.13 H Absolute Neuts (auto) 6.2 Absolute Nucleated RBC 0.000 Nucleated RBC % (auto) 0.0 Anion Gap 16 Estim Creat Clear Calc 56.7 Estimated GFR > 60 Random Glucose 138 H Lactic Acid Calcium 9.1 Total Bilirubin AST ALT Alkaline Phosphatase B-Natriuretic Peptide Total Protein Albumin Urine Color Dark Yellow Urine Appearance Turbid Urine pH 5.0 Ur Specific [place] 1.020 Urine Protein 100 (2+) H Urine Glucose (UA) Negative Urine Ketones Negative Urine Blood Large (3+) H Urine Nitrite Negative Ur Leukocyte Esterase Moderate (2+) H Urine RBC >20 H Urine WBC 11-20 H Ur Squamous Epith Cells 6-10 Urine Bacteria None Seen Hyaline Casts 0-2 Influenza Type A (PCR) Influenza Type B (PCR) RSV RNA Qual (PCR) SARS-CoV-2 RNA (RT-PCR) Assessment and Plan (1) Acute and chronic respiratory failure: Status: Acute (2) Bronchitis: Status: Acute (3) Acute exacerbation of chronic obstructive pulmonary disease: Status: Acute Plan 78-year-old male with pertinent history of chronic hypoxemic respiratory failure due to COPD, essential hypertension, mixed hyperlipidemia, mood disorder, gastroesophageal reflux disease, congestive heart failure with reduced ejection fraction who presents to the emergency department for evaluation of dyspnea. Acute on chronic hypoxemic respiratory failure secondary to COPD exacerbation: continue supplemental oxygen. Scheduled and p.r.n. DuoNebs. Initiating systemic steroids. Continue home inhaler. Noted similar recurrent hospitalizations, will consult Pulmonary to optimize. Initiating azithromycin for pleiotropic effect Congestive heart failure with reduced ejection fraction: No decompensation during admission. Continue home furosemide Mixed hyperlipidemia: On statin Essential hypertension: Continue home antihypertensives Mood disorder: Continue home mood stabilizers. Gastroesophageal reflux disease: On PPI underrweight : encouraged for po intake added nutritional eval. DVT prophylaxis: Lovenox ongoning inpatient need: COPD exacerbation -need nebs, steroids, dress respiratory status status is not optimal yet. Time Spent With Patient Time: Total time managing care of this patient today ____ minutes. Quality Stroke Does the patient have a stroke diagnosis?: No VTE Prior VTE?: No VTE Risk Level:: Medical - moderate - high VTE Device Contraindication: Treatment Not Indicated VTE Drug Contraindication: N/A - Med Ordered
[2023-09-11 15:45] VITALS: PULSE 79; RESP 18; O2SAT 97
--- NOTE | 2023-09-11 15:50 | PC.NURSE ---
Report given to Boy ALONSO
[2023-09-11 16:36] VITALS: BP 125/84; PULSE 94; RESP 20; TEMP 36.8; O2SAT 100
[2023-09-11] MEDS: Sucralfate 1 GM TABLET PO (17:30)
[2023-09-11] MEDS: Omeprazole 40 MG CAPSULE.DR PO (17:30)
--- NOTE | 2023-09-11 19:48 | PC.NURSE ---
I assumed care of the pt at 1900. Pt resting comfortably in bed at this time. Pt is having some auditory wheezes bilaterally upon first meeting. Pt it otherwise A&Ox4, GCS 15, with warm dry skin. No signs of apparent distress. Pt denied pain, nausea, vomiting. Pt given his scheduled nebulizer per JAN.
[2023-09-11] MEDS: Amitriptyline HCl 10 MG TABLET 20 MG PO (20:11)
[2023-09-11] MEDS: Atorvastatin Calcium 20 MG TABLET PO (20:11)
[2023-09-11] MEDS: Melatonin 3 MG TABLET 6 MG PO (20:13)
[2023-09-11] MEDS: traZODone HCL 100 MG TABLET PO (20:13)
[2023-09-11] MEDS: Enoxaparin Sodium 40 MG/0.4 ML SYRINGE SUBCUT (22:55)
[2023-09-11 23:01] VITALS: BP 111/73; PULSE 70; RESP 14; TEMP -12.4; TEMP 9.6; O2SAT 97
[2023-09-12] VITALS (8 sets, daily range): BP systolic 115–135; BP diastolic 77–90; PULSE 57–114; RESP 16–20; TEMP 36.1–37.2; O2SAT 95–99; BMI 18.0
[2023-09-12] MEDS: Omeprazole 40 MG CAPSULE.DR PO ×2 (06:25→16:41)
[2023-09-12] MEDS: Albuterol/Iprat 2.5/0.5MG 3 ML AMPUL.NEB INHALE ×4 (08:11→20:01)
[2023-09-12] MEDS: 0.9 % Sodium Chloride Flush 3 ML SYRINGE IVFLUSH ×2 (08:44→19:48)
[2023-09-12] MEDS: Cholecalciferol (Vitamin D3) 25 MCG TABLET 50 MCG PO (08:45)
[2023-09-12] MEDS: Magnesium Oxide 400 MG TABLET PO (08:46)
[2023-09-12] MEDS: Multivitamin TABLET 1 TAB PO (08:46)
[2023-09-12] MEDS: Sucralfate 1 GM TABLET PO ×3 (08:46→16:41)
--- NOTE | 2023-09-12 08:50 | P.CONPL_ITS ---
History of Present Illness History of Present Illness Consult date: 09/12/23 Chief complaint: Dyspnea Narrative: This is an inpatient pulmonary consultation.This is a 78-year-old male with pertinent history of chronic hypoxemic respiratory failure due to COPD, essential hypertension, mixed hyperlipidemia, mood disorder, gastroesophageal reflux disease, congestive heart failure with reduced ejection fraction who presents to the emergency department for evaluation of dyspnea. Of note, patient was recently admitted with COPD exacerbation and discharged on 08/21. Patient states that he was discharged on 2 L supplemental oxygen. Since the discharge, patient kept having progressive dyspnea this was worse with ambulation. His oxygen requirements increased and he had to use 4-6 L to help with his dyspnea. Also had associated wheezing and cough with intermittent sputum production. The patient was admitted to the hospital again with COPD exacerbation. He is very slow to improve. Significant chest congestion and shortness of breath. 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 At this point will try to optimize his respiratory therapy further by adding theophylline. Also will assess for smoldering infection. Review of Systems 2 Constitutional: Constitutional: Reports fatigue and Reports lethargy Cardiovascular: Cardiovascular: Reports dyspnea on exertion Respiratory: Respiratory: Reports chest congestion, Reports cough, Reports dyspnea on exertion and Reports wheezing Gastrointestinal: Gastrointestinal: Reports no additional gastrointestinal complaints Genitourinary: Genitourinary: Reports no additional male genitourinary complaints Endocrine: Endocrine: Reports fatigue Allergic/Immunologic: Allergic/Immunologic: Reports wheezing PMFSH Past Medical History Medical History (Updated 09/12/23 @ 08:54 by Brendon Martinez MD) Acute and chronic respiratory failure COPD (chronic obstructive pulmonary disease) CHF (congestive heart failure) Hyperlipidemia Hypertension Social History Social History Household Members: Children Household Members Other:: 2 Housing: Apartment Do you presently have visiting nurse or other home services: Yes (states [facility] visits every now and then per pt) Alcohol intake: never Patient Tobacco Use Status: Former Tobacco user Quit Date: 2021 Tobacco use type: Cigarette Cigarette Packs Per Day: 1 Cigarettes Per Day: 20.0 Years Smoked: 50 e-Cigarette/Vaping Use: Never Used service: Yes Current occupational status: retired Meds Allergies Allergy/AdvReac Type Severity Reaction Status Date / Time adhesive tape Allergy Intermediate Rash Verified 06/27/23 08:28 Penicillins [PENICILLINS] Allergy Unknown VOMITTING Verified 06/27/23 08:28 Active Medications: Current Medications Acetaminophen (Acetaminophen 325 Mg Tablet) 650 mg PO Q6H PRN PRN Reason: Pain, Mild (Pain Scale 1-3) Albuterol/Ipratropium (Albuterol/Iprat 2.5/0.5mg 3 Ml Ampul.Neb) 3 ml INHALE RQ4H WHILE AWAKE COUNTS INCLUDE 234 BEDS AT THE [facility] Last Admin: 09/12/23 08:11 Dose: 3 ml Albuterol/Ipratropium (Albuterol/Iprat 2.5/0.5mg 3 Ml Ampul.Neb) 3 ml INHALE Q4H PRN PRN Reason: Wheezing Amitriptyline HCl (Amitriptyline Hcl 10 Mg Tablet) 20 mg PO BEDTIME COUNTS INCLUDE 234 BEDS AT THE [facility] Last Admin: 09/11/23 20:11 Dose: 20 mg Atorvastatin Calcium (Atorvastatin Calcium 20 Mg Tablet) 20 mg PO BEDTIME COUNTS INCLUDE 234 BEDS AT THE [facility] Last Admin: 09/11/23 20:11 Dose: 20 mg Azelastine HCl (Azelastine Hcl Nasal 137 Mcg/[place] 30 Ml) 2 spray NOSTRIL-B BID COUNTS INCLUDE 234 BEDS AT THE [facility] Last Admin: 09/11/23 20:17 Dose: Not Given Benzonatate (Benzonatate 100 Mg Capsule) 100 mg PO TID PRN PRN Reason: Cough Last Admin: 09/11/23 00:12 Dose: 100 mg Doxycycline Monohydrate (Doxycycline Monohydrate 100 Mg Capsule) 100 mg PO Q12H COUNTS INCLUDE 234 BEDS AT THE [facility] Enoxaparin Sodium (Enoxaparin Sodium 40 Mg/0.4 Ml Syringe) 40 mg SUBCUT Q24H COUNTS INCLUDE 234 BEDS AT THE [facility] Last Admin: 09/11/23 22:55 Dose: 40 mg Guaifenesin (Guaifenesin La 600 Mg Tab.Er.12h) 600 mg PO TID PRN PRN Reason: mucous Magnesium Oxide (Magnesium Oxide 400 Mg Tablet) 400 mg PO DAILY COUNTS INCLUDE 234 BEDS AT THE [facility] Last Admin: 09/12/23 08:46 Dose: 400 mg Melatonin (Melatonin 3 Mg Tablet) 6 mg PO BEDTIME PRN PRN Reason: Insomnia Last Admin: 09/11/23 20:13 Dose: 6 mg Methylprednisolone Sodium Succinate (Methylprednisolone Sod Succ 40 Mg/Ml Vial) 40 mg IVPUSH Q12H COUNTS INCLUDE 234 BEDS AT THE [facility] Last Admin: 09/11/23 22:56 Dose: 40 mg Multivitamins/Vitamin C (Multivitamin Tablet) 1 tab PO DAILY COUNTS INCLUDE 234 BEDS AT THE [facility] Last Admin: 09/12/23 08:46 Dose: 1 tab Non-Formulary Medication (Yepbwrqhhl-Pxjwixiz-Gqqjeyfrod [Breztri Aerosphere]) 2 inhalation INHALE BID COUNTS INCLUDE 234 BEDS AT THE [facility] Non-Formulary Medication (Riboflavin (Vitamin B2)) 200 mg PO BEDTIME COUNTS INCLUDE 234 BEDS AT THE [facility] Omeprazole (Omeprazole 40 Mg Capsule.Dr) 40 mg PO BID@0630,1630 COUNTS INCLUDE 234 BEDS AT THE [facility] Last Admin: 09/12/23 06:25 Dose: 40 mg Ondansetron HCl (Ondansetron Hcl 4 Mg/2 Ml Vial) 4 mg IVPUSH Q8H PRN PRN Reason: Nausea and Vomiting Sodium Chloride (0.9 % Sodium Chloride Flush 3 Ml Syringe) 3 ml IVFLUSH QSHIFT COUNTS INCLUDE 234 BEDS AT THE [facility] Last Admin: 09/12/23 08:44 Dose: 3 ml Sucralfate (Sucralfate 1 Gm Tablet) 1 gm PO TIDWM COUNTS INCLUDE 234 BEDS AT THE [facility] Last Admin: 09/12/23 08:46 Dose: 1 gm Theophylline (Theophylline Anhydrous Er 300 Mg Tab.Er.12h) 300 mg PO BID COUNTS INCLUDE 234 BEDS AT THE [facility] Trazodone HCl (Trazodone Hcl 100 Mg Tablet) 100 mg PO BEDTIME PRN PRN Reason: Insomnia Last Admin: 09/11/23 20:13 Dose: 100 mg Vitamin D (Cholecalciferol (Vitamin D3) 25 Mcg Tablet) 50 mcg PO DAILY COUNTS INCLUDE 234 BEDS AT THE [facility] Last Admin: 09/12/23 08:45 Dose: 50 mcg Home Medications Medication Instructions Recorded Confirmed Last Taken Type acetaminophen 500 mg tablet 500 mg PO BID PRN Pain 05/25/22 09/11/23 Unknown History omeprazole 20 mg capsule,delayed 40 mg PO BID@0630,1630 05/25/22 09/11/23 09/10/23 History release albuterol sulfate 90 mcg/actuation 1 inh inhalation QID PRN Wheezing 05/26/22 09/11/23 Unknown History aerosol inhaler amitriptyline 10 mg tablet 20 mg PO BEDTIME 05/26/22 09/11/23 09/10/23 History atorvastatin 40 mg tablet 20 mg PO BEDTIME 05/26/22 09/11/23 06/14/22 History budesonide 160 mcg-glycopyr 9 2 inh inhalation BID 06/27/23 09/11/23 09/10/23 History mcg-formot 4.8 mcg/actuation HFA inhaler ([employer]) multivitamin 1 tab PO DAILY 06/27/23 09/11/23 Unknown History sucralfate 1 gram tablet 1 g PO TIDWM 06/27/23 09/11/23 09/10/23 History azelastine 137 mcg (0.1 %) nasal 2 spray intranasal BID 08/20/23 09/11/23 Unknown History spray aerosol cholecalciferol (vitamin D3) 50 50 mcg PO DAILY 08/20/23 09/11/23 09/10/23 History mcg (2,000 unit) tablet ipratropium 0.5 mg-albuterol 3 mg 3 ml inhalation Q6H PRN Wheezing 08/20/23 09/11/23 Unknown History (2.5 mg base)/3 mL nebulization soln magnesium oxide 420 mg tablet 420 mg PO DAILY 08/20/23 09/11/23 09/10/23 History riboflavin (vitamin B2) 100 mg 200 mg PO BEDTIME 08/20/23 09/11/23 09/10/23 History tablet tobramycin with nebulizer 300 mg/5 300 mg inhalation BID 08/20/23 09/11/23 08/30/23 History mL solution for nebulization guaifenesin 600 mg tablet, 600 mg PO TID PRN mucous 09/11/23 09/11/23 Unknown History extended release 12 hr prednisone 20 mg tablet 20 mg PO DAILY 09/11/23 09/11/23 09/10/23 History trazodone 100 mg tablet 100 mg PO BEDTIME PRN Insomnia 09/11/23 09/11/23 Unknown History Physical Exam 2 Vital Signs: Vital Signs: Last Vital Signs Temp 97.0 F 09/12/23 07:43 Pulse 84 09/12/23 08:13 Resp 18 09/12/23 08:13 BP 115/85 09/12/23 07:43 Pulse Ox 97 09/12/23 07:43 O2 Del Method Nasal Cannula 09/12/23 07:43 O2 Flow Rate 2 09/12/23 07:43 Oxygen Flow Rate 3 09/10/23 21:10 BMI result Body Mass Index 18.0 Const: General: comfortable HEENT: Head: Yes normocephalic Neck: Neck: Yes supple Chest: Chest palpation & inspection: normal inspection of the chest Resp: Effort & Inspection: normal respiratory effort and prolonged expiratory phase Auscultation: rhonchi and diminished lung sounds Cardio: Rate: regular rate Rhythm: regular rhythm Heart sounds: S1 normal heart sound present and S2 normal heart sound present GI: Palpation (GI): Soft to palpation Skin: General skin exam: no rashes or lesions noted Extrem: General: Yes no clubbing, cyanosis or edema Results Laboratory Findings 09/11/23 05:55 09/11/23 05:55 Abnormal lab findings: Abnormal Labs 09/10/23 09/11/23 09/11/23 21:29 04:48 05:55 RBC 4.28 L 4.00 L Hgb 13.9 L 13.1 L Hct 40.2 L MCV 100.0 H 100.5 H MPV 9.2 L Immature Gran % (Auto) 2.2 H 1.9 H Neut % (Auto) 88.4 H Lymph % (Auto) 8.[address] [place] % (Auto) 1.4 L Lymph # (Auto) 0.6 L Abs Immat Gran (auto) 0.20 H 0.13 H BUN 23 H 23 H Random Glucose 138 H Total Protein 6.0 L Urine Protein 100 (2+) H Urine Blood Large (3+) H Ur Leukocyte Esterase Moderate (2+) H Urine RBC >20 H Urine WBC 11-20 H Microbiology: Microbiology 09/10/23 23:00 Blood - Venous Blood Culture - Preliminary No growth after 24 hours. 09/10/23 22:45 Blood - Venous Blood Culture - Preliminary No growth after 24 hours. Assessment and Plan (1) Acute exacerbation of chronic obstructive pulmonary disease: Status: Acute (2) Acute and chronic respiratory failure: Status: Acute (3) Bronchitis: Status: Acute Plan Continue nebulizer therapy Add CPT with acapella valve continue solumedrol Add Theophylline stop azithromycin Add Doxycycline Sputum cx if able MRASA screen Bloodwork requested continue oxygen to keep pox >90% continue respiratory therapy Outpt pulmonary at [facility] Time Spent With Patient Time: Total time managing care of this patient today ____ minutes. Procedures Date of Service Date of Service: 09/12/23
[2023-09-12] MEDS: Theophylline Anhydrous ER 300 MG TAB.ER.12H PO ×2 (09:39→20:17)
[2023-09-12] MEDS: Doxycycline Monohydrate 100 MG CAPSULE PO ×2 (09:39→20:16)
[2023-09-12] MEDS: Azelastine HCl Nasal 137 MCG/Spray 30 ML 2 SPRAY NOSTRIL-B ×2 (09:40→20:16)
[2023-09-12 09:59] LABS: Erythrocyte Sedimentation Rate 5 MM/HR (0-15)
[2023-09-12 11:24] LABS: MRSA Nasal PCR NEGATIVE (Negative); SA Nasal PCR NEGATIVE (Negative)
[2023-09-12 11:27] LABS: Adenovirus PCR Not Detected (Not Detect.); Bordetella parapertussis PCR Not Detected (Not Detect.); Bordetella pertussis PCR Not Detected (Not Detect.); Chlamydia pneumoniae PCR Not Detected (Not Detect.); Coronavirus 229E PCR Not Detected (Not Detect.); Coronavirus HKU1 PCR Not Detected (Not Detect.); Coronavirus NL63 PCR Not Detected (Not Detect.); Coronavirus OC43 PCR Not Detected (Not Detect.); Human metapneumovirus PCR Not Detected (Not Detect.); Influenza A PCR Not Detected (Not Detect.); Influenza B PCR Not Detected (Not Detect.); Mycoplasma pneumoniae PCR Not Detected (Not Detect.); Parainfluenza 1 PCR Not Detected (Not Detect.); Parainfluenza 2 PCR Not Detected (Not Detect.); Parainfluenza 3 PCR Not Detected (Not Detect.); Parainfluenza 4 PCR Not Detected (Not Detect.); RSV PCR Not Detected (Not Detect.); Rhino/Enterovirus PCR Not Detected (Not Detect.)
[2023-09-12 11:30] LABS: SARS-CoV-2 PCR Not Detected (Not Detect.)
[2023-09-12] MEDS: methylPREDNISolone Sod Succ 40 MG/ML VIAL IVPUSH ×2 (12:49→22:46)
--- NOTE | 2023-09-12 13:12 | MHC.CM.PN ---
EMR REVIEWED AND PER MD ROUNDS, PT IS NOT MEDICALLY READY FOR DC (STILL SOB,INCREASED 02 REQUIREMENTS) CM WILL CONTINUE TO FOLLOW FOR ANY CHANGES IN DC PLAN/NEEDS
--- NOTE | 2023-09-12 14:26 | P.CDIM_ITS ---
PROVIDER RESPONSE TEXT: To clarify, the appropriate diagnosis supported by the clinical indicators: Underweight QUERY TEXT: PHYSICIAN'S DOCUMENTATION REQUEST Date of Query: 09/12/2023 12:52 PM EDT Patient Name: Garrett Cuevas Admit Date: 09/11/2023 Dear Ortega Garcia, A review of the medical record indicates additional documentation may be needed. Please review below and update the documentation accordingly. Clinical Indicators: Height: ( ) 5'11 Weight: ( ) 58.7 kg BMI: ( ) 18.0 Other Clinical Notes Supporting Significance of the BMI: No Nutrition Assessment in EMR If possible, please provide an associated diagnosis related to the abnormal BMI, such as: Underweight Weight loss Cachexia Anorexia BMI is not significant Other (explain)Clinically unable to determine (explain)Thank you, Madhavi Piña RN Use of terms such as suspected, likely, concern for, or probable (associated with a specific diagnosi s that is being evaluated, monitored, or treated as if it exists) are acceptable and can be coded in the inpatient se tting, when documented at the time of discharge. Please use your independent medical judgment in providing your response. THIS QUERY IS PART OF THE PERMANENT MEDICAL RECORD
[2023-09-12] MEDS: Amitriptyline HCl 10 MG TABLET 20 MG PO (20:16)
[2023-09-12] MEDS: Atorvastatin Calcium 20 MG TABLET PO (20:16)
[2023-09-12] MEDS: LORazepam 2 MG/ML VIAL 1 MG IVPUSH (20:17)
[2023-09-12] MEDS: Enoxaparin Sodium 40 MG/0.4 ML SYRINGE SUBCUT (22:46)
[2023-09-13] VITALS (7 sets, daily range): BP systolic 122–137; BP diastolic 67–82; PULSE 54–75; RESP 18–20; TEMP 36.1–36.6; O2SAT 97–100
[2023-09-13] MEDS: Omeprazole 40 MG CAPSULE.DR PO ×2 (06:07→16:19)
[2023-09-13] MEDS: Albuterol/Iprat 2.5/0.5MG 3 ML AMPUL.NEB INHALE ×4 (08:15→19:58)
[2023-09-13] MEDS: Cholecalciferol (Vitamin D3) 25 MCG TABLET 50 MCG PO (08:39)
[2023-09-13] MEDS: Magnesium Oxide 400 MG TABLET PO (08:39)
[2023-09-13] MEDS: Theophylline Anhydrous ER 300 MG TAB.ER.12H PO ×2 (08:39→20:09)
[2023-09-13] MEDS: Sucralfate 1 GM TABLET PO ×3 (08:39→16:19)
[2023-09-13] MEDS: Magnesium Sulfate/D5W 1 GM/100 ML PIGGYBACK IV (08:39)
[2023-09-13] MEDS: Multivitamin TABLET 1 TAB PO (08:39)
[2023-09-13] MEDS: Doxycycline Monohydrate 100 MG CAPSULE PO ×2 (08:39→20:09)
[2023-09-13] MEDS: 0.9 % Sodium Chloride Flush 3 ML SYRINGE IVFLUSH ×3 (08:39→20:10)
[2023-09-13] MEDS: Azelastine HCl Nasal 137 MCG/Spray 30 ML 2 SPRAY NOSTRIL-B ×2 (09:07→20:10)
[2023-09-13] MEDS: guaiFENesin LA 600 MG TAB.ER.12H PO ×2 (10:23→20:09)
[2023-09-13] MEDS: methylPREDNISolone Sod Succ 40 MG/ML VIAL IVPUSH ×2 (10:23→21:05)
--- NOTE | 2023-09-13 12:14 | P.PNIM_ITS ---
Subjective Subjective Date of Service: 09/13/23 Interval History: Asthma exacerbation Review of Systems sob seems simialr to yesterday has cough and phlegm Denies any fever Physical Exam 2 Vital Signs: Vital Signs: Last Vital Signs Temp 97.9 F 09/13/23 00:41 Pulse 54 09/13/23 11:48 Resp 20 09/13/23 11:48 BP 137/82 09/13/23 00:41 Pulse Ox 100 09/13/23 00:41 O2 Del Method Nasal Cannula 09/13/23 00:41 O2 Flow Rate 2 09/13/23 00:41 Oxygen Flow Rate 3 09/10/23 21:10 BMI result Body Mass Index 18.0 Appearance: Alert.? Oriented X3.? not in distress.?. cvs: rrr, [id number] , no murmur res: fair air entry,b/l wheezin abd: no rebound or guarding ,nt, bs present. ext pulses present , no cyanosis neuro: axo3 , nonfocal. Objective Data Active Medications Acetaminophen (Acetaminophen 325 Mg Tablet) 650 mg PO Q6H PRN PRN Reason: Pain, Mild (Pain Scale 1-3) Albuterol/Ipratropium (Albuterol/Iprat 2.5/0.5mg 3 Ml Ampul.Neb) 3 ml INHALE RQ4H WHILE AWAKE [facility] Last Admin: 09/13/23 11:38 Dose: 3 ml Documented By: TUAN Albuterol/Ipratropium (Albuterol/Iprat 2.5/0.5mg 3 Ml Ampul.Neb) 3 ml INHALE Q4H PRN PRN Reason: Wheezing Amitriptyline HCl (Amitriptyline Hcl 10 Mg Tablet) 20 mg PO BEDTIME [facility] Last Admin: 09/12/23 20:16 Dose: 20 mg Documented By: SUZANNE Atorvastatin Calcium (Atorvastatin Calcium 20 Mg Tablet) 20 mg PO BEDTIME [facility] Last Admin: 09/12/23 20:16 Dose: 20 mg Documented By: SUZANNE Azelastine HCl (Azelastine Hcl Nasal 137 Mcg/[place] 30 Ml) 2 spray NOSTRIL-B BID [facility] Last Admin: 09/13/23 09:07 Dose: 2 spray Documented By: ALBERTO Benzonatate (Benzonatate 100 Mg Capsule) 100 mg PO TID PRN PRN Reason: Cough Last Admin: 09/11/23 00:12 Dose: 100 mg Documented By: PRASANNA Doxycycline Monohydrate (Doxycycline Monohydrate 100 Mg Capsule) 100 mg PO Q12H [facility] Last Admin: 09/13/23 08:39 Dose: 100 mg Documented By: ALBERTO Enoxaparin Sodium (Enoxaparin Sodium 40 Mg/0.4 Ml Syringe) 40 mg SUBCUT Q24H [facility] Last Admin: 09/12/23 22:46 Dose: 40 mg Documented By: SUZANNE Guaifenesin (Guaifenesin La 600 Mg Tab.Er.12h) 600 mg PO TID PRN PRN Reason: mucous Last Admin: 09/13/23 10:23 Dose: 600 mg Documented By: ALBERTO Magnesium Oxide (Magnesium Oxide 400 Mg Tablet) 400 mg PO DAILY [facility] Last Admin: 09/13/23 08:39 Dose: 400 mg Documented By: ALBERTO Melatonin (Melatonin 3 Mg Tablet) 6 mg PO BEDTIME PRN PRN Reason: Insomnia Last Admin: 09/11/23 20:13 Dose: 6 mg Documented By: GERMAINE Methylprednisolone Sodium Succinate (Methylprednisolone Sod Succ 40 Mg/Ml Vial) 40 mg IVPUSH Q12H [facility] Last Admin: 09/13/23 10:23 Dose: 40 mg Documented By: ALBERTO Multivitamins/Vitamin C (Multivitamin Tablet) 1 tab PO DAILY [facility] Last Admin: 09/13/23 08:39 Dose: 1 tab Documented By: ALBERTO Non-Formulary Medication (Aeydpptoes-Fvkivtzg-Kentfbbqua [Breztri Aerosphere]) 2 inhalation INHALE BID [facility] Non-Formulary Medication (Riboflavin (Vitamin B2)) 200 mg PO BEDTIME [facility] Omeprazole (Omeprazole 40 Mg Capsule.Dr) 40 mg PO BID@0630,1630 [facility] Last Admin: 09/13/23 06:07 Dose: 40 mg Documented By: SUZANNE Ondansetron HCl (Ondansetron Hcl 4 Mg/2 Ml Vial) 4 mg IVPUSH Q8H PRN PRN Reason: Nausea and Vomiting Sodium Chloride (0.9 % Sodium Chloride Flush 3 Ml Syringe) 3 ml IVFLUSH QSHIFT [facility] Last Admin: 09/13/23 08:39 Dose: 3 ml Documented By: ALBERTO Sucralfate (Sucralfate 1 Gm Tablet) 1 gm PO TIDWM [facility] Last Admin: 09/13/23 08:39 Dose: 1 gm Documented By: ALBERTO Theophylline (Theophylline Anhydrous Er 300 Mg Tab.Er.12h) 300 mg PO BID [facility] Last Admin: 09/13/23 08:39 Dose: 300 mg Documented By: ALBERTO Trazodone HCl (Trazodone Hcl 100 Mg Tablet) 100 mg PO BEDTIME PRN PRN Reason: Insomnia Last Admin: 09/11/23 20:13 Dose: 100 mg Documented By: GERMAINE Vitamin D (Cholecalciferol (Vitamin D3) 25 Mcg Tablet) 50 mcg PO DAILY [facility] Last Admin: 09/13/23 08:39 Dose: 50 mcg Documented By: ALBERTO Labs 09/11/23 05:55 09/11/23 05:55 Microbiology Microbiology Results: Microbiology 09/10/23 23:00 Blood Culture - Preliminary Blood - Venous No growth after 48 hours. 09/10/23 22:45 Blood Culture - Preliminary Blood - Venous No growth after 48 hours. 09/11/23 Unknown Urine Culture - Final Urine clean catch - Urine john top Assessment and Plan (1) Acute and chronic respiratory failure: Status: Acute (2) Bronchitis: Status: Acute (3) Acute exacerbation of chronic obstructive pulmonary disease: Status: Acute Plan 78-year-old male with pertinent history of chronic hypoxemic respiratory failure due to COPD, essential hypertension, mixed hyperlipidemia, mood disorder, gastroesophageal reflux disease, congestive heart failure with reduced ejection fraction who presents to the emergency department for evaluation of dyspnea. Acute on chronic hypoxemic respiratory failure secondary to COPD exacerbation: continue Scheduled and p.r.n. DuoNebs,systemic steroids, home oxygen. still sob with minimum excersion added sputum culture nasal mrsa screen negative pulm -added theophyllin/doxycycline (09/12/23) and stop azithromycin Congestive heart failure with reduced ejection fraction: No decompensation during admission. Continue home furosemide Mixed hyperlipidemia: On statin Essential hypertension: Continue home antihypertensives Mood disorder: Continue home mood stabilizers. Gastroesophageal reflux disease: On PPI underrweight : encouraged for po intake added nutritional eval. DVT prophylaxis: Lovenox ongoning inpatient need: COPD exacerbation -need nebs, steroids, dress respiratory status status is not optimal yet. Time Spent With Patient Time: Total time managing care of this patient today ____ minutes. Quality Stroke Does the patient have a stroke diagnosis?: No VTE Prior VTE?: No VTE Risk Level:: Medical - moderate - high VTE Device Contraindication: Treatment Not Indicated VTE Drug Contraindication: N/A - Med Ordered
[2023-09-13] MEDS: Butalb/Acetamin/Caff 50/325/40 TABLET 1 TAB PO (16:19)
[2023-09-13] MEDS: Benzonatate 100 MG CAPSULE PO (20:09)
[2023-09-13] MEDS: Atorvastatin Calcium 20 MG TABLET PO (20:09)
[2023-09-13] MEDS: Amitriptyline HCl 10 MG TABLET 20 MG PO (20:09)
[2023-09-13] MEDS: LORazepam 2 MG/ML VIAL 1 MG IVPUSH (21:01)
[2023-09-13] MEDS: Enoxaparin Sodium 40 MG/0.4 ML SYRINGE SUBCUT (21:05)
[2023-09-14] VITALS (8 sets, daily range): BP systolic 119–125; BP diastolic 64–83; PULSE 76–106; RESP 16–20; TEMP 36.1–36.8; O2SAT 96–99
[2023-09-14] MEDS: Omeprazole 40 MG CAPSULE.DR PO ×2 (05:48→16:37)
[2023-09-14] MEDS: Albuterol/Iprat 2.5/0.5MG 3 ML AMPUL.NEB INHALE ×4 (08:15→20:15)
[2023-09-14] MEDS: Multivitamin TABLET 1 TAB PO (08:35)
[2023-09-14] MEDS: Magnesium Oxide 400 MG TABLET PO (08:35)
[2023-09-14] MEDS: Theophylline Anhydrous ER 300 MG TAB.ER.12H PO ×2 (08:35→21:19)
[2023-09-14] MEDS: Cholecalciferol (Vitamin D3) 25 MCG TABLET 50 MCG PO (08:35)
[2023-09-14] MEDS: 0.9 % Sodium Chloride Flush 3 ML SYRINGE IVFLUSH ×3 (08:35→21:20)
[2023-09-14] MEDS: Doxycycline Monohydrate 100 MG CAPSULE PO ×2 (08:35→21:20)
[2023-09-14] MEDS: Sucralfate 1 GM TABLET PO ×3 (08:35→16:37)
[2023-09-14] MEDS: Azelastine HCl Nasal 137 MCG/Spray 30 ML 2 SPRAY NOSTRIL-B ×2 (08:35→21:20)
--- NOTE | 2023-09-14 10:25 | MHC.CLN ---
F/U DIET=CARDIAC. PER MD, ENSURE CLEAR BID. SUPPLEMENT PROVIDES 300 KCALS, 18 G PROTEIN. SIGNIFICANT WEIGHT LOSS X 2 MONTHS -15.4%. PATIENT ATTRIBUTES WEIGHT FLUCTUATION TO CHANGES IN FLUID STATUS WITH CHF/DIURETIC USE. DOES NOT APPEAR TO BE MALNOURISHED. REPORTS THAT USUALLY EATS WELL. PO INTAKE 50-100%. FOLLOW FOR PO INTAKE.
[2023-09-14] MEDS: Furosemide 20 MG/2 ML VIAL IVPUSH (11:02)
[2023-09-14] MEDS: methylPREDNISolone Sod Succ 40 MG/ML VIAL IVPUSH ×2 (11:02→21:20)
[2023-09-14 11:46] LABS: B Type Natriuretic Peptide 109 pg/mL (<100)
--- NOTE | 2023-09-14 13:22 | HO.PM.IMPN ---
Subjective Subjective Date of Service: 09/14/23 Interval History: c/o dyspnea, leg edema coughing no fever Review of Systems Review of Systems: Yes all other systems are reviewed and are negative Physical Exam Vital Signs: Vital Signs: Last Vital Signs Temp 97.6 F 09/14/23 07:45 Pulse 97 09/14/23 11:16 Resp 20 09/14/23 11:16 BP 125/80 09/14/23 07:45 Pulse Ox 97 09/14/23 07:45 O2 Del Method Nasal Cannula 09/14/23 07:45 O2 Flow Rate 2 09/14/23 07:45 Oxygen Flow Rate 3 09/10/23 21:10 BMI result Body Mass Index 18.0 Gen: in no acute distress HEENT: sclera anicteric, moist mucus membranes Neck: supple Lungs: bibasilar wet inspiratory crackles Heart: regular rate and rhythm, no murmurs Abd: soft, non-tender, non-distended Ext: trace bilateral leg edema Skin: warm/well-perfused Neuro: alert and oriented x3, no focal findings Psych: appropriate affect Objective Data Active Medications Acetaminophen (Acetaminophen 325 Mg Tablet) 650 mg PO Q6H PRN PRN Reason: Pain, Mild (Pain Scale 1-3) Albuterol/Ipratropium (Albuterol/Iprat 2.5/0.5mg 3 Ml Ampul.Neb) 3 ml INHALE RQ4H WHILE AWAKE [facility] Last Admin: 09/14/23 11:15 Dose: 3 ml Documented By: TUAN Albuterol/Ipratropium (Albuterol/Iprat 2.5/0.5mg 3 Ml Ampul.Neb) 3 ml INHALE Q4H PRN PRN Reason: Wheezing Amitriptyline HCl (Amitriptyline Hcl 10 Mg Tablet) 20 mg PO BEDTIME [facility] Last Admin: 09/13/23 20:09 Dose: 20 mg Documented By: FLORENCE Atorvastatin Calcium (Atorvastatin Calcium 20 Mg Tablet) 20 mg PO BEDTIME [facility] Last Admin: 09/13/23 20:09 Dose: 20 mg Documented By: FLORENCE Azelastine HCl (Azelastine Hcl Nasal 137 Mcg/[place] 30 Ml) 2 spray NOSTRIL-B BID [facility] Last Admin: 09/14/23 08:35 Dose: 2 spray Documented By: HO.SWEITZM Benzonatate (Benzonatate 100 Mg Capsule) 100 mg PO TID PRN PRN Reason: Cough Last Admin: 09/13/23 20:09 Dose: 100 mg Documented By: FLORENCE Doxycycline Monohydrate (Doxycycline Monohydrate 100 Mg Capsule) 100 mg PO Q12H [facility] Last Admin: 09/14/23 08:35 Dose: 100 mg Documented By: ALBERTO Enoxaparin Sodium (Enoxaparin Sodium 40 Mg/0.4 Ml Syringe) 40 mg SUBCUT Q24H [facility] Last Admin: 09/13/23 21:05 Dose: 40 mg Documented By: FLORENCE Furosemide (Furosemide 20 Mg/2 Ml Vial) 20 mg IVPUSH DAILY [facility]; Protocol Last Admin: 09/14/23 11:02 Dose: 20 mg Documented By: ALBERTO Guaifenesin (Guaifenesin La 600 Mg Tab.Er.12h) 600 mg PO TID PRN PRN Reason: mucous Last Admin: 09/13/23 20:09 Dose: 600 mg Documented By: FLORENCE Magnesium Oxide (Magnesium Oxide 400 Mg Tablet) 400 mg PO DAILY [facility] Last Admin: 09/14/23 08:35 Dose: 400 mg Documented By: ALBERTO Melatonin (Melatonin 3 Mg Tablet) 6 mg PO BEDTIME PRN PRN Reason: Insomnia Last Admin: 09/11/23 20:13 Dose: 6 mg Documented By: GERMAINE Methylprednisolone Sodium Succinate (Methylprednisolone Sod Succ 40 Mg/Ml Vial) 40 mg IVPUSH Q12H [facility] Last Admin: 09/14/23 11:02 Dose: 40 mg Documented By: ALBERTO Multivitamins/Vitamin C (Multivitamin Tablet) 1 tab PO DAILY [facility] Last Admin: 09/14/23 08:35 Dose: 1 tab Documented By: ALBERTO Non-Formulary Medication (Rtnghzkkbw-Rjoiubqn-Yianbjghle [Breztri Aerosphere]) 2 inhalation INHALE BID [facility] Non-Formulary Medication (Riboflavin (Vitamin B2)) 200 mg PO BEDTIME [facility] Omeprazole (Omeprazole 40 Mg Capsule.) 40 mg PO BID@0630,1630 [facility] Last Admin: 09/14/23 05:48 Dose: 40 mg Documented By: HO.BOURQC Ondansetron HCl (Ondansetron Hcl 4 Mg/2 Ml Vial) 4 mg IVPUSH Q8H PRN PRN Reason: Nausea and Vomiting Sodium Chloride (0.9 % Sodium Chloride Flush 3 Ml Syringe) 3 ml IVFLUSH QSHIFT [facility] Last Admin: 09/14/23 08:35 Dose: 3 ml Documented By: ALBERTO Sucralfate (Sucralfate 1 Gm Tablet) 1 gm PO TIDWM [facility] Last Admin: 09/14/23 11:02 Dose: 1 gm Documented By: ALBERTO Theophylline (Theophylline Anhydrous Er 300 Mg Tab.Er.12h) 300 mg PO BID [facility] Last Admin: 09/14/23 08:35 Dose: 300 mg Documented By: ALBERTO Trazodone HCl (Trazodone Hcl 100 Mg Tablet) 100 mg PO BEDTIME PRN PRN Reason: Insomnia Last Admin: 09/11/23 20:13 Dose: 100 mg Documented By: GERMAINE Vitamin D (Cholecalciferol (Vitamin D3) 25 Mcg Tablet) 50 mcg PO DAILY [facility] Last Admin: 09/14/23 08:35 Dose: 50 mcg Documented By: ALBERTO Labs 09/11/23 05:55 09/11/23 05:55 Labs: Laboratory Results - last 24 hr 09/14/23 10:48 B-Natriuretic Peptide 109 H Impressions Chest X-Ray 09/14/23 11:04 IMPRESSION: Redemonstration of mild bibasilar opacities, likely representing atelectasis/scar rather than pneumonia. No new focal consolidation. Microbiology Microbiology Results: Microbiology 09/13/23 13:50 Gram Stain - Final Sputum - Expectorated Sputum Culture - Final Assessment and Plan (1) Acute and chronic respiratory failure: Status: Acute (2) Bronchitis: Status: Acute (3) Acute exacerbation of chronic obstructive pulmonary disease: Status: Acute Plan d5 78yo M with chronic hypoxia due to COPD [on 2L home O2], HLD, HF with mildly reduced EF, GERD, mood disorder presented with dyspnea, admitted for acute/chronic hypoxia due to COPD exac acute/chronic hypoxc resp failure due to COPD exac - continue IV methylprednisolone, scheduled/prn nebs - on home O2 - nasal MRSA negative, sputum culture oral shaun - Pulm consulted 09/12/23, changed to doxycycline and added theophyilline acute/chronic HF with mildly reduced EF - will give IV furosemide, check I/O, trend BNP + monitor lytes HLD - statin mood disorder - continue amitriptylline, trazodone, sucralfate, lorazepam GERD - PPI, sucralfate underweight - supplements VTE ppx - LMWH dispo - anticipate home with VNA eventually In my clinical judgment, the patient requires continued inpatient hospitalization for the following reasons: respiratory status + IV diuresis Time Spent With Patient Time: Total time managing care of this patient today ___45_ minutes. Quality Stroke Does the patient have a stroke diagnosis?: No VTE Prior VTE?: No VTE Risk Level:: Medical - moderate - high VTE Device Contraindication: Treatment Not Indicated VTE Drug Contraindication: N/A - Med Ordered
--- NOTE | 2023-09-14 13:33 | MHC.CM.PN ---
Per MD rounds patient is not ready for discharge today. Patient continues with Shortness of breath and requires supplemental oxygen. DP Home self care. Patients dtr will provide transport home.
[2023-09-14 15:48] LABS: Immunoglobulin G 471 mg/dL (600-1540)
[2023-09-14] MEDS: Atorvastatin Calcium 20 MG TABLET PO (21:19)
[2023-09-14] MEDS: guaiFENesin LA 600 MG TAB.ER.12H PO (21:19)
[2023-09-14] MEDS: Amitriptyline HCl 10 MG TABLET 20 MG PO (21:19)
[2023-09-14] MEDS: LORazepam 1 MG TABLET PO (21:19)
[2023-09-14] MEDS: Benzonatate 100 MG CAPSULE PO (21:19)
[2023-09-14] MEDS: Enoxaparin Sodium 40 MG/0.4 ML SYRINGE SUBCUT (21:20)
[2023-09-15 03:29] VITALS: BP 105/80; PULSE 88; RESP 16; TEMP 36.2; O2SAT 98
[2023-09-15] MEDS: Omeprazole 40 MG CAPSULE.DR PO ×2 (06:11→16:25)
[2023-09-15 06:36] LABS: Anion Gap 16 (12-20); Blood Urea Nitrogen 35 mg/dL (9-16); Calcium 9.7 mg/dL (8.4-10.2); Carbon Dioxide 27 mmol/L (22-29); Chloride 98 mmol/L (96-108); Creatinine Clr Calc Pharmacy 44.3; Estimated Glomerular Filt Rate > 60; Glucose Random 115 mg/dL (60-115); Magnesium 2.3 mg/dL (1.6-2.6); Potassium 4.5 mmol/L (3.3-5.1); Sodium 136 mmol/L (135-145)
[2023-09-15 06:40] LABS: B Type Natriuretic Peptide 108 pg/mL (<100)
[2023-09-15 07:36] VITALS: BP 135/92; PULSE 95; RESP 20; TEMP 36.1; O2SAT 98
[2023-09-15] MEDS: Furosemide 20 MG/2 ML VIAL IVPUSH (08:05)
[2023-09-15] MEDS: 0.9 % Sodium Chloride Flush 3 ML SYRINGE IVFLUSH ×3 (08:05→21:32)
[2023-09-15] MEDS: Multivitamin TABLET 1 TAB PO (08:06)
[2023-09-15] MEDS: Theophylline Anhydrous ER 300 MG TAB.ER.12H PO ×2 (08:06→21:30)
[2023-09-15] MEDS: Magnesium Oxide 400 MG TABLET PO (08:06)
[2023-09-15] MEDS: Sucralfate 1 GM TABLET PO ×3 (08:06→16:25)
[2023-09-15] MEDS: Doxycycline Monohydrate 100 MG CAPSULE PO ×2 (08:06→21:31)
[2023-09-15] MEDS: Cholecalciferol (Vitamin D3) 25 MCG TABLET 50 MCG PO (08:06)
[2023-09-15] MEDS: Azelastine HCl Nasal 137 MCG/Spray 30 ML 2 SPRAY NOSTRIL-B ×2 (08:08→21:32)
[2023-09-15] MEDS: methylPREDNISolone Sod Succ 40 MG/ML VIAL IVPUSH ×2 (10:44→21:32)
--- NOTE | 2023-09-15 13:38 | P.PNIM_ITS ---
Subjective Subjective Date of Service: 09/15/23 Interval History: Dyspnea improved negative 1150 in last 24hr no fever Review of Systems Review of Systems: Yes all other systems are reviewed and are negative Physical Exam 2 Vital Signs: Vital Signs: Last Vital Signs Temp 96.9 F 09/15/23 07:36 Pulse 95 09/15/23 07:36 Resp 20 09/15/23 07:36 BP 135/92 H 09/15/23 07:36 Pulse Ox 98 09/15/23 07:36 O2 Del Method Nasal Cannula 09/15/23 07:36 O2 Flow Rate 2 09/15/23 07:36 Oxygen Flow Rate 3 09/10/23 21:10 BMI result Body Mass Index 18.0 Gen: in no acute distress HEENT: sclera anicteric, moist mucus membranes Neck: supple Lungs: bilateral expiratory wheezing Heart: regular rate and rhythm, no murmurs Abd: soft, non-tender, non-distended Ext: no edema Skin: warm/well-perfused Neuro: alert and oriented x3, no focal findings Psych: appropriate affect Objective Data Active Medications Acetaminophen (Acetaminophen 325 Mg Tablet) 650 mg PO Q6H PRN PRN Reason: Pain, Mild (Pain Scale 1-3) Albuterol/Ipratropium (Albuterol/Iprat 2.5/0.5mg 3 Ml Ampul.Neb) 3 ml INHALE RQ4H WHILE AWAKE [facility] Last Admin: 09/15/23 12:30 Dose: Not Given Documented By: ZOHREH Non-Admin Reason: Patient Asleep Albuterol/Ipratropium (Albuterol/Iprat 2.5/0.5mg 3 Ml Ampul.Neb) 3 ml INHALE Q4H PRN PRN Reason: Wheezing Amitriptyline HCl (Amitriptyline Hcl 10 Mg Tablet) 20 mg PO BEDTIME [facility] Last Admin: 09/14/23 21:19 Dose: 20 mg Documented By: FLORENCE Atorvastatin Calcium (Atorvastatin Calcium 20 Mg Tablet) 20 mg PO BEDTIME [facility] Last Admin: 09/14/23 21:19 Dose: 20 mg Documented By: FLORENCE Azelastine HCl (Azelastine Hcl Nasal 137 Mcg/[place] 30 Ml) 2 spray NOSTRIL-B BID [facility] Last Admin: 09/15/23 08:08 Dose: 2 spray Documented By: GABINO Benzonatate (Benzonatate 100 Mg Capsule) 100 mg PO TID PRN PRN Reason: Cough Last Admin: 09/14/23 21:19 Dose: 100 mg Documented By: FLORENCE Doxycycline Monohydrate (Doxycycline Monohydrate 100 Mg Capsule) 100 mg PO Q12H [facility] Last Admin: 09/15/23 08:06 Dose: 100 mg Documented By: GABINO Enoxaparin Sodium (Enoxaparin Sodium 40 Mg/0.4 Ml Syringe) 40 mg SUBCUT Q24H [facility] Last Admin: 09/14/23 21:20 Dose: 40 mg Documented By: FLORENCE Fluticasone/Vilanterol (Fluticasone/Vilanterol 100/25 Blst.W.Dev) 1 puff INHALE DAILY [facility] Last Admin: 09/15/23 08:53 Dose: Not Given Documented By: ZOHREH Non-Admin Reason: pharmacy called Furosemide (Furosemide 20 Mg/2 Ml Vial) 20 mg IVPUSH DAILY [facility]; Protocol Last Admin: 09/15/23 08:05 Dose: 20 mg Documented By: GABINO Guaifenesin (Guaifenesin La 600 Mg Tab.Er.12h) 600 mg PO TID PRN PRN Reason: mucous Last Admin: 09/14/23 21:19 Dose: 600 mg Documented By: FLORENCE Lorazepam (Lorazepam 1 Mg Tablet) 1 mg PO BEDTIME [facility] Last Admin: 09/14/23 21:19 Dose: 1 mg Documented By: FLORENCE Magnesium Oxide (Magnesium Oxide 400 Mg Tablet) 400 mg PO DAILY [facility] Last Admin: 09/15/23 08:06 Dose: 400 mg Documented By: GABINO Melatonin (Melatonin 3 Mg Tablet) 6 mg PO BEDTIME PRN PRN Reason: Insomnia Last Admin: 09/11/23 20:13 Dose: 6 mg Documented By: GERMAINE Methylprednisolone Sodium Succinate (Methylprednisolone Sod Succ 40 Mg/Ml Vial) 40 mg IVPUSH Q12H [facility] Last Admin: 09/15/23 10:44 Dose: 40 mg Documented By: GABINO Multivitamins/Vitamin C (Multivitamin Tablet) 1 tab PO DAILY [facility] Last Admin: 09/15/23 08:06 Dose: 1 tab Documented By: GABINO Omeprazole (Omeprazole 40 Mg Capsule.) 40 mg PO BID@0630,1630 [facility] Last Admin: 09/15/23 06:11 Dose: 40 mg Documented By: FLORENCE Ondansetron HCl (Ondansetron Hcl 4 Mg/2 Ml Vial) 4 mg IVPUSH Q8H PRN PRN Reason: Nausea and Vomiting Sodium Chloride (0.9 % Sodium Chloride Flush 3 Ml Syringe) 3 ml IVFLUSH QSHIFT [facility] Last Admin: 09/15/23 08:05 Dose: 3 ml Documented By: GABINO Sucralfate (Sucralfate 1 Gm Tablet) 1 gm PO TIDWM [facility] Last Admin: 09/15/23 12:10 Dose: 1 gm Documented By: GABINO Theophylline (Theophylline Anhydrous Er 300 Mg Tab.Er.12h) 300 mg PO BID [facility] Last Admin: 09/15/23 08:06 Dose: 300 mg Documented By: GABINO Trazodone HCl (Trazodone Hcl 100 Mg Tablet) 100 mg PO BEDTIME PRN PRN Reason: Insomnia Last Admin: 09/11/23 20:13 Dose: 100 mg Documented By: GERMAINE Vitamin D (Cholecalciferol (Vitamin D3) 25 Mcg Tablet) 50 mcg PO DAILY [facility] Last Admin: 09/15/23 08:06 Dose: 50 mcg Documented By: GABINO Labs 09/11/23 05:55 09/15/23 05:58 Labs: Laboratory Results - last 24 hr 09/12/23 09/15/23 10:14 05:58 Anion Gap 16 Estim Creat Clear Calc 44.3 Estimated GFR > 60 Random Glucose 115 Calcium 9.7 D Magnesium 2.3 B-Natriuretic Peptide 108 H IgG 471 L Assessment and Plan (1) Acute and chronic respiratory failure: Status: Acute (2) Bronchitis: Status: Acute (3) Acute exacerbation of chronic obstructive pulmonary disease: Status: Acute Plan d6 78yo M with chronic hypoxia due to COPD [on 2L home O2], HLD, HF with mildly reduced EF, GERD, mood disorder presented with dyspnea, admitted for acute/chronic hypoxia due to COPD exac acute/chronic hypoxc resp failure due to COPD exac - continue IV methylprednisolone, scheduled/prn nebs - on home O2 2L - nasal MRSA negative, sputum culture oral shaun - Pulm consulted 09/12/23, changed to doxycycline and added theophyilline acute/chronic HF with mildly reduced EF - continue IV furosemide, measure I/O, trend BNP + monitor lytes - TTE 06/28/23: - Normal left ventricular cavity size. There is normal left ventricular wall thickness. The left ventricular systolic function is borderline reduced. The visually estimated ejection fraction is between 45-50%. - Mildly increased right ventricular cavity size. There is normal right ventricular systolic function. - Mild pulmonary hypertension is present. - There is mild dilatation of the ascending aorta measuring 3.60 cm. HLD - statin mood disorder - continue amitriptylline, trazodone, sucralfate, lorazepam GERD - PPI, sucralfate underweight - supplements VTE ppx - LMWH dispo - anticipate home with VNA eventually In my clinical judgment, the patient requires continued inpatient hospitalization for the following reasons: respiratory status + IV diuresis Time Spent With Patient Time: Total time managing care of this patient today __40__ minutes. Quality Stroke Does the patient have a stroke diagnosis?: No VTE Prior VTE?: No VTE Risk Level:: Medical - moderate - high VTE Device Contraindication: Treatment Not Indicated VTE Drug Contraindication: N/A - Med Ordered
--- NOTE | 2023-09-15 15:09 | MHC.CM.PN ---
CM RECEIVED A MESSAGE INDICATING PT IS ACTIVE WITH [facility] REFERRAL ADDED TO [facility]
[2023-09-15 15:21] VITALS: BP 139/84; PULSE 51; RESP 20; TEMP 36.6; O2SAT 97
[2023-09-15] MEDS: Albuterol/Iprat 2.5/0.5MG 3 ML AMPUL.NEB INHALE ×2 (16:26→20:57)
[2023-09-15 19:11] VITALS: BP 152/98; PULSE 101; RESP 18; TEMP 36.2; O2SAT 95
[2023-09-15] MEDS: Benzonatate 100 MG CAPSULE PO (20:05)
[2023-09-15] MEDS: guaiFENesin LA 600 MG TAB.ER.12H PO (20:05)
[2023-09-15 20:59] VITALS: PULSE 58; RESP 18; O2SAT 99
[2023-09-15] MEDS: Amitriptyline HCl 10 MG TABLET 20 MG PO (21:30)
[2023-09-15] MEDS: LORazepam 1 MG TABLET PO (21:31)
[2023-09-15] MEDS: Atorvastatin Calcium 20 MG TABLET PO (21:31)
[2023-09-15] MEDS: Enoxaparin Sodium 40 MG/0.4 ML SYRINGE SUBCUT (21:32)
[2023-09-16] VITALS (9 sets, daily range): BP systolic 116–132; BP diastolic 71–88; PULSE 59–100; RESP 14–22; TEMP 36–36.7; O2SAT 96–99
[2023-09-16] MEDS: Butalb/Acetamin/Caff 50/325/40 TABLET 1 TAB PO (02:09)
[2023-09-16] MEDS: Omeprazole 40 MG CAPSULE.DR PO ×2 (06:00→15:24)
[2023-09-16 06:19] LABS: Anion Gap 17 (12-20); Blood Urea Nitrogen 39 mg/dL (9-16); Calcium 9.6 mg/dL (8.4-10.2); Carbon Dioxide 26 mmol/L (22-29); Chloride 96 mmol/L (96-108); Estimated Glomerular Filt Rate > 60; Glucose Random 115 mg/dL (60-115); Magnesium 2.3 mg/dL (1.6-2.6); Potassium 4.1 mmol/L (3.3-5.1); Sodium 135 mmol/L (135-145)
[2023-09-16 06:26] LABS: B Type Natriuretic Peptide 84 pg/mL (<100)
[2023-09-16] MEDS: Albuterol/Iprat 2.5/0.5MG 3 ML AMPUL.NEB INHALE ×3 (07:35→19:47)
[2023-09-16] MEDS: Fluticasone/Vilanterol 100/25 BLST.W.DEV 1 PUFF INHALE (07:35)
[2023-09-16] MEDS: Multivitamin TABLET 1 TAB PO (08:53)
[2023-09-16] MEDS: 0.9 % Sodium Chloride Flush 3 ML SYRINGE IVFLUSH ×3 (08:53→22:01)
[2023-09-16] MEDS: Azelastine HCl Nasal 137 MCG/Spray 30 ML 2 SPRAY NOSTRIL-B ×2 (08:53→22:01)
[2023-09-16] MEDS: Cholecalciferol (Vitamin D3) 25 MCG TABLET 50 MCG PO (08:53)
[2023-09-16] MEDS: Doxycycline Monohydrate 100 MG CAPSULE PO ×2 (08:53→21:58)
[2023-09-16] MEDS: Sucralfate 1 GM TABLET PO ×3 (08:53→15:24)
[2023-09-16] MEDS: Furosemide 20 MG/2 ML VIAL IVPUSH (08:53)
[2023-09-16] MEDS: Magnesium Oxide 400 MG TABLET PO (08:53)
[2023-09-16] MEDS: Theophylline Anhydrous ER 300 MG TAB.ER.12H PO (08:53)
[2023-09-16] MEDS: methylPREDNISolone Sod Succ 40 MG/ML VIAL 60 MG IVPUSH ×3 (09:28→21:58)
--- NOTE | 2023-09-16 09:37 | P.PNPL_ITS ---
Subjective Subjective Date of Service: 09/16/23 Interval history: The patient was seen on exam. Having hard time with his breathing today. Significant chest tightness and wheezing. He received an hour long albuterol treatment then additional magnesium. We did review the blood work that he had done. 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 IgE levels are still pending. He has been on the doxycycline. He continues on Solu-Medrol. On examination he does have a very prolonged expiratory phase significant wheezing. Objective Data Labs 09/11/23 05:55 09/16/23 05:04 Labs: Laboratory Results - last 24 hr 09/16/23 05:04 Sodium 135 Potassium 4.1 Chloride 96 Carbon Dioxide 26 Anion Gap 17 BUN 39 H Creatinine 0.99 Estim Creat Clear Calc 51.0 Estimated GFR > 60 Random Glucose 115 Calcium 9.6 Magnesium 2.3 B-Natriuretic Peptide 84 Microbiology Microbiology Results: Microbiology 09/10/23 23:00 Blood - Venous Blood Culture - Final No growth after 5 days. 09/10/23 22:45 Blood - Venous Blood Culture - Final No growth after 5 days. 09/13/23 13:50 Sputum - Expectorated Gram Stain - Final 09/13/23 13:50 Sputum - Expectorated Sputum Culture - Final 09/11/23 Unknown Urine clean catch - Urine john top Urine Culture - Final Review of Systems Constitutional: Reports fatigue and Reports lethargy Cardiovascular: Reports dyspnea on exertion Respiratory: Reports chest congestion, Reports cough, Reports dyspnea on exertion and Reports wheezing Gastrointestinal: Reports no additional gastrointestinal complaints Genitourinary: Reports no additional male genitourinary complaints Endocrine: Reports fatigue Allergic/Immunologic: Reports wheezing Physical Exam 2 Vital Signs: Vital Signs: Last Vital Signs Temp 98.0 F 09/16/23 07:55 Pulse 91 09/16/23 09:12 Resp 20 09/16/23 08:00 BP 117/71 09/16/23 07:55 Pulse Ox 96 09/16/23 07:55 O2 Del Method Nasal Cannula 09/16/23 07:55 O2 Flow Rate 2 09/16/23 07:55 Oxygen Flow Rate 3 09/10/23 21:10 BMI result Body Mass Index 18.0 Const: General: tired appearing HEENT: Head: Yes normocephalic Neck: Neck: Yes supple Chest: Chest palpation & inspection: normal inspection of the chest Resp: Effort & Inspection: audible wheezes, tachypneic and prolonged expiratory phase Auscultation: rhonchi, wheezes and diminished lung sounds Cardio: Rate: regular rate Rhythm: regular rhythm Heart sounds: S1 normal heart sound present and S2 normal heart sound present GI: Palpation (GI): Soft to palpation Skin: General skin exam: no rashes or lesions noted Extrem: General: Yes no clubbing, cyanosis or edema Procedures Date of Service Date of Service: 09/16/23 Assessment and Plan Assessment and plan (1) Acute and chronic respiratory failure: Status: Acute (2) Acute exacerbation of chronic obstructive pulmonary disease: Status: Acute (3) Chronic hypercapnic respiratory failure: Status: Acute Plan Solumedrol 125mg IV x 1 now Increase Theophylline, will check levels May benefit from BIPAP at night for the chronic hypercarbic respiratory failure continue nebulizer therapy every 4 hours CPT with flutter valve recheck SARS/FLU/RSV swab Time Spent With Patient Time: Total time managing care of this patient today ____ minutes. Progress Note: Quality Stroke Does the patient have a stroke diagnosis?: No
[2023-09-16] MEDS: Albuterol Sulfate 7.5 MG, Albuterol Sulfate (0.083%) 2.5 MG 10 MG INHALE (09:41)
[2023-09-16] MEDS: methylPREDNISolone Sod Succ 125 MG/2 ML VIAL IVPUSH (09:47)
[2023-09-16 10:47] LABS: ABG Base Excess 4.2 mmol/L; ABG HCO3 23 mmol/L (22-26); ABG pCO2 24 mmHg (32-45); ABG pO2 107 mmHg (83-108)
--- NOTE | 2023-09-16 11:54 | HO.PM.IMPN ---
Subjective Subjective Date of Service: 09/16/23 Interval History: c/o dyspnea, wheeze, cough no fever Review of Systems Review of Systems: Yes all other systems are reviewed and are negative Physical Exam Vital Signs: Vital Signs: Last Vital Signs Temp 98.0 F 09/16/23 07:55 Pulse 91 09/16/23 09:12 Resp 20 09/16/23 08:00 BP 117/71 09/16/23 07:55 Pulse Ox 96 09/16/23 07:55 O2 Del Method Nasal Cannula 09/16/23 07:55 O2 Flow Rate 2 09/16/23 07:55 Oxygen Flow Rate 3 09/10/23 21:10 BMI result Body Mass Index 18.0 Gen: in mild resp distress HEENT: sclera anicteric, moist mucus membranes Neck: supple Lungs: bilateral expiratory wheezing with prolonged expiratory phase Heart: regular rate and rhythm, no murmurs Abd: soft, non-tender, non-distended Ext: no edema Skin: warm/well-perfused Neuro: alert and oriented x3, no focal findings Psych: appropriate affect Objective Data Active Medications Acetaminophen (Acetaminophen 325 Mg Tablet) 650 mg PO Q6H PRN PRN Reason: Pain, Mild (Pain Scale 1-3) Albuterol/Ipratropium (Albuterol/Iprat 2.5/0.5mg 3 Ml Ampul.Neb) 3 ml INHALE RQ4H WHILE AWAKE [facility] Last Admin: 09/16/23 11:50 Dose: Not Given Documented By: DEMETRA Non-Admin Reason: Patient Asleep Albuterol/Ipratropium (Albuterol/Iprat 2.5/0.5mg 3 Ml Ampul.Neb) 3 ml INHALE Q4H PRN PRN Reason: Wheezing Amitriptyline HCl (Amitriptyline Hcl 10 Mg Tablet) 20 mg PO BEDTIME [facility] Last Admin: 09/15/23 21:30 Dose: 20 mg Documented By: FLORENCE Atorvastatin Calcium (Atorvastatin Calcium 20 Mg Tablet) 20 mg PO BEDTIME [facility] Last Admin: 09/15/23 21:31 Dose: 20 mg Documented By: FLORENCE Azelastine HCl (Azelastine Hcl Nasal 137 Mcg/[place] 30 Ml) 2 spray NOSTRIL-B BID [facility] Last Admin: 09/16/23 08:53 Dose: 2 spray Documented By: ELOISA Benzonatate (Benzonatate 100 Mg Capsule) 100 mg PO TID PRN PRN Reason: Cough Last Admin: 09/15/23 20:05 Dose: 100 mg Documented By: FLORENCE Doxycycline Monohydrate (Doxycycline Monohydrate 100 Mg Capsule) 100 mg PO Q12H [facility] Last Admin: 09/16/23 08:53 Dose: 100 mg Documented By: ELOISA Enoxaparin Sodium (Enoxaparin Sodium 40 Mg/0.4 Ml Syringe) 40 mg SUBCUT Q24H [facility] Last Admin: 09/15/23 21:32 Dose: 40 mg Documented By: FLORENCE Fluticasone/Vilanterol (Fluticasone/Vilanterol 100/25 Blst.W.Dev) 1 puff INHALE DAILY [facility] Last Admin: 09/16/23 07:35 Dose: 1 puff Documented By: DEMETRA Furosemide (Furosemide 20 Mg Tablet) 20 mg PO DAILY [facility]; Protocol Last Admin: 09/16/23 09:22 Dose: Not Given Documented By: ELOISA Non-Admin Reason: given IV prior Guaifenesin (Guaifenesin [place] 600 Mg Tab.Er.12h) 600 mg PO TID PRN PRN Reason: mucous Last Admin: 09/15/23 20:05 Dose: 600 mg Documented By: FLORENCE Lorazepam (Lorazepam 1 Mg Tablet) 1 mg PO BEDTIME [facility] Last Admin: 09/15/23 21:31 Dose: 1 mg Documented By: FLORENCE Magnesium Oxide (Magnesium Oxide 400 Mg Tablet) 400 mg PO DAILY [facility] Last Admin: 09/16/23 08:53 Dose: 400 mg Documented By: ELOISA Melatonin (Melatonin 3 Mg Tablet) 6 mg PO BEDTIME PRN PRN Reason: Insomnia Last Admin: 09/11/23 20:13 Dose: 6 mg Documented By: GERMAINE Methylprednisolone Sodium Succinate (Methylprednisolone Sod Succ 40 Mg/Ml Vial) 60 mg IVPUSH Q6H [facility] Last Admin: 09/16/23 09:28 Dose: 60 mg Documented By: ELOISA Multivitamins/Vitamin C (Multivitamin Tablet) 1 tab PO DAILY [facility] Last Admin: 09/16/23 08:53 Dose: 1 tab Documented By: ELOISA Omeprazole (Omeprazole 40 Mg Capsule.Dr) 40 mg PO BID@0630,1630 [facility] Last Admin: 09/16/23 06:00 Dose: 40 mg Documented By: FLORENCE Ondansetron HCl (Ondansetron Hcl 4 Mg/2 Ml Vial) 4 mg IVPUSH Q8H PRN PRN Reason: Nausea and Vomiting Sodium Chloride (0.9 % Sodium Chloride Flush 3 Ml Syringe) 3 ml IVFLUSH QSHIFT [facility] Last Admin: 09/16/23 08:53 Dose: 3 ml Documented By: ELOISA Sucralfate (Sucralfate 1 Gm Tablet) 1 gm PO TIDWM [facility] Last Admin: 09/16/23 08:53 Dose: 1 gm Documented By: ELOISA Theophylline (Theophylline Anhydrous Er 400 Mg Tab.Er.24h) 400 mg PO BID [facility] Trazodone HCl (Trazodone Hcl 100 Mg Tablet) 100 mg PO BEDTIME PRN PRN Reason: Insomnia Last Admin: 09/11/23 20:13 Dose: 100 mg Documented By: GERMAINE Vitamin D (Cholecalciferol (Vitamin D3) 25 Mcg Tablet) 50 mcg PO DAILY [facility] Last Admin: 09/16/23 08:53 Dose: 50 mcg Documented By: ELOISA Labs 09/11/23 05:55 09/16/23 05:04 Labs: Laboratory Results - last 24 hr 09/16/23 09/16/23 05:04 10:42 O2 Saturation 100.0 ABG pH at Pt Temp 7.60 H* ABG pCO2 at Pt Temp 24 L ABG pO2 at Pt Temp 107 ABG HCO3 23 ABG Base Excess (Actual) 4.2 Anion Gap 17 Estim Creat Clear Calc 51.0 Estimated GFR > 60 Random Glucose 115 Calcium 9.6 Magnesium 2.3 B-Natriuretic Peptide 84 Microbiology Microbiology Results: Microbiology 09/10/23 23:00 Blood Culture - Final Blood - Venous No growth after 5 days. 09/10/23 22:45 Blood Culture - Final Blood - Venous No growth after 5 days. Assessment and Plan (1) Acute and chronic respiratory failure: Status: Acute (2) Bronchitis: Status: Acute (3) Acute exacerbation of chronic obstructive pulmonary disease: Status: Acute Plan d7 78yo M with chronic hypoxia due to COPD [on 2L home O2], HLD, HF with mildly reduced EF, GERD, mood disorder presented with dyspnea, admitted for acute/chronic hypoxia due to COPD exac acute/chronic hypoxc resp failure due to COPD exac - increase IV methylprednisolone to 60mg q6h, give 1hr continuous neb then continue scheduled/prn nebs - on home O2 2L - nasal MRSA negative, sputum culture oral shaun - Pulm consulted 09/12/23, changed to doxycycline and added theophyilline; re-consulted 09/16/23 and theophylline increased [level pending] acute/chronic HF with mildly reduced EF - appears euvolemic, will switch IV to PO furosemide - TTE 06/28/23: - Normal left ventricular cavity size. There is normal left ventricular wall thickness. The left ventricular systolic function is borderline reduced. The visually estimated ejection fraction is between 45-50%. - Mildly increased right ventricular cavity size. There is normal right ventricular systolic function. - Mild pulmonary hypertension is present. - There is mild dilatation of the ascending aorta measuring 3.60 cm. HLD - statin mood disorder - continue amitriptylline, trazodone, sucralfate, lorazepam GERD - PPI, sucralfate underweight - supplements VTE ppx - LMWH dispo - anticipate home with VNA eventually In my clinical judgment, the patient requires continued inpatient hospitalization for the following reasons: respiratory status Time Spent With Patient Time: Total time managing care of this patient today __40__ minutes. Quality Stroke Does the patient have a stroke diagnosis?: No VTE Prior VTE?: No VTE Risk Level:: Medical - moderate - high VTE Device Contraindication: Treatment Not Indicated VTE Drug Contraindication: N/A - Med Ordered
[2023-09-16 12:07] LABS: Influenza A PCR NEGATIVE (Negative); Influenza B PCR NEGATIVE (Negative); Resp Syncy Virus RNA Qual PCR NEGATIVE (Negative); SARS COV2 PCR INHOUSE NEGATIVE (Negative)
--- NOTE | 2023-09-16 12:07 | MHC.CLN ---
F/U DIET=CARDIAC. ENSURE CLEAR BID PROVIDES ADDITIONAL 300 KCALS, 18 G PROTEIN. PO INTAKE USUALLY GOOD, 50-100%. FOLLOW FOR PO INTAKE.
--- NOTE | 2023-09-16 12:09 | MHC.CM.PN ---
Per MD rounds no discharge today. Patient continues with wheezing. Pulmonary is scheduled to see the patient today. DP home with resumption of [facility]. Patient dtr will provide transportation home.
[2023-09-16 21:16] LABS: ABG Refer to POC result
[2023-09-16 21:24] LABS: Theophylline 12.5 MG/L ((10-20))
[2023-09-16] MEDS: Atorvastatin Calcium 20 MG TABLET PO (21:57)
[2023-09-16] MEDS: LORazepam 1 MG TABLET PO (21:57)
[2023-09-16] MEDS: Theophylline Anhydrous ER 400 MG TAB.ER.24H PO (21:57)
[2023-09-16] MEDS: Amitriptyline HCl 10 MG TABLET 20 MG PO (21:58)
[2023-09-16] MEDS: Enoxaparin Sodium 40 MG/0.4 ML SYRINGE SUBCUT (22:00)
[2023-09-17] VITALS (7 sets, daily range): BP systolic 108–137; BP diastolic 67–76; PULSE 79–114; RESP 16–24; TEMP 36.1–36.5; O2SAT 96–99
[2023-09-17 02:33] LABS: Immunoglobulin E 2 kU/L (<OR=114)
[2023-09-17] MEDS: methylPREDNISolone Sod Succ 40 MG/ML VIAL 60 MG IVPUSH ×4 (03:42→21:12)
[2023-09-17] MEDS: Azelastine HCl Nasal 137 MCG/Spray 30 ML 2 SPRAY NOSTRIL-B ×2 (08:06→21:08)
[2023-09-17] MEDS: Doxycycline Monohydrate 100 MG CAPSULE PO ×2 (08:06→21:07)
[2023-09-17] MEDS: Furosemide 20 MG TABLET PO (08:07)
[2023-09-17] MEDS: Cholecalciferol (Vitamin D3) 25 MCG TABLET 50 MCG PO (08:07)
[2023-09-17] MEDS: Multivitamin TABLET 1 TAB PO (08:07)
[2023-09-17] MEDS: Omeprazole 40 MG CAPSULE.DR PO ×2 (08:07→15:55)
[2023-09-17] MEDS: Magnesium Oxide 400 MG TABLET PO (08:08)
[2023-09-17] MEDS: Theophylline Anhydrous ER 400 MG TAB.ER.24H PO ×2 (08:08→21:07)
[2023-09-17] MEDS: Sucralfate 1 GM TABLET PO ×3 (08:08→17:44)
[2023-09-17] MEDS: Albuterol/Iprat 2.5/0.5MG 3 ML AMPUL.NEB INHALE ×4 (08:14→19:54)
[2023-09-17] MEDS: Fluticasone/Vilanterol 100/25 BLST.W.DEV 1 PUFF INHALE (08:15)
[2023-09-17] MEDS: 0.9 % Sodium Chloride Flush 3 ML SYRINGE IVFLUSH ×3 (08:21→21:08)
--- NOTE | 2023-09-17 10:35 | HO.PM.IMPN ---
Subjective Subjective Date of Service: 09/17/23 Interval History: less short of breath, still very wheezy no fever/chills Review of Systems Review of Systems: Yes all other systems are reviewed and are negative Physical Exam Vital Signs: Vital Signs: Last Vital Signs Temp 97.6 F 09/17/23 08:00 Pulse 86 09/17/23 08:15 Resp 16 09/17/23 08:15 BP 137/76 09/17/23 08:00 Pulse Ox 98 09/17/23 08:00 O2 Del Method Nasal Cannula 09/17/23 08:00 O2 Flow Rate 2 09/17/23 08:00 Oxygen Flow Rate 3 09/10/23 21:10 BMI result Body Mass Index 18.0 Gen: NAD HEENT: sclera anicteric, moist mucus membranes Neck: supple Lungs: bilateral expiratory wheezing with prolonged expiratory phase Heart: regular rate and rhythm, no murmurs Abd: soft, non-tender, non-distended Ext: no edema Skin: warm/well-perfused Neuro: alert and oriented x3, no focal findings Psych: appropriate affect Objective Data Active Medications Acetaminophen (Acetaminophen 325 Mg Tablet) 650 mg PO Q6H PRN PRN Reason: Pain, Mild (Pain Scale 1-3) Albuterol/Ipratropium (Albuterol/Iprat 2.5/0.5mg 3 Ml Ampul.Neb) 3 ml INHALE RQ4H WHILE AWAKE [facility] Last Admin: 09/17/23 08:14 Dose: 3 ml Documented By: GEORGINA Albuterol/Ipratropium (Albuterol/Iprat 2.5/0.5mg 3 Ml Ampul.Neb) 3 ml INHALE Q4H PRN PRN Reason: Wheezing Amitriptyline HCl (Amitriptyline Hcl 10 Mg Tablet) 20 mg PO BEDTIME [facility] Last Admin: 09/16/23 21:58 Dose: 20 mg Documented By: ALLEY Atorvastatin Calcium (Atorvastatin Calcium 20 Mg Tablet) 20 mg PO BEDTIME [facility] Last Admin: 09/16/23 21:57 Dose: 20 mg Documented By: ALLEY Azelastine HCl (Azelastine Hcl Nasal 137 Mcg/[place] 30 Ml) 2 spray NOSTRIL-B BID [facility] Last Admin: 09/17/23 08:06 Dose: 2 spray Documented By: KRISTIN Benzonatate (Benzonatate 100 Mg Capsule) 100 mg PO TID PRN PRN Reason: Cough Last Admin: 09/15/23 20:05 Dose: 100 mg Documented By: FLORENCE Doxycycline Monohydrate (Doxycycline Monohydrate 100 Mg Capsule) 100 mg PO Q12H [facility] Last Admin: 09/17/23 08:06 Dose: 100 mg Documented By: KRISTIN Enoxaparin Sodium (Enoxaparin Sodium 40 Mg/0.4 Ml Syringe) 40 mg SUBCUT Q24H [facility] Last Admin: 09/16/23 22:00 Dose: 40 mg Documented By: ALLEY Fluticasone/Vilanterol (Fluticasone/Vilanterol 100/25 Blst.W.Dev) 1 puff INHALE DAILY [facility] Last Admin: 09/17/23 08:15 Dose: 1 puff Documented By: GEORGINA Furosemide (Furosemide 20 Mg Tablet) 20 mg PO DAILY [facility]; Protocol Last Admin: 09/17/23 08:07 Dose: 20 mg Documented By: KRISTIN Guaifenesin (Guaifenesin [place] 600 Mg Tab.Er.12h) 600 mg PO TID PRN PRN Reason: mucous Last Admin: 09/15/23 20:05 Dose: 600 mg Documented By: FLORENCE Lorazepam (Lorazepam 1 Mg Tablet) 1 mg PO BEDTIME [facility] Last Admin: 09/16/23 21:57 Dose: 1 mg Documented By: ALLEY Magnesium Oxide (Magnesium Oxide 400 Mg Tablet) 400 mg PO DAILY [facility] Last Admin: 09/17/23 08:08 Dose: 400 mg Documented By: KRISTIN Melatonin (Melatonin 3 Mg Tablet) 6 mg PO BEDTIME PRN PRN Reason: Insomnia Last Admin: 09/11/23 20:13 Dose: 6 mg Documented By: GERMAINE Methylprednisolone Sodium Succinate (Methylprednisolone Sod Succ 40 Mg/Ml Vial) 60 mg IVPUSH Q6H [facility] Last Admin: 09/17/23 08:08 Dose: 60 mg Documented By: KRISTIN Multivitamins/Vitamin C (Multivitamin Tablet) 1 tab PO DAILY [facility] Last Admin: 09/17/23 08:07 Dose: 1 tab Documented By: KRISTIN Omeprazole (Omeprazole 40 Mg Capsule.Dr) 40 mg PO BID@0630,1630 [facility] Last Admin: 09/17/23 08:07 Dose: 40 mg Documented By: KRISTIN Ondansetron HCl (Ondansetron Hcl 4 Mg/2 Ml Vial) 4 mg IVPUSH Q8H PRN PRN Reason: Nausea and Vomiting Sodium Chloride (0.9 % Sodium Chloride Flush 3 Ml Syringe) 3 ml IVFLUSH QSHIFT [facility] Last Admin: 09/17/23 08:21 Dose: 3 ml Documented By: KRISTIN Sucralfate (Sucralfate 1 Gm Tablet) 1 gm PO TIDWM [facility] Last Admin: 09/17/23 08:08 Dose: 1 gm Documented By: KRISTIN Theophylline (Theophylline Anhydrous Er 400 Mg Tab.Er.24h) 400 mg PO BID [facility] Last Admin: 09/17/23 08:08 Dose: 400 mg Documented By: KRISTIN Trazodone HCl (Trazodone Hcl 100 Mg Tablet) 100 mg PO BEDTIME PRN PRN Reason: Insomnia Last Admin: 09/11/23 20:13 Dose: 100 mg Documented By: GERMAINE Vitamin D (Cholecalciferol (Vitamin D3) 25 Mcg Tablet) 50 mcg PO DAILY [facility] Last Admin: 09/17/23 08:07 Dose: 50 mcg Documented By: KRISTIN Labs 09/11/23 05:55 09/16/23 05:04 Labs: Laboratory Results - last 24 hr 09/12/23 09/16/23 09/16/23 09:16 10:32 10:42 O2 Saturation 100.0 ABG pH at Pt Temp 7.60 H* ABG pCO2 at Pt Temp 24 L ABG pO2 at Pt Temp 107 ABG HCO3 23 ABG Base Excess (Actual) 4.2 Theophylline 12.5 IgE 2 Influenza Type A (PCR) Influenza Type B (PCR) RSV RNA Qual (PCR) SARS-CoV-2 RNA (RT-PCR) 09/16/23 11:11 O2 Saturation ABG pH at Pt Temp ABG pCO2 at Pt Temp ABG pO2 at Pt Temp ABG HCO3 ABG Base Excess (Actual) Theophylline IgE Influenza Type A (PCR) NEGATIVE Influenza Type B (PCR) NEGATIVE RSV RNA Qual (PCR) NEGATIVE SARS-CoV-2 RNA (RT-PCR) NEGATIVE Assessment and Plan (1) Acute and chronic respiratory failure: Status: Acute (2) Bronchitis: Status: Acute (3) Acute exacerbation of chronic obstructive pulmonary disease: Status: Acute Plan d8 78yo M with chronic hypoxia due to COPD [on 2L home O2], HLD, HF with mildly reduced EF, GERD, mood disorder presented with dyspnea, admitted for acute/chronic hypoxia due to COPD exac acute/chronic hypoxc resp failure due to COPD exac - increased IV methylprednisolone to 60mg q6h 09/16, continue scheduled/prn nebs - on home O2 2L - nasal MRSA negative, sputum culture oral shaun - Pulm consulted 09/12/23, changed to doxycycline and added theophyilline; re-consulted 09/16/23 and theophylline increased [level therapeutic] acute/chronic HF with mildly reduced EF - appears euvolemic, switched IV to PO furosemide 09/16/23 - TTE 06/28/23: - Normal left ventricular cavity size. There is normal left ventricular wall thickness. The left ventricular systolic function is borderline reduced. The visually estimated ejection fraction is between 45-50%. - Mildly increased right ventricular cavity size. There is normal right ventricular systolic function. - Mild pulmonary hypertension is present. - There is mild dilatation of the ascending aorta measuring 3.60 cm. HLD - statin mood disorder - continue amitriptylline, trazodone, sucralfate, lorazepam GERD - PPI, sucralfate underweight - supplements VTE ppx - LMWH dispo - anticipate home with VNA eventually In my clinical judgment, the patient requires continued inpatient hospitalization for the following reasons: respiratory status Time Spent With Patient Time: Total time managing care of this patient today __35__ minutes. Quality Stroke Does the patient have a stroke diagnosis?: No VTE Prior VTE?: No VTE Risk Level:: Medical - moderate - high VTE Device Contraindication: Treatment Not Indicated VTE Drug Contraindication: N/A - Med Ordered
[2023-09-17] MEDS: Atorvastatin Calcium 20 MG TABLET PO (21:06)
[2023-09-17] MEDS: Amitriptyline HCl 10 MG TABLET 20 MG PO (21:06)
[2023-09-17] MEDS: LORazepam 1 MG TABLET PO (21:07)
[2023-09-17] MEDS: Melatonin 3 MG TABLET 6 MG PO (21:18)
[2023-09-18] VITALS (9 sets, daily range): BP systolic 107–135; BP diastolic 76–84; PULSE 84–107; RESP 18–20; TEMP 35.9–36.6; O2SAT 95–98
[2023-09-18] MEDS: methylPREDNISolone Sod Succ 40 MG/ML VIAL 60 MG IVPUSH ×2 (02:50→08:40)
[2023-09-18] MEDS: Omeprazole 40 MG CAPSULE.DR PO ×2 (07:37→16:04)
[2023-09-18] MEDS: Sucralfate 1 GM TABLET PO ×3 (07:37→17:31)
[2023-09-18] MEDS: 0.9 % Sodium Chloride Flush 3 ML SYRINGE IVFLUSH ×3 (07:37→21:07)
[2023-09-18] MEDS: Fluticasone/Vilanterol 100/25 BLST.W.DEV 1 PUFF INHALE (08:01)
[2023-09-18] MEDS: Albuterol/Iprat 2.5/0.5MG 3 ML AMPUL.NEB INHALE ×4 (08:01→19:56)
[2023-09-18] MEDS: Azelastine HCl Nasal 137 MCG/Spray 30 ML 2 SPRAY NOSTRIL-B ×2 (08:40→21:07)
[2023-09-18] MEDS: Doxycycline Monohydrate 100 MG CAPSULE PO ×2 (08:41→21:06)
[2023-09-18] MEDS: Magnesium Oxide 400 MG TABLET PO (08:41)
[2023-09-18] MEDS: Cholecalciferol (Vitamin D3) 25 MCG TABLET 50 MCG PO (08:41)
[2023-09-18] MEDS: Furosemide 20 MG TABLET PO (08:41)
[2023-09-18] MEDS: Multivitamin TABLET 1 TAB PO (08:41)
[2023-09-18] MEDS: Theophylline Anhydrous ER 400 MG TAB.ER.24H PO ×2 (08:52→21:06)
--- NOTE | 2023-09-18 09:28 | P.PNIM_ITS ---
Subjective Subjective Date of Service: 09/18/23 Interval History: still wheezing but dyspnea improving nonproductive cough no fever Review of Systems Review of Systems: Yes all other systems are reviewed and are negative Physical Exam 2 Vital Signs: Vital Signs: Last Vital Signs Temp 97.2 F 09/18/23 07:16 Pulse 84 09/18/23 08:02 Resp 18 09/18/23 08:02 BP 130/84 09/18/23 07:16 Pulse Ox 98 09/18/23 07:16 O2 Del Method Nasal Cannula 09/18/23 07:16 O2 Flow Rate 2 09/18/23 07:16 Oxygen Flow Rate 3 09/10/23 21:10 BMI result Body Mass Index 18.0 Gen: NAD HEENT: sclera anicteric, moist mucus membranes Neck: supple Lungs: bilateral expiratory wheezing with prolonged expiratory phase Heart: regular rate and rhythm, no murmurs Abd: soft, non-tender, non-distended Ext: no edema Skin: warm/well-perfused Neuro: alert and oriented x3, no focal findings Psych: appropriate affect Objective Data Active Medications Acetaminophen (Acetaminophen 325 Mg Tablet) 650 mg PO Q6H PRN PRN Reason: Pain, Mild (Pain Scale 1-3) Albuterol/Ipratropium (Albuterol/Iprat 2.5/0.5mg 3 Ml Ampul.Neb) 3 ml INHALE RQ4H WHILE AWAKE [facility] Last Admin: 09/18/23 08:01 Dose: 3 ml Documented By: GEORGINA Albuterol/Ipratropium (Albuterol/Iprat 2.5/0.5mg 3 Ml Ampul.Neb) 3 ml INHALE Q4H PRN PRN Reason: Wheezing Amitriptyline HCl (Amitriptyline Hcl 10 Mg Tablet) 20 mg PO BEDTIME [facility] Last Admin: 09/17/23 21:06 Dose: 20 mg Documented By: ALLEY Atorvastatin Calcium (Atorvastatin Calcium 20 Mg Tablet) 20 mg PO BEDTIME [facility] Last Admin: 09/17/23 21:06 Dose: 20 mg Documented By: ALLEY Azelastine HCl (Azelastine Hcl Nasal 137 Mcg/[place] 30 Ml) 2 spray NOSTRIL-B BID [facility] Last Admin: 09/18/23 08:40 Dose: 2 spray Documented By: KRISTIN Benzonatate (Benzonatate 100 Mg Capsule) 100 mg PO TID PRN PRN Reason: Cough Last Admin: 09/15/23 20:05 Dose: 100 mg Documented By: FLORENCE Doxycycline Monohydrate (Doxycycline Monohydrate 100 Mg Capsule) 100 mg PO Q12H [facility] Last Admin: 09/18/23 08:41 Dose: 100 mg Documented By: KRISTIN Enoxaparin Sodium (Enoxaparin Sodium 40 Mg/0.4 Ml Syringe) 40 mg SUBCUT Q24H [facility] Last Admin: 09/17/23 23:19 Dose: Not Given Documented By: ALLEY Non-Admin Reason: Patient Refused Fluticasone/Vilanterol (Fluticasone/Vilanterol 100/25 Blst.W.Dev) 1 puff INHALE DAILY [facility] Last Admin: 09/18/23 08:01 Dose: 1 puff Documented By: GEORGINA Furosemide (Furosemide 20 Mg Tablet) 20 mg PO DAILY [facility]; Protocol Last Admin: 09/18/23 08:41 Dose: 20 mg Documented By: KRISTIN Guaifenesin (Guaifenesin [place] 600 Mg Tab.Er.12h) 600 mg PO TID PRN PRN Reason: mucous Last Admin: 09/15/23 20:05 Dose: 600 mg Documented By: FLORENCE Lorazepam (Lorazepam 1 Mg Tablet) 1 mg PO BEDTIME [facility] Last Admin: 09/17/23 21:07 Dose: 1 mg Documented By: ALLEY Magnesium Oxide (Magnesium Oxide 400 Mg Tablet) 400 mg PO DAILY [facility] Last Admin: 09/18/23 08:41 Dose: 400 mg Documented By: KRISTIN Melatonin (Melatonin 3 Mg Tablet) 6 mg PO BEDTIME PRN PRN Reason: Insomnia Last Admin: 09/17/23 21:18 Dose: 6 mg Documented By: ALLEY Methylprednisolone Sodium Succinate (Methylprednisolone Sod Succ 40 Mg/Ml Vial) 60 mg IVPUSH Q6H [facility] Last Admin: 09/18/23 08:40 Dose: 60 mg Documented By: KRISTIN Multivitamins/Vitamin C (Multivitamin Tablet) 1 tab PO DAILY [facility] Last Admin: 09/18/23 08:41 Dose: 1 tab Documented By: KRISTIN Omeprazole (Omeprazole 40 Mg Capsule.) 40 mg PO BID@0630,1630 [facility] Last Admin: 09/18/23 07:37 Dose: 40 mg Documented By: KRISTIN Ondansetron HCl (Ondansetron Hcl 4 Mg/2 Ml Vial) 4 mg IVPUSH Q8H PRN PRN Reason: Nausea and Vomiting Sodium Chloride (0.9 % Sodium Chloride Flush 3 Ml Syringe) 3 ml IVFLUSH QSHIFT [facility] Last Admin: 09/18/23 07:37 Dose: 3 ml Documented By: KRISTIN Sucralfate (Sucralfate 1 Gm Tablet) 1 gm PO TIDWM [facility] Last Admin: 09/18/23 07:37 Dose: 1 gm Documented By: KRISTIN Theophylline (Theophylline Anhydrous Er 400 Mg Tab.Er.24h) 400 mg PO BID [facility] Last Admin: 09/18/23 08:52 Dose: 400 mg Documented By: KRISTIN Tiotropium [place] (Tiotropium [place] 2.5 Mcg Inhaler) 1 puff INHALE RDAILY [facility] Last Admin: 09/18/23 08:02 Dose: 1 puff Documented By: GEORGINA Trazodone HCl (Trazodone Hcl 100 Mg Tablet) 100 mg PO BEDTIME PRN PRN Reason: Insomnia Last Admin: 09/11/23 20:13 Dose: 100 mg Documented By: GERMAINE Vitamin D (Cholecalciferol (Vitamin D3) 25 Mcg Tablet) 50 mcg PO DAILY [facility] Last Admin: 09/18/23 08:41 Dose: 50 mcg Documented By: KRISTIN Labs 09/11/23 05:55 09/16/23 05:04 Assessment and Plan (1) Acute and chronic respiratory failure: Status: Acute (2) Bronchitis: Status: Acute (3) Acute exacerbation of chronic obstructive pulmonary disease: Status: Acute Plan d9 78yo M with chronic hypoxia due to COPD [on 2L home O2], HLD, HF with mildly reduced EF, GERD, mood disorder presented with dyspnea, admitted for acute/chronic hypoxia due to COPD exac acute/chronic hypoxc resp failure due to COPD exac - increased IV methylprednisolone to 60mg q6h 09/16, start tapering today [09/18] - continue scheduled/prn nebs, Tessalon, guaifenesin/DM - on home O2 2L - nasal MRSA negative, sputum culture oral shaun - Pulm consulted 09/12/23, changed to doxycycline and added theophyilline; re- consulted 09/16/23 and theophylline increased- recheck level 09/19 acute/chronic HF with mildly reduced EF - appears euvolemic, switched IV to PO furosemide 09/16/23 - TTE 06/28/23: - Normal left ventricular cavity size. There is normal left ventricular wall thickness. The left ventricular systolic function is borderline reduced. The visually estimated ejection fraction is between 45-50%. - Mildly increased right ventricular cavity size. There is normal right ventricular systolic function. - Mild pulmonary hypertension is present. - There is mild dilatation of the ascending aorta measuring 3.60 cm. HLD - statin mood disorder - continue amitriptylline, trazodone, sucralfate, lorazepam GERD - PPI, sucralfate underweight - supplements VTE ppx - LMWH dispo - anticipate home with VNA eventually, perhaps in next 1-2d In my clinical judgment, the patient requires continued inpatient hospitalization for the following reasons: respiratory status Time Spent With Patient Time: Total time managing care of this patient today __35__ minutes. Quality Stroke Does the patient have a stroke diagnosis?: No VTE Prior VTE?: No VTE Risk Level:: Medical - moderate - high VTE Device Contraindication: Treatment Not Indicated VTE Drug Contraindication: N/A - Med Ordered
[2023-09-18] MEDS: guaiFENesin DM 100/10/5 ML 5 ML SYRUP PO ×2 (16:04→21:07)
[2023-09-18] MEDS: Atorvastatin Calcium 20 MG TABLET PO (21:05)
[2023-09-18] MEDS: LORazepam 1 MG TABLET PO (21:06)
[2023-09-18] MEDS: Amitriptyline HCl 10 MG TABLET 20 MG PO (21:06)
[2023-09-18] MEDS: Melatonin 3 MG TABLET 6 MG PO (21:06)
[2023-09-18] MEDS: methylPREDNISolone Sod Succ 40 MG/ML VIAL IVPUSH (21:07)
[2023-09-19] VITALS (7 sets, daily range): BP systolic 107–120; BP diastolic 78–86; PULSE 68–111; RESP 16–24; TEMP 36–36.7; O2SAT 93–97
[2023-09-19] MEDS: guaiFENesin DM 100/10/5 ML 5 ML SYRUP PO ×4 (04:58→21:39)
--- NOTE | 2023-09-19 07:25 | PC.NURSE ---
Approximately after 19:00, the pt started to have increased SOB despite being on 2L of O2 via NC and the automated pulse oximeter wasn't reading the pt's O2. This RN and previous AM RN went in to assess pt's lung sounds and heard crackles throughout the bases. MD Mcclendon was notified of the situation. Respiratory was called to pt's room and was able to get an O2 reading between 94%-96% on 2L O2. An treatment of duoneb was given to pt. Chest xray was ordered. No other orders were given after the breathing treatment and chest xray. The breathing treatment had positive effect on pt. Pt was able to sleep throughout the night with no other issues. Will continue to monitor pt's O2 level and lungs sounds.
[2023-09-19] MEDS: Sucralfate 1 GM TABLET PO ×3 (09:07→16:11)
[2023-09-19] MEDS: Cholecalciferol (Vitamin D3) 25 MCG TABLET 50 MCG PO (09:07)
[2023-09-19] MEDS: Magnesium Oxide 400 MG TABLET PO (09:07)
[2023-09-19] MEDS: Furosemide 20 MG TABLET PO (09:07)
[2023-09-19] MEDS: Doxycycline Monohydrate 100 MG CAPSULE PO ×2 (09:07→21:40)
[2023-09-19] MEDS: Theophylline Anhydrous ER 400 MG TAB.ER.24H PO ×2 (09:07→21:40)
[2023-09-19] MEDS: Omeprazole 40 MG CAPSULE.DR PO ×2 (09:07→16:11)
[2023-09-19] MEDS: methylPREDNISolone Sod Succ 40 MG/ML VIAL IVPUSH ×2 (09:07→21:37)
[2023-09-19] MEDS: Azelastine HCl Nasal 137 MCG/Spray 30 ML 2 SPRAY NOSTRIL-B ×2 (09:07→21:40)
[2023-09-19] MEDS: Multivitamin TABLET 1 TAB PO (09:07)
[2023-09-19] MEDS: 0.9 % Sodium Chloride Flush 3 ML SYRINGE IVFLUSH ×3 (09:08→21:37)
--- NOTE | 2023-09-19 11:27 | MHC.CLN ---
F/U DIET=CARDIAC. PO INTAKE USUALLY GOOD, 75-100%. DOES NOT WANT ENSURE SUPPLEMENT PER CONVERSATION TODAY. SUPPLEMENT DISCONTINUED. FOLLOW FOR PO INTAKE.
[2023-09-19] MEDS: Albuterol/Iprat 2.5/0.5MG 3 ML AMPUL.NEB INHALE ×3 (11:35→21:07)
--- NOTE | 2023-09-19 16:07 | P.PNIM_ITS ---
Subjective Subjective Date of Service: 09/19/23 Interval History: Feeling better, less shortness of breath at rest, complaining of shortness of breath with activity, denies cough, no fevers, no chills, patient lives alone at home uses 2 L of home oxygen, tolerating diet no nausea ,no vomiting ,no abdominal pain. Review of Systems All other system reviewed and negative Physical Exam 2 Vital Signs: Vital Signs: Last Vital Signs Temp 98.0 F 09/19/23 15:30 Pulse 98 09/19/23 15:52 Resp 24 H 09/19/23 15:52 BP 111/82 09/19/23 15:30 Pulse Ox 94 09/19/23 15:30 O2 Del Method Nasal Cannula 09/19/23 15:30 O2 Flow Rate 2 09/19/23 15:30 Oxygen Flow Rate 3 09/10/23 21:10 BMI result Body Mass Index 18.0 Const: Other: Gen: NAD HEENT: sclera anicteric, moist mucus membranes Neck: supple Lungs: Clear to auscultation, few expiratory wheeze, prolonged expiratory phase Heart: regular rate and rhythm, no murmurs Abd: soft, non-tender, non-distended Ext: no edema Skin: warm/well-perfused Neuro: alert and oriented x3, no focal findings Psych: appropriate affect Objective Data Active Medications Acetaminophen (Acetaminophen 325 Mg Tablet) 650 mg PO Q6H PRN PRN Reason: Pain, Mild (Pain Scale 1-3) Albuterol/Ipratropium (Albuterol/Iprat 2.5/0.5mg 3 Ml Ampul.Neb) 3 ml INHALE RQ4H WHILE AWAKE [facility] Last Admin: 09/19/23 15:50 Dose: 3 ml Documented By: TATE Albuterol/Ipratropium (Albuterol/Iprat 2.5/0.5mg 3 Ml Ampul.Neb) 3 ml INHALE Q4H PRN PRN Reason: Wheezing Amitriptyline HCl (Amitriptyline Hcl 10 Mg Tablet) 20 mg PO BEDTIME [facility] Last Admin: 09/18/23 21:06 Dose: 20 mg Documented By: ALLEY Atorvastatin Calcium (Atorvastatin Calcium 20 Mg Tablet) 20 mg PO BEDTIME [facility] Last Admin: 09/18/23 21:05 Dose: 20 mg Documented By: ALLEY Azelastine HCl (Azelastine Hcl Nasal 137 Mcg/[place] 30 Ml) 2 spray NOSTRIL-B BID [facility] Last Admin: 09/19/23 09:07 Dose: 2 spray Documented By: ELOISA Benzonatate (Benzonatate 100 Mg Capsule) 100 mg PO TID PRN PRN Reason: Cough Last Admin: 09/15/23 20:05 Dose: 100 mg Documented By: FLORENCE Doxycycline Monohydrate (Doxycycline Monohydrate 100 Mg Capsule) 100 mg PO Q12H [facility] Last Admin: 09/19/23 09:07 Dose: 100 mg Documented By: ELOISA Enoxaparin Sodium (Enoxaparin Sodium 40 Mg/0.4 Ml Syringe) 40 mg SUBCUT Q24H [facility] Last Admin: 09/18/23 23:47 Dose: Not Given Documented By: ALLEY Non-Admin Reason: Patient Refused Fluticasone/Vilanterol (Fluticasone/Vilanterol 100/25 Blst.W.Dev) 1 puff INHALE DAILY [facility] Last Admin: 09/19/23 07:35 Dose: Not Given Documented By: TATE Non-Admin Reason: Patient Refused Furosemide (Furosemide 20 Mg Tablet) 20 mg PO DAILY [facility]; Protocol Last Admin: 09/19/23 09:07 Dose: 20 mg Documented By: ELOISA Guaifenesin (Guaifenesin La 600 Mg Tab.Er.12h) 600 mg PO TID PRN PRN Reason: mucous Last Admin: 09/15/23 20:05 Dose: 600 mg Documented By: FLORENCE Guaifenesin/Dextromethorphan (Guaifenesin Dm 100/10/5 Ml 5 Ml Syrup) 5 ml PO Q6H [facility] Last Admin: 09/19/23 09:07 Dose: 5 ml Documented By: ELOISA Lorazepam (Lorazepam 1 Mg Tablet) 1 mg PO BEDTIME [facility] Last Admin: 09/18/23 21:06 Dose: 1 mg Documented By: ALLEY Magnesium Oxide (Magnesium Oxide 400 Mg Tablet) 400 mg PO DAILY [facility] Last Admin: 09/19/23 09:07 Dose: 400 mg Documented By: ELOISA Melatonin (Melatonin 3 Mg Tablet) 6 mg PO BEDTIME PRN PRN Reason: Insomnia Last Admin: 09/18/23 21:06 Dose: 6 mg Documented By: ALLEY Methylprednisolone Sodium Succinate (Methylprednisolone Sod Succ 40 Mg/Ml Vial) 40 mg IVPUSH Q12H [facility] Last Admin: 09/19/23 09:07 Dose: 40 mg Documented By: ELOISA Multivitamins/Vitamin C (Multivitamin Tablet) 1 tab PO DAILY [facility] Last Admin: 09/19/23 09:07 Dose: 1 tab Documented By: ELOISA Omeprazole (Omeprazole 40 Mg Capsule.Dr) 40 mg PO BID@0630,1630 [facility] Last Admin: 09/19/23 09:07 Dose: 40 mg Documented By: ELOISA Ondansetron HCl (Ondansetron Hcl 4 Mg/2 Ml Vial) 4 mg IVPUSH Q8H PRN PRN Reason: Nausea and Vomiting Sodium Chloride (0.9 % Sodium Chloride Flush 3 Ml Syringe) 3 ml IVFLUSH QSHIFT [facility] Last Admin: 09/19/23 09:08 Dose: 3 ml Documented By: ELOISA Sucralfate (Sucralfate 1 Gm Tablet) 1 gm PO TIDWM [facility] Last Admin: 09/19/23 12:11 Dose: 1 gm Documented By: KRISTIN Theophylline (Theophylline Anhydrous Er 400 Mg Tab.Er.24h) 400 mg PO BID [facility] Last Admin: 09/19/23 09:07 Dose: 400 mg Documented By: ELOISA Tiotropium [place] (Tiotropium [place] 2.5 Mcg Inhaler) 1 puff INHALE RDAILY [facility] Last Admin: 09/19/23 07:35 Dose: Not Given Documented By: TATE Non-Admin Reason: Patient Refused Trazodone HCl (Trazodone Hcl 100 Mg Tablet) 100 mg PO BEDTIME PRN PRN Reason: Insomnia Last Admin: 09/11/23 20:13 Dose: 100 mg Documented By: GERMAINE Vitamin D (Cholecalciferol (Vitamin D3) 25 Mcg Tablet) 50 mcg PO DAILY [facility] Last Admin: 09/19/23 09:07 Dose: 50 mcg Documented By: ELOISA Labs 09/11/23 05:55 09/16/23 05:04 Assessment and Plan (1) Acute and chronic respiratory failure: Status: Acute (2) Bronchitis: Status: Acute (3) Acute exacerbation of chronic obstructive pulmonary disease: Status: Acute Plan 78yo M with chronic hypoxia due to COPD [on 2L home O2], HLD, HF with mildly reduced EF, GERD, mood disorder presented with dyspnea, admitted for acute/chronic hypoxia due to COPD exac acute/chronic hypoxc resp failure due to COPD exac - clinically improving with less shortness of breath and cough on IV methylprednisolone 40mg q12 will transition to my pump prednisone if remains stable in next 24 hours - continue scheduled/prn nebs, Tessalon, guaifenesin/DM - on home O2 2L - nasal MRSA negative, sputum culture oral shaun - Pulm consulted 09/12/23, on doxycycline and theophyilline level pending acute/chronic HF with mildly reduced EF - appears euvolemic, s/p IV lasix now on PO furosemide since 09/16/23 - TTE 06/28/23: - Normal left ventricular cavity size. There is normal left ventricular wall thickness. The left ventricular systolic function is borderline reduced. The visually estimated ejection fraction is between 45-50%. - Mildly increased right ventricular cavity size. There is normal right ventricular systolic function. - Mild pulmonary hypertension is present. - There is mild dilatation of the ascending aorta measuring 3.60 cm. HLD -cont. statin mood disorder - continue amitriptylline, trazodone, sucralfate, and lorazepam GERD - PPI, sucralfate underweight - on supplements VTE ppx - LMWH dispo - anticipate home with VNA eventually, patient lives alone, ambulates with cane, patient feels weak with ambulation will obtain PT eval. In my clinical judgment, the patient requires continued inpatient hospitalization for the following reasons: respiratory status Time Spent With Patient Time: Total time managing care of this patient today ____ minutes. Quality Stroke Does the patient have a stroke diagnosis?: No VTE Prior VTE?: No VTE Risk Level:: Medical - moderate - high VTE Device Contraindication: Treatment Not Indicated VTE Drug Contraindication: N/A - Med Ordered
--- NOTE | 2023-09-19 18:24 | PC.NURSE ---
MD to RN communication order placed in regards to patient's current IV. Patient's IV exceeded 96 hour policy change. Site clean, dry, intact, and patent with no signs or symptoms of infection. MD aware and approved to keep current IV in place with Q24hr assessments.
[2023-09-19] MEDS: Atorvastatin Calcium 20 MG TABLET PO (21:40)
[2023-09-19] MEDS: LORazepam 1 MG TABLET PO (21:40)
[2023-09-19] MEDS: Amitriptyline HCl 10 MG TABLET 20 MG PO (21:40)
[2023-09-19 22:24] LABS: Theophylline 18.8 MG/L ((10-20))
[2023-09-20] VITALS (7 sets, daily range): BP systolic 101–133; BP diastolic 76–87; PULSE 67–100; RESP 16–20; TEMP 36–36.6; O2SAT 93–97
[2023-09-20] MEDS: guaiFENesin DM 100/10/5 ML 5 ML SYRUP PO ×4 (03:51→21:32)
[2023-09-20] MEDS: Omeprazole 40 MG CAPSULE.DR PO ×2 (05:45→16:59)
[2023-09-20] MEDS: Albuterol/Iprat 2.5/0.5MG 3 ML AMPUL.NEB INHALE ×3 (07:49→20:51)
[2023-09-20] MEDS: Fluticasone/Vilanterol 100/25 BLST.W.DEV 1 PUFF INHALE (07:59)
[2023-09-20] MEDS: Azelastine HCl Nasal 137 MCG/Spray 30 ML 2 SPRAY NOSTRIL-B ×2 (08:37→21:32)
[2023-09-20] MEDS: Sucralfate 1 GM TABLET PO ×3 (08:38→16:59)
[2023-09-20] MEDS: methylPREDNISolone Sod Succ 40 MG/ML VIAL IVPUSH ×2 (08:38→21:32)
[2023-09-20] MEDS: 0.9 % Sodium Chloride Flush 3 ML SYRINGE IVFLUSH ×3 (08:38→19:20)
[2023-09-20] MEDS: Theophylline Anhydrous ER 400 MG TAB.ER.24H PO ×2 (08:38→21:32)
[2023-09-20] MEDS: Multivitamin TABLET 1 TAB PO (08:39)
[2023-09-20] MEDS: Doxycycline Monohydrate 100 MG CAPSULE PO ×2 (08:39→21:32)
[2023-09-20] MEDS: Magnesium Oxide 400 MG TABLET PO (08:39)
[2023-09-20] MEDS: Cholecalciferol (Vitamin D3) 25 MCG TABLET 50 MCG PO (08:41)
[2023-09-20] MEDS: Furosemide 20 MG TABLET PO (08:42)
--- NOTE | 2023-09-20 11:06 | MHC.CM.PN ---
PATIENT AGREEABLE TO PALLIATIVE/HOSPICE CONSULT, NOW PLACED TO [facility]. PER CONVERSATION WITH [facility] AT 5095, THEY ARE AGREEABLE TO CONSULTING AND PATIENT IS APPROPRIATE FOR THE SERVICE
[2023-09-20] MEDS: Benzonatate 100 MG CAPSULE PO (11:12)
--- NOTE | 2023-09-20 14:25 | HO.PM.IMPN ---
Subjective Subjective Date of Service: 09/20/23 Interval History: Not feeling good this morning complaining of persistent shortness of breath does not feel to be at baseline admits to be declining in last 6 months, no cough, no fevers, no chills tolerating diet, denies headache, no lightheadedness or dizziness. Review of Systems All other system reviewed and negative. Physical Exam Vital Signs: Vital Signs: Last Vital Signs Temp 98 F 09/20/23 06:47 Pulse 76 09/20/23 07:50 Resp 16 09/20/23 07:50 BP 133/87 09/20/23 06:47 Pulse Ox 94 09/20/23 06:47 O2 Del Method Nasal Cannula 09/20/23 06:47 O2 Flow Rate 2 09/20/23 06:47 Oxygen Flow Rate 3 09/10/23 21:10 BMI result Body Mass Index 18.0 Const: Other: Gen: Awake alert appears short of breath in mild distress HEENT: sclera anicteric, moist mucus membranes Neck: supple Lungs: Bilateral expiratory wheeze, prolonged expiratory phase Heart: regular rate and rhythm, no murmurs Abd: soft, non-tender, non-distended Ext: no edema Skin: warm/well-perfused Neuro: alert and oriented x3, no focal findings Psych: appropriate affect Objective Data Active Medications Acetaminophen (Acetaminophen 325 Mg Tablet) 650 mg PO Q6H PRN PRN Reason: Pain, Mild (Pain Scale 1-3) Albuterol/Ipratropium (Albuterol/Iprat 2.5/0.5mg 3 Ml Ampul.Neb) 3 ml INHALE RQ4H WHILE AWAKE [facility] Last Admin: 09/20/23 11:15 Dose: Not Given Documented By: ZOHREH Non-Admin Reason: Patient Refused Albuterol/Ipratropium (Albuterol/Iprat 2.5/0.5mg 3 Ml Ampul.Neb) 3 ml INHALE Q4H PRN PRN Reason: Wheezing Amitriptyline HCl (Amitriptyline Hcl 10 Mg Tablet) 20 mg PO BEDTIME [facility] Last Admin: 09/19/23 21:40 Dose: 20 mg Documented By: SUZANNE Atorvastatin Calcium (Atorvastatin Calcium 20 Mg Tablet) 20 mg PO BEDTIME [facility] Last Admin: 09/19/23 21:40 Dose: 20 mg Documented By: SUZANNE Azelastine HCl (Azelastine Hcl Nasal 137 Mcg/[place] 30 Ml) 2 spray NOSTRIL-B BID [facility] Last Admin: 09/20/23 08:37 Dose: 2 spray Documented By: ALBERTO Benzonatate (Benzonatate 100 Mg Capsule) 100 mg PO TID PRN PRN Reason: Cough Last Admin: 09/20/23 11:12 Dose: 100 mg Documented By: ALBERTO Doxycycline Monohydrate (Doxycycline Monohydrate 100 Mg Capsule) 100 mg PO Q12H [facility] Last Admin: 09/20/23 08:39 Dose: 100 mg Documented By: ALBERTO Enoxaparin Sodium (Enoxaparin Sodium 40 Mg/0.4 Ml Syringe) 40 mg SUBCUT Q24H [facility] Last Admin: 09/19/23 22:48 Dose: Not Given Documented By: SUZANNE Non-Admin Reason: Patient Refused Fluticasone/Vilanterol (Fluticasone/Vilanterol 100/25 Blst.W.Dev) 1 puff INHALE DAILY [facility] Last Admin: 09/20/23 07:59 Dose: 1 puff Documented By: ZOHREH Furosemide (Furosemide 20 Mg Tablet) 20 mg PO DAILY [facility]; Protocol Last Admin: 09/20/23 08:42 Dose: 20 mg Documented By: ALBERTO Guaifenesin (Guaifenesin La 600 Mg Tab.Er.12h) 600 mg PO TID PRN PRN Reason: mucous Last Admin: 09/15/23 20:05 Dose: 600 mg Documented By: FLORENCE Guaifenesin/Dextromethorphan (Guaifenesin Dm 100/10/5 Ml 5 Ml Syrup) 5 ml PO Q6H [facility] Last Admin: 09/20/23 08:38 Dose: 5 ml Documented By: ALBERTO Lorazepam (Lorazepam 1 Mg Tablet) 1 mg PO BEDTIME [facility] Last Admin: 09/19/23 21:40 Dose: 1 mg Documented By: SUZANNE Magnesium Oxide (Magnesium Oxide 400 Mg Tablet) 400 mg PO DAILY [facility] Last Admin: 09/20/23 08:39 Dose: 400 mg Documented By: ALBERTO Melatonin (Melatonin 3 Mg Tablet) 6 mg PO BEDTIME PRN PRN Reason: Insomnia Last Admin: 09/18/23 21:06 Dose: 6 mg Documented By: ALLEY Methylprednisolone Sodium Succinate (Methylprednisolone Sod Succ 40 Mg/Ml Vial) 40 mg IVPUSH Q12H [facility] Last Admin: 09/20/23 08:38 Dose: 40 mg Documented By: ALBERTO Multivitamins/Vitamin C (Multivitamin Tablet) 1 tab PO DAILY [facility] Last Admin: 09/20/23 08:39 Dose: 1 tab Documented By: ALBERTO Omeprazole (Omeprazole 40 Mg Capsule.Dr) 40 mg PO BID@0630,1630 [facility] Last Admin: 09/20/23 05:45 Dose: 40 mg Documented By: SUZANNE Ondansetron HCl (Ondansetron Hcl 4 Mg/2 Ml Vial) 4 mg IVPUSH Q8H PRN PRN Reason: Nausea and Vomiting Sodium Chloride (0.9 % Sodium Chloride Flush 3 Ml Syringe) 3 ml IVFLUSH QSHIFT [facility] Last Admin: 09/20/23 08:38 Dose: 3 ml Documented By: ALBERTO Sucralfate (Sucralfate 1 Gm Tablet) 1 gm PO TIDWM [facility] Last Admin: 09/20/23 12:35 Dose: 1 gm Documented By: ALBERTO Theophylline (Theophylline Anhydrous Er 400 Mg Tab.Er.24h) 400 mg PO BID [facility] Last Admin: 09/20/23 08:38 Dose: 400 mg Documented By: ALBERTO Tiotropium [place] (Tiotropium [place] 2.5 Mcg Inhaler) 1 puff INHALE RDAILY [facility] Last Admin: 09/20/23 07:59 Dose: 1 puff Documented By: ZOHREH Trazodone HCl (Trazodone Hcl 100 Mg Tablet) 100 mg PO BEDTIME PRN PRN Reason: Insomnia Last Admin: 09/11/23 20:13 Dose: 100 mg Documented By: GERMAINE Vitamin D (Cholecalciferol (Vitamin D3) 25 Mcg Tablet) 50 mcg PO DAILY [facility] Last Admin: 09/20/23 08:41 Dose: 50 mcg Documented By: ALBEROT Labs 09/11/23 05:55 09/16/23 05:04 Labs: Laboratory Results - last 24 hr 09/19/23 08:12 Theophylline 18.8 Assessment and Plan (1) Acute and chronic respiratory failure: Status: Acute (2) Bronchitis: Status: Acute (3) Acute exacerbation of chronic obstructive pulmonary disease: Status: Acute Plan 78yo M with chronic hypoxia due to COPD [on 2L home O2], HLD, HF with mildly reduced EF, GERD, mood disorder presented with dyspnea, admitted for acute/chronic hypoxia due to COPD exac acute/chronic hypoxc resp failure due to COPD exac - persistent shortness of breath and cough slow recovery on IV methylprednisolone 40mg q12 , continue scheduled/prn nebs, Tessalon, guaifenesin/DM - on home O2 2L - nasal MRSA negative, sputum culture oral shaun - Pulm consulted 09/12/23, on doxycycline and theophyilline level 18.8 spoke with patient his daughter, friend and ex- , since patient follows with pulmonology as outpatient and 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 acute/chronic HF with mildly reduced EF - appears euvolemic, s/p IV lasix now on PO furosemide since 09/16/23 - TTE 06/28/23: - Normal left ventricular cavity size. There is normal left ventricular wall thickness. The left ventricular systolic function is borderline reduced. The visually estimated ejection fraction is between 45-50%. - Mildly increased right ventricular cavity size. There is normal right ventricular systolic function. - Mild pulmonary hypertension is present. - There is mild dilatation of the ascending aorta measuring 3.60 cm. HLD -cont. statin mood disorder - continue amitriptylline, trazodone, sucralfate, and lorazepam GERD continue PPI, sucralfate underweight - on supplements VTE ppx - LMWH dispo - seen by Physical therapy they recommend hospice since patient noted to have tachypnea use of accessory muscles with breathing, poor tolerance to functional activity tripoding Family agreed for hospice care business case analyst looking for rehab bed. In my clinical judgment, the patient requires continued inpatient hospitalization for the following reasons: respiratory status Time Spent With Patient Time: Total time managing care of this patient today ____ minutes. Quality Stroke Does the patient have a stroke diagnosis?: No VTE Prior VTE?: No VTE Risk Level:: Medical - moderate - high VTE Device Contraindication: Treatment Not Indicated VTE Drug Contraindication: N/A - Med Ordered
--- NOTE | 2023-09-20 15:53 | MHC.CM.PN ---
A Hospice informational meeting was done this afternoon. [facility]. [facility]. They will need to provide Authorization. ELINA Jones skilled via [facility]
[2023-09-20] MEDS: guaiFENesin LA 600 MG TAB.ER.12H PO (19:20)
[2023-09-20] MEDS: Amitriptyline HCl 10 MG TABLET 20 MG PO (21:32)
[2023-09-20] MEDS: Atorvastatin Calcium 20 MG TABLET PO (21:32)
[2023-09-20] MEDS: LORazepam 1 MG TABLET PO (21:32)
[2023-09-21] VITALS (7 sets, daily range): BP systolic 97–118; BP diastolic 69–90; PULSE 60–111; RESP 16–18; TEMP 36.2–36.6; O2SAT 93–96
[2023-09-21] MEDS: Butalb/Acetamin/Caff 50/325/40 TABLET 1 TAB PO ×2 (00:56→17:05)
[2023-09-21] MEDS: guaiFENesin DM 100/10/5 ML 5 ML SYRUP PO ×4 (03:23→20:40)
[2023-09-21] MEDS: Omeprazole 40 MG CAPSULE.DR PO ×2 (06:13→16:33)
[2023-09-21] MEDS: Albuterol/Iprat 2.5/0.5MG 3 ML AMPUL.NEB INHALE ×4 (08:08→19:21)
[2023-09-21] MEDS: Fluticasone/Vilanterol 100/25 BLST.W.DEV 1 PUFF INHALE (08:08)
[2023-09-21] MEDS: Theophylline Anhydrous ER 400 MG TAB.ER.24H PO (09:00)
[2023-09-21] MEDS: Multivitamin TABLET 1 TAB PO (09:00)
[2023-09-21] MEDS: Sucralfate 1 GM TABLET PO ×2 (09:00→16:33)
[2023-09-21] MEDS: Benzonatate 100 MG CAPSULE PO ×2 (09:00→16:33)
[2023-09-21] MEDS: 0.9 % Sodium Chloride Flush 3 ML SYRINGE IVFLUSH ×3 (09:00→17:37)
[2023-09-21] MEDS: Magnesium Oxide 400 MG TABLET PO (09:00)
[2023-09-21] MEDS: Doxycycline Monohydrate 100 MG CAPSULE PO ×2 (09:00→20:40)
[2023-09-21] MEDS: Cholecalciferol (Vitamin D3) 25 MCG TABLET 50 MCG PO (09:00)
[2023-09-21] MEDS: Furosemide 20 MG TABLET PO (09:00)
[2023-09-21] MEDS: methylPREDNISolone Sod Succ 40 MG/ML VIAL IVPUSH (09:00)
[2023-09-21] MEDS: Azelastine HCl Nasal 137 MCG/Spray 30 ML 2 SPRAY NOSTRIL-B ×2 (10:15→22:08)
--- NOTE | 2023-09-21 11:32 | MHC.CLN ---
F/U DIET=CARDIAC. PO INTAKE VARIABLE X 2 DAYS, 0-100%. DOES NOT WANT ENSURE SUPPLEMENT. CONTINUE TO FOLLOW FOR PO INTAKE.
--- NOTE | 2023-09-21 13:03 | P.DS_ITS ---
DS: Providers Provider Date of Service: 09/22/23 Date of admission: 09/10/23 22:47 Primary care physician: Kathie Turcios MD Consults: 09/10/23 22:53 Consult to Pulmonology Routine Consulting Provider: [facility] Pulmonology Services Reason for consultation: COPD exacerbation DS: Diagnosis Discharge Diagnosis (1) Acute and chronic respiratory failure: Status: Acute (2) Bronchitis: Status: Acute (3) Acute exacerbation of chronic obstructive pulmonary disease: Status: Acute DS: Summary Hospital Course Hospital Course: History of presenting illness: Date of Service: 09/10/23 Chief Complaint: Dyspnea This is a 78-year-old male with pertinent history of chronic hypoxemic respiratory failure due to COPD, essential hypertension, mixed hyperlipidemia, mood disorder, gastroesophageal reflux disease, congestive heart failure with reduced ejection fraction who presents to the emergency department for ev aluation of dyspnea. Of note, patient was recently admitted with COPD exacerbation and discharged on 08/21. Patient states that he was discharged on 2 L supplemental oxygen. Since the discharge, patient kept having progressive dyspnea this was worse with ambulation. His oxygen requirements increased and he had to use 4-6 L to help with his dyspnea. Also had associated wheezing and cough with intermittent sputum production. Denies orthopnea or PND. States he is compliant with his home inhalers. No fever, chills, chest discomfort, palpitations, abdominal pain, changes in urinary or bowel habits. In the emergency department, patient with significant wheezing and requiring supplemental oxygen. Hospital course: 78yo M with chronic hypoxia due to COPD [on 2L home O2], HLD, HF with mildly reduced EF, GERD, mood disorder presented with dyspnea, admitted for acute/chronic hypoxia due to COPD exacerbation. acute on chronic hypoxc resp failure due to COPD exacerbation, admitted to inte rmediate care unit treated with high-dose IV steroids, scheduled and as needed updraft treatment, cough medication, and oxygen, patient was evaluated by railroad watchman, treated with doxycycline, theophylline twice daily, treated with chest PT with flutter valve, sputum culture and blood culture obtained that were both negative, chest x-ray showed no acute infiltrate, nasal MRSA negative, patient respiratory status has been declining in last 6 months ,required multiple hospitalization,Since patient continued to have shortness of breath with minimal activity case was discussed with patient and his daughter healthcare proxy they agreed for hospice care, patient not seeking curative treatment at this time, expected end of life 6 months, therefore will discharge patient to rehab with hospice care with a diagnosis of COPD Will discharge patient on tapering dose of prednisone with recommendation to continue prednisone 10 mg daily if noted to have persistent shortness of breath, continue cough medication updraft treatment, and theophylline 300 mg b.i.d. chest PT as needed. Continue 2 L of home oxygen. Ritter catheter placed for urinary retention . acuteon chronic HF with mildly reduced EF, patient was treated with 1 dose of IV Lasix now transition to by mouth furosemide, transthoracic echocardiogram 06/28/23 showed: Normal left ventricular cavity size. Normal left ventricular wall thickness. The left ventricular systolic function is borderline reduced. The visually estimated ejection fraction is between 45-50%. Mildly increased right ventricular cavity size. normal right ventricular systolic function. Mild pulmonary hypertension is present. Mild dilatation of the ascending aorta measuring 3.60 cm. HLD continue statins mood disorder patient noted to have depressed mood , in last couple days with decreased by mouth intake, daughter aware, continue amitriptylline, schedule trazodone, and prn lorazepam. GERD continue PPI, and sucralfate, since patient noted to be underweight recommend supplements. Time Attestation Discharge coordination time: Greater than 30 minutes Quality: Safe Use of Opioids Does Pt have an Active Cancer Diagnosis on the Problem List?: No Quality: Stroke Does the patient have a stroke diagnosis?: No Physical Exam Vital Signs: Vital Signs: Last Vital Signs Temp 97.7 F 09/21/23 07:25 Pulse 84 09/21/23 11:40 Resp 18 09/21/23 11:40 BP 97/75 09/21/23 07:25 Pulse Ox 94 09/21/23 07:25 O2 Del Method Room Air 09/21/23 07:25 O2 Flow Rate 2 09/21/23 04:00 Oxygen Flow Rate 3 09/10/23 21:10 BMI result Body Mass Index 18.0 Const: Other: Gen: Awake alert appears anxious, in no respiratory distress HEENT: sclera anicteric, moist mucus membranes Neck: supple Lungs: prolonged expiratory phase, no respiratory distress, few expiratory wheeze Heart: regular rate and rhythm, no murmurs Abd: soft, non-tender, non-distended Ext: no edema Skin: warm/well-perfused Neuro: alert and oriented x3, no focal findings Psych: Depressed affect with periods of anxiety Discharge Plan Discharge Anticipated Discharge Date/Time: 09/21/23 13:15 Patient Disposition: Xfer SNF Discharge Diagnosis: Acute on chronic hypoxic respiratory failure Acute COPD exacerbation Acute on chronic congestive heart failure with reduced EF Referrals: [facility] [Outside] Kathie Turcios MD [Primary Care Provider] - 1 Week Discharge Medications: New ipratropium-albuterol 0.5 mg-3 mg(2.5 mg base)/3 mL Solution For Nebulization 3 ml inhalation Q4H PRN (Reason: Wheezing) Qty: 90 0RF Spiriva Respimat 2.5 mcg/actuation Mist 1 puff inhalation RDAILY Qty: 1 0RF ipratropium-albuterol 0.5 mg-3 mg(2.5 mg base)/3 mL Solution For Nebulization 3 ml inhalation RQ4H WHILE AWAKE Qty: 90 0RF prednisone 10 mg tablet 10 mg PO DIRECTED Qty: 30 0RF Rx Instructions: see taper instructions theophylline 300 mg tablet extended release 12 hr 300 mg PO Q12H Qty: 60 0RF Continued acetaminophen 500 mg Tablet 500 mg PO BID PRN (Reason: Pain) omeprazole 20 mg Capsule,Delayed Release(Dr/Ec) 40 mg PO BID@0630,1630 atorvastatin 40 mg Tablet 20 mg PO BEDTIME amitriptyline 10 mg Tablet 20 mg PO BEDTIME albuterol sulfate 90 mcg/actuation Hfa Aerosol Inhaler 1 inh INHALATION QID PRN (Reason: Wheezing) sucralfate 1 gram Tablet 1 g PO TIDWM multivitamin Tablet 1 tab PO DAILY Breztri Aerosphere 160-9-4.8 mcg/actuation Hfa Aerosol Inhaler 2 inh INHALATION BID guaifenesin 600 mg Tablet Extended Release 12hr 600 mg PO TID PRN (Reason: mucous) magnesium oxide 420 mg Tablet 420 mg PO DAILY riboflavin (vitamin B2) 100 mg Tablet 200 mg PO BEDTIME azelastine 137 mcg (0.1 %) Aerosol,Mcdaniel 2 spray INTRANASAL BID Rx Instructions: administer into each nostril cholecalciferol (vitamin D3) 50 mcg (2,000 unit) Tablet 50 mcg PO DAILY [id number] [Fioricet] 50-300-40 mg capsule 1 cap PO Q8H PRN (Reason: pain) Qty: 9 0RF Changed trazodone 100 mg Tablet 100 mg PO BEDTIME Qty: 30 0RF Discontinued prednisone 20 mg Tablet 20 mg PO DAILY ipratropium-albuterol 0.5 mg-3 mg(2.5 mg base)/3 mL Solution For Nebulization 3 ml INHALATION Q6H PRN (Reason: Wheezing) tobramycin with nebulizer 300 mg/5 mL Solution For Nebulization 300 mg INHALATION BID Rx Instructions: separate doses by at least 6 hours, use for 28 days, then off for 28 days. Patient currently in off cycle due to restart 09/30/23 Discharge Orders: Discharge Order (Routine); Ordered 09/22/23 Ordered By: Peg Cervantes Diet: Advance to usual diet Activity on Discharge: As tolerated Stand Alone Forms: Patient Portal Discharge page Care Plan Goals: COPD continue all inhalers and tapering dose of prednisone, continue prolong prednsione 10mg daily after acute taper Continue 2 L of home oxygen Hospice evaluation/see [facility] form Health Concerns: Chronic CHF with reduced EF, hyperlipidemia,mood disorder Plan of Treatment: Outpatient follow-up with primary care physician and pulmonology. Assessment: As above
--- NOTE | 2023-09-21 15:41 | HO.PM.IMPN ---
Subjective Subjective Date of Service: 09/22/23 Interval History: Offers no acute complaints feels better no cough, no sputum production, no fevers, no chills, tolerating diet, stable oxygenation, no other acute issues overnight. Review of Systems All other system reviewed and negative Physical Exam Vital Signs: Vital Signs: Last Vital Signs Temp 97.7 F 09/21/23 07:25 Pulse 84 09/21/23 11:40 Resp 18 09/21/23 11:40 BP 97/75 09/21/23 07:25 Pulse Ox 94 09/21/23 07:25 O2 Del Method Room Air 09/21/23 07:25 O2 Flow Rate 2 09/21/23 04:00 Oxygen Flow Rate 3 09/10/23 21:10 BMI result Body Mass Index 18.0 Const: Other: Gen: Awake alert appears short of breath in mild distress HEENT: sclera anicteric, moist mucus membranes Neck: supple Lungs: prolonged expiratory phase,few exp wheeze no tachypnea no use of accessory muscles Heart: regular rate and rhythm, no murmurs Abd: soft, non-tender, non-distended Ext: no edema Skin: warm/well-perfused Neuro: alert and oriented x3, no focal findings Psych: depressed affect Objective Data Active Medications Acetaminophen (Acetaminophen 325 Mg Tablet) 650 mg PO Q6H PRN PRN Reason: Pain, Mild (Pain Scale 1-3) Acetaminophen/Butalbital/Caffeine (Butalb/Acetamin/Caff 50/325/40 Tablet) 1 tab PO Q6H PRN PRN Reason: Headache Last Admin: 09/21/23 00:56 Dose: 1 tab Documented By: SUZANNE Albuterol/Ipratropium (Albuterol/Iprat 2.5/0.5mg 3 Ml Ampul.Neb) 3 ml INHALE RQ4H WHILE AWAKE [facility] Last Admin: 09/21/23 11:44 Dose: 3 ml Documented By: DAVON Albuterol/Ipratropium (Albuterol/Iprat 2.5/0.5mg 3 Ml Ampul.Neb) 3 ml INHALE Q4H PRN PRN Reason: Wheezing Amitriptyline HCl (Amitriptyline Hcl 10 Mg Tablet) 20 mg PO BEDTIME [facility] Last Admin: 09/20/23 21:32 Dose: 20 mg Documented By: SUZANNE Atorvastatin Calcium (Atorvastatin Calcium 20 Mg Tablet) 20 mg PO BEDTIME [facility] Last Admin: 09/20/23 21:32 Dose: 20 mg Documented By: SUZANNE Azelastine HCl (Azelastine Hcl Nasal 137 Mcg/[place] 30 Ml) 2 spray NOSTRIL-B BID [facility] Last Admin: 09/21/23 10:15 Dose: 2 spray Documented By: ALBERTO Benzonatate (Benzonatate 100 Mg Capsule) 100 mg PO TID PRN PRN Reason: Cough Last Admin: 09/21/23 09:00 Dose: 100 mg Documented By: ALBERTO Doxycycline Monohydrate (Doxycycline Monohydrate 100 Mg Capsule) 100 mg PO Q12H [facility] Last Admin: 09/21/23 09:00 Dose: 100 mg Documented By: ALBERTO Enoxaparin Sodium (Enoxaparin Sodium 40 Mg/0.4 Ml Syringe) 40 mg SUBCUT Q24H [facility] Last Admin: 09/20/23 22:59 Dose: Not Given Documented By: SUZANNE Non-Admin Reason: Patient Refused Fluticasone/Vilanterol (Fluticasone/Vilanterol 100/25 Blst.W.Dev) 1 puff INHALE DAILY [facility] Last Admin: 09/21/23 08:08 Dose: 1 puff Documented By: DAVON Furosemide (Furosemide 20 Mg Tablet) 20 mg PO DAILY [facility]; Protocol Last Admin: 09/21/23 09:00 Dose: 20 mg Documented By: ALBERTO Guaifenesin (Guaifenesin [place] 600 Mg Tab.Er.12h) 600 mg PO TID PRN PRN Reason: mucous Last Admin: 09/20/23 19:20 Dose: 600 mg Documented By: SUZANNE Guaifenesin/Dextromethorphan (Guaifenesin Dm 100/10/5 Ml 5 Ml Syrup) 5 ml PO Q6H [facility] Last Admin: 09/21/23 09:00 Dose: 5 ml Documented By: ALBERTO Lorazepam (Lorazepam 1 Mg Tablet) 1 mg PO BEDTIME [facility] Last Admin: 09/20/23 21:32 Dose: 1 mg Documented By: SUZANNE Magnesium Oxide (Magnesium Oxide 400 Mg Tablet) 400 mg PO DAILY [facility] Last Admin: 09/21/23 09:00 Dose: 400 mg Documented By: ALBERTO Melatonin (Melatonin 3 Mg Tablet) 6 mg PO BEDTIME PRN PRN Reason: Insomnia Last Admin: 09/18/23 21:06 Dose: 6 mg Documented By: ALLEY Multivitamins/Vitamin C (Multivitamin Tablet) 1 tab PO DAILY [facility] Last Admin: 09/21/23 09:00 Dose: 1 tab Documented By: ALBERTO Omeprazole (Omeprazole 40 Mg Capsule.Dr) 40 mg PO BID@0630,1630 [facility] Last Admin: 09/21/23 06:13 Dose: 40 mg Documented By: SUZANNE Ondansetron HCl (Ondansetron Hcl 4 Mg/2 Ml Vial) 4 mg IVPUSH Q8H PRN PRN Reason: Nausea and Vomiting Sodium Chloride (0.9 % Sodium Chloride Flush 3 Ml Syringe) 3 ml IVFLUSH QSHIFT [facility] Last Admin: 09/21/23 09:00 Dose: 3 ml Documented By: ALBERTO Sucralfate (Sucralfate 1 Gm Tablet) 1 gm PO TIDWM [facility] Last Admin: 09/21/23 14:00 Dose: Not Given Documented By: ALBERTO Non-Admin Reason: Patient Asleep Theophylline (Theophylline Anhydrous Er 300 Mg Tab.Er.12h) 300 mg PO BID [facility] Tiotropium [place] (Tiotropium [place] 2.5 Mcg Inhaler) 1 puff INHALE RDAILY [facility] Last Admin: 09/21/23 08:08 Dose: 1 puff Documented By: DAVON Trazodone HCl (Trazodone Hcl 100 Mg Tablet) 100 mg PO BEDTIME PRN PRN Reason: Insomnia Last Admin: 09/11/23 20:13 Dose: 100 mg Documented By: GERMAINE Vitamin D (Cholecalciferol (Vitamin D3) 25 Mcg Tablet) 50 mcg PO DAILY [facility] Last Admin: 09/21/23 09:00 Dose: 50 mcg Documented By: ALBERTO Labs 09/11/23 05:55 09/16/23 05:04 Assessment and Plan (1) Acute and chronic respiratory failure: Status: Acute (2) Bronchitis: Status: Acute (3) Acute exacerbation of chronic obstructive pulmonary disease: Status: Acute Plan 78yo M with chronic hypoxia due to COPD [on 2L home O2], HLD, HF with mildly reduced EF, GERD, mood disorder presented with dyspnea, admitted for acute/chronic hypoxia due to COPD exac acute/chronic hypoxc resp failure due to COPD exac - persistent shortness of breath and cough slow recovery on IV methylprednisolone 40mg q12 , continue scheduled/prn nebs, Tessalon, guaifenesin/DM - on home O2 2L - nasal MRSA negative, sputum culture oral shaun - Pulm consulted 09/12/23,placed on doxycycline and theophyilline level 18.8 Will transition to by mouth prednisone DC doxycycline after today's dose, reduced dose of theophylline to 300 b.i.d. 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 CM is arranging for rehab bed for hospice care acute/chronic HF with mildly reduced EF - appears euvolemic, s/p IV lasix now on PO furosemide since 09/16/23 - TTE 06/28/23: - Normal left ventricular cavity size. There is normal left ventricular wall thickness. The left ventricular systolic function is borderline reduced. The visually estimated ejection fraction is between 45-50%. - Mildly increased right ventricular cavity size. There is normal right ventricular systolic function. - Mild pulmonary hypertension is present. - There is mild dilatation of the ascending aorta measuring 3.60 cm. HLD -cont. statin mood disorder - continue amitriptylline, trazodone, and lorazepam, will change trazodone to scheduled GERD continue PPI, sucralfate underweight - on supplements VTE ppx - LMWH dispo - seen by Physical therapy they recommend hospice since patient noted to have tachypnea use of accessory muscles with breathing, poor tolerance to functional activity tripoding Family agreed for hospice care director of casework department looking for auth for rehab bed. In my clinical judgment, the patient requires continued inpatient hospitalization for the following reasons: respiratory status Quality Stroke Does the patient have a stroke diagnosis?: No VTE Prior VTE?: No VTE Risk Level:: Medical - moderate - high VTE Device Contraindication: Treatment Not Indicated VTE Drug Contraindication: N/A - Med Ordered
--- NOTE | 2023-09-21 15:54 | MHC.CM.PN ---
[facility]. DC is pending [place] Authorization for Hospice in a facility.[facility] @ [facility] via S.
[2023-09-21] MEDS: Morphine Sulfate 2 MG/ML CARTRIDGE IVPUSH (17:37)
[2023-09-21] MEDS: LORazepam 1 MG TABLET PO (20:40)
[2023-09-21] MEDS: Atorvastatin Calcium 20 MG TABLET PO (20:40)
[2023-09-21] MEDS: Amitriptyline HCl 10 MG TABLET 20 MG PO (20:40)
[2023-09-21] MEDS: Theophylline Anhydrous ER 300 MG TAB.ER.12H PO (20:40)
[2023-09-21] MEDS: Enoxaparin Sodium 40 MG/0.4 ML SYRINGE SUBCUT (22:08)
--- NOTE | 2023-09-21 22:10 | PC.NURSE ---
pt IV has over date. this nurse asked to put new IV insertion, pt refused for tonight. pt said not tonight, tomorrow day nurse will try tomorrow morning. will cont to monitor any changes.
[2023-09-22] MEDS: Butalb/Acetamin/Caff 50/325/40 TABLET 1 TAB PO (01:30)
[2023-09-22 03:24] VITALS: BP 125/63; PULSE 70; RESP 16; TEMP 36.4; O2SAT 95
[2023-09-22] MEDS: Omeprazole 40 MG CAPSULE.DR PO (06:30)
[2023-09-22 07:08] VITALS: BP 109/75; PULSE 71; RESP 16; TEMP 36.1; O2SAT 96
[2023-09-22] MEDS: Fluticasone/Vilanterol 100/25 BLST.W.DEV 1 PUFF INHALE (08:06)
[2023-09-22] MEDS: Albuterol/Iprat 2.5/0.5MG 3 ML AMPUL.NEB INHALE (08:06)
[2023-09-22 08:07] VITALS: PULSE 68; RESP 18; O2SAT 95
[2023-09-22] MEDS: Sucralfate 1 GM TABLET PO (09:12)
[2023-09-22] MEDS: Azelastine HCl Nasal 137 MCG/Spray 30 ML 2 SPRAY NOSTRIL-B (09:12)
[2023-09-22] MEDS: Furosemide 20 MG TABLET PO (09:12)
[2023-09-22] MEDS: Magnesium Oxide 400 MG TABLET PO (09:12)
[2023-09-22] MEDS: Multivitamin TABLET 1 TAB PO (09:12)
[2023-09-22] MEDS: Theophylline Anhydrous ER 300 MG TAB.ER.12H PO (09:12)
[2023-09-22] MEDS: predniSONE 20 MG TABLET 40 MG PO (09:12)
[2023-09-22] MEDS: guaiFENesin DM 100/10/5 ML 5 ML SYRUP PO (09:13)
[2023-09-22] MEDS: Cholecalciferol (Vitamin D3) 25 MCG TABLET 50 MCG PO (09:13)
[2023-09-22] MEDS: 0.9 % Sodium Chloride Flush 3 ML SYRINGE IVFLUSH (09:14)
[2023-09-22] MEDS: LORazepam 0.5 MG TABLET PO (10:58)
--- NOTE | 2023-09-22 12:19 | MHC.CM.PN ---
Addendum entered by Cinthia Umanzor 09/22/23 15:57: PT DISCHARGED TO SNF VIA [facility] AWAITING CONFIRMATION THAT [facility] WILL ADMIT TODAY DAUGHTER PRESENT AT DC Addendum entered by Cinthia Umanzor 09/22/23 13:49: CM SPOKE WITH KARISSA AT [facility] SN[facility], THEY ARE ABLE TO ACCEPT PT ANY TIME CM CALLED OH AT THE PR, SHE WILL ARRANGE TRANSPORT VIA ALERT [facility] CALLED BACK AND INDICATED BLS TRANSPORT WOULD BE AFTER 1500 HOURS [facility] NOW AWARE OF DC Original Note: PT WILL DC TO [facility] TODAY WITH HOSPICE CM SPOKE TO OH AT THE PR WHO INDICATED AUTH HAS BEEN APPROVED SHE IS WAITING FOR A TIME TO ARRANGE TRANSPORT CM LEFT MULTIPLE MESSAGES FOR [facility], AWAITING RESPONSE
[2023-09-22] MEDS: Acetaminophen 325 MG TABLET 650 MG PO (14:43)
[2023-09-22] MEDS: oxyCODONE HCl Immed Release 5 MG TABLET PO (15:15)
== END 2023-09-22 16:11 | disposition skilled nursing facility (03) | DRG 190 ==
LOC: HO.ED 22:47 → HO.EDOVER 22:54 → HO.S3 09-11 23:41
PROVIDERS: Family Medicine; Hospitalist; Internal Medicine; Admitting Provider Student in an Organized Health Care Education/Training Program; Emergency Provider Emergency Medicine Emergency Medical Services; PCP Internal Medicine; Visit Provider Hospitalist
DX: J44.0 Chronic obstructive pulmonary disease with (acute) lower respiratory infection (principal); I50.23 Acute on chronic systolic (congestive) heart failure; J96.21 Acute and chronic respiratory failure with hypoxia; J20.9 Acute bronchitis, unspecified; J44.1 Chronic obstructive pulmonary disease with (acute) exacerbation; I11.0 Hypertensive heart disease with heart failure; K21.9 Gastro-esophageal reflux disease without esophagitis; Z99.81 Dependence on supplemental oxygen; E78.2 Mixed hyperlipidemia; I27.20 Pulmonary hypertension, unspecified; R63.6 Underweight; Z23 Encounter for immunization; Z87.891 Personal history of nicotine dependence; Z20.822 Contact with and (suspected) exposure to COVID-19; Z88.0 Allergy status to penicillin; Z79.899 Other long term (current) drug therapy
CPT/HCPCS: 0241U; 36415; 36600; 71045; 80048; 80053; 80198; 81001; 82784; 82785; 82803; 83605; 83735; 83880; 84484; 85025; 85652; 87040; 87086; 87205; 87633; 87640; 87641; 90686; 93005; 94640; 97161; 97530; 99285; J0456; J0696; J1650; J1940; J2060; J2270; J2920; J2930; J3475

== ENCOUNTER → 2023-09-10 22:47 | Outpatient (BNV) | payer OTHER, SELFPAY | PROVIDERS: Admitting Provider Student in an Organized Health Care Education/Training Program; Emergency Provider Emergency Medicine Emergency Medical Services; PCP Internal Medicine; Visit Provider Student in an Organized Health Care Education/Training Program | DX: J96.20 Acute and chronic respiratory failure, unspecified whether with hypoxia or hypercapnia (principal); J44.1 Chronic obstructive pulmonary disease with (acute) exacerbation; J40 Bronchitis, not specified as acute or chronic | CPT/HCPCS: 99222; 99232; 99233; 99239 ==

== ENCOUNTER → 2023-09-10 22:47 | Outpatient (BNV) | payer OTHER, SELFPAY | PROVIDERS: Admitting Provider Student in an Organized Health Care Education/Training Program; Emergency Provider Emergency Medicine Emergency Medical Services; PCP Internal Medicine; Visit Provider Hospitalist | DX: J96.20 Acute and chronic respiratory failure, unspecified whether with hypoxia or hypercapnia (principal); J44.1 Chronic obstructive pulmonary disease with (acute) exacerbation; J96.12 Chronic respiratory failure with hypercapnia | CPT/HCPCS: 99223; 99233 ==